=== PATIENT | male | born 1950 | race Caucasian/White ===

== ENCOUNTER 2016-08-02 13:46 | Inpatient (IN) | payer OTHER, MEDICAID ==
--- NOTE | 2016-08-02 14:05 | EDPHY ---
[id number] Current Tetanus/Diphtheria Vaccine: Yes Current Tetanus Diphtheria and Acellular Pertussis (TDAP): Unsure Tetanus Vaccine Date: 10/2010 - Medical/Surgical History Hx Asthma: Yes Hx Chronic Respiratory Disease: Yes Hx Diabetes: No Hx Cardiac Disease: Yes Hx Renal Disease: No Hx Cirrhosis: No Hx Alcoholism: No Hx HIV/AIDS: No Hx Splenectomy or Spleen Trauma: No Other PMH: Severe anxiety, chronic pain, CAD, Asthma, left foot deformity/fx from 10 yrs ago, [place] w/stents, kidney problems - Social History Smoking Status: Never smoked Time Seen by Provider: 08/02/16 13:55 HPI/ROS: CHIEF COMPLAINT: intentional overdose HISTORY OF PRESENT ILLNESS: 66-year-old male history of depression, anxiety disorder, arrives on an M1 hold after he intentionally consumed 23 Klonopin tablets throughout the day yesterday and into the evening the evening at 6:00 p.m. which he initially stated to law enforcement was as a suicide attempt and informed the nurse in emergency department this was an attempt to get some sleep. He called 911 this morning stating that he was experiencing acute benzodiazepine withdrawal. He is complaining of acute anxiety. He denies self- injury. Denies suicidal or homicidal ideation when I interview him. Denies hallucination. Denies: Ingestion. Denies chest pain, dyspnea, back pain, abdominal pain, headache. REVIEW OF SYSTEMS: A ten point review of systems was performed and is negative with the exception of the items mentioned in the HPI PAST MEDICAL & SURGICAL HISTORY: Depression. Generalized anxiety disorder.Insomnia SOCIAL HISTORY:denies alcohol use. PHYSICAL EXAM (Prior to examination, patient consented to physical exam, hands were washed and my usual and customary physical exam procedures followed) 1) GENERAL: Poorly kept,, well-nourished, alert and oriented. Appears to be in no acute distress. 2) HEAD: Normocephalic, atraumatic 3) HEENT: Pupils equal, round, reactive to light bilaterally. Sclera anicteric. Nasopharynx, oropharynx, clear, no lesions. Ears bilaterally with normal tympanic membranes. 4) NECK: Full range of motion, no meningeal signs. 5) LUNGS: Clear auscultation bilaterally, no wheezes, no rhonchi, no retractions. 6) HEART: Regular rate and rhythm, no murmur, no heave, no gallop. 7) ABDOMEN: No guarding, no rebound, no focal tenderness, negative McBurney's, negative Eaton's, negative Rovsing's, negative peritoneal sign, 8) MUSCULOSKELETAL: Moving all extremities, no focal areas of tenderness, no obvious trauma. No peripheral edema or discoloration. 9) BACK: No CVA tenderness, no midline vertebral tenderness, no fluctuance, no step-off, no obvious trauma, no visual or palpable abnormality. 10) SKIN: No rash, no petechiae. 11) Psychiatric: Patient is oriented X 3, there is no agitation. DIFFERENTIAL DIAGNOSIS: in no particular including but not limited to intentional overdose, suicide attempt, homicidal ideation, suicidal ideation, depression, acute anxiety (Carroll,Coco Niki) Constitutional: Initial Vital Signs Temperature (C) 37.0 C 08/02/16 13:50 Heart Rate 99 08/02/16 13:50 Respiratory Rate 18 08/02/16 13:50 Blood Pressure 116/95 H 08/02/16 13:50 O2 Sat (%) 92 08/02/16 13:50 O2 Delivery Mode Room Air Allergies/Adverse Reactions: Sulfa (Sulfonamide Antibiotics) Allergy (Intermediate, Verified 02/18/16 03:13) Vomiting Home Medications: Medication Instructions Recorded Aspirin EC [Aspirin EC 81 mg (*)] 81 mg PO DAILY #0 tab 02/05/16 QUEtiapine FUMARATE [Seroquel 100 250 mg PO HS #75 tab 02/05/16 mg (*)] QUEtiapine FUMARATE [Seroquel 25 25 mg PO BID@08,13 PRN #60 tab 02/05/16 mg (*)] clonazePAM [klonoPIN (*)] 1 mg PO BID #30 tab 02/05/16 traZODone [traZODONE 100MG (*)] 400 mg PO HS #60 tab 02/05/16 Ibuprofen [Motrin (*)] 600 mg PO Q6 PRN 08/03/16 oxyCODONE/APAP 5/325 [Percocet 2 tab PO BID 08/03/16 5/325 (*)] Medical Decision Making - Diagnostics EKG Interpretation: EKG: Complete interpretation has been separately recorded in the [facility] archive. Summary impression: Sinus rhythm (LeannMadhav J) ED Course/Re-evaluation: 5 pm: Re-evaluation with serial exams. He has received IV hydration, Ativan while in the ER. He remains calm and cooperative. Care turned over to Dr Hannah at 5:00 p.m.. Mental health evaluation pending. (Coco Hodges) I took over care of this patient at 5:00 p.m.. This patient is on an M1 hold for depression and suicidal ideation. He is to be evaluated shortly. 7:08 p.m., patient seen and evaluated by Behavioral Health, [facility], patient to be admitted. Likely this admission for admission is [address] 11:50 p.m., patient awaiting admission for mental health management. Care turned over to Dr. Kimo Celeste at this time. (Mj Hannah) - Data Points Laboratory Results: Laboratory Results 08/02/16 14:30 08/02/16 14:30 Medications Given: Discontinued Medications Clonazepam (Klonopin) 1 mg PO ONCE ONE Stop: 08/03/16 09:01 Last Admin: 08/03/16 09:06 Dose: 1 mg Sodium Chloride (Ns) 1,000 mls @ 0 mls/hr IV ONCE ONE PRN Reason: Wide Open Stop: 08/02/16 14:41 Last Admin: 08/02/16 14:42 Dose: 1,000 mls Lorazepam (Ativan Injection) 1 mg IVP EDNOW ONE Stop: 08/02/16 14:33 Last Admin: 08/02/16 14:47 Dose: 1 mg Lorazepam (Ativan) 1 mg PO EDNOW ONE Stop: 08/03/16 01:38 Last Admin: 08/03/16 02:18 Dose: 1 mg Oxycodone/Acetaminophen (Percocet 5/325) 1 tab PO EDNOW ONE Stop: 08/02/16 20:19 Last Admin: 08/02/16 20:30 Dose: 1 tab Quetiapine Fumarate (Seroquel) 200 mg PO EDNOW ONE Stop: 08/02/16 23:01 Last Admin: 08/03/16 02:18 Dose: 200 mg Quetiapine Fumarate (Seroquel) 25 mg PO ONCE ONE Stop: 08/03/16 09:31 Last Admin: 08/03/16 09:06 Dose: 25 mg Departure - Departure Disposition: [facility] IP Clinical Impression: Intentional overdose of drug in tablet form Depression Qualifiers: Depression Type: major depressive disorder Major depression recurrence: recurrent Active/Remission status: currently active Major depression episode severity: severe Psychotic features: without psychotic features Qualifier Code: (F33.2) Major depressive disorder, recurrent severe without psychotic features
--- NOTE | 2016-08-02 14:17 | CPEKG ---
Heart Rate: 93 RR Interval: 645 P-R Interval: 152 QRSD Interval: 80 QT Interval: 344 QTC Interval: 428 P Woodward: 77 QRS Woodward: -2 T Wave Woodward: 69 EKG Severity - NORMAL ECG - EKG Impression: SINUS RHYTHM Electronically Signed By: Madhav Noriega 02-Aug-2016 16:01:49
[2016-08-02] MEDS ORDERED: LORazepam 2 MG/ML INJ IVP ONE (14:32)
[2016-08-02] MEDS ORDERED: NS 1,000 ML IV ONE (14:40)
[2016-08-02 14:41] LABS: % IMMATURE GRANULYOCYTES 0.4 % (0.0-1.1); ABSOLUTE IMMATURE GRANULOCYTES 0.03 10^3/uL (0.00-0.10); ADD DIFF? NO; ADD MORPH? NO; ADD SCAN? NO; ATYPICAL LYMPHOCYTE FLAG 0 (0-99); FRAGMENT RBC FLAG 0 (0-99); HEMATOCRIT 46.8 % (40.0-51.0); HEMOGLOBIN 16.3 g/dL (13.7-17.5); LEFT SHIFT FLG 0 (0-99); LIPEMIA HEMOLYSIS FLAG 90 (0-99); MEAN CELL HEMOGLOBIN 31.4 pg (27.9-34.1); MEAN CELL HEMOGLOBIN CONCENTR. 34.8 g/dL (32.4-36.7); MEAN CELL VOLUME 90.2 fL (81.5-99.8); MEAN PLATELET VOLUME 8.9 fL (8.7-11.7); PLATELET CLUMPS FLAG 0 (0-99); PLATELET COUNT 172 10^3/uL (150-400); RED BLOOD CELL COUNT 5.19 10^6/uL (4.40-6.38); RED CELL DISTRIBUTION WIDTH 12.8 % (11.5-15.2)
[2016-08-02 14:54] LABS: ANION GAP 12 mEq/L (8-16); CALCIUM 9.2 mg/dL (8.5-10.4); CARBON DIOXIDE 22 mEq/l (22-31); CHLORIDE 107 mEq/L (97-110); CREATININE 1.7 mg/dL (0.7-1.3); ETHANOL SERUM < 10 mg/dL (0-10); GLOMERULAR FILTRATION RATE 40; GLUCOSE 102 mg/dL (70-100); POTASSIUM 4.5 mEq/L (3.5-5.2); SALICYLATE < 1.0 mg/dL (2.0-20.0); SODIUM 141 mEq/L (134-144); SPECIMEN HEMOLYSIS 112
[2016-08-02] MEDS ORDERED: OXYCODONE/APAP 5/325 TAB PO ONE (20:18)
[2016-08-02] MEDS ORDERED: QUEtiapine FUMARATE 200 MG TAB PO ONE (23:00)
[2016-08-03] MEDS ORDERED: LORazepam 1 MG TAB PO ONE (01:37)
[2016-08-03] MEDS ORDERED: QUEtiapine FUMARATE 200 MG TAB ONE (02:16)
[2016-08-03 02:36] LABS: ALANINE AMINOTRANSFERASE 15 IU/L (21-72); ALBUMIN 3.9 g/dL (3.5-5.0); ALKALINE PHOSPHATASE 115 IU/L (38-126); ASPARTATE AMINOTRANSFERASE 32 IU/L (17-59); BILIRUBIN,TOTAL 0.7 mg/dL (0.1-1.4); BILIRUBIN-CONJUGATED 0.5 mg/dL (0.0-0.5); BILIRUBIN-UNCONJUGATED 0.2 mg/dL (0.0-1.1); SALICYLATE < 1.0 mg/dL (2.0-20.0); TOTAL PROTEIN 6.9 g/dL (6.3-8.2)
[2016-08-03] MEDS ORDERED: traZODone 50 MG TAB PO PRN (03:11)
[2016-08-03] MEDS ORDERED: ACETAMINOPHEN 325 MG TAB PO PRN (03:11)
[2016-08-03] MEDS ORDERED: MAG HYDROX/AL HYDROX/SIMETH 30 ML UDCUP PO PRN (03:12)
[2016-08-03] MEDS ORDERED: MAGNESIUM HYDROXIDE 30 ML UDCUP PO PRN (03:12)
[2016-08-03] MEDS ORDERED: clonazePAM 1 MG TAB PO ONE (09:00)
[2016-08-03] MEDS ORDERED: SERTRALINE HCL 25 MG TAB PO ONE (09:00)
[2016-08-03] MEDS: ASPIRIN 81 MG CHEWABLE TAB PO SCH (09:06)
[2016-08-03] MEDS ORDERED: QUEtiapine FUMARATE 25 MG TAB PO ONE (09:30)
[2016-08-03] MEDS: OXYCODONE/APAP 5/325 TAB PO SCH ×2 (10:51→19:03)
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
--- NOTE | 2016-08-03 13:17 | BCON ---
[f rep st] BEHAVIORAL HEALTH CONSULTATION INTERNAL MEDICINE CONSULTATION. DATE OF CONSULTATION: 08/03/2016 REFERRING PHYSICIAN: Mally Kennedy MD REASON FOR REFERRAL: Medical clearance for inpatient behavioral health stay. HISTORY OF PRESENT ILLNESS: The patient was brought to the emergency room on an M1 hold. He reported intentionally consuming 23 Klonopin tablets through the day the day before yesterday. Initially, he reported to the police that it was a suicide attempt. Subsequently, he said he was simply trying to sleep. In the emergency department, he was also concerned about benzodiazepine withdrawal. He was evaluated by the mental health team and admitted for further psychiatric care. He currently is without any acute complaints. He says he feels fine. PAST MEDICAL HISTORY: 1. Coronary artery disease. 2. Hypertension. 3. Chronic kidney disease. 4. Valgus left ankle deformity status post injury 13 years ago. 5. Chronic mental health issues. PAST SURGICAL HISTORY: He has had a coronary stenting of 1 artery. MEDICATIONS PRIOR TO ADMISSION: 1. Oxycodone/acetaminophen 5/325 two tablets p.o. b.i.d. 2. Ibuprofen 600 mg p.o. q.6 hours p.r.n. 3. Aspirin 81 mg p.o. daily. 4. Trazodone 400 mg p.o. q.h.s. 5. Clonazepam 1 mg p.o. twice daily. 6. Quetiapine 25 mg twice daily at 0800 and 1300 p.r.n. and 250 mg q.h.s. He also reports that he was on a blood pressure medication. He thinks it started with a T but he does not remember the name of the medication. ALLERGIES: He has an allergy to sulfa antibiotics. SOCIAL HISTORY: He lives by himself. He gets disability income. He worked in the past as an lodging manager. He is a nonsmoker, and he denies alcohol use. FAMILY HISTORY: His son committed suicide. REVIEW OF SYSTEMS: He denies fever, chills, weight change, cough, dyspnea, chest pain, nausea, vomiting, constipation, diarrhea, dysuria, urinary frequency , sweats, tremors. Other than his left ankle, he denies joint pain or joint swelling. He has considerable pain from the ankle for which he uses oxycodone/ acetaminophen combination. Otherwise, a 10-point review of systems is negative. PHYSICAL EXAM: VITAL SIGNS: Blood pressure at 3 o'clock this morning was 171/ 80. His pulse was 76. Respiratory rate 16. Oxygen saturation 93% on room air. Temperature was 36.2 degrees centigrade. His weight is 83.9 kg for a body mass index of 28.1. GENERAL: This is an overweight man, somewhat unkempt. Appears his chronologic age. Cooperative and in no acute distress. HEENT: Extraocular movements are intact. Pupils are equal, round, and reactive to light and accommodation. Mucous membranes are moist. Dentition is in good condition. NECK: Supple. HEART: There is a regular rate and rhythm with no murmurs, rubs, or gallops. LUNGS: Clear to auscultation bilaterally. ABDOMEN: Soft, nontender, nondistended, with normoactive bowel sounds. EXTREMITIES: There is no cyanosis, clubbing, or edema. NEUROLOGIC: He is alert and oriented x3. He appears to have some short-term memory loss. Cranial nerves 2-12 are grossly intact. There is no focal weakness. Sensation is intact to light touch. Gait is antalgic with valgus left ankle deformity. LABORATORY STUDIES: Drawn in the emergency department: CBC was entirely within normal limits. Serum chemistry revealed an elevated creatinine of 1.7 with an estimated GFR of 40. His BUN was 24. His glucose was mildly elevated at 102, but this was likely not fasting. Otherwise, electrolytes were within normal limits. Liver function tests were overall within normal limits except for a low ALT of 15. Toxicology screen in the serum was negative for salicylates, acetaminophen, or ethyl alcohol, and in the urine, it was non- negative for opiates but otherwise negative for substances of abuse including negative for benzodiazepines. ASSESSMENT AND RECOMMENDATIONS: 1. Possible benzodiazepine overdose, curious that he has no benzodiazepines in the urine. One would expect that they would be present, especially as his overdose was on clonazepam, which is a long-acting medication. So it is possible that he did not actually take excessive clonazepam. 2. Chronic kidney disease with apparent worsening of his creatinine and GFR. Baseline creatinine was 1.3 and yesterday in the emergency department, it was 1.7. In the past when he has had dehydration, he has had much worse renal function with a creatinine as high as 8. However, his baseline creatinine is approximately 1.3. I will repeat a BMP in the morning. 3. Hypertension. Per previous records, he was taking lisinopril. Continue to monitor his blood pressure and if it is elevated, I will restart lisinopril with monitoring of his renal function. 4. Obesity. Consider avoiding medications which could worsen weight gain. 5. Coronary artery disease status post stenting. He is appropriately treated with aspirin. 6. Left ankle valgus deformity. He reports that he declined surgery per Dr. Moffett as he would have preferred to have stayed in the hospital for pain control after surgery and Dr. Moffett was not willing to arrange this for him. Advised continuing pain medication. I see no medical contraindications to the patient's continued stay in the inpatient behavioral health unit or to any psychiatric medications or procedures with a copy of impaired renal function to be taken into consideration with medication dosing. Thank you very much for including me in the care of this patient, and please do not hesitate to contact me or the hospitalist service should there be need for further medical evaluation. /[id number]/MODL MTDD
[2016-08-03] MEDS: IBUPROFEN 600 MG TAB PO PRN (17:03)
[2016-08-03] MEDS: QUEtiapine FUMARATE 25 MG TAB PO SCH (19:02)
[2016-08-03] MEDS: QUEtiapine FUMARATE 100 MG TAB PO SCH (19:02)
[2016-08-03] MEDS: clonazePAM 1 MG TAB PO SCH (19:03)
[2016-08-03] MEDS ORDERED: QUEtiapine FUMARATE 100 MG TAB PO SCH (21:00)
[2016-08-03] MEDS ORDERED: traZODone 100 MG TAB PO SCH (21:00)
[2016-08-04] MEDS: IBUPROFEN 600 MG TAB PO PRN (05:31)
[2016-08-04] MEDS: OXYCODONE/APAP 5/325 TAB PO SCH (08:02)
[2016-08-04] MEDS: clonazePAM 1 MG TAB PO SCH (08:05)
[2016-08-04] MEDS: QUEtiapine FUMARATE 25 MG TAB PO SCH ×2 (08:06→17:59)
[2016-08-04] MEDS: ASPIRIN 81 MG CHEWABLE TAB PO SCH (08:06)
[2016-08-04] MEDS ORDERED: clonazePAM 1 MG TAB PO ONE (11:08)
--- NOTE | 2016-08-04 11:15 | SOAPPROG ---
UZMAAP Progress Note Assessment/Plan: Assessment: Pt is a 66 y/O C male who was admitted to [facility] before after a med OD but on an M1 after he OD'd on Klonopin and Seroquel due to not being able to sleep. Plan:Pt reports having a panic attack or benzo withdrawal in the middle of the night-requests Klonopin be changed to prn requests pain meds be prn Trazedone was not D/C'd-will make it prn 08/04/16 11:11 Subjective: Pt lying in bed-states he does not feel well-dizzy and anxious Objective: Vital Signs Temp Pulse Resp BP Pulse Ox 36.7 C 102 H 12 134/82 H 93 08/04/16 08:50 08/04/16 10:52 08/04/16 10:52 08/04/16 10:52 08/04/16 10:52 Pt is A+O x4 mood-"not good" affect-appr denies S/H I no A/V H thoughts-logical speech-wnl ate breakfast poor sleep due to panic attack no sx psychosis/vignesh conc/memory-fair no TRA I/J-fair - Time Spent With Patient Time Spent With Patient: 25' - Pending Discharge Pending Discharge Within 24 Hours: No Pending Discharge Within 48 Hours: No ICD10 Worksheet Patient Problems: Problems Problem Status Diagnosed Depression Acute Intentional overdose of drug in tablet form Acute Anxiety Acute Atrial fibrillation Acute Benzodiazepine withdrawal Acute Pneumonia Acute Suicide attempt by drug ingestion Acute
[2016-08-04 12:07] LABS: ANION GAP 17 mEq/L (8-16); CALCIUM 9.4 mg/dL (8.5-10.4); CARBON DIOXIDE 21 mEq/l (22-31); CHLORIDE 104 mEq/L (97-110); CREATININE 1.5 mg/dL (0.7-1.3); GLOMERULAR FILTRATION RATE 47; GLUCOSE 84 mg/dL (70-100); POTASSIUM 4.3 mEq/L (3.5-5.2); SODIUM 142 mEq/L (134-144)
[2016-08-04] MEDS: OXYCODONE/APAP 5/325 TAB PO PRN ×2 (13:38→21:04)
[2016-08-04] MEDS: clonazePAM 1 MG TAB PO PRN (17:50)
[2016-08-04] MEDS: QUEtiapine FUMARATE 100 MG TAB PO SCH (18:00)
[2016-08-04] MEDS: traZODone 100 MG TAB PO PRN (18:00)
[2016-08-05] MEDS: clonazePAM 1 MG TAB PO PRN ×3 (04:03→18:00)
[2016-08-05] MEDS: OXYCODONE/APAP 5/325 TAB PO PRN ×4 (04:03→22:21)
[2016-08-05] MEDS: ASPIRIN 81 MG CHEWABLE TAB PO SCH (08:28)
[2016-08-05] MEDS: QUEtiapine FUMARATE 25 MG TAB PO SCH ×2 (08:28→18:02)
[2016-08-05] MEDS: LISINOPRIL 10 MG TAB PO SCH (08:29)
--- NOTE | 2016-08-05 11:49 | SOAPPROG ---
SOAP Progress Note Assessment/Plan: Assessment: Pt is a 66 y/O C male who was admitted to before after a med OD but on an M1 after he OD'd on Klonopin and Seroquel due to not being able to sleep. 08/05/16-[facility] is concerned about pt as he broke through his lock box and took an OD-he had a previous OD in January. They are asking we keep him through the weekend so they can find another lock box so he can be safe as he is very impulsive when he cannot sleep. Plan:Pt reports having a panic attack or benzo withdrawal in the middle of the night-requests Klonopin be changed to prn Pt agrees to sign in vol Trazedone is prn 08/05/16 11:45 Subjective: Pt states he is angry at [facility] but when met with MD mood was bright Objective: Vital Signs Temp Pulse Resp BP Pulse Ox 36.6 C 89 14 140/73 H 92 08/05/16 07:42 08/05/16 07:42 08/05/16 07:42 08/05/16 08:29 08/05/16 07:42 Laboratory Results 08/04/16 04:03 Pt is A+O x4 walks with walker-pt has a good sense of humor mood-bright affect-appr thoughts-logical, coherent no A/V H no S/H I speech-wnl sleep-fair good appetite and energy level denies feeling depressed no sx psychosis/vignesh memory-intact no TRA I/J-fair - Time Spent With Patient Time Spent With Patient: 25' - Pending Discharge Pending Discharge Within 24 Hours: No Pending Discharge Within 48 Hours: No ICD10 Worksheet Patient Problems: Problems Problem Status Diagnosed Depression Acute Intentional overdose of drug in tablet form Acute Anxiety Acute Atrial fibrillation Acute Benzodiazepine withdrawal Acute Pneumonia Acute Suicide attempt by drug ingestion Acute
--- NOTE | 2016-08-05 14:53 | SOAPPROG ---
SOAP Progress Note Assessment/Plan: Assessment: * Fissure in skin of heel. Nurse has applied silvasorb and adaptic, which should be helpful. Advise unweighting foot with most mobility by wheelchair to allow healing. * No S/Sx cellulitis so will not Rx antibiotics. * Dressing change QD or when soiled or saturated. Observe for healing vs S/Sx infection. 08/05/16 14:51 Subjective: ATSP re bleeding left heel. Patient reports when this happened before his PCP gave him antibiotics. He reports skin over L heel is cracked and painful. Objective: Vital Signs Temp Pulse Resp BP Pulse Ox 36.6 C 89 14 140/73 H 92 08/05/16 07:42 08/05/16 07:42 08/05/16 07:42 08/05/16 08:29 08/05/16 07:42 Laboratory Results 08/04/16 04:03 Physical Exam - Physical Exam General Appearance: WD/WN, alert, no apparent distress Respiratory: No respiratory distress, No accessory muscle use Skin: normal color, warm/dry, other (L plantar and posterior heel with approx 2.5 cm linear fissure with scant blood.) Extremities: other (Valgus deformity) ICD10 Worksheet Patient Problems: Problems Problem Status Diagnosed Depression Acute Intentional overdose of drug in tablet form Acute Anxiety Acute Atrial fibrillation Acute Benzodiazepine withdrawal Acute Pneumonia Acute Suicide attempt by drug ingestion Acute
[2016-08-05] MEDS: QUEtiapine FUMARATE 100 MG TAB PO SCH (18:02)
[2016-08-05] MEDS: traZODone 100 MG TAB PO PRN (18:03)
[2016-08-06] MEDS: OXYCODONE/APAP 5/325 TAB PO PRN ×3 (02:39→18:01)
[2016-08-06] MEDS: clonazePAM 1 MG TAB PO PRN ×3 (02:43→18:01)
[2016-08-06] MEDS: ASPIRIN 81 MG CHEWABLE TAB PO SCH ×2 (09:21→09:22)
[2016-08-06] MEDS: LISINOPRIL 10 MG TAB PO SCH (09:24)
[2016-08-06] MEDS: QUEtiapine FUMARATE 25 MG TAB PO SCH ×2 (09:24→18:01)
--- NOTE | 2016-08-06 13:21 | SOAPPROG ---
SOAP Progress Note Assessment/Plan: Assessment: 66yo (2011) CM admitted after OD on Klonopin/Seroquel after reportedly not being able to sleep. Does have hx of prior OD, most recently in January. M[facility] client. MHP locating another lock box due to his hx of impulsivity jody when unable to sleep. 08/06/16 13:21 reviewed recent notes, t/w staff and interviewed pt. briefly. per nsg staff, slept 8hr. up once. less isolative this am and attended groups. denied SI. Not compliant with recommendation to limit/avoid weight-bearing L foot and use wheelchair. mood "depressed being here...I miss my friends" at assisted living. Reiterates no SI this pm. Cooperative, good eye contact, affect nml range, denied ah/vh and no psychotic sxs noted. denied med s/e. hoping for d/c early in week. denied snoring or apnea that he is aware of affecting sleep. Plan: continue meds as ordered. denied med s/e. Objective: Vital Signs Temp Pulse Resp BP Pulse Ox 36.4 C 71 16 131/72 H 92 08/06/16 07:53 08/06/16 07:53 08/06/16 07:53 08/06/16 07:53 08/06/16 07:53 Laboratory Results 08/04/16 04:03 Medications Generic Name Dose Route Start Last Admin Trade Name Freq PRN Reason Stop Dose Admin Ibuprofen 600 mg 08/03/16 09:31 08/04/16 05:31 Motrin PO 01/30/17 09:30 600 mg Q6HRS PRN Pain, Inflammatory Clonazepam 1 mg 08/04/16 11:10 08/06/16 18:01 Klonopin PO 01/31/17 15:59 1 mg TID PRN Anxiety Aspirin 81 mg 08/03/16 09:00 08/06/16 09:22 Aspirin PO 01/30/17 08:59 81 mg DAILY BRADEN Lisinopril 10 mg 08/05/16 09:00 08/06/16 09:24 Zestril PO 02/01/17 08:59 10 mg DAILY BRADEN Magnesium Hydroxide 30 ml 08/03/16 03:12 Milk Of Magnesia PO 01/30/17 03:11 DAILY PRN Constipation Oxycodone/Acetaminophen 2 tab 08/05/16 11:00 08/06/16 18:01 Percocet 5/325 PO 08/14/16 11:10 2 tab TID PRN Pain, Moderate Quetiapine Fumarate 25 mg 08/03/16 21:00 08/06/16 18:01 Seroquel PO 01/30/17 20:59 25 mg BID BRADEN Quetiapine Fumarate 300 mg 08/03/16 21:00 08/06/16 18:01 Seroquel PO 01/30/17 20:59 300 mg HS BRADEN Trazodone HCl 400 mg 08/04/16 11:10 08/06/16 18:00 Trazodone PO 01/30/17 20:59 400 mg HS PRN Sleep/Insomnia - Time Spent With Patient Time Spent With Patient: 20 min - Pending Discharge Pending Discharge Within 24 Hours: No Pending Discharge Within 48 Hours: No ICD10 Worksheet Patient Problems: Problems Problem Status Diagnosed Depression Acute Intentional overdose of drug in tablet form Acute Anxiety Acute Atrial fibrillation Acute Benzodiazepine withdrawal Acute Pneumonia Acute Suicide attempt by drug ingestion Acute
[2016-08-06] MEDS: traZODone 100 MG TAB PO PRN (18:00)
[2016-08-06] MEDS: QUEtiapine FUMARATE 100 MG TAB PO SCH (18:01)
[2016-08-07] MEDS: OXYCODONE/APAP 5/325 TAB PO PRN ×4 (02:16→18:11)
[2016-08-07] MEDS: clonazePAM 1 MG TAB PO PRN ×2 (02:18→18:11)
--- NOTE | 2016-08-07 07:57 | SOAPPROG ---
SOAP Progress Note Assessment/Plan: Assessment: 66yo (2011) CM admitted after OD on Klonopin/Seroquel after reportedly not being able to sleep. Does have hx of prior OD, most recently in January. MHP client. MHP locating another lock box due to his hx of impulsivity jody when unable to sleep. 08/06/16 13:21 reviewed recent notes, t/w staff and interviewed pt. briefly. per nsg staff, slept 8hr. up once. less isolative this am and attended groups. denied SI. Not compliant with recommendation to limit/avoid weight-bearing L foot and use wheelchair. mood "depressed being here...I miss my friends" at assisted living. Reiterates no SI this pm. Cooperative, good eye contact, affect nml range, denied ah/vh and no psychotic sxs noted. denied med s/e. hoping for d/c early in week. denied snoring or apnea that he is aware of affecting sleep. Plan: continue meds as ordered. denied med s/e. 08/07/16 11:07 slept 10hrs. attending groups. reportedly "forgot" to not use w/c and not to take off his wound dressing. doing "fine", good eye contact, full range affect, mood "good, ready to go home ", thoughts linear/goal-directed, denied AH/VH or any SI. states meds are doing fine for him, sleeping well "because I'm getting 3mg klonopin" which is what he feels he needs. discussed briefly BZDs, sleep, tolerance etc denied physical c/o other than chronic foot pain, and denied med s/e. Plan: cont current meds anticipated d/c this week Objective: Vital Signs Temp Pulse Resp BP Pulse Ox 36.3 C 82 16 140/87 H 94 08/07/16 02:53 08/07/16 02:53 08/07/16 02:53 08/07/16 02:53 08/07/16 02:53 Laboratory Results 08/04/16 04:03 - Time Spent With Patient Time Spent With Patient: 20 min - Pending Discharge Pending Discharge Within 24 Hours: No Pending Discharge Within 48 Hours: Yes Pending Discharge Date: 08/09/16 Pending Discharge Time: 11:00 ICD10 Worksheet Patient Problems: Problems Problem Status Diagnosed Depression Acute Intentional overdose of drug in tablet form Acute Anxiety Acute Atrial fibrillation Acute Benzodiazepine withdrawal Acute Pneumonia Acute Suicide attempt by drug ingestion Acute
[2016-08-07] MEDS: LISINOPRIL 10 MG TAB PO SCH (08:07)
[2016-08-07] MEDS: QUEtiapine FUMARATE 25 MG TAB PO SCH ×2 (08:07→18:11)
[2016-08-07] MEDS: ASPIRIN 81 MG CHEWABLE TAB PO SCH (08:07)
--- NOTE | 2016-08-07 11:18 | SOAPPROG ---
SOAP Progress Note Assessment/Plan: Assessment: 66yo (2011) CM admitted after OD on Klonopin/Seroquel after reportedly not being able to sleep. Does have hx of prior OD, most recently in January. MHP client. MHP locating another lock box due to his hx of impulsivity jody when unable to sleep. several losses in last few yrs. 08/06/16 13:21 reviewed recent notes, t/w staff and interviewed pt. briefly. per nsg staff, slept 8hr. up once. less isolative this am and attended groups. denied SI. Not compliant with recommendation to limit/avoid weight-bearing L foot and use wheelchair. mood "depressed being here...I miss my friends" at assisted living. Reiterates no SI this pm. Cooperative, good eye contact, affect nml range, denied ah/vh and no psychotic sxs noted. denied med s/e. hoping for d/c early in week. denied snoring or apnea that he is aware of affecting sleep. Plan: continue meds as ordered. denied med s/e. 08/07/16 11:14 slept 10hr. "forgets" to keep wound dressing on, and to use wheelchair to avoid weight bearing on L foot Objective: Vital Signs Temp Pulse Resp BP Pulse Ox 36.6 C 77 14 135/66 H 93 08/07/16 08:10 08/07/16 08:10 08/07/16 08:10 08/07/16 08:10 08/07/16 08:10 Laboratory Results 08/04/16 04:03 - Pending Discharge Pending Discharge Within 24 Hours: No Pending Discharge Within 48 Hours: No ICD10 Worksheet Patient Problems: Problems Problem Status Diagnosed Depression Acute Intentional overdose of drug in tablet form Acute Anxiety Acute Atrial fibrillation Acute Benzodiazepine withdrawal Acute Pneumonia Acute Suicide attempt by drug ingestion Acute
[2016-08-07] MEDS: QUEtiapine FUMARATE 100 MG TAB PO SCH (18:11)
[2016-08-07] MEDS: traZODone 100 MG TAB PO PRN (18:11)
[2016-08-08] MEDS ORDERED: QUEtiapine FUMARATE 25 MG TAB PO SCH
[2016-08-08] MEDS ORDERED: LISINOPRIL 10 MG TAB PO SCH
[2016-08-08] MEDS ORDERED: OXYCODONE/APAP 5/325 TAB PO SCH
[2016-08-08] MEDS ORDERED: traZODone 100 MG TAB PO SCH
[2016-08-08] MEDS ORDERED: clonazePAM 1 MG TAB PO SCH
[2016-08-08] MEDS ORDERED: QUEtiapine FUMARATE 300 MG TAB PO SCH
[2016-08-08] MEDS: OXYCODONE/APAP 5/325 TAB PO PRN ×3 (00:23→13:55)
[2016-08-08] MEDS: clonazePAM 1 MG TAB PO PRN ×2 (00:24→04:09)
[2016-08-08 00:26] VITALS: RESP 16
[2016-08-08] MEDS: LISINOPRIL 10 MG TAB PO SCH (08:40)
[2016-08-08] MEDS: ASPIRIN 81 MG CHEWABLE TAB PO SCH (08:41)
[2016-08-08] MEDS: QUEtiapine FUMARATE 25 MG TAB PO SCH (08:42)
[2016-08-08 11:03] VITALS: BP 152/71; PULSE 88; TEMP 97.2; O2SAT 93
--- NOTE | 2016-08-08 22:12 | BDS ---
[ rep ] [facility] DISCHARGE SUMMARY CHIEF COMPLAINT: "I ate a lot of Klonopin. I was trying to sleep." HISTORY OF PRESENT ILLNESS: The patient is a 66-year-old, , male with a long history of psychiatric, illness including depression, anxiety, and chronic suicidality. The patient lives alone and also is in chronic pain due to a serious foot injury. The patient reports he took multiple Klonopin and Seroquel over a period time prior to admission in order to sleep. He denies this was a suicide attempt. Reports he has had insomnia since age 18. He states he is currently on trazodone which does not help with sleep. States the insomnia is the only thing that is stressing him out right now and denies wanting to . The patient does not seem depressed at this time. He arrived on an hold that read, "Complainant responded in reference to a male wanting to commit suicide. On arrival, the complainant contacted the respondent who admitted to consuming several prescription medications. The respondent stated he wanted to and ate approximately 24 Klonopin and 10 Seroquel pills. The respondent was transferred to [facility] and was put on an emergency mental illness hold. " The patient states he did not state to the police he wanted to . He states that sometimes he feels like life is not worth living due to chronic pain and insomnia and did state this to the police. ADMISSION DIAGNOSES: 1. Major depressive disorder, recurrent, without psychosis. 2. Generalized anxiety disorder with chronic insomnia. 3. Coronary artery disease. 4. History of myocardial infarction in 2008. 5. Hypertension. 6. Obesity. 7. Chronic pain due to foot injury. 8. Orthopedic issues with right knee and ankle. 9. Chronic renal disease. 10. [place] [facility] on admission was 20. HOSPITAL COURSE: The patient's trazodone was made p.r.n. and then Seroquel was increased to 300 mg to help with sleep and his daytime dose was continued at 25mg BID. The patient was also put on Percocet 10 mg b.i.d. for chronic pain which was increased to t.i.d. for pain. He denied being suicidal throughout his hospitalization. He was put back on his Xanax p.r.n. He reported that he had he has chronic middle insomnia. However, staff reported that he was sleeping well. He was eating well. The patient did not seem depressed. He was able to joke around and had a good sense of humor. [facility] wanted to keep him through the weekend to restore his lock box, which the patient had broken into. However, they did not do this. The patient signed in voluntarily and requested discharge the day of discharge. He needed a 4-day supply of his medications as his insurance would not pay for another 4 days. These were given to him by the pharmacist. He contract for safety and stated he would not take any medications in overdose, as he was not suicidal, and did not want to come back into the hospital. The patient signed in voluntarily when M1 . LABORATORIES: CBC was within normal limits. Chem panel was normal. Creatinine was 1.7 on 08/02/2016 and 1.5 on 08/04/2016. BUN was normal. GFR was normal. Glucose was normal at 87 on 08/04/2016. Urine tox was positive for opiates. DISCHARGE MENTAL STATUS: Patient is alert and oriented x4. Mood is euthymic. Affect is appropriate. Thoughts logical and coherent. The patient's appetite and energy level were within normal limits. Chronic insomnia, but is sleeping well with taking Klonopin in the middle of the night. No suicidal or homicidal ideation. No auditory or visual hallucinations. Speech: Normal rate and rhythm. Fund of knowledge, IQ, concentration, and memory are intact. No symptoms of psychosis or vignesh. Insight and judgment are fair. DISCHARGE DIAGNOSES: Same as above. Global Assessment of Functioning on admission is 60. DISCHARGE MEDICATIONS: Continue Motrin, continue aspirin, lisinopril 10 mg daily, Seroquel 25 mg b.i.d. and 300 mg at q.h.s., Klonopin 1 mg t.i.d. as needed, Percocet 2 tablets t.i.d. p.r.n., and trazodone 400 mg q.h.s. p.r.n. insomnia. DISCHARGE PLAN: 1. Patient will follow up with [facility]. 2. He has a home health aide who will visit him in the home in 2 days. 3. He has appointments set up. 4. [facility] was made aware of his discharge. 5. The pt did not want to go to [facility] and he returned home to his apartment 6. He was discharged voluntarily. DISPOSITION: The patient is medically and psychiatrically stable for discharge. /[id number]/MODL MTDD
== END 2016-08-08 14:30 | disposition home or self-care (01) | DRG 885 ==
LOC: EDUNIT# → BBEH 08-03 02:45
PROVIDERS: ADMIT Psychiatry & Neurology Behavioral Neurology & Neuropsychiatry; ATTEND Psychiatry & Neurology Behavioral Neurology & Neuropsychiatry
DX: F33.0 Major depressive disorder, recurrent, mild (principal); G47.00 Insomnia, unspecified; I25.10 Atherosclerotic heart disease of native coronary artery without angina pectoris; I12.9 Hypertensive chronic kidney disease with stage 1 through stage 4 chronic kidney disease, or unspecified chronic kidney disease; E66.9 Obesity, unspecified; G89.29 Other chronic pain; N18.9 Chronic kidney disease, unspecified; M21.962 Unspecified acquired deformity of left lower leg
CPT/HCPCS: 80305; 96374; G0480

== ENCOUNTER 2016-08-24 05:26 | Emergency (ER) | payer OTHER, MEDICAID ==
[2016-08-24] MEDS ORDERED: NS 1,000 ML IV ONE (05:35)
[2016-08-24] MEDS ORDERED: ONDANSETRON 4 MG/2 ML VIAL IVP ONE (05:35)
--- NOTE | 2016-08-24 05:40 | EDPHY ---
H & P Source: Patient, EMS - Personal History Tetanus Vaccine Date: 10/2010 - Medical/Surgical History Hx Asthma: Yes Hx Chronic Respiratory Disease: Yes Hx Diabetes: No Hx Cardiac Disease: Yes Hx Renal Disease: No Hx Cirrhosis: No Hx Alcoholism: No Hx HIV/AIDS: No Hx Splenectomy or Spleen Trauma: No Other PMH: Severe anxiety, chronic pain, CAD, Asthma, left foot deformity/fx from 10 yrs ago, ND w/stents, kidney problems - Social History Smoking Status: Never smoked HPI/ROS: HPI CHIEF COMPLAINT: Lightheadedness with nausea HISTORY OF PRESENT ILLNESS: This patient very pleasant 66-year-old male significant past medical history for AFib with RVR, coronary artery disease with stent, anxiety, depression, asthma, chronic pain, hypertension, hyperlipidemia, obesity, presents emergency room by EMS at 5:30 a.m. in the morning for sudden onset waves of nausea and lightheadedness. Patient tells me that was trying to go to sleep around 3:00 a.m. he developed sudden-onset diffuse nausea that acted like a wave throughout his abdomen and chest. Denies any chest pain or shortness of breath. Denies recent illness. He tells me had waves of nausea thought he was going to vomit but did not do so. He tells me he felt very lightheaded like he was going to pass out. He became concerned with the nausea and lightheadedness that he called 911. Upon arrival to the emergency room the patient is complaining of ongoing nausea and lightheadedness. He denies dizziness sensation denies room spinning, denies ringing in his ears, denies headache, chest pain or shortness of breath. Denies numbness or tingling or focal weakness. Denies recent illness. He tells me the last time he was in the hospital is for Klonopin overdose. Denies ingestion of any medications or draw any medications at this time. He tells me his medications are dispensed by [facility]. denies diarrhea, abdominal pain or chest pain. Past Medical History: AFib with RVR, coronary artery disease with stent, anxiety , depression, asthma, chronic pain, hypertension, hyperlipidemia, obesity Past Surgical History: coronary artery disease with stent Social History: lives independently in a apartment Family History: Noncontributory ROS REVIEW OF SYSTEMS: A comprehensive 10 point review of systems is otherwise negative aside from elements mentioned in the history of present illness. Exam Constitutional appears well nontoxic, triage nursing summary reviewed, vital signs reviewed, awake/alert. Eyes normal conjunctivae and sclera, EOMI, PERRLA. HENT normal inspection, atraumatic, moist mucus membranes, no epistaxis, neck supple/ no meningismus, no raccoon eyes. Respiratory clear to auscultation bilaterally, normal breath sounds, no respiratory distress, no wheezing. Cardiovascular rate normal, regular rhythm, no murmur, no edema, distal pulses normal. Gastrointestinal soft, non-tender, no rebound, no guarding, normal bowel sounds, no distension, no pulsatile mass. Genitourinary no CVA tenderness. Musculoskeletal no midline vertebral tenderness, full range of motion, no calf swelling, no tenderness of extremities, no meningismus, good pulses, neurovascularly intact. Skin pink, warm, & dry, no rash, skin atraumatic. Neurologic awake, alert and oriented x 3, AAOx3, moves all 4 extremities equally, motor intact, sensory intact, CN II-XII intact, normal cerebellar, normal vision, normal speech. Psychiatric normal mood/affect. Heme/Lymph/Immune no lymphadenopathy. Differential Diagnosis: includes but is not limited to in a particular order cardiac arrhythmia, acute coronary syndrome, dehydration, electrolyte abnormality, infection, gastritis, vertigo. Medical Decision Making: Patient had an IV established receive IV fluid bolus, IV Zofran for nausea, IV Ativan for anxiety. Obtain blood work, EKG, chest x- ray, CT scan of the head. His abdomen remained soft nontender, he is not having chest pain is not actively vomiting. Re-evaluation: EKG interpretation by me on record in [employer] system. Impression time of EKG is 5:36 a.m., this is sinus rhythm rate of 90. No acute ischemic changes visualized. Specifically no ST elevation, significant ST depression or significant T-wave abnormalities. 0657: re-examination at this time this patient is resting comfortably. He does complain of lightheadedness still. It has improved with IV fluids, IV Zofran and IV Ativan. Blood work is being pulled at this time. CT scan of the head without IV contrast The results of the study are negative for anything acute specifically no bleed or infarct. The study was read by Dr. Waller I viewed the images myself on the PACS system. ED x-ray chest one view: Cardiomegaly. Otherwise unremarkable. 0658: Patient signed over to Dr. Vieira at 7am Shift change for follow up labs , and Admit for ongoing nausea/dizziness. (Kimo Celeste) Constitutional: Initial Vital Signs Temperature (C) 36.7 C 08/24/16 05:26 Heart Rate 94 08/24/16 05:26 Respiratory Rate 14 08/24/16 05:26 Blood Pressure 178/92 H 08/24/16 05:26 O2 Sat (%) 92 08/24/16 05:26 O2 Delivery Mode Nasal Cannula O2 (L/minute) 2 Allergies/Adverse Reactions: Sulfa (Sulfonamide Antibiotics) Allergy (Intermediate, Verified 08/24/16 06:08) Vomiting Home Medications: Medication Instructions Recorded Aspirin EC [Aspirin EC 81 mg (*)] 81 mg PO DAILY #0 tab 02/05/16 Ibuprofen [Motrin (*)] 600 mg PO Q6 PRN 08/03/16 Aspirin [Aspirin 81mg (*)] 81 mg PO DAILY #0 tab.chew 08/08/16 Ibuprofen [Motrin (*)] 600 mg PO Q6HRS PRN #0 tab 08/08/16 Lisinopril [Zestril 10 mg (*)] 10 mg PO DAILY #15 tab 08/08/16 QUEtiapine FUMARATE [Seroquel 100 300 mg PO HS #15 tab 08/08/16 mg (*)] QUEtiapine FUMARATE [Seroquel 25 25 mg PO BID #15 tab 08/08/16 mg (*)] QUEtiapine FUMARATE [Seroquel 25 25 mg PO BID@, PRN #60 tab 08/08/16 mg (*)] clonazePAM [klonoPIN (*)] 1 mg PO TID PRN #20 tab 08/08/16 oxyCODONE/APAP 5/325 [Percocet 2 tab PO TID PRN #20 tab 08/08/16 5/325 (*)] Ondansetron Odt [Zofran Odt 4 mg 4 mg PO Q4 PRN #20 tab 08/24/16 (RX)] Medical Decision Making Other Provider: Patient's care is transferred to ct at 7:[address] Kimo Celeste with a plan to receive lab results and likely admit for undifferentiated lightheadedness. However at 7:45 a.m. the patient told the nurse that he wants to leave. I went and spoke with the patient. He states that he feels completely better. He is no longer lightheaded or nauseous. He states the Zofran worked well. his lab results are reassuring except a troponin still pending. His head CT and EKG are also reassuring. He states that he thinks he felt this way because he has an insomniac and has not been sleeping well. He declines further workup or testing at this time. He is eager to leave. I will prescribe him Zofran and await troponin results. (Eder Vieira) - Data Points Laboratory Results: Laboratory Results 08/24/16 06:50 08/24/16 06:55 08/24/16 08/24/16 06:55 06:50 WBC 5.46 10^3/uL (3.80-9.50) RBC 5.18 10^6/uL (4.40-6.38) Hgb 16.0 g/dL (13.7-17.5) Hct 47.4 % (40.0-51.0) MCV 91.5 fL (81.5-99.8) MCH 30.9 pg (27.9-34.1) MCHC 33.8 g/dL (32.4-36.7) RDW 12.8 % (11.5-15.2) Plt Count 181 10^3/uL (150-400) MPV 9.0 fL (8.7-11.7) Neut % (Auto) 77.6 H % (39.3-74.2) Lymph % (Auto) 13.2 L % (15.0-45.0) [place] % (Auto) 6.6 % (4.5-13.0) Eos % (Auto) 1.5 % (0.6-7.6) Baso % (Auto) 0.4 % (0.3-1.7) Nucleat RBC Rel Count 0.0 % (0.0-0.2) Absolute Neuts (auto) 4.24 10^3/uL (1.70-6.50) Absolute Lymphs (auto) 0.72 L 10^3/uL (1.00-3.00) Absolute Monos (auto) 0.36 10^3/uL (0.30-0.80) Absolute Eos (auto) 0.08 10^3/uL (0.03-0.40) Absolute Basos (auto) 0.02 10^3/uL (0.02-0.10) Absolute Nucleated RBC 0.00 10^3/uL (0-0.01) Immature Gran % 0.7 % (0.0-1.1) Immature Gran # 0.04 10^3/uL (0.00-0.10) PT 12.7 SEC (12.0-15.0) INR 0.96 (0.83-1.16) APTT 22.2 L SEC (23.0-38.0) Sodium 141 mEq/L (134-144) Potassium 4.3 mEq/L (3.5-5.2) Chloride 105 mEq/L (97-110) Carbon Dioxide 26 mEq/l (22-31) Anion Gap 10 mEq/L (8-16) BUN 26 H mg/dL (7-23) Creatinine 1.6 H mg/dL (0.7-1.3) Estimated GFR 43 Glucose 99 mg/dL (70-100) Calcium 9.0 mg/dL (8.5-10.4) Magnesium 1.8 mg/dL (1.6-2.3) Total Bilirubin 0.5 mg/dL (0.1-1.4) Conjugated Bilirubin 0.3 mg/dL (0.0-0.5) Unconjugated Bilirubin 0.2 mg/dL (0.0-1.1) AST 33 IU/L (17-59) ALT 32 IU/L (21-72) Alkaline Phosphatase 102 IU/L (38-126) Creatine Kinase 150 IU/L (0-224) CK-MB (CK-2) Fraction Pending Troponin I Pending NT-Pro-B Natriuret Pep Pending Total Protein 7.4 g/dL (6.3-8.2) Albumin 4.2 g/dL (3.5-5.0) Lipase 46.0 IU/L (23-300) Medications Given: Discontinued Medications Sodium Chloride (Ns) 1,000 mls @ 0 mls/hr IV ONCE ONE PRN Reason: As Directed Stop: 08/24/16 05:36 Last Admin: 08/24/16 06:02 Dose: 1,000 mls Lorazepam (Ativan Injection) 0.5 mg IVP EDNOW ONE Stop: 08/24/16 05:44 Last Admin: 08/24/16 06:02 Dose: 0.5 mg Lorazepam (Ativan Injection) 0.5 mg IVP EDNOW ONE Stop: 08/24/16 05:48 Last Admin: 08/24/16 06:06 Dose: Not Given Ondansetron HCl (Zofran) 4 mg IVP EDNOW ONE Stop: 08/24/16 05:36 Last Admin: 08/24/16 06:02 Dose: 4 mg Departure - Departure Disposition: Home, Routine, Self-Care Clinical Impression: Nausea, Pre-syncope Condition: Fair Instructions: Near Syncope (ED), Acute Nausea and Vomiting (ED) Referrals: Irma Quiros MD [Primary Care Provider] - As per Instructions Prescriptions: Ondansetron Odt [Zofran Odt 4 mg (RX)] 4 mg PO Q4 PRN #20 tab PRN Reason: Nausea & Vomiting
[2016-08-24] MEDS ORDERED: LORazepam 2 MG/ML INJ IVP ONE ×2 (05:43→05:47)
[2016-08-24 06:18] VITALS: TEMP 98.1
--- NOTE | 2016-08-24 07:02 | CT ---
CT Head (Without Contrast) 6:32 a.m. Indication: Lightheadedness. Comparison: Noncontrast head CT dated September 21, 2013 Technique: Standard noncontrast head CT protocol utilizing 5 mm thick collimated slices and field of view of 23 cm. Dose reduction techniques were utilized. Findings: Mild generalized supratentorial atrophy is unchanged since 2013. No intracranial hemorrhage , mass lesion, swelling, or extraaxial fluid collection. The ventricles are normal caliber and midlin e. The morelos and white matter has normal attenuation. No evidence of ischemia. The bones are unremarka ble. Mucosal thickening in the frontal and ethmoid air cells has not significantly changed. A benign exostosis in the left ethmoid air cells, measuring 0.4 cm in diameter, is unchanged in size. Impression: Negative. No acute intracranial process. Findings discussed with Emergency Department physician, Kimo Celeste MD at 6:55 a.m. hour, 017.
[2016-08-24 07:08] LABS: % IMMATURE GRANULYOCYTES 0.7 % (0.0-1.1); ABSOLUTE IMMATURE GRANULOCYTES 0.04 10^3/uL (0.00-0.10); ADD DIFF? NO; ADD MORPH? NO; ADD SCAN? NO; ATYPICAL LYMPHOCYTE FLAG 0 (0-99); FRAGMENT RBC FLAG 20 (0-99); HEMATOCRIT 47.4 % (40.0-51.0); LEFT SHIFT FLG 0 (0-99); LIPEMIA HEMOLYSIS FLAG 90 (0-99); MEAN CELL HEMOGLOBIN 30.9 pg (27.9-34.1); MEAN CELL HEMOGLOBIN CONCENTR. 33.8 g/dL (32.4-36.7); MEAN CELL VOLUME 91.5 fL (81.5-99.8); PLATELET CLUMPS FLAG 50 (0-99); PLATELET COUNT 181 10^3/uL (150-400); RED BLOOD CELL COUNT 5.18 10^6/uL (4.40-6.38); RED CELL DISTRIBUTION WIDTH 12.8 % (11.5-15.2)
[2016-08-24 07:20] LABS: INR 0.96 (0.83-1.16); PROTIME(PATIENT) 12.7 SEC (12.0-15.0)
[2016-08-24 07:21] LABS: APTT 22.2 SEC (23.0-38.0)
[2016-08-24 07:29] LABS: ALANINE AMINOTRANSFERASE 32 IU/L (21-72); ALBUMIN 4.2 g/dL (3.5-5.0); ALKALINE PHOSPHATASE 102 IU/L (38-126); ANION GAP 10 mEq/L (8-16); ASPARTATE AMINOTRANSFERASE 33 IU/L (17-59); BILIRUBIN,TOTAL 0.5 mg/dL (0.1-1.4); BILIRUBIN-CONJUGATED 0.3 mg/dL (0.0-0.5); BILIRUBIN-UNCONJUGATED 0.2 mg/dL (0.0-1.1); CARBON DIOXIDE 26 mEq/l (22-31); CHLORIDE 105 mEq/L (97-110); CREATININE 1.6 mg/dL (0.7-1.3); GLOMERULAR FILTRATION RATE 43; GLUCOSE 99 mg/dL (70-100); MAGNESIUM 1.8 mg/dL (1.6-2.3); POTASSIUM 4.3 mEq/L (3.5-5.2); SODIUM 141 mEq/L (134-144); TOTAL PROTEIN 7.4 g/dL (6.3-8.2)
[2016-08-24 07:41] LABS: TROPONIN I < 0.012 ng/mL (0-0.034)
[2016-08-24 08:06] VITALS: BP 153/71; PULSE 83; RESP 18; O2SAT 94
[2016-08-24 08:32] LABS: CK-MB INTERPRETATION NEGATIVE (NEGATIVE); CREATINE KINASE-MB FRACTION 5.05 ng/mL (0-3.19)
--- NOTE | 2016-08-24 10:25 | DX ---
Portable Chest, 557 a.m. History: Chest pain Comparison: November 12, 2015 Findings: Inspiratory phase is less than optimal. The patient is obese. There is some stable scarring or platter atelectasis above the left costophrenic angle. Heart size and pulmonary vascularity stabl e considering the degree of inspiration. It is difficult to exclude mild cardiomegaly and pulmonary v enous hypertension. No evidence for pneumonia or pneumothorax. EKG leads and oxygen tubing overlies t he chest. Impression: Suboptimal inspiration. Consider repeat PA and lateral chest in full inspiration to corinna r evaluate the cardiothoracic equilibrium.
== END 2016-08-24 08:05 | disposition home or self-care (01) ==
LOC: EDUNIT#
DX: R55 Syncope and collapse (principal); R11.0 Nausea; I25.10 Atherosclerotic heart disease of native coronary artery without angina pectoris; J45.909 Unspecified asthma, uncomplicated; I25.2 Old myocardial infarction; Z79.82 Long term (current) use of aspirin
CPT/HCPCS: 70450; 71010; 96361; 96374; 96375; 99285; J2405

== ENCOUNTER 2016-09-10 05:14 | Inpatient (IN) | payer OTHER, MEDICAID ==
[2016-09-10] MEDS ORDERED: NS 1,000 ML IV ONE ×2 (05:36→06:56)
[2016-09-10] MEDS ORDERED: ONDANSETRON 4 MG/2 ML VIAL IVP ONE ×2 (05:36→06:41)
[2016-09-10] MEDS ORDERED: FAMOTIDINE 20 MG/2 ML SDV IVP ONE (05:42)
[2016-09-10 05:45] LABS: % IMMATURE GRANULYOCYTES 0.4 % (0.0-1.1); ABSOLUTE IMMATURE GRANULOCYTES 0.02 10^3/uL (0.00-0.10); ADD DIFF? NO; ADD MORPH? NO; ADD SCAN? NO; ATYPICAL LYMPHOCYTE FLAG 0 (0-99); FRAGMENT RBC FLAG 0 (0-99); HEMATOCRIT 45.3 % (40.0-51.0); HEMOGLOBIN 15.4 g/dL (13.7-17.5); LEFT SHIFT FLG 0 (0-99); LIPEMIA HEMOLYSIS FLAG 90 (0-99); MEAN CELL HEMOGLOBIN 32.2 pg (27.9-34.1); MEAN CELL VOLUME 94.6 fL (81.5-99.8); MEAN PLATELET VOLUME 9.5 fL (8.7-11.7); PLATELET CLUMPS FLAG 10 (0-99); PLATELET COUNT 125 10^3/uL (150-400); RED BLOOD CELL COUNT 4.79 10^6/uL (4.40-6.38); RED CELL DISTRIBUTION WIDTH 12.9 % (11.5-15.2)
--- NOTE | 2016-09-10 05:54 | EDPHY ---
H & P Stated Complaint: nausea and SOB since 0 - Personal History Current Tetanus/Diphtheria Vaccine: Yes Current Tetanus Diphtheria and Acellular Pertussis (TDAP): Yes Tetanus Vaccine Date: 10/2010 - Medical/Surgical History Hx Asthma: Yes Hx Chronic Respiratory Disease: Yes Hx Diabetes: No Hx Cardiac Disease: Yes Hx Renal Disease: No Hx Cirrhosis: No Hx Alcoholism: No Hx HIV/AIDS: No Hx Splenectomy or Spleen Trauma: No Other PMH: Severe anxiety, chronic pain, CAD, Asthma, left foot deformity/fx from 10 yrs ago, DC w/stents 2011, kidney problems, appendectomy - Social History Smoking Status: Never smoked <Jaswinder Weir - Last Filed: 09/10/16 07:23> <Brianna Tyson - Last Filed: 09/10/16 14:40> Time Seen by Provider: 09/10/16 05:28 HPI/ROS: Chief complaint: Lightheaded and nausea HPI: 66-year-old male presenting complaining of lightheadedness and nausea this morning. Patient states that he has been getting this sensation almost every other day for the past several weeks. He has seen emergency department on the 8th of this month and had a very extensive workup including CT scan of his head, ECG, laboratory evaluations with no significant findings. Patient states that he did get significant relief Zofran and fluids at that time. He has since followed up his primary care physician who does not want to give him any more antiemetics. Patient describes as lightheadedness with nausea. He has not had any vomiting. He has not had any pain. No shortness of breath. It is not positional. It is not described as vertiginous or room spinning. It is not worse with standing or lying down. He has not noted any aggravating or alleviating factors. Has had a mild cough for the last 2 days which is minimally productive. No fevers or chills. No head injury. No vision changes or hearing changes. ROS: 10 point Review of Systems is negative except as noted in the HPI. Past medical history: Atrial fibrillation with RVR, coronary artery disease status post stent placement, anxiety, depression, asthma, chronic pain, hypertension, hyperlipidemia, obesity Allergies are to sulfa Physical exam: Gen: Awake, Alert, No Distress HEENT: Nose: no rhinorrhea Eyes: PERRLA, EOMI, no nystagmus Mouth: Moist mucosa Neck: Supple, no JVD Chest: nontender, mild diffuse expiratory wheeze Heart: S1, S2 normal, no murmur Abd: Soft, non-tender, no guarding Back: no CVA tenderness, no midline tenderness Ext: no edema, non-tender Skin: no rash Neuro: CN II-XII intact, Sensation grossly intact, Strength 5/5 in bilateral upper and lower extremities (Jaswinder Weir) Constitutional: Initial Vital Signs Temperature (C) 36.7 C 09/10/16 05:22 Heart Rate 105 H 09/10/16 05:22 Respiratory Rate 20 09/10/16 05:22 Blood Pressure 182/99 H 09/10/16 05:22 O2 Sat (%) 93 09/10/16 05:22 O2 Delivery Mode Room Air O2 (L/minute) 2 Allergies/Adverse Reactions: Sulfa (Sulfonamide Antibiotics) Allergy (Intermediate, Verified 09/10/16 05:25) Vomiting Home Medications: Medication Instructions Recorded Aspirin [Aspirin 81mg (*)] 81 mg PO DAILY #0 tab.chew 08/08/16 Lisinopril [Zestril 10 mg (*)] 10 mg PO DAILY #15 tab 08/08/16 Ondansetron Odt [Zofran Odt 4 mg 4 mg PO Q4 PRN #20 tab 08/24/16 (RX)] Albuterol [Ventolin Hfa Inhaler] 2 puffs IH Q4 PRN 09/10/16 QUEtiapine FUMARATE [Seroquel 100 200 mg PO HS 09/10/16 mg (*)] QUEtiapine FUMARATE [Seroquel 25 25 mg PO DAILY PRN 09/10/16 mg (*)] QUEtiapine FUMARATE [Seroquel 25 50 mg PO HS 09/10/16 mg (*)] clonazePAM [klonoPIN (*)] 1 mg PO BID 09/10/16 oxyCODONE/APAP 5/325 [Percocet 2 tab PO BID PRN 09/10/16 5/325 (*)] traZODone [traZODONE 100MG (*)] 400 mg PO HS 09/10/16 Medical Decision Making <Jaswinder Weir - Last Filed: 09/10/16 07:23> <Brianna Tyson - Last Filed: 09/10/16 14:40> - Diagnostics EKG Interpretation: EKG interpreted by me reveals normal sinus rhythm, rate 83, PAC, no ST or T segment changes. (Brianna Tyson) ED Course/Re-evaluation: Patient is feeling somewhat better. He is dropping his oxygen saturations when he gets up and moves around off oxygen. On reexamination he has more extensive wheezing with deep inspiration now. I have ordered a DuoNeb. Patient is signed out to Dr. Tyson pending re-evaluation. (Jaswinder Weir) Differential Diagnosis: Dizziness including but not limited to peripheral and central causes of vertigo , orthostatic causes including dehydration, and blood loss. Hypoxia including but limited to pneumonia, congestive heart failure, pulmonary embolism. (Brianna Tyson) Other Provider: 0700: Assumed care of this patient from Dr. Weir at shift change. This is a 66 y/o male, with a history of asthma, that presented with nausea and shortness of breath for the last few days. He reports he's had upper respiratory infection symptoms for the last 3 days without a fever. He generally develops asthma symptoms only when ill and does not have an inhaler currently. He is a nonsmoker. His chest x-ray shows bronchitis. As he was being prepared for discharge this morning, his SpO2 dropped to 79%. Dr. Weir administered a duo neb. He also has been experiencing intermittent nausea and dizziness for the last few weeks with no clear diagnosis. He had a large work up including head CT with Dr. Celeste a few weeks ago on 08/24/16 that was unremarkable. He describes his dizziness as feeling like "I'm spinning," which then leads to nausea and feeling near syncopal. His dizziness is possibly aggravated by head movement, but it also feels like "it comes on randomly." He denies hearing loss, ear ringing, headache, vision changes, weakness or paresthesias. He has never experienced these symptoms before. Usually when symptoms appear he lies down for 30 minutes and symptoms improve until he stands up again. He can't identify any obvious precipitating factors he noticed before initial onset of dizziness. On exam, he has diffuse expiratory wheezing and coughing, but is speaking in full sentences without difficulty and his room air SpO2 is 94%. He does not have nystagmus and his neuro exam is normal. Plan to continue duo neb for wheezing and administer 60mg PO prednisone, as this has helped him in the past for similar symptoms, and reassess. 0807: Reassessed patient. He continues to have diffuse expiratory wheezing. He is complaining of dizziness and extraocular movements exacerbate his dizziness, but he does not have nystagmus. His SpO2 drops into the 80% range on room air. Plan for EKG and brain MRI due to intermittent dizziness with a recent normal head CT. The 12 lead EKG was interpreted by myself and shows sinus rhythm rate 83 with PACs. See hard copy and/or "tracemaster" electronic copy for interpretation. 0840: Reassessed patient. His wheezing has not improved. He is 88% on room air. Plan for second duo neb and admission for hypoxemia in addition to bronchitis, bronchospasm, and vertigo. No evidence of pneumonia. 0847: Spoke with hospitalist service. Dr. Raman accepts admission. MRI is pending. (Brianna Tyson) - Data Points Laboratory Results: Laboratory Results 09/10/16 05:30 09/10/16 08:30 09/10/16 09/10/16 09/10/16 08:30 05:30 05:30 WBC 5.63 10^3/uL 10^3/uL (3.80-9.50) RBC 4.79 10^6/uL 10^6/uL (4.40-6.38) Hgb 15.4 g/dL g/dL (13.7-17.5) Hct 45.3 % % (40.0-51.0) MCV 94.6 fL fL (81.5-99.8) MCH 32.2 pg pg (27.9-34.1) MCHC 34.0 g/dL g/dL (32.4-36.7) RDW 12.9 % % (11.5-15.2) Plt Count 125 10^3/uL L 10^3/uL (150-400) MPV 9.5 fL fL (8.7-11.7) Neut % (Auto) 82.9 % H % (39.3-74.2) Lymph % (Auto) 6.0 % L % (15.0-45.0) [place] % (Auto) 9.1 % % (4.5-13.0) Eos % (Auto) 1.2 % % (0.6-7.6) Baso % (Auto) 0.4 % % (0.3-1.7) Nucleat RBC Rel Count 0.0 % % (0.0-0.2) Absolute Neuts (auto) 4.67 10^3/uL 10^3/uL (1.70-6.50) Absolute Lymphs (auto) 0.34 10^3/uL L 10^3/uL (1.00-3.00) Absolute Monos (auto) 0.51 10^3/uL 10^3/uL (0.30-0.80) Absolute Eos (auto) 0.07 10^3/uL 10^3/uL (0.03-0.40) Absolute Basos (auto) 0.02 10^3/uL 10^3/uL (0.02-0.10) Absolute Nucleated RBC 0.00 10^3/uL 10^3/uL (0-0.01) Immature Gran % 0.4 % % (0.0-1.1) Immature Gran # 0.02 10^3/uL 10^3/uL (0.00-0.10) Sodium 143 mEq/L mEq/L 138 mEq/L mEq/L (134-144) (134-144) Potassium 5.2 mEq/L mEq/L 4.8 mEq/L mEq/L (3.5-5.2) (3.5-5.2) Chloride 111 mEq/L H mEq/L 107 mEq/L mEq/L (97-110) (97-110) Carbon Dioxide 23 mEq/l mEq/l 23 mEq/l mEq/l (22-31) (22-31) Anion Gap 9 mEq/L mEq/L 8 mEq/L mEq/L (8-16) (8-16) BUN 26 mg/dL H mg/dL 30 mg/dL H mg/dL (7-23) (7-23) Creatinine 1.3 mg/dL mg/dL 1.4 mg/dL H mg/dL (0.7-1.3) (0.7-1.3) Estimated GFR 55 50 Glucose 101 mg/dL H mg/dL 105 mg/dL H mg/dL (70-100) (70-100) Calcium 8.9 mg/dL mg/dL 9.3 mg/dL mg/dL (8.5-10.4) (8.5-10.4) Medications Given: Discontinued Medications Albuterol (Proventil Neb) 3 ml IH EDNOW ONE Stop: 09/10/16 08:41 Last Admin: 09/10/16 08:46 Dose: 3 ml Albuterol/Ipratropium (Duoneb) 3 ml IH EDNOW ONE Stop: 09/10/16 07:17 Last Admin: 09/10/16 07:35 Dose: 3 ml Famotidine (Pepcid) 20 mg IVP EDNOW ONE Stop: 09/10/16 05:43 Last Admin: 09/10/16 05:56 Dose: 20 mg Sodium Chloride (Ns) 1,000 mls @ 0 mls/hr IV ONCE ONE PRN Reason: Wide Open Stop: 09/10/16 05:37 Last Admin: 09/10/16 05:44 Dose: 1,000 mls Sodium Chloride (Ns) 1,000 mls @ 0 mls/hr IV ONCE ONE PRN Reason: Wide Open Stop: 09/10/16 06:57 Last Admin: 09/10/16 06:57 Dose: 1,000 mls Ondansetron HCl (Zofran) 4 mg IVP EDNOW ONE Stop: 09/10/16 05:37 Last Admin: 09/10/16 05:44 Dose: 4 mg Ondansetron HCl (Zofran) 4 mg IVP EDNOW ONE Stop: 09/10/16 06:42 Last Admin: 09/10/16 06:41 Dose: 4 mg Prednisone (Prednisone) 60 mg PO EDNOW ONE Stop: 09/10/16 07:39 Last Admin: 09/10/16 07:55 Dose: 60 mg Departure <Jaswidner Weir - Last Filed: 09/10/16 07:23> <Brianna Tyson - Last Filed: 09/10/16 14:40> - Departure Disposition: [facility] Inpatient Acute Clinical Impression: Bronchitis, Bronchospasm, Vertigo, Hypoxemia Condition: Good <Jaswinder Weir - Last Filed: 09/10/16 07:23> Report Scribed for: Brianna Tyson Report Scribed by: Vilma Conner Date of Report: 09/10/16 Time of Report: 07:49 <Brianna Tyson - Last Filed: 09/10/16 14:40> Physician Review and Approval Statement: 09/10/16 07:59 Portions of this note were transcribed by a medical certification specialist. I personally performed a history, physical exam, medical decision making, and confirmed accuracy of information the transcribed note. (Brianna Tyson)
[2016-09-10 05:58] LABS: ANION GAP 8 mEq/L (8-16); CALCIUM 9.3 mg/dL (8.5-10.4); CARBON DIOXIDE 23 mEq/l (22-31); CHLORIDE 107 mEq/L (97-110); CREATININE 1.4 mg/dL (0.7-1.3); GLOMERULAR FILTRATION RATE 50; GLUCOSE 105 mg/dL (70-100); POTASSIUM 4.8 mEq/L (3.5-5.2); SODIUM 138 mEq/L (134-144)
[2016-09-10] MEDS ORDERED: ONDANSETRON 4 MG/2 ML VIAL ONE (06:39)
[2016-09-10] MEDS ORDERED: IPRATROPIUM/ALBUTEROL 3 ML DEYVIAL IH ONE (07:16)
[2016-09-10] MEDS ORDERED: predniSONE 20 MG TAB PO ONE (07:38)
--- NOTE | 2016-09-10 08:24 | CPEKG ---
Heart Rate: 83 RR Interval: 723 P-R Interval: 156 QRSD Interval: 80 QT Interval: 364 QTC Interval: 428 P Midland: 55 QRS Midland: 14 T Wave Midland: 39 EKG Severity - OTHERWISE NORMAL ECG - EKG Impression: SINUS RHYTHM EKG Impression: ATRIAL PREMATURE COMPLEX Electronically Signed By: Brianna Tyson 10-Sep-2016 15:18:47
[2016-09-10] MEDS ORDERED: ALBUTEROL 3 ML DEYVIAL IH ONE (08:40)
[2016-09-10 09:04] LABS: ANION GAP 9 mEq/L (8-16); CALCIUM 8.9 mg/dL (8.5-10.4); CARBON DIOXIDE 23 mEq/l (22-31); CHLORIDE 111 mEq/L (97-110); CREATININE 1.3 mg/dL (0.7-1.3); GLOMERULAR FILTRATION RATE 55; GLUCOSE 101 mg/dL (70-100); POTASSIUM 5.2 mEq/L (3.5-5.2); SODIUM 143 mEq/L (134-144)
[2016-09-10] MEDS ORDERED: ACETAMINOPHEN 325 MG TAB PO PRN (11:29)
[2016-09-10] MEDS ORDERED: ONDANSETRON 4 MG/2 ML VIAL IVP PRN (11:29)
[2016-09-10] MEDS ORDERED: PROMETHAZINE HCL 25 MG/ML INJ IVP PRN (11:29)
[2016-09-10] MEDS ORDERED: NS 1,000 ML IV SCH (11:30)
[2016-09-10] MEDS ORDERED: NON-FORMULARY NEW DRUG (Albuterol 2 PUFFS) IH PRN (11:56)
[2016-09-10] MEDS ORDERED: QUEtiapine FUMARATE 25 MG TAB PO PRN (11:56)
[2016-09-10] MEDS ORDERED: ONDANSETRON DISINTEGRATING 4 MG TAB PO PRN (11:56)
[2016-09-10] MEDS: IPRATROPIUM/ALBUTEROL 3 ML DEYVIAL IH SCH ×2 (12:02→22:26)
[2016-09-10] MEDS ORDERED: ALBUTEROL 60 PUFFS/8 GM MDI IH PRN (12:04)
[2016-09-10] MEDS: OXYCODONE/APAP 5/325 TAB PO PRN ×3 (12:11→23:54)
--- NOTE | 2016-09-10 14:08 | GHP ---
DATE OF ADMISSION: 09/10/2016 CHIEF COMPLAINT: Dizziness, abdominal pain. HISTORY: The patient is a 66-year-old male who woke up this morning and felt so terrible, he though t he was going to . He tried to get out of bed and immediately fell to the ground. He complaine d of abdominal pain which he had been suffering from all night and has been going on for about a wee k. He was having vertigo. He could not get out of bed because he was so weak and dizzy. He has be en having a cough for the last 3 days which is nonproductive. There has been no chest pain. There has been no fever. He has been wheezing. Abdominal pain diffuse for the last week which has caused poor p.o. intake. He has had nausea, but no vomiting. No diarrhea. PAST MEDICAL HISTORY: 1. 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 2. Coronary artery disease, status post stents. 3. Hypertension. 4. Chronic kidney disease. Baseline creatinine 1.2 to 1.7. 5. Obesity. 6. Major depressive disorder and anxiety, with recent inpatient psychiatric stay. 7. Atrial fibrillation. 8. Asthma. MEDICATIONS: Please see computer record for full detailed list. ALLERGIES: Sulfa. SOCIAL HISTORY: No smoking. No alcohol. He lives alone. He is disabled due to his left foot inju ry. Code status is DNR. REVIEW OF SYSTEMS: A complete review of systems was obtained. His review of systems is negative re garding constitutional, HEENT, GI, pulmonary, cardiovascular, , hematology, skin, musculoskeletal, endocrine, and psych except for positives as noted in the HPI. FAMILY HISTORY: Positive for coronary artery disease. PHYSICAL EXAMINATION: GENERAL: Well-developed, well-nourished male, in no acute distress. VITAL S IGNS: Temperature 37.0, pulse of 80, blood pressure 101/53, satting 92% on 3 L. EYE EXAMINATION: Normal conjunctivae. Pupils round and react to light. ENT: Normal ears and nose. Hearing intact. Normal lips and teeth. Oropharynx moist. NECK: Trachea midline. No thyromegaly. CHEST: Incre ased respiratory effort. LUNGS: Bilateral wheeze and rhonchi. CARDIOVASCULAR SYSTEM: Regular rhy thm. No murmur. No lower extremity edema. ABDOMEN: Soft, nontender. No hepatosplenomegaly. SKI N: Warm, dry, and intact. No rash. MUSCULOSKELETAL: No cyanosis or clubbing. Strength 5/5 in th e upper and lower extremities. NEURO: Cranial nerves intact. Normal sensation to light touch. PS YCH: Alert and oriented x3. Normal affect. Normal judgment and insight. Normal memory. LABORATORY DATA: White count 5.63, hematocrit 45.3, platelets 125. Sodium 138, potassium 4.8, chlo ride 107, bicarb 23, BUN 30, creatinine 1.4, glucose 105. EKG viewed by me. My personal interpreta tion is a normal sinus rhythm, with no ST-T wave changes. Chest x-ray is negative. [facility] acute. ASSESSMENT/PLAN: 1. Reactive airways disease exacerbation. I suspect he has a viral bronchitis. We will continue p rednisone and nebulizers. We will check influenza. 2. Acute respiratory failure. He is requiring oxygen. This will be weaned back to room air as abl e. 3. Vertigo. He may have an element of viral labyrinthitis. He may also be dehydrated due to his r ecent GI illness and inability to take p.o. His MRI brain is negative for stroke. 4. Abdominal pain. He is very tender per my examination. We will check LFTs and a lipase. We jose a l check a CT scan of the abdomen and pelvis. 5. Continuous narcotic dependency secondary to left ankle deformity from previous trauma. Continue his usual Percocet. 6. Major depressive disorder and anxiety. [facility]. We will continue Seroquel and Klonopin. 7. Obesity. BMI 30. 8. Coronary artery disease, status post previous stent. This is stable. 9. DVT prophylaxis. He is high risk. We will place him on subcu Lovenox. CODE STATUS: DNR. ADMISSION STATUS: We will admit to inpatient as he is medically complex, and I anticipate greater t godinez 2 midnights for stabilization. /[id number]/MODL
[2016-09-10 16:43] LABS: COLOR YELLOW; LEUKOCYTE ESTERASE,URINE NEGATIVE (NEGATIVE); NITRITE,URINE NEGATIVE (NEGATIVE)
[2016-09-10] MEDS: clonazePAM 1 MG TAB PO SCH (20:09)
[2016-09-10] MEDS: QUEtiapine FUMARATE 25 MG TAB PO SCH (20:09)
[2016-09-10] MEDS: traZODone 100 MG TAB PO SCH (20:09)
[2016-09-10] MEDS: QUEtiapine FUMARATE 100 MG TAB PO SCH (20:09)
[2016-09-11] MEDS: IPRATROPIUM/ALBUTEROL 3 ML DEYVIAL IH SCH ×5 (02:49→22:23)
[2016-09-11 06:03] LABS: % IMMATURE GRANULYOCYTES 0.3 % (0.0-1.1); ABSOLUTE IMMATURE GRANULOCYTES 0.02 10^3/uL (0.00-0.10); ADD DIFF? NO; ADD MORPH? NO; ADD SCAN? NO; ATYPICAL LYMPHOCYTE FLAG 0 (0-99); FRAGMENT RBC FLAG 0 (0-99); HEMATOCRIT 41.5 % (40.0-51.0); HEMOGLOBIN 13.5 g/dL (13.7-17.5); LEFT SHIFT FLG 0 (0-99); LIPEMIA HEMOLYSIS FLAG 80 (0-99); MEAN CELL HEMOGLOBIN 31.3 pg (27.9-34.1); MEAN CELL HEMOGLOBIN CONCENTR. 32.5 g/dL (32.4-36.7); MEAN CELL VOLUME 96.3 fL (81.5-99.8); MEAN PLATELET VOLUME 9.5 fL (8.7-11.7); PLATELET CLUMPS FLAG 0 (0-99); PLATELET COUNT 125 10^3/uL (150-400); RED BLOOD CELL COUNT 4.31 10^6/uL (4.40-6.38); RED CELL DISTRIBUTION WIDTH 13.2 % (11.5-15.2)
[2016-09-11 06:16] LABS: ALANINE AMINOTRANSFERASE 25 IU/L (21-72); ALBUMIN 3.2 g/dL (3.5-5.0); ALKALINE PHOSPHATASE 77 IU/L (38-126); ANION GAP 7 mEq/L (8-16); ASPARTATE AMINOTRANSFERASE 19 IU/L (17-59); BILIRUBIN,TOTAL 0.4 mg/dL (0.1-1.4); BILIRUBIN-CONJUGATED 0.4 mg/dL (0.0-0.5); CALCIUM 9.1 mg/dL (8.5-10.4); CARBON DIOXIDE 23 mEq/l (22-31); CHLORIDE 111 mEq/L (97-110); CREATININE 1.4 mg/dL (0.7-1.3); GLOMERULAR FILTRATION RATE 50; GLUCOSE 105 mg/dL (70-100); POTASSIUM 4.8 mEq/L (3.5-5.2); SODIUM 141 mEq/L (134-144); TOTAL PROTEIN 5.8 g/dL (6.3-8.2)
[2016-09-11] MEDS: LISINOPRIL 10 MG TAB PO SCH (08:03)
[2016-09-11] MEDS: clonazePAM 1 MG TAB PO SCH ×3 (08:05→20:09)
[2016-09-11] MEDS: predniSONE 20 MG TAB PO SCH (08:06)
[2016-09-11] MEDS: OXYCODONE/APAP 5/325 TAB PO PRN ×3 (08:08→17:37)
[2016-09-11] MEDS: ASPIRIN 81 MG CHEWABLE TAB PO SCH (08:10)
[2016-09-11] MEDS ORDERED: LACTULOSE 20 GM/30 ML UDCUP PO PRN (08:34)
[2016-09-11] MEDS ORDERED: MAGNESIUM HYDROXIDE 30 ML UDCUP PO PRN (08:34)
[2016-09-11] MEDS ORDERED: POLYETHYLENE GLYCOL 3350 17 GM PKT PO PRN (08:34)
[2016-09-11] MEDS ORDERED: BISACODYL 10 MG SUPP PR PRN (08:34)
[2016-09-11] MEDS ORDERED: MECLIZINE HCL 25 MG TAB PO PRN (11:12)
[2016-09-11] MEDS: ENOXAPARIN 40 MG/0.4 ML SYR SC SCH (13:08)
[2016-09-11] MEDS: SENNOSIDES/DOCUSATE SODIUM TAB PO SCH ×2 (13:09→20:09)
--- NOTE | 2016-09-11 14:01 | HOSPPROG ---
Hospitalist Progress Note Assessment/Plan: * RAD exacerbation due to viral bronchitis, influenza negative -steroids, nebs * Acute respiratory failure - O2 * Vertigo - MRI negative for CVA - suspect viral labyrinthitis -prn meclizine * Constipation - bowel protocol * Continuous narcotic dependency - chronic pain left foot due to traumatic deformity * CAD/stent * CKD - at baseline creatinine * Obesity BMI 30 * MDD - anxiety -multiple inpatient psych admits in past -son committed suicide 2009 -trazodone, Seroquel Subjective: Doesn't feel much better yet Objective: Vital Signs Temp Pulse Resp BP Pulse Ox 36.7 C 58 L 20 135/75 H 95 09/11/16 08:20 09/11/16 11:04 09/11/16 11:04 09/11/16 08:20 09/11/16 11:04 Laboratory Results 09/11/16 05:36 09/11/16 05:36 09/10/16 09/11/16 09/12/16 05:59 05:59 05:59 Intake Total 3350 Output Total [address] abd: constipation - Physical Exam Constitutional: no apparent distress, appears nourished, not in pain Cardiovascular: regular rate and rhythym, no murmur, rub, or gallop Respiratory: reduced air movement, expiratory wheeze, respiratory distress, No rhonchi Gastrointestinal: normoactive bowel sounds, soft, non-tender abdomen, no palpable masses Skin: no rashes or abrasions, no fluctuance, no induration Neurologic: AAOx3, sensation intact bilaterally Psychiatric: interacting appropriately, not anxious, not encephalopathic, thought process linear ICD10 Worksheet Patient Problems: Problems Problem Status Onset Bronchitis Acute Bronchospasm Acute Hypoxemia Acute Vertigo Acute Anxiety Acute Atrial fibrillation Acute Benzodiazepine withdrawal Acute Depression Acute Intentional overdose of drug in tablet form Acute Pneumonia Acute Suicide attempt by drug ingestion Acute
[2016-09-11] MEDS: QUEtiapine FUMARATE 25 MG TAB PO SCH (20:09)
[2016-09-11] MEDS: QUEtiapine FUMARATE 100 MG TAB PO SCH (20:09)
[2016-09-11] MEDS: traZODone 100 MG TAB PO SCH (20:10)
[2016-09-12] MEDS: OXYCODONE/APAP 5/325 TAB PO PRN ×2 (00:54→05:29)
[2016-09-12] MEDS: IPRATROPIUM/ALBUTEROL 3 ML DEYVIAL IH SCH ×2 (05:09→09:21)
[2016-09-12 06:20] LABS: ANION GAP 10 mEq/L (8-16); CALCIUM 9.2 mg/dL (8.5-10.4); CARBON DIOXIDE 22 mEq/l (22-31); CHLORIDE 109 mEq/L (97-110); CREATININE 1.4 mg/dL (0.7-1.3); GLOMERULAR FILTRATION RATE 50; GLUCOSE 80 mg/dL (70-100); POTASSIUM 4.7 mEq/L (3.5-5.2); SODIUM 141 mEq/L (134-144)
[2016-09-12 08:28] VITALS: BP 133/70; RESP 18; TEMP 98.6
[2016-09-12] MEDS: predniSONE 20 MG TAB PO SCH (08:58)
[2016-09-12] MEDS: SENNOSIDES/DOCUSATE SODIUM TAB PO SCH (08:58)
[2016-09-12] MEDS: clonazePAM 1 MG TAB PO SCH (08:58)
[2016-09-12] MEDS: ENOXAPARIN 40 MG/0.4 ML SYR SC SCH (08:58)
[2016-09-12] MEDS: LISINOPRIL 10 MG TAB PO SCH (08:58)
[2016-09-12] MEDS: ASPIRIN 81 MG CHEWABLE TAB PO SCH (08:58)
[2016-09-12 10:35] VITALS: O2SAT 85
[2016-09-12 10:49] VITALS: PULSE 68
--- NOTE | 2016-09-12 19:56 | GDS ---
DISCHARGE DIAGNOSES: Include: 1. Reactive airways exacerbation, secondary to presumed viral upper respiratory infection. 2. Acute hypoxic respiratory failure, secondary to reactive airways. HISTORY OF PRESENT ILLNESS: This is a 66-year-old male with several medical comorbidities, who pres ented with complaints of shortness of breath. For details of patient's initial presentation, please see the history and physical dated 09/11/2016. HOSPITAL COURSE BY ISSUE: Acute hypoxic respiratory failure, secondary to reactive airways: Kayla velasquez was treated with inhaled beta-agonists, steroid burst, and had improvement in his symptoms. Jason santos is insisting on leaving the hospital prior to our recommended disposition. Patient remains tight and hypoxic on examination. Against our recommended course of action, the patient is discharging h ome with supplemental oxygen, oral steroids, and inhaled albuterol. Patient has an already schedule d appointment with his primary care provider, Dr. Quiros, in 4 days' time. We have encouraged him to make that appointment so she can complete appropriate post disposition followup. MEDICATIONS AT THE TIME OF DISPOSITION: Please reference medication reconciliation printed on 07/12. Of note, patient is being provided with supplemental oxygen, a burst of p.o. prednisone whic h should complete prior to his outpatient appointment, as well as albuterol MDI. I spent greater than 30 minutes in the planning and coordination of this discharge. /[id number]/MODL
== END 2016-09-12 13:13 | disposition home or self-care (01) | DRG 202 ==
LOC: EDBD → EDUNIT# → F3E 09:41
PROVIDERS: ADMIT Internal Medicine; ATTEND Internal Medicine
DX: J45.901 Unspecified asthma with (acute) exacerbation (principal); J96.01 Acute respiratory failure with hypoxia; J20.8 Acute bronchitis due to other specified organisms; H83.09 Labyrinthitis, unspecified ear; K59.00 Constipation, unspecified; G89.21 Chronic pain due to trauma; F11.20 Opioid dependence, uncomplicated; I25.10 Atherosclerotic heart disease of native coronary artery without angina pectoris; I48.91 Unspecified atrial fibrillation; I12.9 Hypertensive chronic kidney disease with stage 1 through stage 4 chronic kidney disease, or unspecified chronic kidney disease; N18.9 Chronic kidney disease, unspecified; E66.9 Obesity, unspecified; Z68.30 Body mass index [BMI] 30.0-30.9, adult; F32.9 Major depressive disorder, single episode, unspecified; I25.2 Old myocardial infarction; Z95.5 Presence of coronary angioplasty implant and graft; Z66 Do not resuscitate
CPT/HCPCS: 96374; 97161-GP; G8978-GP-CI; G8979-GP-CI; G8980-GP-CI; J1650; J2405

== ENCOUNTER 2016-09-15 04:50 | Emergency (ER) | payer OTHER, MEDICAID ==
[2016-09-15] MEDS ORDERED: IPRATROPIUM/ALBUTEROL 3 ML DEYVIAL IH ONE (04:55)
[2016-09-15 05:05] LABS: % IMMATURE GRANULYOCYTES 0.7 % (0.0-1.1); ABSOLUTE IMMATURE GRANULOCYTES 0.05 10^3/uL (0.00-0.10); ADD DIFF? NO; ADD MORPH? NO; ADD SCAN? NO; ATYPICAL LYMPHOCYTE FLAG 0 (0-99); FRAGMENT RBC FLAG 0 (0-99); HEMATOCRIT 47.9 % (40.0-51.0); HEMOGLOBIN 15.7 g/dL (13.7-17.5); LEFT SHIFT FLG 0 (0-99); LIPEMIA HEMOLYSIS FLAG 80 (0-99); MEAN CELL HEMOGLOBIN 31.7 pg (27.9-34.1); MEAN CELL HEMOGLOBIN CONCENTR. 32.8 g/dL (32.4-36.7); MEAN CELL VOLUME 96.6 fL (81.5-99.8); MEAN PLATELET VOLUME 9.4 fL (8.7-11.7); PLATELET CLUMPS FLAG 10 (0-99); PLATELET COUNT 152 10^3/uL (150-400); RED BLOOD CELL COUNT 4.96 10^6/uL (4.40-6.38); RED CELL DISTRIBUTION WIDTH 13.5 % (11.5-15.2)
[2016-09-15 05:18] LABS: ANION GAP 9 mEq/L (8-16); CALCIUM 9.1 mg/dL (8.5-10.4); CARBON DIOXIDE 27 mEq/l (22-31); CHLORIDE 105 mEq/L (97-110); CREATININE 1.3 mg/dL (0.7-1.3); GLOMERULAR FILTRATION RATE 55; GLUCOSE 93 mg/dL (70-100); POTASSIUM 4.3 mEq/L (3.5-5.2); SODIUM 141 mEq/L (134-144)
[2016-09-15 05:22] VITALS: PULSE 84; RESP 20; TEMP 98.1; O2SAT 90
--- NOTE | 2016-09-15 05:24 | EDPHY ---
H & P Time Seen by Provider: 09/15/16 04:54 HPI/ROS: HPI The patient presents with shortness of breath which has been present for several hours tonight and is associated with cough. He is brought in by ambulance, and received a DuoNeb and Solu-Medrol 125 mg EN route. He was admitted to the hospital from September 05 to for presumed viral bronchitis with reactive airways disease. He left against medical advice and was discharged with prednisone, albuterol, home oxygen. He was unable to obtain the home oxygen because of the way the prescription was written he tells me. He was feeling okay at home until tonight when his breathing became worse and he had difficulty sleeping. He has had a nonproductive cough, no chest pain , no fever. He has been using the albuterol every 4 hours REVIEW OF SYSTEMS Constitutional: No fever, no chills. Eyes: No discharge. ENT: No sore throat. Cardiovascular: No chest pain, no palpitations. Respiratory: See HPI Gastrointestinal: No abdominal pain, no vomiting. Genitourinary: No hematuria. Musculoskeletal: No back pain. Skin: No rashes. Neurological: No headache. 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 Soc Hx: Lives alone PHYSICAL General Appearance: Alert, no distress Eyes: Pupils equal and round no pallor or injection ENT, Mouth: Mucous membranes moist Respiratory: He is speaking full sentences, there are no retractions, he has inspiratory and expiratory wheezes throughout all lung reynoso Cardiovascular: Regular rate and rhythm Gastrointestinal: Abdomen is soft and non-tender, no masses, bowel sounds normal Neurological: A&O, moves all extremities Skin: Warm and dry, no rashes Musculoskeletal: Neck is supple non tender Extremities: symmetrical, full range of motion Psychiatric: Patient is oriented X 3, there is no agitation Source: Patient, EMS Exam Limitations: No limitations - Personal History Tetanus Vaccine Date: 10/2010 - Medical/Surgical History Hx Asthma: Yes Hx Chronic Respiratory Disease: Yes Hx Diabetes: No Hx Cardiac Disease: Yes Hx Renal Disease: No Hx Cirrhosis: No Hx Alcoholism: No Hx HIV/AIDS: No Hx Splenectomy or Spleen Trauma: No Other PMH: Severe anxiety, chronic pain, CAD, Asthma, left foot deformity/fx from 10 yrs ago, [place] w/stents 2011, kidney problems, appendectomy - Social History Smoking Status: Never smoked Constitutional: Initial Vital Signs Temperature (C) 36.7 C 09/15/16 05:00 Heart Rate 84 09/15/16 05:00 Respiratory Rate 20 09/15/16 05:00 Blood Pressure 187/74 H 09/15/16 05:00 O2 Sat (%) 90 L 09/15/16 05:00 O2 Delivery Mode Room Air Allergies/Adverse Reactions: Sulfa (Sulfonamide Antibiotics) Allergy (Intermediate, Verified 09/10/16 05:25) Vomiting Home Medications: Medication Instructions Recorded Aspirin [Aspirin 81mg (*)] 81 mg PO DAILY #0 tab.chew 08/08/16 Lisinopril [Zestril 10 mg (*)] 10 mg PO DAILY #15 tab 08/08/16 Ondansetron Odt [Zofran Odt 4 mg 4 mg PO Q4 PRN #20 tab 08/24/16 (*)] Albuterol [Ventolin Hfa Inhaler] 2 puffs IH Q4 PRN 09/10/16 QUEtiapine FUMARATE [Seroquel 100 200 mg PO HS 09/10/16 mg (*)] QUEtiapine FUMARATE [Seroquel 25 25 mg PO DAILY PRN 09/10/16 mg (*)] QUEtiapine FUMARATE [Seroquel 25 50 mg PO HS 09/10/16 mg (*)] clonazePAM [klonoPIN (*)] 1 mg PO BID 09/10/16 oxyCODONE/APAP 5/325 [Percocet 2 tab PO BID PRN 09/10/16 5/325 (*)] traZODone [traZODONE 100MG (*)] 400 mg PO HS 09/10/16 Albuterol [Proventil Inhaler HFA 2 puffs IH Q4 PRN #1 mdi 09/12/16 (*)] Meclizine HCl [Meclizine HCl 25 mg 25 mg PO Q6 PRN #30 tab 09/12/16 (RX,OTC)] predniSONE 40 mg PO DAILY #10 tablet 09/12/16 AZITHROMYCIN [Z-PACK] 250 mg PO DAILY #6 tab 09/15/16 Albuterol Sulfate [ALBUTEROL 0.63 mg IH Q6 PRN #30 vial.neb 09/15/16 SULFATE] Nebulizer/Compressor [Portable 1 each MC Q6H PRN #1 each 09/15/16 Nebulizer System] Medical Decision Making - Diagnostics Imaging: Chest x-ray shows peribronchial thickening, no infiltrate noted, interpreted by me, radiology interpretation is pending. ED Course/Re-evaluation: 6:30 a.m.- The patient is feeling better after receiving continuous albuterol. Room air sat is 91-93%. He is requesting to go home. I have offered him admission to the hospital, however he declines. I will leave a note for the family independence case manager to see if she can assist him in getting his supplemental home oxygen. I will write him for nebulizer and albuterol to go with this as he feels this is helping him more than his inhaler at home. I will also give him azithromycin. Differential Diagnosis: This is a 66-year-old man with past medical history of asthma with recent exacerbation requiring admission, anxiety and depression, chronic opiate use, CAD, hypertension who presents brought in by ambulance for shortness of breath and cough. He discharged from the hospital 2 days ago earlier than planned because he no longer wanted to be in the hospital, he went home and is taking albuterol and prednisone. He is supposed to be on home oxygen, however he is having difficulty obtaining it because of the way the prescription is written. On exam, his room air saturation is about 90%, he is slightly tachycardic after receiving a DuoNeb. Differential diagnosis includes asthma exacerbation, pneumonia, bronchitis. - Data Points Laboratory Results: Laboratory Results 09/15/16 04:50 09/15/16 04:50 09/15/16 09/15/16 04:50 04:50 WBC 7.34 10^3/uL 10^3/uL (3.80-9.50) RBC 4.96 10^6/uL 10^6/uL (4.40-6.38) Hgb 15.7 g/dL g/dL (13.7-17.5) Hct 47.9 % % (40.0-51.0) MCV 96.6 fL fL (81.5-99.8) MCH 31.7 pg pg (27.9-34.1) MCHC 32.8 g/dL g/dL (32.4-36.7) RDW 13.5 % % (11.5-15.2) Plt Count 152 10^3/uL 10^3/uL (150-400) MPV 9.4 fL fL (8.7-11.7) Neut % (Auto) 75.6 % H % (39.3-74.2) Lymph % (Auto) 16.1 % % (15.0-45.0) [place] % (Auto) 6.7 % % (4.5-13.0) Eos % (Auto) 0.8 % % (0.6-7.6) Baso % (Auto) 0.1 % L % (0.3-1.7) Nucleat RBC Rel Count 0.0 % % (0.0-0.2) Absolute Neuts (auto) 5.55 10^3/uL 10^3/uL (1.70-6.50) Absolute Lymphs (auto) 1.18 10^3/uL 10^3/uL (1.00-3.00) Absolute Monos (auto) 0.49 10^3/uL 10^3/uL (0.30-0.80) Absolute Eos (auto) 0.06 10^3/uL 10^3/uL (0.03-0.40) Absolute Basos (auto) 0.01 10^3/uL L 10^3/uL (0.02-0.10) Absolute Nucleated RBC 0.00 10^3/uL 10^3/uL (0-0.01) Immature Gran % 0.7 % % (0.0-1.1) Immature Gran # 0.05 10^3/uL 10^3/uL (0.00-0.10) Sodium 141 mEq/L mEq/L (134-144) Potassium 4.3 mEq/L mEq/L (3.5-5.2) Chloride 105 mEq/L mEq/L (97-110) Carbon Dioxide 27 mEq/l mEq/l (22-31) Anion Gap 9 mEq/L mEq/L (8-16) BUN 28 mg/dL H mg/dL (7-23) Creatinine 1.3 mg/dL mg/dL (0.7-1.3) Estimated GFR 55 Glucose 93 mg/dL mg/dL (70-100) Calcium 9.1 mg/dL mg/dL (8.5-10.4) Medications Given: Discontinued Medications Albuterol (Proventil Neb) 3 ml IH EDNOW ONE Stop: 09/15/16 05:55 Last Admin: 09/15/16 06:04 Dose: 3 ml Albuterol/Ipratropium (Duoneb) 3 ml IH EDNOW ONE Stop: 09/15/16 04:56 Last Admin: 09/15/16 05:25 Dose: 3 ml Ondansetron HCl (Zofran) 4 mg IVP EDNOW ONE Stop: 09/15/16 05:56 Last Admin: 09/15/16 06:02 Dose: 4 mg Departure - Departure Disposition: Home, Routine, Self-Care Clinical Impression: Exacerbation of asthma Condition: Fair Instructions: How to Use a Nebulizer (ED), Bronchospasm (ED) Additional Instructions: Please follow-up with your doctor today or tomorrow. Please return to the emergency room if your worse in any way. Referrals: Irma Quiros MD [Primary Care Provider] - As per Instructions Prescriptions: Albuterol Sulfate [ALBUTEROL SULFATE] 0.63 mg IH Q6 PRN #30 vial.neb PRN Reason: Short Of Breath/Dyspnea AZITHROMYCIN [Z-PACK] 250 mg PO DAILY #6 tab Nebulizer/Compressor [Portable Nebulizer System] 1 each MC Q6H PRN #1 each PRN Reason: Short Of Breath/Dyspnea
[2016-09-15] MEDS ORDERED: ALBUTEROL 3 ML DEYVIAL IH ONE (05:54)
[2016-09-15] MEDS ORDERED: ONDANSETRON 4 MG/2 ML VIAL IVP ONE (05:55)
[2016-09-15 06:39] VITALS: BP 172/75
== END 2016-09-15 06:57 | disposition home or self-care (01) ==
LOC: EDUNIT#
DX: J45.901 Unspecified asthma with (acute) exacerbation (principal); I25.10 Atherosclerotic heart disease of native coronary artery without angina pectoris; I25.2 Old myocardial infarction; Z95.5 Presence of coronary angioplasty implant and graft; Z79.82 Long term (current) use of aspirin
CPT/HCPCS: 71020; 96374; 99284; J2405

== ENCOUNTER 2016-09-19 04:18 | Emergency (ER) | payer OTHER, MEDICAID ==
[2016-09-19] MEDS ORDERED: IPRATROPIUM/ALBUTEROL 3 ML DEYVIAL ONE (04:24)
[2016-09-19] MEDS ORDERED: predniSONE 20 MG TAB ONE (04:25)
[2016-09-19 04:29] VITALS: TEMP 98.2
[2016-09-19] MEDS ORDERED: IPRATROPIUM/ALBUTEROL 3 ML DEYVIAL IH ONE (04:30)
[2016-09-19] MEDS ORDERED: predniSONE 20 MG TAB PO ONE (04:30)
--- NOTE | 2016-09-19 04:33 | EDPHY ---
H & P Time Seen by Provider: 09/19/16 04:25 HPI/ROS: HPI Asthma, foot pain, mouth pain. 66-year-old male by ambulance from home. He is very familiar to our emergency department. He has a history of asthma. He reports that he had a loose left lower molar that he pulled. He reports that he had some mouth pain after doing this. He reports also that he has chronic left foot pain. He reports he has taken 6 Percocet over the last several hours for this pain. He reports he has also been getting more shortness of breath and wheezy tonight because of his asthma and uses albuterol inhaler several times. ROS: Constitutional: No fever, no chills. No weakness. Eyes: No discharge. No changes in vision. ENT: No sore throat. No nasal congestion or rhinorrhea. As above. Respiratory: No cough. As above. Cardiac: No chest pain, no palpitations. Gastrointestinal: No abdominal pain, no vomiting, no diarrhea. Genitourinary: No hematuria. No dysuria or increased frequency with urination. Musculoskeletal: No back pain. No neck pain. As above. Skin: No rashes. Neurological: No headache. No focal weakness or altered sensation. Past medical history: Reactive airway disease, COPD, anxiety, chronic opioid dependence secondary to traumatic injuries. He is on oxygen 2-3 L by nasal cannula 06/02 at home. Social history: Lives alone. Nonsmoker. Physical Exam: General Appearance: Alert, no distress. Disheveled. This patient is responding to questions appropriately and in full sentences. This patient appears well-hydrated and well-nourished. Eyes: Pupils equal and round no pallor or injection. No lid edema, erythema or injection. ENT, Mouth: Mucous membranes are moist. The pharyngeal tissues are unremarkable. No edema or swelling. No asymmetry suggestive of abscess. No erythema or exudates. Poor dentition. No dry socket but it looks like he pulled half of a decaying left lower molar off at the base. There is no gingival swelling or bleeding. This could be chronic. Respiratory: There are no retractions, diffuse wheezing in the mid and upper lung reynoso. Decent air movement. No tachypnea. Cardiovascular: Regular rate and rhythm. No murmur. Gastrointestinal: Abdomen is soft and nontender, no masses, bowel sounds normal. No focal tenderness at McBurney's point. No Eaton sign. Neurological: Motor sensory function is grossly intact. Cranial nerves are normal. Gait is normal. Skin: Warm and dry, no rashes. Musculoskeletal: Neck is supple and nontender. Extremities are symmetrical except for a chronic deformity to the left foot. No evidence of acute extremity trauma. Psychiatric: No agitation. No depression. Database: EKG: Imaging: Procedures: Emergency department course: Albuterol/Atrovent nebulizer started. Patient given 80 mg of oral prednisone. He was given 500 mg of penicillin orally. Vital signs were reviewed. Afebrile , moderately hypertensive. No tachycardia. His chest x-ray from September 15 was reviewed. 5:00 a.m., patient re-evaluated. He is feeling better at this time. Repeat lung exam is good air movement bilaterally, scant wheezing on exhalation in the upper reynoso only. No tachypnea. Pulse oximetry on 2 L by nasal cannula 93%. He feels comfortable going home at this time. He has oxygen at home as well as albuterol. I discussed follow-up through dental aide for further management of his dental problems. He will be prescribed penicillin as well as a short course of prednisone. Follow up with his primary care physician was reviewed. Return to emergency department precautions discussed. All of his questions were answered. He was discharged in good condition. Differential Diagnosis: The differential diagnosis on this patient includes but is not limited to asthma exacerbation, chronic pain, dental caries. This represents a partial list of diagnoses considered. These considerations are based on history, physical exam, past history, reassessment and diagnostic testing. Smoking Status: Never smoked Constitutional: Initial Vital Signs Temperature (C) 36.8 C 09/19/16 04:28 Heart Rate 76 09/19/16 04:28 Respiratory Rate 20 09/19/16 04:28 Blood Pressure 173/112 H 09/19/16 04:28 O2 Sat (%) 90 L 09/19/16 04:28 O2 Delivery Mode Nasal Cannula O2 (L/minute) 2 Allergies/Adverse Reactions: Sulfa (Sulfonamide Antibiotics) Allergy (Intermediate, Verified 09/19/16 04:26) Vomiting Home Medications: Medication Instructions Recorded Aspirin [Aspirin 81mg (*)] 81 mg PO DAILY #0 tab.chew 08/08/16 Lisinopril [Zestril 10 mg (*)] 10 mg PO DAILY #15 tab 08/08/16 Ondansetron Odt [Zofran Odt 4 mg 4 mg PO Q4 PRN #20 tab 08/24/16 (*)] Albuterol [Ventolin Hfa Inhaler] 2 puffs IH Q4 PRN 09/10/16 QUEtiapine FUMARATE [Seroquel 100 200 mg PO HS 09/10/16 mg (*)] QUEtiapine FUMARATE [Seroquel 25 25 mg PO DAILY PRN 09/10/16 mg (*)] QUEtiapine FUMARATE [Seroquel 25 50 mg PO HS 09/10/16 mg (*)] clonazePAM [klonoPIN (*)] 1 mg PO BID 09/10/16 oxyCODONE/APAP 5/325 [Percocet 2 tab PO BID PRN 09/10/16 5/325 (*)] traZODone [traZODONE 100MG (*)] 400 mg PO HS 09/10/16 Albuterol [Proventil Inhaler HFA 2 puffs IH Q4 PRN #1 mdi 09/12/16 (*)] Meclizine HCl [Meclizine HCl 25 mg 25 mg PO Q6 PRN #30 tab 09/12/16 (RX,OTC)] predniSONE 40 mg PO DAILY #10 tablet 09/12/16 AZITHROMYCIN [Z-PACK] 250 mg PO DAILY #6 tab 09/15/16 Albuterol Sulfate [ALBUTEROL 0.63 mg IH Q6 PRN #30 vial.neb 09/15/16 SULFATE] Nebulizer/Compressor [Portable 1 each MC Q6H PRN #1 each 09/15/16 Nebulizer System] Penicillin V Potassium [Penicillin 500 mg PO QID #28 tablet 09/19/16 VK] predniSONE [prednisone 20mg (RX)] 60 mg PO DAILY #9 tab 09/19/16 Medical Decision Making - Data Points Medications Given: Discontinued Medications Albuterol/Ipratropium (Duoneb) 3 ml IH EDNOW ONE Stop: 09/19/16 04:31 Last Admin: 09/19/16 04:37 Dose: 3 ml Penicillin V Potassium (Pen Vk) 500 mg PO EDNOW ONE PRN Reason: Protocol Stop: 09/19/16 04:54 Last Admin: 09/19/16 05:20 Dose: 500 mg Prednisone (Prednisone) 80 mg PO EDNOW ONE Stop: 09/19/16 04:31 Last Admin: 09/19/16 04:36 Dose: 80 mg Departure - Departure Disposition: Home, Routine, Self-Care Clinical Impression: Chronic pain, Dental alveolar anomaly, Asthma exacerbation Condition: Good Instructions: Asthma (ED), Dental Caries (ED) Additional Instructions: Read and follow provided instructions. Follow-up with your primary care physician, Dr. Irma Quiros, tomorrow for re- evaluation. Follow up with Dental Aid as discussed for management of your dental problem. Make sure you have your oxygen on at home. Take your medications as prescribed only. I will prescribe penicillin to prevent dental infection as well as a short course of prednisone for your asthma. Return to the emergency department for worsening shortness of breath, cough, fever or other serious concerns. Referrals: Patient,NotPresent [Unknown] - As per Instructions [facility] [Outside] - As per Instructions Prescriptions: Penicillin V Potassium [Penicillin VK] 500 mg PO QID #28 tablet predniSONE [prednisone 20mg (RX)] 60 mg PO DAILY #9 tab
[2016-09-19] MEDS ORDERED: PENICILLIN VK 500 MG TAB PO ONE (04:53)
[2016-09-19 05:21] VITALS: BP 162/85; PULSE 82; RESP 18; O2SAT 93
== END 2016-09-19 05:21 | disposition home or self-care (01) ==
LOC: EDUNIT#
DX: M26.70 Unspecified alveolar anomaly (principal); G89.29 Other chronic pain; J45.901 Unspecified asthma with (acute) exacerbation; J44.9 Chronic obstructive pulmonary disease, unspecified; Z79.82 Long term (current) use of aspirin

== ENCOUNTER 2016-10-21 04:11 | Emergency (ER) | payer OTHER, MEDICAID ==
[2016-10-21] MEDS ORDERED: LORazepam 1 MG TAB ONE (04:15)
[2016-10-21] MEDS ORDERED: LORazepam 1 MG TAB PO ONE (04:16)
--- NOTE | 2016-10-21 04:21 | EDPHY ---
H & P HPI/ROS: HPI CHIEF COMPLAINT: Anxiety, shortness of breath HISTORY OF PRESENT ILLNESS: This patient very pleasant 58-year-old male I am very familiar with him, he has significant past medical history for coronary artery disease with a stent, hypertension, asthma, COPD on intermittent oxygen 3 L, AFib hypertension hyperlipidemia obstructive sleep apnea hypoxic respiratory failure, presents emergency room by EMS for anxiety. Patient called 911 this evening as he tells me felt very anxious he then started feeling that he was getting short of breath this then made his anxiety even worse decided to call 911. EMS evaluated him he had a normal room air saturation of 96% he was not tachypneic he was anxious, he has no chest pain they brought him here to the emergency room for evaluation. Upon arrival to the emergency room the patient does admit to being anxious he denies chest pain or significant shortness of breath. He has clear lung reynoso on exam no wheezing no tachypnea no rhonchi and no crackles. He is moving good air his room air saturation is 97%. Does tell me he feels anxious and would like anxiety medication. Past Medical History: COPD intermittent 3 L of oxygen, asthma, hypoxic respiratory failure Mariusz disease with 1 stent, AFib, hypertension, hyperlipidemia, illicit, chronic pain to the ankle joint, depression Past Surgical History: No recent surgical history Social History: Denies daily use of drugs alcohol tobacco, lives independently , alone, Family History: Noncontributory ROS REVIEW OF SYSTEMS: A comprehensive 10 point review of systems is otherwise negative aside from elements mentioned in the history of present illness. Exam Constitutional , anxious appears well nontoxic triage nursing summary reviewed , vital signs reviewed, awake/alert. Eyes normal conjunctivae and sclera, EOMI, PERRLA. HENT normal inspection, atraumatic, moist mucus membranes, no epistaxis, neck supple/ no meningismus, no raccoon eyes. Respiratory lungs are clear. clear to auscultation bilaterally, normal breath sounds, no respiratory distress, no wheezing. Cardiovascular rate normal, regular rhythm, no murmur, no edema, distal pulses normal. Gastrointestinal soft, non-tender, no rebound, no guarding, normal bowel sounds, no distension, no pulsatile mass. Genitourinary no CVA tenderness. Musculoskeletal no midline vertebral tenderness, full range of motion, no calf swelling, no tenderness of extremities, no meningismus, good pulses, neurovascularly intact. Skin pink, warm, & dry, no rash, skin atraumatic. Neurologic awake, alert and oriented x 3, AAOx3, moves all 4 extremities equally, motor intact, sensory intact, CN II-XII intact, normal cerebellar, normal vision, normal speech. Psychiatric anxious Heme/Lymph/Immune no lymphadenopathy. Differential Diagnosis: includes but is not limited to in a particular order acute anxiety, panic attack, COPD, pneumonia, pneumothorax, CHF, ACS Medical Decision Making: Plan for this patient he does not want an IV established she does not want blood draw he is requesting something for anxiety. On evaluation him has no pulmonary symptoms he is not coughing has no respiratory distress he has not hypoxic his room air saturation looks good. Currently is on 3 L resting comfortably. Lungs are clear on auscultation. Plan for this patient be 1 mg p. o. Ativan helped his anxiety and a EKG. Re-evaluation: 0600: Re-evaluation patient resting comfortably come. Much better after Ativan requesting discharge. Denies chest pain or shortness of breath. Feels better after 1 mg p. o. Ativan would like to be discharged. EKG interpretation by me on record in [facility] system. Impression time of EKG 4:26 a.m., this is sinus rhythm rate of 79 no acute ischemic changes. No signs of arrhythmia. Unremarkable EKG. Source: Patient - Personal History Tetanus Vaccine Date: 10/2010 - Medical/Surgical History Hx Asthma: Yes Hx Chronic Respiratory Disease: Yes Hx Diabetes: No Hx Cardiac Disease: Yes Hx Renal Disease: No Hx Cirrhosis: No Hx Alcoholism: No Hx HIV/AIDS: No Hx Splenectomy or Spleen Trauma: No Other PMH: Severe anxiety, chronic pain, CAD, Asthma, left foot deformity/fx from 10 yrs ago, [place] w/stents 2011, kidney problems, appendectomy - Social History Smoking Status: Never smoked Constitutional: Initial Vital Signs Temperature (C) 36.4 C 10/21/16 04:23 Heart Rate 88 10/21/16 04:23 Respiratory Rate 18 10/21/16 04:23 Blood Pressure 174/85 H 10/21/16 04:23 O2 Sat (%) 93 10/21/16 04:23 O2 Delivery Mode Room Air O2 (L/minute) 2 Allergies/Adverse Reactions: Sulfa (Sulfonamide Antibiotics) Allergy (Intermediate, Verified 10/21/16 04:19) Vomiting Home Medications: Medication Instructions Recorded Aspirin [Aspirin 81mg (*)] 81 mg PO DAILY #0 tab.chew 08/08/16 Lisinopril [Zestril 10 mg (*)] 10 mg PO DAILY #15 tab 08/08/16 Albuterol [Ventolin Hfa Inhaler] 2 puffs IH Q4 PRN 09/10/16 QUEtiapine FUMARATE [Seroquel 100 200 mg PO HS 09/10/16 mg (*)] QUEtiapine FUMARATE [Seroquel 25 25 mg PO DAILY PRN 09/10/16 mg (*)] QUEtiapine FUMARATE [Seroquel 25 50 mg PO HS 09/10/16 mg (*)] clonazePAM [klonoPIN (*)] 1 mg PO BID 09/10/16 oxyCODONE/APAP 5/325 [Percocet 2 tab PO BID PRN 09/10/16 5/325 (*)] traZODone [traZODONE 100MG (*)] 400 mg PO HS 09/10/16 Meclizine HCl [Meclizine HCl 25 mg 25 mg PO Q6 PRN #30 tab 09/12/16 (RX,OTC)] Nebulizer and Compressor [Portable 1 each MC Q6H PRN #1 each 09/15/16 Nebulizer System] Montelukast Sodium 10/21/16 Medical Decision Making - Data Points Medications Given: Discontinued Medications Lorazepam (Ativan) 1 mg PO ONCE ONE Stop: 10/21/16 04:17 Last Admin: 10/21/16 04:18 Dose: 1 mg Departure - Departure Disposition: Home, Routine, Self-Care Clinical Impression: Anxiety Condition: Good Instructions: Anxiety (ED) Referrals: Patient,NotPresent [Unknown] - As per Instructions
[2016-10-21 04:26] VITALS: TEMP 97.5
[2016-10-21 05:11] VITALS: BP 147/68; PULSE 77; RESP 19; O2SAT 94
--- NOTE | 2016-10-21 06:07 | CPEKG ---
Heart Rate: 79 RR Interval: 759 P-R Interval: 148 QRSD Interval: 88 QT Interval: 376 QTC Interval: 432 P Export: 72 QRS Export: 27 T Wave Export: 45 EKG Severity - NORMAL ECG - EKG Impression: SINUS RHYTHM Electronically Signed By: Kimo Celeste 21-Oct-2016 08:10:14
== END 2016-10-21 05:16 | disposition home or self-care (01) ==
LOC: EDUNIT# → EDBD
DX: F41.9 Anxiety disorder, unspecified (principal); J45.909 Unspecified asthma, uncomplicated; I25.10 Atherosclerotic heart disease of native coronary artery without angina pectoris; I25.2 Old myocardial infarction; I10 Essential (primary) hypertension; Z79.82 Long term (current) use of aspirin

== ENCOUNTER 2016-12-09 09:29 | Inpatient (IN) | payer OTHER, MEDICAID ==
[2016-12-09] MEDS ORDERED: NS 500 ML IV ONE (09:35)
--- NOTE | 2016-12-09 09:56 | EDPHY ---
H & P Time Seen by Provider: 12/09/16 09:35 HPI/ROS: HPI Fall last night, right-sided pain. 66-year-old male by ambulance from his private residence where he lives alone. He reports that he slipped on a wet floor in the bathroom. He fell to the ground onto his right side. He was unable to get up off the floor. He complains of right-sided pain involving his right proximal femur area, his right abdomen and his right chest. He was lying in that position on his right side through the night. He does not remember what time he fell. No associated chest pain, shortness of breath, headache, palpitations with regards to his fall. ROS: Constitutional: No fever, no chills. No weakness. Eyes: No discharge. No changes in vision. ENT: No sore throat. No nasal congestion or rhinorrhea. Respiratory: No cough. No shortness of breath. Cardiac: No chest pain, no palpitations. Gastrointestinal: No abdominal pain, no vomiting, no diarrhea. Genitourinary: No hematuria. No dysuria or increased frequency with urination. Musculoskeletal: No back pain. No neck pain. No myalgias or arthralgias. Skin: No rashes. Neurological: No headache. No focal weakness or altered sensation. 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 Social history: No smoking, no alcohol, benzodiazepine dependence, lives alone , on disability secondary to left foot condition. Code status is DNR. Physical Exam: General Appearance: Alert, no distress. This patient is responding to questions appropriately and in full sentences. This patient appears well- hydrated and well-nourished. Head: Normocephalic atraumatic. Face: Facial bones are stable on palpation. Eyes: Pupils equal and round and reactive to light, no pallor or injection. No lid erythema or edema. ENT, Mouth: Mucous membranes moist. Dentition is intact. No malocclusion of the jaw. No tongue lacerations or abrasions. Pharynx is clear. The bilateral nasal canals are clear. No septal hematoma. Respiratory: There are no retractions, lungs are clear to auscultation with good air movement bilaterally. Chest wall is stable to AP and lateral palpation. Cardiovascular: Regular rate and rhythm. No murmur. Ecchymosis noted to right mid lateral chest wall with tenderness on palpation over this area, ecchymosis over the right anterior chest. Gastrointestinal: Abdomen is soft, distended, second-degree, skin blister right lateral abdomen, diffuse tenderness throughout abdomen, no guarding, no masses, bowel sounds normal. Neurological: Motor sensory function is intact. Cranial nerves are normal. Cerebellar function intact. Skin: Warm and dry, no rashes. No lacerations, abrasions or contusions. Musculoskeletal: Neck is supple with lower paraspinal posterior neck tenderness on palpation bilaterally. The trachea is midline. No midline cervical, thoracic, lumbar or sacral tenderness on palpation. No flank tenderness on palpation. Bruise to right elbow with tenderness on palpation of this area. Tenderness on palpation of the proximal femur without deformity, ecchymosis or swelling noted. Otherwise, extremities are symmetrical, full range of motion. All joints in the bilateral upper and bilateral lower extremities range without pain or impingement except noted. No tenderness on palpation of the long bones in the bilateral upper and bilateral lower extremities except noted. Psychiatric: No agitation. No depression. Database: EKG: EKG time is 2:10 p.m.; EKG shows a narrow complex normal sinus rhythm with a ventricular rate of 95. The NE, QRS, QT intervals are within normal limits. There are no ST-T wave changes indicative of ischemic or injury pattern. No evidence of right heart strain. Interpreted by me. Imaging: Right elbow x-ray series: Negative. Interpreted by me. Right femur x-ray series: Negative. Interpreted by me. CT head and cervical spine without contrast: Negative. Results were discussed with staff radiologist Dr. Jaswinder Trotter. CT chest abdomen and pelvis with contrast: Negative except for a nondisplaced rib fracture right-sided 11. Results were discussed with staff radiologist Dr. Jaswinder Trotter. Procedures: Emergency department course: He is in a cervical collar. Patient will be given IV fentanyl 50 mcg as needed for pain control. Patient will be sent for appropriate imaging. Peripheral IV was very difficult on this patient, temporary internal jugular 18 gauge catheter placed by myself under sterile conditions and ultrasound-guided right side. Patient given IV hydromorphone for pain control. Patient treated aggressively with IV fluids for rhabdomyolysis. Secondary to bicarbonate shortage we could not alkalinize this fluid in the emergency department at this time. This was discussed with the hospitalist. 2:20 p.m., discussed case with trauma surgeon on-call, Dr. Tani Millan. Case discussed in detail with him. He will consult on the patient for any further trauma management. 2:25 p.m., discussed case with hospitalist, patient accepted for admission under the care of Dr. Leobardo Robertson. Patient's remaining emergency department course under my care uneventful. He was admitted in stable and improved condition. Differential Diagnosis: The differential diagnosis on this patient includes but is not limited to rib fracture, femur fracture, pneumothorax, rhabdomyolysis. This represents a partial list of diagnoses considered. These considerations are based on history , physical exam, past history, reassessment and diagnostic testing. Smoking Status: Never smoked Constitutional: Initial Vital Signs Temperature (C) 36.7 C 12/09/16 09:40 Heart Rate 92 12/09/16 09:40 Respiratory Rate 18 12/09/16 09:40 Blood Pressure 154/140 H 12/09/16 09:40 O2 Sat (%) 93 12/09/16 09:40 O2 Delivery Mode Nasal Cannula O2 (L/minute) 2 Allergies/Adverse Reactions: Sulfa (Sulfonamide Antibiotics) Allergy (Intermediate, Verified 10/21/16 04:19) Vomiting Home Medications: Medication Instructions Recorded Lisinopril [Zestril 10 mg (*)] 10 mg PO DAILY #15 tab 08/08/16 Albuterol [Ventolin Hfa Inhaler] 2 puffs IH Q4 PRN 09/10/16 QUEtiapine FUMARATE [Seroquel 100 200 mg PO HS 09/10/16 mg (*)] QUEtiapine FUMARATE [Seroquel 25 25 mg PO DAILY PRN 09/10/16 mg (*)] QUEtiapine FUMARATE [Seroquel 25 50 mg PO HS 09/10/16 mg (*)] clonazePAM [klonoPIN (*)] 1 mg PO BID 09/10/16 oxyCODONE/APAP 5/325 [Percocet 2 tab PO BID PRN 09/10/16 5/325 (*)] traZODone [traZODONE 100MG (*)] 400 mg PO HS 09/10/16 Meclizine HCl [Meclizine HCl 25 mg 25 mg PO Q6 PRN #30 tab 09/12/16 (RX,OTC)] Montelukast Sodium 10/21/16 Aspirin [Aspirin 81mg (*)] 81 mg PO HS 12/09/16 Gabapentin [Neurontin 300 MG (*)] 300 mg PO TID 12/09/16 Medical Decision Making - Diagnostics Imaging Results: Imaging Impressions Cervical Spine CT 12/09/16 09:36 Impression: 1. No acute fracture or soft tissue swelling. 2. If the patient has persistent pain or neurologic deficits, consider cervical spine MRI. Findings discussed with Emergency Department physician, Mj Hannah M.D. on December 09, 2016 at 10:[address] 12/09/16 09:36 Impression: No acute fracture or evidence of acute intracranial injury. Findings discussed with Emergency Department physician, Mj Hannah M.D. on December 09, 2016 at 10:34 a.m. Femur X-Ray 12/09/16 09:47 Impression: 1. No acute fracture right femur. Mild degenerative changes about the right hip. Elbow X-Ray 12/09/16 09:56 Impression: Normal right elbow series. Abdomen/Pelvis CT 12/09/16 11:26 Impression: 1. Moderate constipation. 2. No CT evidence of hematoma, abscess or bowel obstruction. 3. Mild soft tissue contusion right flank in the subcutaneous fat. 4. Fracture of the posterior lateral right 11th rib. Findings discussed with Mj Hannah MD at 13:26 hour, 12/09/2016. Chest CT 12/09/16 11:26 Impression: 1. Mild dependent atelectasis posteriorly. 2. Moderate atherosclerotic calcifications associated with the coronary arteries. 3. No acute abnormality seen within the chest. Findings discussed with Mj Hannah MD at 13:20 hour, 12/09/2016. - Data Points Laboratory Results: Laboratory Results 12/09/16 11:52 12/09/16 11:52 12/09/16 12/09/16 12/09/16 11:52 11:52 11:52 WBC 18.90 10^3/uL H 10^3/uL (3.80-9.50) RBC 5.63 10^6/uL 10^6/uL (4.40-6.38) Hgb 17.7 g/dL H g/dL (13.7-17.5) Hct 52.4 % H % (40.0-51.0) MCV 93.1 fL fL (81.5-99.8) MCH 31.4 pg pg (27.9-34.1) MCHC 33.8 g/dL g/dL (32.4-36.7) RDW 13.9 % % (11.5-15.2) Plt Count 209 10^3/uL 10^3/uL (150-400) MPV 10.0 fL fL (8.7-11.7) Neut % (Auto) 90.1 % H % (39.3-74.2) Lymph % (Auto) 3.0 % L % (15.0-45.0) [place] % (Auto) 6.1 % % (4.5-13.0) Eos % (Auto) 0.0 % L % (0.6-7.6) Baso % (Auto) 0.2 % L % (0.3-1.7) Nucleat RBC Rel Count 0.0 % % (0.0-0.2) Absolute Neuts (auto) 17.03 10^3/uL H 10^3/uL (1.70-6.50) Absolute Lymphs (auto) 0.56 10^3/uL L 10^3/uL (1.00-3.00) Absolute Monos (auto) 1.16 10^3/uL H 10^3/uL (0.30-0.80) Absolute Eos (auto) 0.00 10^3/uL L 10^3/uL (0.03-0.40) Absolute Basos (auto) 0.03 10^3/uL 10^3/uL (0.02-0.10) Absolute Nucleated RBC 0.00 10^3/uL 10^3/uL (0-0.01) Immature Gran % 0.6 % % (0.0-1.1) Immature Gran # 0.12 10^3/uL H 10^3/uL (0.00-0.10) PT 17.4 SEC H SEC (12.0-15.0) INR 1.43 H (0.83-1.16) APTT 38.8 SEC H SEC (23.0-38.0) Sodium 141 mEq/L mEq/L (134-144) Potassium 5.3 mEq/L H mEq/L (3.5-5.2) Chloride 108 mEq/L mEq/L (97-110) Carbon Dioxide 20 mEq/l L mEq/l (22-31) Anion Gap 13 mEq/L mEq/L (8-16) BUN 53 mg/dL H mg/dL (7-23) Creatinine 2.2 mg/dL H mg/dL (0.7-1.3) Estimated GFR 30 Glucose 115 mg/dL H mg/dL (70-100) Calcium 9.7 mg/dL mg/dL (8.5-10.4) Creatine Kinase > 68657 IU/L H IU/L (0-224) CK-MB (CK-2) Fraction 221.00 ng/mL H ng/mL (0-3.19) CK-MB (CK-2) % 0.0 % % (0.0-4.0) Creatine Kinase Interp NEGATIVE (NEGATIVE) Ethyl Alcohol < 10 mg/dL mg/dL (0-10) Medications Given: Discontinued Medications Hydromorphone HCl (Dilaudid) 0.5 mg IVP EDNOW ONE Stop: 12/09/16 13:47 Last Admin: 12/09/16 13:54 Dose: 0.5 mg Sodium Chloride (Ns) 500 mls @ 0 mls/hr IV ONCE ONE PRN Reason: Wide Open Stop: 12/09/16 09:36 Last Admin: 12/09/16 12:00 Dose: 500 mls Departure - Departure Disposition: [facility] Inpatient Acute Clinical Impression: Mechanical fall, Chest wall contusion, Right rib fracture, Rhabdomyolysis, Renal failure, Dehydration, Hyperkalemia Referrals: Irma Quiros MD [Primary Care Provider] - As per Instructions
[2016-12-09 12:04] LABS: % IMMATURE GRANULYOCYTES 0.6 % (0.0-1.1); ABSOLUTE IMMATURE GRANULOCYTES 0.12 10^3/uL (0.00-0.10); ADD DIFF? NO; ADD MORPH? NO; ADD SCAN? NO; ATYPICAL LYMPHOCYTE FLAG 0 (0-99); FRAGMENT RBC FLAG 0 (0-99); HEMATOCRIT 52.4 % (40.0-51.0); HEMOGLOBIN 17.7 g/dL (13.7-17.5); LEFT SHIFT FLG 0 (0-99); LIPEMIA HEMOLYSIS FLAG 90 (0-99); MEAN CELL HEMOGLOBIN 31.4 pg (27.9-34.1); MEAN CELL HEMOGLOBIN CONCENTR. 33.8 g/dL (32.4-36.7); MEAN CELL VOLUME 93.1 fL (81.5-99.8); PLATELET CLUMPS FLAG 0 (0-99); PLATELET COUNT 209 10^3/uL (150-400); RED BLOOD CELL COUNT 5.63 10^6/uL (4.40-6.38); RED CELL DISTRIBUTION WIDTH 13.9 % (11.5-15.2)
[2016-12-09 12:29] LABS: ANION GAP 13 mEq/L (8-16); CALCIUM 9.7 mg/dL (8.5-10.4); CARBON DIOXIDE 20 mEq/l (22-31); CHLORIDE 108 mEq/L (97-110); CREATININE 2.2 mg/dL (0.7-1.3); ETHANOL SERUM < 10 mg/dL (0-10); GLOMERULAR FILTRATION RATE 30; GLUCOSE 115 mg/dL (70-100); POTASSIUM 5.3 mEq/L (3.5-5.2); SODIUM 141 mEq/L (134-144)
[2016-12-09 12:39] LABS: INR 1.43 (0.83-1.16); PROTIME(PATIENT) 17.4 SEC (12.0-15.0)
[2016-12-09 12:41] LABS: APTT 38.8 SEC (23.0-38.0)
[2016-12-09 13:21] LABS: CK-MB INTERPRETATION NEGATIVE (NEGATIVE)
[2016-12-09] MEDS ORDERED: HYDROmorphONE/DILAUDID 1 MG/ML SYR ONE (13:45)
[2016-12-09] MEDS ORDERED: HYDROmorphONE/DILAUDID 1 MG/ML SYR IVP ONE (13:46)
--- NOTE | 2016-12-09 14:12 | CPEKG ---
Heart Rate: 95 RR Interval: 632 P-R Interval: 136 QRSD Interval: 82 QT Interval: 364 QTC Interval: 458 P [place]: 69 QRS [place]: -1 T Wave [place]: 81 EKG Severity - BORDERLINE ECG - EKG Impression: SINUS RHYTHM EKG Impression: PROBABLE LEFT ATRIAL ABNORMALITY Electronically Signed By: Mj Hannah 09-Dec-2016 15:14:51
[2016-12-09] MEDS ORDERED: MECLIZINE HCL 25 MG TAB PO PRN (16:21)
[2016-12-09] MEDS ORDERED: NON-FORMULARY NEW DRUG (Albuterol 2 PUFFS) IH PRN (16:21)
[2016-12-09] MEDS ORDERED: oxyCODONE IR 5 MG TAB ONE (16:33)
--- NOTE | 2016-12-09 16:34 | PDGENHP ---
History and Physical History and Physical: HISTORY AND PHYSICAL CC:Pain in multiple areas right side of the body after spending the night on floor from a fall HISTORY: The patient states he slipped on slippery wet floor at home last evening and at spending approximately 12 hours on the floor lying on his right side in too much pain to be able to move from that side. ROS: A comprehensive 10 system review revealed no other significant findings PAST MEDICAL HISTORY: depression and anxiety Asthma Coronary artery disease with stent Hypertension Chronic kidney disease baseline creatinine 1.2 Obesity Atrial fibrillation Chronic pain syndrome from old foot and ankle injuries with chronic prescribed narcotic it daily use FAMILY MEDICAL HISTORY: coronary artery disease SOCIAL HISTORY: no tobacco alcohol or street drugs Lives alone Chronic disability due to a left foot injury Prefers do not resuscitate order MEDICATIONS: The patients list has been reconciled by our clinical pharmacist in the EMR. I have reviewed the list and ordered appropriate medicines. He was eventually brought here by ambulance. He has been assessed with multiple imaging studies and has some rib fracture but no other fractures. However his identified as having severe rhabdomyolysis with acute renal insufficiency. He says that he was not sick or ill before his fall and he did not have any fainting type spells , cardiac or neurologic symptoms, fevers or any other issues at the time of his fall. PHYSICAL EXAMINATION: Vital Signs: [id number] hypertension otherwise normal Drilling Field Operator: sinus rhythm in the ER Examination: General: alert, oriented, good mentation, fairly anxious and looks uncomfortable Skin: warm, dry, good color; there are numerous erythematous pressure sores on his right arm the right side of his trunk and the lateral aspect of his right leg. There is some blistering along the perimeter of 1 of the sores at his right flank and right lower rib area. There is nothing necrotic and nothing open at this time. there also some mild ecchymoses on his right side. HEENT: normal Neck: no mass or jvd Resps: relaxed Lungs: clear breath sounds Heart: regular, no murmur Abdomen: soft, nondistended, nontender, +BS, no mass Upper Extremities: normal Lower Extremities: no edema, warm; he has old deformities of both feet and 1 of these deformities on each foot has a small area of erythema from pressure but no necrosis or open skin at this time No Bleeding or bruising Neurologic: normal speech/language, normal cattle care worker, no focal weakness IV site: looks normal LABORATORY DATA: CPK higher than the upper limits of detection at our lab, with negative and B Creatinine 2.2 within normal recently of 1 Potassium 5.3 Fairly elevated white blood cell count RADIOLOGY STUDIES: he has had CT scans of chest abdomen head neck and x-rays of the right hip and right elbow. I have reviewed all the radiologist reports from these and I have reviewed the images from the CT scan of the chest and abdomen. There is a 11th rib fracture on the right but there are no other significant signs of injury on all of the studies. 12 LEAD EKG: my personal interpretation of the 12 lead EKG tracing: Normal EKG ASSESSMENT: #ACUTE RHABDOMYOLYSIS, SEVERE WITH MULTIPLE MUSCLE GROUPS INVOLVE #ACUTE RENAL FAILURE DUE TO COMBINATION OF RHABDOMYOLYSIS AND DEHYDRATION ON CHRONIC RENAL FAILURE #MECHANICAL FALL DUE TO SLIPPING ON WET FLOOR, WITH INJURY INCLUDING FRACTURE AND THE ABOVE #ACUTE PAIN OF MULTIPLE INJURIES ON CHRONIC PAIN WITH CHRONIC DAILY NARCOTIC USE , PRESCRIBED #CHRONIC HYPERTENSION ON MEDICATIONS ; CURRENT ELEVATION OF BLOOD PRESSURE IS MOST LIKELY DUE TO UNCONTROLLED PAIN #MULTIPLE PRESSURE SORES OF THE SKIN, CURRENTLY WITH NO NECROSIS OR OPEN AREAS WITH SOME BLISTERING #MULTIPLE STABLE CHRONIC MEDICAL PROBLEMS INCLUDE CORONARY DISEASE, ASTHMA, DEPRESSION, ATRIAL FIBRILLATION I have reviewed all the above with the patient in significant detail. Have reviewed the potential complications in the treatment plan and monitoring plans with him. PLANS: -Admission to hospital inpatient status -Aggressive IV hydration currently will be using some bicarbonate in his IV fluid to alkalinize for his rhabdomyolysis -Avoid any nephrotoxins or other measures potentially harmful kidneys -Follow renal function and electrolytes very closely -If we do not have good control or rapid resolution of renal issues will involve nephrology -Pain management -DVT prophylaxis measures -Wound care nurse consultation I have reviewed the patient's case in detail with Dr.Laughlin Hannah I have reviewed the patient's past medical records as part of this assessment, including previous hospital admission records
[2016-12-09] MEDS ORDERED: ALBUTEROL 200 PUFFS/18 GM MDI IH PRN (16:36)
[2016-12-09] MEDS: oxyCODONE IR 5 MG TAB PO PRN ×2 (16:40→21:10)
[2016-12-09] MEDS ORDERED: ALBUTEROL 60 PUFFS/8 GM MDI IH PRN (16:41)
[2016-12-09] MEDS ORDERED: ZOLPIDEM TARTRATE 5 MG TAB PO PRN (17:12)
[2016-12-09] MEDS ORDERED: ONDANSETRON 4 MG/2 ML VIAL IVP PRN (17:12)
--- NOTE | 2016-12-09 17:55 | WOCRNPDOC ---
KATHRINE Advanced Assessment Note - Skin Integrity Problem, Advanced Assess Left Medial Ankle Pressure Injury Dressing Type: Open to Air Exudate Amount: None Exudate Characteristic(s): None Abby Wound Tissue: Blanching, Intact Abby Wound Swelling: Mild Wound Bed Color: Red Site Measurement - Head-to-Toe Length X Width X Depth (cm): [id number] Pressure Injury Stage: Stage 1 Pressure Injury Present on Admit: Yes (Documented in H&P) Skin Integrity Problem Comment: Area of non-blanching erythema noted on L medial malleolus, consistent in appearance with stage 1 pressure injury. Skin is presently intact. Patient does c/o mild discomfort to site with palpation. Site left WEB UI DEVELOPER, because pressure to area has been relieved now that patient is positioned on his back. armature and rotor winder Maile present during assessment to visualize all wounds. Wound care will continue to follow; next assessment on Monday. Left Medial Foot Pressure Injury Dressing Type: Open to Air Exudate Amount: None Exudate Characteristic(s): None Abby Wound Tissue: Swollen, Calloused Abby Wound Swelling: Mild Wound Bed Color: Brown Wound Bed Constitution: Scab Site Measurement - Head-to-Toe Length X Width X Depth (cm): 0.2cmx0.3cmx0.1cm ( surrounded by raised, calloused tissue, 1.8cmx1.7cmx0.8cm) Pressure Injury Stage: Unstageable Pressure Injury Present on Admit: Yes Skin Integrity Problem Comment: Pinpoint, scabbed wound located over a raised, calloused bony deformity on the L medial foot. No fluctuance palpated, but there is some discrete erythema to the raised area. Patient reports having this wound for some time, and appearance is consistent w/ long-term pressure and friction. Not an acute injury, but should be addressed ongoing when patient's immediate health issues are well-controlled. Left Medial Knee Pressure Injury Dressing Type: Open to Air Exudate Amount: None Exudate Characteristic(s): None Abby Wound Tissue: Blanching, Erythema, Intact Abby Wound Swelling: Mild Wound Bed Color: Red Site Measurement - Head-to-Toe Length X Width X Depth (cm): [id number] Pressure Injury Stage: Stage 1 Pressure Injury Present on Admit: Yes (Documented in H&P) Skin Integrity Problem Comment: Area of non-blanching erythema noted on L medial knee, consistent in appearance w/ stage 1 pressure injury. Abby-wound tissue is intact, blanching erythema w/ mild swelling. Pressure to site alleviated now that patient is positioned on his back. Wound care will continue to monitor. Right Heel Pressure Injury Dressing Type: Open to Air Exudate Amount: None Exudate Characteristic(s): None Abby Wound Tissue: Scaly, Dry, Calloused Abby Wound Swelling: None Wound Bed Color: Red Site Measurement - Head-to-Toe Length X Width X Depth (cm): [id number] Pressure Injury Stage: Stage 1 Pressure Injury Present on Admit: Yes (Documented in H&P) Skin Integrity Problem Comment: Area of non-blanching erythema noted on R heel, consistent in appearance w/ stage 1 pressure injury. Skin is presently intact over pressure injury, though there is a dry, fissured area in the callous adjacent to the PI. Abby-wound tissue is calloused and scaly, w/ blanching erythema w/ mild swelling. Order for protective foam dressing to be placed by nursing. Wound care will continue to monitor. Right Lower Lateral Arm Pressure Injury Dressing Type: Open to Air Exudate Amount: None Exudate Characteristic(s): None Abby Wound Tissue: Blanching, Intact Abby Wound Swelling: Mild Wound Bed Color: Red Site Measurement - Head-to-Toe Length X Width X Depth (cm): [id number] Pressure Injury Stage: Stage 1 Pressure Injury Present on Admit: Yes (Documented in H&P) Skin Integrity Problem Comment: Area of non-blanching erythema noted on RFA, just distal to the elbow along lateral aspect, consistent in appearance w/ stage 1 pressure injury. Abby-wound tissue is intact, blanching erythema w/ mild swelling. Pressure to site alleviated now that patient is positioned on his back. Wound care will continue to monitor. Right Lateral Elbow Pressure Injury Dressing Type: Open to Air Exudate Amount: None Exudate Characteristic(s): None Abby Wound Tissue: Blanching, Intact Abby Wound Swelling: Mild Wound Bed Color: Red Site Measurement - Head-to-Toe Length X Width X Depth (cm): [id number] Pressure Injury Stage: Stage 1 Pressure Injury Present on Admit: Yes (Documented in H&P) Skin Integrity Problem Comment: Area of non-blanching erythema noted on R lateral elbow, consistent in appearance w/ stage 1 pressure injury. Abby-wound tissue is intact, blanching erythema w/ mild swelling. Patient c/o tenderness when site palpated. Because this injury comes into contact w/ mattress, order placed for protective foam dressing to be applied. Wound care will continue to monitor. Right Upper Arm Pressure Injury Dressing Type: Open to Air Exudate Amount: None Exudate Characteristic(s): None Abby Wound Tissue: Blanching, Intact Abby Wound Swelling: Mild Wound Bed Color: Red Site Measurement - Head-to-Toe Length X Width X Depth (cm): [id number] Pressure Injury Stage: Stage 1 Pressure Injury Present on Admit: Yes (Documented in H&P) Skin Integrity Problem Comment: Area of non-blanching erythema noted on R upper arm, consistent in appearance w/ stage 1 pressure injury. Abby-wound tissue is intact, blanching erythema w/ mild swelling. Pressure to site alleviated now that patient is positioned on his back. Wound care will continue to monitor. Right Lateral Flank Pressure Injury Dressing Type: Open to Air Exudate Amount: None Exudate Characteristic(s): None Abby Wound Tissue: Blanching, Ecchymotic, Erythema Abby Wound Swelling: Mild Wound Bed Color: Red Wound Bed Constitution: Intact Serous Filled Blister Site Measurement - Head-to-Toe Length X Width X Depth (cm): 0.8cti7yxz3.2cm ( raised above skin level) Pressure Injury Stage: Stage 2 Pressure Injury Present on Admit: Yes (Documented in H&P) Skin Integrity Problem Comment: Linear wound w/ small, intact serous-filled blisters noted, consistent in appearance w/ stage 2 pressure injury. There is significant blanching erythema adjacent to this injury, which patient reports is very tender. In addition, there is an area of ecchymosis proximal to this injury. Wound care will continue to monitor site ongoing; next assessment Monday, 12/14.
[2016-12-09] MEDS ORDERED: ALTEPLASE 2 MG VIAL IVP PRN (18:06)
[2016-12-09] MEDS: SODIUM BICARBONATE 50 MEQ in 1/2 NS 1,000 ML IV SCH (20:22)
[2016-12-09] MEDS ORDERED: clonazePAM 1 MG TAB PO SCH (21:00)
[2016-12-09] MEDS: GABAPENTIN 300 MG CAP PO SCH (21:08)
[2016-12-09] MEDS: ASPIRIN 81 MG CHEWABLE TAB PO SCH (21:08)
[2016-12-09] MEDS: QUEtiapine FUMARATE 25 MG TAB PO SCH (21:09)
[2016-12-09] MEDS: QUEtiapine FUMARATE 100 MG TAB PO SCH (21:09)
[2016-12-09] MEDS: clonazePAM 0.5 MG TAB PO SCH (21:09)
[2016-12-09] MEDS: HEPARIN 5,000 UNIT/0.5 ML SYR SC SCH (21:10)
[2016-12-09] MEDS: traZODone 100 MG TAB PO SCH (21:10)
--- NOTE | 2016-12-09 21:37 | GCON ---
[f rep st] CONSULTATION DATE OF CONSULTATION: 12/09/2016 CHIEF COMPLAINT: Trauma, found down. HISTORY OF PRESENT ILLNESS: This is a 66-year-old male with a fairly complex medical history who pr esented to the emergency department today via ambulance. Briefly, the patient lives alone, has a carter r amount of medical comorbidities and apparently slipped last night on the floor while going to the bathroom. He fell onto the ground on his right side, denying hitting his head or having any loss of consciousness, but had such significant pain that he was unable to move for about 12 hours. When he was finally able to gain the where with all to move, he was able to call EMS services. Upon arrival in the trauma bay, he was hemodynamically stable, complaining of fairly diffuse right-sided pain. O n my evaluation, the patient continues to complain of right-sided pain. He also has a fair amount of diffuse abdominal pain as well. He states that his pain is mostly right chest and hip. He does de la o ve some ecchymoses on his right side and an abrasion on his right hip. He complains of right-sided chest pain without radiation, describes it as sharp 8/10 in intensity, improved with oral narcotics. Other than the pain, he has no complaints. PAST MEDICAL HISTORY: Depression, anxiety, asthma, coronary artery disease, status post stent, hype rtension, CKD with a baseline creatinine of 1.2, obesity, atrial fibrillation, and chronic pain synd piedad secondary to old foot and ankle injuries. PAST SURGICAL HISTORY: Multiple orthopedic histories on his ankle. No abdominal surgeries. Coronar y stent in place. FAMILY MEDICAL HISTORY: Noncontributory. SOCIAL HISTORY: Lives alone. Denies illicit drug use. Chronically disabled. CURRENT MEDICATIONS: Reviewed in [employer]. REVIEW OF SYSTEMS: A full 10-point review was performed and, unless explicitly stated above, is oth erwise negative. PHYSICAL EXAMINATION: VITAL SIGNS: Temperature 36.6, blood pressure 174/114, heart rate 95, and he is 92% on room air. GENERAL: He appears chronically disabled and in a mild amount of distress. S KIN: Warm, dry. He does have an abrasion on his right hip. He also has some bruising on his right chest consistent with his injury mechanism. HEENT: His pupils are equal, round, and reactive to ligh t and accommodation. His extraocular movements are intact. He has no scleral icterus. Mouth, nose: Moist mucous membranes. Dentition is poor. NECK: Soft. His midline C-spine has no tenderness, and there is no crepitus. CHEST: No crepitus. Painful to palpation on the right side with no obvious step-off. LUNGS: Clear, although diminished at the bases, especially on the right. ABDOMEN: Obese. Soft. Minimally tender to palpation especially on the right side. No previous surgical scars. No rebound tenderness or guarding. NEUROLOGIC: Grossly nonfocal. Cranial nerves appear intact. PSYCH: Oriented to person, place, and time. MUSCULOSKELET AL: Deformed left ankle. Upper extremities appear normal. Right foot also has some abrasions on it which have been appropriately dressed. LABORATORY DATA: White blood cell count elevated to 19,000, H and H of 17 and 52, platelets 209. C oags show an elevated INR 1.4. Chemistry shows an elevated potassium of 5.3, creatinine of 2.2, gluc ose of 115, a CK greater than 30,000, and a negative tox screen. Imaging was performed in the emerg ency department; the images were personally reviewed by me. This includes a CT head, CT C-spine, CT chest, abdomen and pelvis, and plain films of both the right-sided elbow and femur. All of these sh ow no acute trauma with the exception of a nondisplaced right-sided rib fracture. ASSESSMENT/PLAN: A 66-year-old male with multiple medical comorbidities, status post fall, found do wn. At this point in time, the only trauma that the patient currently has is a fracture to his right 11th rib. From a metabolic standpoint, his CK is greater than the higher limits of normal and he de la o s underlying kidney failure in addition to his rhabdomyolysis. I agree with Dr. Robertson's plan of agg ressive hydration in an effort to perfuse and protect his kidneys. From a trauma standpoint, I discu ssed with the patient multiple times deep breathing and incentive spirometry given his rib fractures and underlying poorly sounding lung on that side. We will continue to follow and address the patie nt's needs. Should he need a temporary dialysis catheter, we would be able to provide that at the [facility] as needed. /[id number]/MODL
[2016-12-09] MEDS: HYDROmorphONE/DILAUDID 1 MG/ML SYR IVP PRN (21:58)
[2016-12-09] MEDS: PROMETHAZINE HCL 25 MG/ML INJ IVP PRN ×2 (22:00→23:53)
[2016-12-10] MEDS: oxyCODONE IR 5 MG TAB PO PRN ×4 (01:17→17:52)
[2016-12-10 01:32] LABS: COLOR YELLOW; LEUKOCYTE ESTERASE,URINE NEGATIVE (NEGATIVE); NITRITE,URINE NEGATIVE (NEGATIVE)
[2016-12-10 01:45] LABS: AMORPHOUS PRESENT /hpf (NONE-1+); BACTERIA TRACE /hpf (NONE SEEN); MUCUS TRACE /lpf (NONE-1+)
[2016-12-10] MEDS: SODIUM BICARBONATE 50 MEQ in 1/2 NS 1,000 ML IV SCH ×3 (03:19→17:49)
[2016-12-10] MEDS: PROMETHAZINE HCL 25 MG/ML INJ IVP PRN (04:20)
[2016-12-10] MEDS: HYDROmorphONE/DILAUDID 1 MG/ML SYR IVP PRN ×3 (04:20→14:28)
[2016-12-10 04:43] LABS: ANION GAP 10 mEq/L (8-16); CALCIUM 8.8 mg/dL (8.5-10.4); CARBON DIOXIDE 25 mEq/l (22-31); CHLORIDE 107 mEq/L (97-110); CREATININE 1.9 mg/dL (0.7-1.3); GLOMERULAR FILTRATION RATE 35; GLUCOSE 143 mg/dL (70-100); MAGNESIUM 2.5 mg/dL (1.6-2.3); POTASSIUM 4.7 mEq/L (3.5-5.2); SODIUM 142 mEq/L (134-144)
[2016-12-10] MEDS: HEPARIN 5,000 UNIT/0.5 ML SYR SC SCH ×3 (05:41→21:29)
--- NOTE | 2016-12-10 07:56 | TRAUMAPN ---
Assessment/Plan: 66 year old with multiple co-morbidities found down with isolated 11th rib fracture Rhabdo Acute kidney injury On tertiary survey, no additional injuries are found trauma will sign off, please contact if needed S: Hurst all over Objective: Vital Signs Temp Pulse Resp BP Pulse Ox 36.6 C 104 H 16 142/80 H 91 L 12/10/16 07:40 12/10/16 07:40 12/10/16 07:40 12/10/16 07:40 12/10/16 07:40 Laboratory Results 12/10/16 04:10 12/09/16 12/10/16 12/11/16 05:59 05:59 05:59 Intake Total 3838 Output Total 1100 Balance 2738 PT 17.4 SEC (12.0-15.0) H 12/09/16 11:52 INR 1.43 (0.83-1.16) H 12/09/16 11:52 Physical Exam - Physical Exam General Appearance: WD/WN, alert, mild distress, other (lying in bed) EENT: PERRL/EOMI, normal ENT inspection, No scleral icterus (R), No scleral icterus (L) Neck: non-tender, full range of motion Respiratory: lungs clear, normal breath sounds, No chest non-tender (chest tender Rlower) Cardiac/Chest: regular rate, rhythm Abdomen: normal bowel sounds, non-tender, soft, No organomegaly Back: Normal inspection Skin: normal color, warm/dry Extremities: normal range of motion Neuro/Psych: no motor/sensory deficits
[2016-12-10] MEDS: clonazePAM 0.5 MG TAB PO SCH ×2 (08:27→21:28)
[2016-12-10] MEDS: GABAPENTIN 300 MG CAP PO SCH ×3 (08:27→21:28)
[2016-12-10] MEDS: MONTELUKAST SODIUM 10 MG TAB PO SCH (08:27)
--- NOTE | 2016-12-10 14:12 | HOSPPROG ---
Hospitalist Progress Note Assessment/Plan: DIAGNOSES: #ACUTE RHABDOMYOLYSIS, SEVERE WITH MULTIPLE MUSCLE GROUPS INVOLVE #ACUTE RENAL FAILURE DUE TO COMBINATION OF RHABDOMYOLYSIS AND DEHYDRATION ON CHRONIC RENAL FAILURE #MECHANICAL FALL DUE TO SLIPPING ON WET FLOOR, WITH INJURY INCLUDING FRACTURE AND THE ABOVE #ACUTE PAIN OF MULTIPLE INJURIES ON CHRONIC PAIN WITH CHRONIC DAILY NARCOTIC USE , PRESCRIBED #CHRONIC HYPERTENSION ON MEDICATIONS #MULTIPLE PRESSURE SORES OF THE SKIN, CURRENTLY WITH NO NECROSIS OR OPEN AREAS WITH SOME BLISTERING #MULTIPLE STABLE CHRONIC MEDICAL PROBLEMS INCLUDE CORONARY DISEASE, ASTHMA, DEPRESSION, ATRIAL FIBRILLATION PLANS: -Continue IV hydration with bicarbonate therapy -Continue very close monitoring of renal function, electrolytes, acid-base -Continue skin pressure sore prevention measures as well as my close monitoring of his current skin sores -DVT prophylaxis -Appreciate surgical evaluation SUBJECTIVE: he is still very sore on the right side of the by from the shoulder down to the ankle but no new symptoms. He did get up with physical therapy to chair today Appetite slightly decreased but is eating No nausea, shortness of breath, angina, headache, neurologic symptoms OBJECTIVE: Vitals reviewed: Overall stable without fever with some mild systolic hypertension persisting Exam: alert oriented mildly anxious No tremor or other signs of withdrawal skin warm dry color ok; his areas of pressure injury on the right side are better today with less erythema. There are no necrotic or open areas. There are still some very small areas of blistering around 1 erythema this spot at his low left thorax, all of these blisters are intact with no signs of infection resps not labored lungs clear BSs heart regular abd soft nondistended nontender, bowel sounds present limbs warm, no edema iv site ok laboratory data: Creatinine down to 1.9 with his baseline around 1.2 Electrolytes overall good, magnesium slightly high 2.5 Objective: Vital Signs Temp Pulse Resp BP Pulse Ox 36.8 C 84 14 147/87 H 97 12/10/16 12:00 12/10/16 12:00 12/10/16 12:00 12/10/16 12:00 12/10/16 12:00 Laboratory Results 12/10/16 04:10 12/09/16 12/10/16 12/11/16 06:59 06:59 06:59 Intake Total 3838 Output Total 1100 800 Balance 2738 -800 PT 17.4 SEC (12.0-15.0) H 12/09/16 11:52 INR 1.43 (0.83-1.16) H 12/09/16 11:52 ICD10 Worksheet Patient Problems: Problems Problem Status Onset Chest wall contusion Acute Dehydration Acute Hyperkalemia Acute Renal failure Acute Rhabdomyolysis Acute Right rib fracture Acute Anxiety Acute Atrial fibrillation Acute Benzodiazepine withdrawal Acute Bronchitis Acute Bronchospasm Acute Depression Acute Hypoxemia Acute Intentional overdose of drug in tablet form Acute Pneumonia Acute Suicide attempt by drug ingestion Acute Vertigo Acute
[2016-12-10] MEDS ORDERED: BISACODYL 10 MG SUPP PR PRN (14:15)
[2016-12-10] MEDS: traZODone 100 MG TAB PO SCH (21:28)
[2016-12-10] MEDS: ASPIRIN 81 MG CHEWABLE TAB PO SCH (21:28)
[2016-12-10] MEDS: QUEtiapine FUMARATE 25 MG TAB PO SCH (21:28)
[2016-12-10] MEDS: QUEtiapine FUMARATE 100 MG TAB PO SCH (21:28)
[2016-12-10] MEDS: SENNOSIDES/DOCUSATE SODIUM TAB PO SCH (21:28)
[2016-12-11] MEDS: oxyCODONE IR 5 MG TAB PO PRN ×3 (02:12→13:09)
[2016-12-11] MEDS: HEPARIN 5,000 UNIT/0.5 ML SYR SC SCH ×2 (04:34→14:24)
[2016-12-11] MEDS: HYDROmorphONE/DILAUDID 1 MG/ML SYR IVP PRN ×3 (04:34→21:32)
[2016-12-11 05:00] LABS: % IMMATURE GRANULYOCYTES 0.3 % (0.0-1.1); ABSOLUTE IMMATURE GRANULOCYTES 0.02 10^3/uL (0.00-0.10); ADD DIFF? NO; ADD MORPH? NO; ADD SCAN? NO; ATYPICAL LYMPHOCYTE FLAG 0 (0-99); FRAGMENT RBC FLAG 0 (0-99); HEMATOCRIT 40.3 % (40.0-51.0); HEMOGLOBIN 13.4 g/dL (13.7-17.5); LEFT SHIFT FLG 10 (0-99); LIPEMIA HEMOLYSIS FLAG 80 (0-99); MEAN CELL HEMOGLOBIN 31.9 pg (27.9-34.1); MEAN CELL HEMOGLOBIN CONCENTR. 33.3 g/dL (32.4-36.7); MEAN PLATELET VOLUME 9.5 fL (8.7-11.7); PLATELET CLUMPS FLAG 0 (0-99); PLATELET COUNT 126 10^3/uL (150-400); RED CELL DISTRIBUTION WIDTH 13.9 % (11.5-15.2)
[2016-12-11 05:17] LABS: ANION GAP 4 mEq/L (8-16); CALCIUM 8.3 mg/dL (8.5-10.4); CARBON DIOXIDE 30 mEq/l (22-31); CHLORIDE 103 mEq/L (97-110); CREATININE 1.8 mg/dL (0.7-1.3); GLOMERULAR FILTRATION RATE 38; GLUCOSE 93 mg/dL (70-100); MAGNESIUM 2.3 mg/dL (1.6-2.3); POTASSIUM 4.2 mEq/L (3.5-5.2); SODIUM 137 mEq/L (134-144)
[2016-12-11 06:52] LABS: CK-MB INTERPRETATION NEGATIVE (NEGATIVE); CREATINE KINASE-MB FRACTION 9.86 ng/mL (0-3.19)
[2016-12-11] MEDS: clonazePAM 0.5 MG TAB PO SCH ×2 (09:00→21:28)
[2016-12-11] MEDS: LACTULOSE 20 GM/30 ML UDCUP PO PRN (09:01)
[2016-12-11] MEDS: MONTELUKAST SODIUM 10 MG TAB PO SCH (09:01)
[2016-12-11] MEDS: GABAPENTIN 300 MG CAP PO SCH ×3 (09:01→21:30)
[2016-12-11] MEDS: SENNOSIDES/DOCUSATE SODIUM TAB PO SCH ×2 (09:01→21:25)
--- NOTE | 2016-12-11 14:14 | CPEKG ---
Heart Rate: 136 RR Interval: 441 QRSD Interval: 80 QT Interval: 296 QTC Interval: 446 QRS Moffat: 13 T Wave Moffat: 56 EKG Severity - ABNORMAL ECG - EKG Impression: ATRIAL FIBRILLATION, V-RATE 87-172 EKG Impression: BORDERLINE ST DEPRESSION, DIFFUSE LEADS EKG Impression: COMPARED WITH 09 DEC 2016, AF AND ST DEPRESSION NOW PRESENT Electronically Signed By: Lisandra Porras 11-Dec-2016 15:48:00
[2016-12-11] MEDS ORDERED: DILTIAZEM 25 MG/5 ML VIAL IVP SCH (14:15)
[2016-12-11] MEDS: LIDOCAINE 5% 1 EA PATCH TD SCH (14:28)
[2016-12-11 15:00] LABS: % IMMATURE GRANULYOCYTES 0.4 % (0.0-1.1); ABSOLUTE IMMATURE GRANULOCYTES 0.03 10^3/uL (0.00-0.10); ADD DIFF? NO; ADD MORPH? NO; ADD SCAN? NO; ATYPICAL LYMPHOCYTE FLAG 0 (0-99); FRAGMENT RBC FLAG 0 (0-99); HEMATOCRIT 39.7 % (40.0-51.0); HEMOGLOBIN 12.9 g/dL (13.7-17.5); LEFT SHIFT FLG 0 (0-99); LIPEMIA HEMOLYSIS FLAG 80 (0-99); MEAN CELL HEMOGLOBIN 31.2 pg (27.9-34.1); MEAN CELL HEMOGLOBIN CONCENTR. 32.5 g/dL (32.4-36.7); MEAN CELL VOLUME 95.9 fL (81.5-99.8); MEAN PLATELET VOLUME 9.5 fL (8.7-11.7); PLATELET CLUMPS FLAG 0 (0-99); PLATELET COUNT 128 10^3/uL (150-400); RED BLOOD CELL COUNT 4.14 10^6/uL (4.40-6.38); RED CELL DISTRIBUTION WIDTH 13.4 % (11.5-15.2)
[2016-12-11] MEDS: HEPARIN/DEXTROSE 500 ML IV SCH (15:01)
[2016-12-11 15:29] LABS: APTT 25.2 SEC (23.0-38.0); INR 1.02 (0.83-1.16); PROTIME(PATIENT) 13.3 SEC (12.0-15.0)
[2016-12-11] MEDS: SODIUM BICARBONATE 650 MG TAB PO SCH ×2 (16:44→21:30)
--- NOTE | 2016-12-11 17:28 | HOSPPROG ---
Hospitalist Progress Note Assessment/Plan: DIAGNOSES: #ACUTE RHABDOMYOLYSIS, SEVERE WITH MULTIPLE MUSCLE GROUPS INVOLVE #ACUTE RENAL FAILURE DUE TO COMBINATION OF RHABDOMYOLYSIS AND DEHYDRATION ON CHRONIC RENAL FAILURE #MECHANICAL FALL DUE TO SLIPPING ON WET FLOOR, WITH INJURY INCLUDING FRACTURE AND THE ABOVE #ACUTE PAIN OF MULTIPLE INJURIES ON CHRONIC PAIN WITH CHRONIC DAILY NARCOTIC USE , PRESCRIBED #CHRONIC HYPERTENSION ON MEDICATIONS #MULTIPLE PRESSURE SORES OF THE SKIN, CURRENTLY WITH NO NECROSIS OR OPEN AREAS WITH SOME BLISTERING #RIGHT SHOULDER PAIN COULD BE MUSCULAR FROM LYING ON THE SHOULDER OR POTENTIALLY ROTATOR CUFF RELATED #MULTIPLE STABLE CHRONIC MEDICAL PROBLEMS INCLUDE CORONARY DISEASE, ASTHMA, DEPRESSION, ATRIAL FIBRILLATION rhabdomyolysis and renal failure continues to improve His skin lesions are healing very nicely with no sign of complication or infection so far PLANS: -Continue IV hydration but will switch to oral bicarbonate therapy due to the shortage of bicarbonate for IV -Continue very close monitoring of renal function, electrolytes, acid-base -Continue skin pressure sore prevention measures as well as my close monitoring of his current skin sores -DVT prophylaxis -Will try Lidoderm patch on her shoulder SUBJECTIVE: Still with diffuse right-sided aches and pains, no numbness or tingling or weakness per Se Some more focal pain in his right shoulder increased with abduction Otherwise weak and tired but no new complaints OBJECTIVE: Vitals reviewed: Overall stable without fever Exam: alert oriented mildly anxious No tremor or other signs of withdrawal skin warm dry color ok; his areas of pressure injury on the right side are better today with less erythema. There are no necrotic or open areas and no signs of infection resps not labored lungs clear BSs heart regular abd soft nondistended nontender, bowel sounds present limbs warm, no edema iv site ok Objective: Vital Signs Temp Pulse Resp BP Pulse Ox 37.1 C 92 20 133/73 H 92 12/11/16 16:00 12/11/16 16:00 12/11/16 16:00 12/11/16 16:00 12/11/16 16:00 Laboratory Results 12/11/16 14:45 12/11/16 04:45 12/10/16 12/11/16 12/12/16 06:59 06:59 06:59 Intake Total 3838 4600 Output Total 1100 1450 1750 Balance 2738 3150 -1750 PT 13.3 SEC (12.0-15.0) 12/11/16 14:15 INR 1.02 (0.83-1.16) 12/11/16 14:15 ICD10 Worksheet Patient Problems: Problems Problem Status Onset Chest wall contusion Acute Dehydration Acute Hyperkalemia Acute Renal failure Acute Rhabdomyolysis Acute Right rib fracture Acute Anxiety Acute Atrial fibrillation Acute Benzodiazepine withdrawal Acute Bronchitis Acute Bronchospasm Acute Depression Acute Hypoxemia Acute Intentional overdose of drug in tablet form Acute Pneumonia Acute Suicide attempt by drug ingestion Acute Vertigo Acute
--- NOTE | 2016-12-11 17:35 | HOSPPROG ---
Hospitalist Progress Note Assessment/Plan: CRITICAL CARE ASSESSMENT: CRITICAL CARE TIME AT BEDSIDE GREATER THAN 45 MINUTES DURING 3 VISITS called to see the patient at bedside for stat team assessment for tachycardia. The patient was noted by the nurse to have heart rate of 170s lying in bed. He did not have chest pain shortness of breath or nausea. He does not have pleuritic discomfort. He does not have new leg pain or swelling. He does have his ongoing right-sided leg pain from lying in bed. He does not have any fever symptoms or lightheadedness or headache. On evaluation at this time he looks reasonably comfortable skin warm and dry with color OK. Respirations not labored and respiratory rate not increased. He is afebrile blood pressures are slightly high but he is quite tachycardic and has an irregular heart rhythm. We have obtained EKG and he has atrial fibrillation at this time. His lungs are clear without rales or wheeze, he does not have jugular venous distension, his legs are no more swollen and there are no more tender than previous. The EKG does not show any signs of ischemia. He was given a bolus dose of diltiazem which brings his heart rate down to the 150s. D-dimer and troponin have been ordered. On further assessment the D- dimer and troponin are now back with abnormally high true D-dimer greater than 2 and within normal troponin. The patient has acute renal insufficiency and is acutely ill on chronic renal insufficiency and I would not find it potentially comfortable to do a IV contrasted CT scan at this time. Furthermore at this point he does have the reasonable indication for anticoagulation for his AFib given his prior history of heart disease, his hypertension here, and his age. I have elected to begin full anticoagulation. He has been receiving three times daily doses of low- dose heparin for DVT prophylaxis. Will stop that and start heparin drip without bolus at this time. He has now been transferred to the PCU for ongoing monitor of his AFib and we are starting diltiazem drip. NEW DIAGNOSES: # Rapid atrial fibrillation, with prior history of atrial fibrillation in the setting of an acute illness # Elevated D-dimer in the setting of acute illness and new rapid atrial fibrillation with significant suspicion for PE ; CT not done due to acute renal failure and other reasons for anticoagulation being present Objective: Vital Signs Temp Pulse Resp BP Pulse Ox 37.1 C 92 20 133/73 H 92 12/11/16 16:00 12/11/16 16:00 12/11/16 16:00 12/11/16 16:00 12/11/16 16:00 Laboratory Results 12/11/16 14:45 12/11/16 04:45 12/10/16 12/11/16 12/12/16 06:59 06:59 06:59 Intake Total 3838 4600 Output Total 1100 1450 1750 Balance 2738 3150 -1750 PT 13.3 SEC (12.0-15.0) 12/11/16 14:15 INR 1.02 (0.83-1.16) 12/11/16 14:15 ICD10 Worksheet Patient Problems: Problems Problem Status Onset Chest wall contusion Acute Dehydration Acute Hyperkalemia Acute Renal failure Acute Rhabdomyolysis Acute Right rib fracture Acute Anxiety Acute Atrial fibrillation Acute Benzodiazepine withdrawal Acute Bronchitis Acute Bronchospasm Acute Depression Acute Hypoxemia Acute Intentional overdose of drug in tablet form Acute Pneumonia Acute Suicide attempt by drug ingestion Acute Vertigo Acute
[2016-12-11] MEDS: NS 1,000 ML IV SCH (21:23)
[2016-12-11] MEDS: QUEtiapine FUMARATE 25 MG TAB PO SCH (21:26)
[2016-12-11] MEDS: QUEtiapine FUMARATE 100 MG TAB PO SCH (21:28)
[2016-12-11] MEDS: traZODone 100 MG TAB PO SCH (21:29)
[2016-12-11] MEDS: ASPIRIN 81 MG CHEWABLE TAB PO SCH (21:30)
[2016-12-11] MEDS: PATCH REMOVAL 1 EA PATCH TD SCH (21:41)
[2016-12-12] MEDS: HYDROmorphONE/DILAUDID 1 MG/ML SYR IVP PRN ×5 (03:29→20:41)
[2016-12-12 03:56] LABS: ABSOLUTE IMMATURE GRANULOCYTES 0.06 10^3/uL (0.00-0.10); ADD DIFF? NO; ADD MORPH? NO; ADD SCAN? NO; ATYPICAL LYMPHOCYTE FLAG 0 (0-99); FRAGMENT RBC FLAG 0 (0-99); HEMATOCRIT 36.6 % (40.0-51.0); LEFT SHIFT FLG 10 (0-99); LIPEMIA HEMOLYSIS FLAG 80 (0-99); MEAN CELL HEMOGLOBIN 31.5 pg (27.9-34.1); MEAN CELL HEMOGLOBIN CONCENTR. 32.8 g/dL (32.4-36.7); MEAN CELL VOLUME 96.1 fL (81.5-99.8); MEAN PLATELET VOLUME 9.8 fL (8.7-11.7); PLATELET CLUMPS FLAG 30 (0-99); PLATELET COUNT 116 10^3/uL (150-400); RED BLOOD CELL COUNT 3.81 10^6/uL (4.40-6.38); RED CELL DISTRIBUTION WIDTH 13.4 % (11.5-15.2)
[2016-12-12 04:04] LABS: ANION GAP 5 mEq/L (8-16); CALCIUM 8.3 mg/dL (8.5-10.4); CARBON DIOXIDE 29 mEq/l (22-31); CHLORIDE 104 mEq/L (97-110); CREATININE 1.7 mg/dL (0.7-1.3); GLOMERULAR FILTRATION RATE 40; GLUCOSE 93 mg/dL (70-100); MAGNESIUM 2.3 mg/dL (1.6-2.3); POTASSIUM 4.1 mEq/L (3.5-5.2); SODIUM 138 mEq/L (134-144)
[2016-12-12 04:40] LABS: CK-MB INTERPRETATION NEGATIVE (NEGATIVE); CREATINE KINASE-MB FRACTION 4.54 ng/mL (0-4.55)
[2016-12-12] MEDS: HEPARIN/DEXTROSE 500 ML IV SCH (05:54)
[2016-12-12] MEDS: SODIUM BICARBONATE 650 MG TAB PO SCH ×4 (05:54→20:38)
[2016-12-12] MEDS: SENNOSIDES/DOCUSATE SODIUM TAB PO SCH ×2 (07:40→20:38)
[2016-12-12] MEDS: LIDOCAINE 5% 1 EA PATCH TD SCH (07:41)
[2016-12-12] MEDS: clonazePAM 0.5 MG TAB PO SCH ×2 (07:41→20:40)
[2016-12-12] MEDS: GABAPENTIN 300 MG CAP PO SCH ×3 (07:41→22:11)
[2016-12-12] MEDS: MONTELUKAST SODIUM 10 MG TAB PO SCH (07:42)
--- NOTE | 2016-12-12 10:00 | HOSPPROG ---
Hospitalist Progress Note Assessment/Plan: DIAGNOSES: # ACUTE RHABDOMYOLYSIS, SEVERE WITH MULTIPLE MUSCLE GROUPS INVOLVE # ACUTE RENAL FAILURE DUE TO COMBINATION OF RHABDOMYOLYSIS AND DEHYDRATION ON CHRONIC RENAL FAILURE (creat 1.3 in 09/30) # ACUTE ATRIAL FIBRILLATION WITH RAPID VENTRICULAR RATE, PRIOR HISTORY OF ATRIAL FIBRILLATION, NOT CURRENTLY ON ANTICOAGULATION AT ADMISSION # SUSPECTED PULMONARY EMBOLISM ACUTELY, WITH ELEVATED D-DIMER, AFIB, AND HYPOXEMIA occurring simultaneously on December 11; CT scan not done due to acute renal failure and already starting anticoagulation for AFib # MECHANICAL FALL DUE TO SLIPPING ON WET FLOOR, WITH INJURY INCLUDING FRACTURE AND THE ABOVE # ACUTE PAIN OF MULTIPLE INJURIES ON CHRONIC PAIN WITH CHRONIC DAILY NARCOTIC USE, PRESCRIBED # CHRONIC HYPERTENSION ON MEDICATIONS # MULTIPLE PRESSURE SORES OF THE SKIN, CURRENTLY WITH NO NECROSIS OR OPEN AREAS WITH SOME BLISTERING # RIGHT SHOULDER PAIN COULD BE MUSCULAR FROM LYING ON THE SHOULDER OR POTENTIALLY ROTATOR CUFF RELATED # CHRONIC PAIN SYNDROME WITH CHRONIC DAILY PRESCRIBED NARCOTIC USE # MULTIPLE STABLE CHRONIC MEDICAL PROBLEMS INCLUDE CORONARY DISEASE, ASTHMA, DEPRESSION, ATRIAL FIBRILLATION He did convert to sinus rhythm overnight, and remains in sinus rhythm at this time No signs of heart failure or ischemia rhabdomyolysis and renal failure continue to improve but with still a fairly high CPK level will continue IV fluids at this time His skin lesions are healing very nicely with no sign of complication or infection so far Lidoderm patch did not help his shoulder pain. We had a long discussion about pain management. He is requesting uses some MS Contin which she had used previously in addition to his chronic short-acting oral narcotic. I discussed with him that it is primarily a medicine used only for chronic steady pain and not for acute pain. PLANS: -Continue IV hydration but will switch to oral bicarbonate therapy due to the shortage of bicarbonate for IV -Continue very close monitoring of renal function, electrolytes, acid-base -due to renal failure which is chronic he is being treated with IV heparin and will transition to oral Coumadin for anticoagulation -continue cardiac monitoring at this time -Continue skin pressure sore prevention measures as well as my close monitoring of his current skin sores -DVT prophylaxis: Is on full-dose anticoagulation SUBJECTIVE: His main complaint at this time remains his right shoulder pain and decreased mobility related to that. 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 There are no necrotic or open areas and no signs of infection resps not labored lungs clear BSs heart regular abd soft nondistended nontender, bowel sounds present limbs warm, no edema iv site ok Laboratory data: CPK down to 12,000 Creatinine further decreased to 1.7 with best baseline available 1.3 in September of this year Objective: Vital Signs Temp Pulse Resp BP Pulse Ox 37.3 C 63 18 116/55 L 94 12/12/16 04:00 12/12/16 04:00 12/12/16 04:00 12/12/16 04:00 12/12/16 04:00 Laboratory Results 12/12/16 03:40 12/12/16 03:40 12/11/16 12/12/16 12/13/16 06:59 06:59 06:59 Intake Total 4600 2575 Output Total 1450 3700 Balance 3150 -1125 PT 13.3 SEC (12.0-15.0) 12/11/16 14:15 INR 1.02 (0.83-1.16) 12/11/16 14:15 ICD10 Worksheet Patient Problems: Problems Problem Status Onset Chest wall contusion Acute Dehydration Acute Hyperkalemia Acute Renal failure Acute Rhabdomyolysis Acute Right rib fracture Acute Anxiety Acute Atrial fibrillation Acute Benzodiazepine withdrawal Acute Bronchitis Acute Bronchospasm Acute Depression Acute Hypoxemia Acute Intentional overdose of drug in tablet form Acute Pneumonia Acute Suicide attempt by drug ingestion Acute Vertigo Acute
[2016-12-12] MEDS: oxyCODONE IR 5 MG TAB PO PRN ×2 (10:43→19:47)
[2016-12-12] MEDS: NS 1,000 ML IV SCH (10:44)
[2016-12-12] MEDS: WARFARIN SODIUM 5 MG TAB PO SCH (16:16)
[2016-12-12] MEDS: traZODone 100 MG TAB PO SCH (20:37)
[2016-12-12] MEDS: ASPIRIN 81 MG CHEWABLE TAB PO SCH (20:39)
[2016-12-12] MEDS: QUEtiapine FUMARATE 25 MG TAB PO SCH (20:40)
[2016-12-12] MEDS: QUEtiapine FUMARATE 100 MG TAB PO SCH (20:40)
[2016-12-12] MEDS: PATCH REMOVAL 1 EA PATCH TD SCH (22:11)
[2016-12-13] MEDS: HYDROmorphONE/DILAUDID 1 MG/ML SYR IVP PRN ×4 (02:17→19:38)
[2016-12-13] MEDS: HEPARIN/DEXTROSE 500 ML IV SCH ×2 (03:33→15:45)
[2016-12-13] MEDS: NS 1,000 ML IV SCH ×2 (03:33→15:44)
[2016-12-13 04:06] LABS: INR 1.14 (0.83-1.16); PROTIME(PATIENT) 14.5 SEC (12.0-15.0)
[2016-12-13 04:09] LABS: ANION GAP 1 mEq/L (8-16); CALCIUM 8.3 mg/dL (8.5-10.4); CARBON DIOXIDE 28 mEq/l (22-31); CHLORIDE 106 mEq/L (97-110); CREATININE 1.6 mg/dL (0.7-1.3); GLOMERULAR FILTRATION RATE 43; GLUCOSE 96 mg/dL (70-100); POTASSIUM 4.3 mEq/L (3.5-5.2); SODIUM 135 mEq/L (134-144)
[2016-12-13] MEDS: SODIUM BICARBONATE 650 MG TAB PO SCH ×4 (06:11→22:14)
[2016-12-13] MEDS: SENNOSIDES/DOCUSATE SODIUM TAB PO SCH ×2 (07:41→22:15)
[2016-12-13] MEDS: oxyCODONE IR 5 MG TAB PO PRN ×4 (07:41→22:34)
[2016-12-13] MEDS: clonazePAM 0.5 MG TAB PO SCH ×2 (07:42→22:15)
[2016-12-13] MEDS: MONTELUKAST SODIUM 10 MG TAB PO SCH (07:43)
[2016-12-13] MEDS: LIDOCAINE 5% 1 EA PATCH TD SCH (07:43)
[2016-12-13] MEDS: GABAPENTIN 300 MG CAP PO SCH ×3 (07:43→22:13)
--- NOTE | 2016-12-13 13:55 | HOSPPROG ---
Hospitalist Progress Note Assessment/Plan: # mechanical fall # L foot pain - check XR # acute on chronic pain with continuous narcotic requirement - decrease dilaudid IV today, increase oxy PO slightly # 11th rib fx # acute on chronic renal failure - d/t rhabdo/pre-renal - improving # rhabdo - cont IVF, check CK tomorrow # a-fib - now NSR - currently ON AC # suspected PE - in setting of new a-fib, hypoxia - check echo, LE US for more information (no CTA d/t renal failure) # non-obstructive CAD # htn - hold lisino, consider norvasc Subjective: L foot pain Objective: Vital Signs Temp Pulse Resp BP Pulse Ox 37.0 C 67 16 141/73 H 97 12/13/16 11:08 12/13/16 11:08 12/13/16 11:08 12/13/16 11:08 12/13/16 11:08 Laboratory Results 12/13/16 03:40 12/13/16 03:40 12/12/16 12/13/16 12/14/16 05:59 05:59 05:59 Intake Total 2575 4474 Output Total 3700 3050 Balance -1125 1424 PT 14.5 SEC (12.0-15.0) 12/13/16 03:40 INR 1.14 (0.83-1.16) 12/13/16 03:40 high risk on iv narcotics - Physical Exam Constitutional: no apparent distress, appears nourished Cardiovascular: regular rate and rhythym, systolic murmur Respiratory: no respiratory distress, no rales or rhonchi, clear to auscultation Gastrointestinal: normoactive bowel sounds, soft, non-tender abdomen, no palpable masses Musculoskeletal: other (L foot externally rotated) ICD10 Worksheet Patient Problems: Problems Problem Status Onset Pneumonia Acute Atrial fibrillation Acute Benzodiazepine withdrawal Acute Depression Acute Anxiety Acute Suicide attempt by drug ingestion Acute Intentional overdose of drug in tablet form Acute Bronchitis Acute Bronchospasm Acute Vertigo Acute Hypoxemia Acute Chest wall contusion Acute Right rib fracture Acute Rhabdomyolysis Acute Renal failure Acute Dehydration Acute Hyperkalemia Acute
[2016-12-13] MEDS: WARFARIN SODIUM 5 MG TAB PO SCH (15:46)
--- NOTE | 2016-12-13 15:52 | ECHO ---
[id number] + + [address] : : [place] [address] : : [phone] + Adult Echocardiographic Report + ---------+ :Name: TERESE ESPINO Date: 12/13/2016 02:25 PM : : Hospital Admission Number: [id number] Araceli tianitha: [birth year]: :: 1950 Gender: Male Height: 68 i n : :Age: 66 yrs Race: WH Weight: 219 lb : :Reason For Study: Eval LV Fx : : BSA: 2.1 met ers2 : :History: New onset A-Fib : + ---------+ MMode/2D Measurements \T\ Calculations IVSd: 0.89 cm LVIDd: 4.1 cm FS: 40.1 % Ao root diam: 3.1 cm LVPWd: 1.1 cm LVIDs: 2.4 cm EDV(Teich): 72.2 ml ACS: 1.8 cm ESV(Teich): 20.8 ml EF(Teich): 71.2 % Normal Measurement Values: + + :LVIDd (3.5-5.7cm) IVSd (0.6-1.1cm) LVPWd (0.6-1.1cm) Aortic Root (2.0-3.7cm)Left Atrium (1.5-4.0cm): :LV Vol(d) (76-115ml) LV Vol(s) (29-48ml) Ejec Fraction (50-65%)PV Reese (0.6- 1.2m/s) TV Reese (0.4-1.0m/s) : :MV E Reese (0.8-1.0m/s)MV A Reese (0.3-1.0m/s)LVOT Reese (0.7-1.2m/s) Asc Ao Reese ( 0.9-1.8m/s) : + + Doppler Measurements \T\ Calculations MV E max reese: Ao V2 max: LV V1 max: PA V2 max: 91.3 cm/sec 181.9 cm/sec 131.1 cm/sec 97.7 cm/sec MV A max reese: Ao max PG: LV V1 max PG: PA max P.3 cm/sec 13.2 mmHg 6.9 mmHg 3.8 mmHg MV E/A: 0.98 Left Ventricle The left ventricle is normal in size. There is normal left ventricular wall thickness. The left ventricular ejection fraction is normal. There is Doppler evidence for diastolic dysfunction. Ejection Fraction = 70%. The left ventricular wall motion is normal. Right Ventricle The right ventricle is normal in size and function. Atria The left atrial size is normal. Right atrial size is normal. Mitral Valve The mitral valve is normal in structure and function. There is no mitral valve stenosis. There is no mitral regurgitation noted. Tricuspid Valve Normal tricuspid valve. No tricuspid regurgitation. Aortic Valve The aortic valve is normal in structure and function. There is no aortic insufficiency. Pulmonic Valve The pulmonic valve is normal in structure and function. There is no pulmonic valvular regurgitation. Great Vessels The aortic root is normal size. Pericardium/Pleural There is no pericardial effusion. Conclusion A complete two-dimensional transthoracic echocardiogram was performed (2D, M-mode, Doppler and color flow Doppler). The left ventricular ejection fraction is normal. There is Doppler evidence for diastolic dysfunction. Ejection Fraction = 70%. The left ventricular wall motion is normal. The right ventricle is normal in size and function. The left atrial size is normal. The mitral valve is normal in structure and function. Normal tricuspid valve The aortic valve is normal in structure and function. There is no pericardial effusion. Final Reading Physician: Alfredito Mera signed on 12/13/2016 03:51 PM Ordering Physician: Dagoberto Arreola Performed By: Adrián Schroeder, [id number]
[2016-12-13] MEDS ORDERED: diphenhydrAMINE 25 MG CAP PO ONE (16:54)
[2016-12-13] MEDS: QUEtiapine FUMARATE 25 MG TAB PO SCH (21:00)
[2016-12-13] MEDS: QUEtiapine FUMARATE 100 MG TAB PO SCH (21:00)
[2016-12-13] MEDS: traZODone 100 MG TAB PO SCH (22:13)
[2016-12-13] MEDS: ASPIRIN 81 MG CHEWABLE TAB PO SCH (22:14)
[2016-12-13] MEDS: PATCH REMOVAL 1 EA PATCH TD SCH (22:18)
[2016-12-14] MEDS: oxyCODONE IR 5 MG TAB PO PRN ×4 (03:06→17:58)
[2016-12-14] MEDS: SODIUM BICARBONATE 650 MG TAB PO SCH (04:48)
[2016-12-14] MEDS: POLYETHYLENE GLYCOL 3350 17 GM PKT PO PRN (04:53)
[2016-12-14 05:29] LABS: INR 1.89 (0.83-1.16); PROTIME(PATIENT) 21.8 SEC (12.0-15.0)
[2016-12-14 05:30] LABS: % IMMATURE GRANULYOCYTES 1.4 % (0.0-1.1); ABSOLUTE IMMATURE GRANULOCYTES 0.09 10^3/uL (0.00-0.10); ADD DIFF? NO; ADD MORPH? NO; ADD SCAN? NO; ATYPICAL LYMPHOCYTE FLAG 0 (0-99); FRAGMENT RBC FLAG 0 (0-99); HEMATOCRIT 34.3 % (40.0-51.0); HEMOGLOBIN 11.2 g/dL (13.7-17.5); LEFT SHIFT FLG 10 (0-99); LIPEMIA HEMOLYSIS FLAG 80 (0-99); MEAN CELL HEMOGLOBIN 31.5 pg (27.9-34.1); MEAN CELL HEMOGLOBIN CONCENTR. 32.7 g/dL (32.4-36.7); MEAN CELL VOLUME 96.3 fL (81.5-99.8); MEAN PLATELET VOLUME 9.7 fL (8.7-11.7); PLATELET CLUMPS FLAG 20 (0-99); PLATELET COUNT 120 10^3/uL (150-400); RED BLOOD CELL COUNT 3.56 10^6/uL (4.40-6.38); RED CELL DISTRIBUTION WIDTH 12.9 % (11.5-15.2)
[2016-12-14 06:06] LABS: ANION GAP 4 mEq/L (8-16); CALCIUM 8.3 mg/dL (8.5-10.4); CARBON DIOXIDE 28 mEq/l (22-31); CHLORIDE 105 mEq/L (97-110); CREATININE 1.5 mg/dL (0.7-1.3); GLOMERULAR FILTRATION RATE 47; GLUCOSE 86 mg/dL (70-100); MAGNESIUM 1.9 mg/dL (1.6-2.3); POTASSIUM 4.4 mEq/L (3.5-5.2); SODIUM 137 mEq/L (134-144)
[2016-12-14] MEDS: clonazePAM 0.5 MG TAB PO SCH ×2 (07:25→20:11)
[2016-12-14] MEDS: GABAPENTIN 300 MG CAP PO SCH ×3 (07:25→21:01)
[2016-12-14] MEDS: SENNOSIDES/DOCUSATE SODIUM TAB PO SCH ×2 (07:26→20:11)
[2016-12-14] MEDS: MONTELUKAST SODIUM 10 MG TAB PO SCH (07:27)
[2016-12-14] MEDS: LIDOCAINE 5% 1 EA PATCH TD SCH (09:20)
[2016-12-14] MEDS ORDERED: WARFARIN SODIUM 5 MG TAB PO SCH (09:44)
[2016-12-14 09:49] LABS: CK-MB INTERPRETATION NEGATIVE (NEGATIVE); CREATINE KINASE-MB FRACTION 1.78 ng/mL (0-3.19)
--- NOTE | 2016-12-14 10:06 | HOSPPROG ---
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 # non-obstructive CAD - asa # htn - started metop, hold lisino for now Subjective: ongoing foot pain; back still itchy; urinating ok without rodriges Objective: Vital Signs Temp Pulse Resp BP Pulse Ox 37.7 C 74 18 121/69 H 93 12/14/16 07:31 12/14/16 07:31 12/14/16 07:31 12/14/16 07:31 12/14/16 09:33 Laboratory Results 12/14/16 05:00 12/14/16 05:00 12/13/16 12/14/16 12/15/16 05:59 05:59 05:59 Intake Total 4474 5814.8 Output Total 3050 3300 Balance 1424 2514.8 PT 21.8 SEC (12.0-15.0) H 12/14/16 05:00 INR 1.89 (0.83-1.16) H 12/14/16 05:00 XR personally reviewed echo reviewed - Physical Exam Constitutional: no apparent distress, appears nourished Cardiovascular: regular rate and rhythym, no murmur, rub, or gallop Respiratory: no respiratory distress, no rales or rhonchi, clear to auscultation Gastrointestinal: normoactive bowel sounds, soft, non-tender abdomen, no palpable masses Skin: other (back with papular erythematous rash) Musculoskeletal: other (l foot externally rotated) ICD10 Worksheet Patient Problems: Problems Problem Status Onset Pneumonia Acute Atrial fibrillation Acute Benzodiazepine withdrawal Acute Depression Acute Anxiety Acute Suicide attempt by drug ingestion Acute Intentional overdose of drug in tablet form Acute Bronchitis Acute Bronchospasm Acute Vertigo Acute Hypoxemia Acute Chest wall contusion Acute Right rib fracture Acute Rhabdomyolysis Acute Renal failure Acute Dehydration Acute Hyperkalemia Acute
[2016-12-14] MEDS: HEPARIN/DEXTROSE 500 ML IV SCH (10:30)
--- NOTE | 2016-12-14 10:31 | WOCRNPDOC ---
KATHRINE Advanced Assessment Note - Skin Integrity Problem, Advanced Assess Left Medial Ankle Pressure Injury Dressing Type: Open to Air Exudate Amount: None Exudate Characteristic(s): None Pressure Injury Present on Admit: Yes (Documented) Skin Integrity Problem Comment: Stage 1 pressure injury noted in initial assessment is now resolved. No erythema noted, and skin over this site is intact. Wound care does not need to follow this site going forward. Left Medial Foot Dressing Type: Open to Air Exudate Amount: None Exudate Characteristic(s): None John Wound Tissue: Swollen, Calloused John Wound Swelling: Mild Wound Bed Color: Brown Wound Bed Constitution: Scab Pressure Injury Present on Admit: Yes (Documented) Skin Integrity Problem Comment: This is a long-standing pressure injury r/t an existing bony deformity on patient's L medial foot. Presently, this site appears as raised, calloused tissue, w/ a fissured, shallow depression medially that presently has an intact scab. Site is not fluctuant, and there is minimal erythema to the surrounding tissues. Advise podiatry onsult after dc to determine if patient needs a surgical intervention for this injury, or perhaps a referral to an railroad supervisor of engines. Wound care does not need to follow this injury going forward. Left Medial Knee Pressure Injury Dressing Type: Open to Air Exudate Amount: None Exudate Characteristic(s): None John Wound Tissue: Blanching, Intact John Wound Swelling: None Pressure Injury Stage: Stage 1 (resolved) Skin Integrity Problem Comment: Previously a stage 1 pressure injury, now completely resolved w/ intact, blanching skin noted. Wound care does not need to follow going forward. Right Heel Pressure Injury Dressing Type: Allevyn Life Dressing Description: Intact Exudate Amount: None Exudate Characteristic(s): None Integumentary Issue Intervention: Dressing Removed John Wound Tissue: Dry, Hyperkeratotic John Wound Swelling: None Pressure Injury Stage: Stage 1 (resolved) Skin Integrity Problem Comment: Pressure injury on R heel now resolved, w/ blanching erythema noted throughout. There remains a fissure on this heel, w/ dry, hyperkeratotic tissue surrounding. Order written for Attrac-tain lotion BID to be applied to both heels to moisturize and protect skin. No need for wound care to follow going forward. Right Lateral Elbow Pressure Injury Dressing Type: Open to Air Exudate Amount: None Exudate Characteristic(s): None John Wound Tissue: Blanching, Intact John Wound Swelling: None Pressure Injury Stage: Stage 1 (resolved) Skin Integrity Problem Comment: Pressure injury has resolved completely since initial assessment. Order for a protective dressing to this site has been dc'd, and wound care does not need to follow this site going forward. Right Lateral Flank Pressure Injury Dressing Type: Open to Air Exudate Amount: None Exudate Characteristic(s): None John Wound Tissue: Blanching, Erythema John Wound Swelling: Mild Wound Bed Color: Black, Red Wound Bed Constitution: Stable Eschar, Intact Serous Filled Blister, De-roofed Serous Blister Site Odor: None Pressure Injury Stage: Stage 2 Pressure Injury Present on Admit: Yes (documented) Skin Integrity Problem Comment: Linear serous-filled blisters, both intact and de-roofed, noted on patient's R flank. There is a blister medially that has opened up and is scabbed over w/ dry eschar. Remaining blisters are still intact , and john-wound erythema is blanching and receding. Order continues for a dressing to be applied to this site, and wound care will continue to follow.
[2016-12-14] MEDS: METOPROLOL TARTRATE 25 MG TAB PO SCH ×2 (11:47→20:12)
[2016-12-14] MEDS: HYDROmorphONE/DILAUDID 1 MG/ML SYR IVP PRN ×2 (12:52→20:53)
[2016-12-14] MEDS: WARFARIN SODIUM 1 MG TAB PO SCH (17:16)
[2016-12-14] MEDS: QUEtiapine FUMARATE 100 MG TAB PO SCH (20:11)
[2016-12-14] MEDS: ASPIRIN 81 MG CHEWABLE TAB PO SCH (20:12)
[2016-12-14] MEDS: QUEtiapine FUMARATE 25 MG TAB PO SCH (20:13)
[2016-12-14] MEDS: traZODone 100 MG TAB PO SCH (20:13)
[2016-12-14] MEDS: PATCH REMOVAL 1 EA PATCH TD SCH (20:15)
[2016-12-14] MEDS: HEPARIN 10,000 UNIT/10 ML MDV IVP PRN (22:52)
[2016-12-15] MEDS: oxyCODONE IR 5 MG TAB PO PRN ×5 (03:48→20:08)
[2016-12-15] MEDS: HEPARIN/DEXTROSE 500 ML IV SCH (03:52)
[2016-12-15] MEDS: HYDROmorphONE/DILAUDID 1 MG/ML SYR IVP PRN ×2 (05:38→20:14)
[2016-12-15 05:58] LABS: % IMMATURE GRANULYOCYTES 1.9 % (0.0-1.1); ABSOLUTE IMMATURE GRANULOCYTES 0.15 10^3/uL (0.00-0.10); ADD DIFF? NO; ADD MORPH? NO; ADD SCAN? NO; ATYPICAL LYMPHOCYTE FLAG 10 (0-99); FRAGMENT RBC FLAG 0 (0-99); HEMATOCRIT 33.1 % (40.0-51.0); HEMOGLOBIN 10.8 g/dL (13.7-17.5); LEFT SHIFT FLG 10 (0-99); LIPEMIA HEMOLYSIS FLAG 80 (0-99); MEAN CELL HEMOGLOBIN 31.4 pg (27.9-34.1); MEAN CELL HEMOGLOBIN CONCENTR. 32.6 g/dL (32.4-36.7); MEAN CELL VOLUME 96.2 fL (81.5-99.8); MEAN PLATELET VOLUME 9.6 fL (8.7-11.7); PLATELET CLUMPS FLAG 10 (0-99); PLATELET COUNT 133 10^3/uL (150-400); RED BLOOD CELL COUNT 3.44 10^6/uL (4.40-6.38); RED CELL DISTRIBUTION WIDTH 12.8 % (11.5-15.2)
[2016-12-15 06:04] LABS: INR 2.01 (0.83-1.16); PROTIME(PATIENT) 22.9 SEC (12.0-15.0)
[2016-12-15 06:28] LABS: ANION GAP 4 mEq/L (8-16); CALCIUM 8.9 mg/dL (8.5-10.4); CARBON DIOXIDE 28 mEq/l (22-31); CHLORIDE 103 mEq/L (97-110); CREATININE 1.6 mg/dL (0.7-1.3); GLOMERULAR FILTRATION RATE 43; GLUCOSE 102 mg/dL (70-100); MAGNESIUM 1.8 mg/dL (1.6-2.3); POTASSIUM 4.5 mEq/L (3.5-5.2); SODIUM 135 mEq/L (134-144)
--- NOTE | 2016-12-15 07:51 | SOAPPROG ---
SOAP Progress Note Assessment/Plan: Assessment: Pain due to severe hindfoot arthritis, left foot posterior tibial tendon tear with collapse, left Plan: Discussed surgical and conservative options with patient. Briefly discussed timeframe for healing. Advised follow up in outpatient clinic once out of hospital and rehab completed. Contact information for appointment: [facility], Ortho dept, . Advise that patient use a knee scooter for ambulation or possible AFO type brace during interim period until surgical intervention. Answered questions. Follow up possibly during time in rehab facility. 12/15/16 07:45 Subjective: 66 y/o male admitted for acute renal failure that has subsided since admission. Consult requested for chronically painful left hindfoot. Patient notes that 15 years ago he was stepped on and turned his foot, traumatically rupturing the medial tendons with resultant foot collapse. Patient was offered a triple arthrodesis some 13 years ago, but did not find the surgeon's demeanor an appropriate fit. He would like to return to pain-free walking. Currently, he takes narcotics to deal with pain. Objective: Vital Signs Temp Pulse Resp BP Pulse Ox 36.7 C 68 16 125/60 H 93 12/15/16 07:24 12/15/16 07:24 12/15/16 07:24 12/15/16 07:24 12/15/16 07:24 Laboratory Results 12/15/16 05:30 12/15/16 05:30 12/14/16 12/15/16 12/16/16 05:59 05:59 05:59 Intake Total 5814.8 2369 Output Total 3300 1250 Balance 2514.8 1119 PT 22.9 SEC (12.0-15.0) H 12/15/16 05:30 INR 2.01 (0.83-1.16) H 12/15/16 05:30 severe hindfoot valgus with complete medial subluxation of t/n joint, left; palpable DP/PT pulse, left; pain with attempted ROM of STJ or TN joint, left; intact sensation to touch xrays: severe hindfoot valgus deformity at TN joint, left; arthrosis of t/n, c/ c and subtalar joints; TMT joint appear intact; washed out bone appearance to talus and navicular - Time Spent With Patient Time Spent With Patient: 45 minutes ICD10 Worksheet Patient Problems: Problems Problem Status Onset Chest wall contusion Acute Dehydration Acute Hyperkalemia Acute Renal failure Acute Rhabdomyolysis Acute Right rib fracture Acute Anxiety Acute Atrial fibrillation Acute Benzodiazepine withdrawal Acute Bronchitis Acute Bronchospasm Acute Depression Acute Hypoxemia Acute Intentional overdose of drug in tablet form Acute Pneumonia Acute Suicide attempt by drug ingestion Acute Vertigo Acute
[2016-12-15] MEDS: GABAPENTIN 300 MG CAP PO SCH ×3 (07:57→20:08)
[2016-12-15] MEDS: clonazePAM 0.5 MG TAB PO SCH ×2 (07:57→20:07)
[2016-12-15] MEDS: SENNOSIDES/DOCUSATE SODIUM TAB PO SCH ×2 (07:57→20:06)
[2016-12-15] MEDS: MONTELUKAST SODIUM 10 MG TAB PO SCH (07:57)
[2016-12-15] MEDS: METOPROLOL TARTRATE 25 MG TAB PO SCH ×2 (07:58→20:08)
[2016-12-15] MEDS: LIDOCAINE 5% 1 EA PATCH TD SCH (08:00)
[2016-12-15] MEDS: WARFARIN SODIUM 1 MG TAB PO SCH (16:03)
[2016-12-15] MEDS: QUEtiapine FUMARATE 25 MG TAB PO PRN (17:46)
[2016-12-15] MEDS ORDERED: hydrOXYzine HCL 25 MG TAB PO PRN (17:52)
--- NOTE | 2016-12-15 17:58 | HOSPPROG ---
Hospitalist Progress Note Assessment/Plan: # mechanical fall # acute L foot pain with chronic externally rotated/pes planus - XR negative - appreciate podiatry eval - will use knee scooter or AFO brace per podiatry ; f/u as outpatient for possible surgery intervention # acute on chronic pain with continuous narcotic requirement - cont to wean dilaudid; cont oxy at increased dose # rash - on back, suspect d/t heat - hydroxyzine, hydrocortisone cream # weakness/debilitation - he really needs to mobilize but is having difficulty with this # 11th rib fx # acute on chronic renal failure - d/t rhabdo/pre-renal - resolved, close to baseline # rhabdo - resolved, stop IVF # a-fib, occurred here - now NSR - CHADSVasc=3; currently on AC - start metop 12.5 bid - should get event monitor as outpatient to decide on [facility] # suspected PE - in setting of new a-fib, hypoxia - echo ok, no LE DVT - AC for 3 months # non-obstructive CAD - asa # htn - started metop, hold lisino for now # dispo - difficult; will need SNF but needs a few more days as inpatient Subjective: feels very anxious Objective: Vital Signs Temp Pulse Resp BP Pulse Ox 37.3 C 72 17 143/63 H 92 12/15/16 15:00 12/15/16 15:00 12/15/16 15:00 12/15/16 15:00 12/15/16 15:00 Laboratory Results 12/15/16 05:30 12/15/16 05:30 12/14/16 12/15/16 12/16/16 05:59 05:59 05:59 Intake Total 5814.8 2369 360 Output Total 3300 1250 450 Balance 2514.8 1119 -90 PT 22.9 SEC (12.0-15.0) H 12/15/16 05:30 INR 2.01 (0.83-1.16) H 12/15/16 05:30 - Physical Exam Constitutional: no apparent distress, appears nourished Cardiovascular: regular rate and rhythym, no murmur, rub, or gallop Respiratory: no respiratory distress, no rales or rhonchi, clear to auscultation Gastrointestinal: normoactive bowel sounds, soft, non-tender abdomen, no palpable masses ICD10 Worksheet Patient Problems: Problems Problem Status Onset Pneumonia Acute Atrial fibrillation Acute Benzodiazepine withdrawal Acute Depression Acute Anxiety Acute Suicide attempt by drug ingestion Acute Intentional overdose of drug in tablet form Acute Bronchitis Acute Bronchospasm Acute Vertigo Acute Hypoxemia Acute Chest wall contusion Acute Right rib fracture Acute Rhabdomyolysis Acute Renal failure Acute Dehydration Acute Hyperkalemia Acute
[2016-12-15] MEDS: QUEtiapine FUMARATE 25 MG TAB PO SCH (20:07)
[2016-12-15] MEDS: traZODone 100 MG TAB PO SCH (20:07)
[2016-12-15] MEDS: QUEtiapine FUMARATE 100 MG TAB PO SCH (20:07)
[2016-12-15] MEDS: HYDROCORTISONE 1% CREAM TP SCH (20:09)
[2016-12-15] MEDS: ASPIRIN 81 MG CHEWABLE TAB PO SCH (20:09)
[2016-12-15] MEDS: PATCH REMOVAL 1 EA PATCH TD SCH (20:17)
[2016-12-16] MEDS: oxyCODONE IR 5 MG TAB PO PRN ×5 (03:38→21:11)
[2016-12-16 04:20] LABS: % IMMATURE GRANULYOCYTES 1.2 % (0.0-1.1); ABSOLUTE IMMATURE GRANULOCYTES 0.09 10^3/uL (0.00-0.10); ADD DIFF? NO; ADD MORPH? NO; ADD SCAN? NO; ATYPICAL LYMPHOCYTE FLAG 0 (0-99); FRAGMENT RBC FLAG 0 (0-99); HEMATOCRIT 32.1 % (40.0-51.0); HEMOGLOBIN 10.5 g/dL (13.7-17.5); LEFT SHIFT FLG 10 (0-99); LIPEMIA HEMOLYSIS FLAG 80 (0-99); MEAN CELL HEMOGLOBIN 31.6 pg (27.9-34.1); MEAN CELL HEMOGLOBIN CONCENTR. 32.7 g/dL (32.4-36.7); MEAN CELL VOLUME 96.7 fL (81.5-99.8); MEAN PLATELET VOLUME 10.1 fL (8.7-11.7); PLATELET CLUMPS FLAG 10 (0-99); PLATELET COUNT 155 10^3/uL (150-400); RED BLOOD CELL COUNT 3.32 10^6/uL (4.40-6.38)
[2016-12-16 04:32] LABS: INR 1.83 (0.83-1.16); PROTIME(PATIENT) 21.2 SEC (12.0-15.0)
[2016-12-16 04:35] LABS: ANION GAP 3 mEq/L (8-16); CALCIUM 8.6 mg/dL (8.5-10.4); CARBON DIOXIDE 26 mEq/l (22-31); CHLORIDE 105 mEq/L (97-110); CREATININE 1.7 mg/dL (0.7-1.3); GLOMERULAR FILTRATION RATE 40; GLUCOSE 101 mg/dL (70-100); MAGNESIUM 1.8 mg/dL (1.6-2.3); POTASSIUM 4.8 mEq/L (3.5-5.2); SODIUM 134 mEq/L (134-144)
[2016-12-16] MEDS: HYDROmorphONE/DILAUDID 1 MG/ML SYR IVP PRN ×5 (06:08→23:22)
[2016-12-16] MEDS: HEPARIN 10,000 UNIT/10 ML MDV IVP PRN (07:22)
[2016-12-16] MEDS: clonazePAM 0.5 MG TAB PO SCH ×2 (07:54→21:10)
[2016-12-16] MEDS: SENNOSIDES/DOCUSATE SODIUM TAB PO SCH ×2 (07:54→21:12)
[2016-12-16] MEDS: GABAPENTIN 300 MG CAP PO SCH ×3 (07:54→21:09)
[2016-12-16] MEDS: MONTELUKAST SODIUM 10 MG TAB PO SCH (07:55)
[2016-12-16] MEDS: METOPROLOL TARTRATE 25 MG TAB PO SCH ×2 (07:55→21:10)
[2016-12-16] MEDS: POLYETHYLENE GLYCOL 3350 17 GM PKT PO PRN (07:56)
[2016-12-16] MEDS: LIDOCAINE 5% 1 EA PATCH TD SCH (07:56)
[2016-12-16] MEDS ORDERED: IBUPROFEN 600 MG TAB PO ONE (10:35)
[2016-12-16] MEDS: HYDROCORTISONE 1% CREAM TP SCH ×2 (12:53→21:12)
[2016-12-16] MEDS: HEPARIN/DEXTROSE 500 ML IV SCH (14:08)
[2016-12-16] MEDS: WARFARIN SODIUM 1 MG TAB PO SCH (15:22)
--- NOTE | 2016-12-16 16:11 | HOSPPROG ---
Hospitalist Progress Note Assessment/Plan: # acute L foot pain with chronic externally rotated/pes planus - xray ( personally reviewed and interpreted) no fracture - appreciate podiatry eval - will use knee scooter or AFO brace per podiatry ; f/u as outpatient for possible surgery intervention # acute on chronic pain with continuous narcotic requirement - cont to wean dilaudid; cont oxy at increased dose # rash - on back, suspect d/t heat - hydroxyzine, hydrocortisone cream # weakness/debilitation - he really needs to mobilize but is having difficulty with this # acute on chronic renal failure - d/t rhabdo/pre-renal- creatinine 1.7 - resolved, close to baseline # rhabdo - resolved, stop IVF # a-fib, occurred here - now NSR - CHADSVasc=3; currently on AC - start metop 12.5 bid - should get event monitor as outpatient to decide on care home AC # suspected PE - in setting of new a-fib, hypoxia-oxygen saturations 93% on 1 L - echo ok, no LE DVT - AC for 3 months # non-obstructive CAD - asa # htn - started metop, hold lisino for now # dispo - difficult; will need SNF but needs a few more days as inpatient I have discussed the case with PT and nursing- continue to work on mobilization will weaning Dilaudid Subjective: terrible right sided CP Objective: Vital Signs Temp Pulse Resp BP Pulse Ox 36.8 C 67 19 146/75 H 85 L 12/16/16 11:19 12/16/16 11:19 12/16/16 11:19 12/16/16 11:19 12/16/16 11:19 Laboratory Results 12/16/16 04:00 12/16/16 04:00 12/15/16 12/16/16 12/17/16 05:59 05:59 05:59 Intake Total 2369 1401.8 410 Output Total 1250 1375 1800 Balance 1119 26.8 -1390 PT 21.2 SEC (12.0-15.0) H 12/16/16 04:00 INR 1.83 (0.83-1.16) H 12/16/16 04:00 - Physical Exam Constitutional: obese Eyes: anicteric sclera Ears, Nose, Mouth, Throat: moist mucous membranes Cardiovascular: regular rate and rhythym, no murmur, rub, or gallop Respiratory: no respiratory distress, no rales or rhonchi Gastrointestinal: normoactive bowel sounds Genitourinary: no bladder fullness Skin: warm, normal color Musculoskeletal: No asymmetric calves Neurologic: AAOx3 Psychiatric: interacting appropriately Lymph, Heme, Immunologic: no cervical LAD ICD10 Worksheet Patient Problems: Problems Problem Status Onset Chest wall contusion Acute Dehydration Acute Hyperkalemia Acute Renal failure Acute Rhabdomyolysis Acute Right rib fracture Acute Anxiety Acute Atrial fibrillation Acute Benzodiazepine withdrawal Acute Bronchitis Acute Bronchospasm Acute Depression Acute Hypoxemia Acute Intentional overdose of drug in tablet form Acute Pneumonia Acute Suicide attempt by drug ingestion Acute Vertigo Acute
[2016-12-16] MEDS ORDERED: WARFARIN SODIUM 5 MG TAB PO SCH (16:15)
[2016-12-16] MEDS ORDERED: WARFARIN SODIUM 4 MG TAB PO ONE (17:15)
[2016-12-16] MEDS: traZODone 100 MG TAB PO SCH (21:11)
[2016-12-16] MEDS: QUEtiapine FUMARATE 100 MG TAB PO SCH (21:11)
[2016-12-16] MEDS: ASPIRIN 81 MG CHEWABLE TAB PO SCH (21:12)
[2016-12-16] MEDS: PATCH REMOVAL 1 EA PATCH TD SCH (21:12)
[2016-12-16] MEDS: QUEtiapine FUMARATE 25 MG TAB PO SCH (21:27)
[2016-12-16] MEDS ORDERED: HYDROmorphONE/DILAUDID 1 MG/ML SYR IVP ONE (23:08)
[2016-12-16] MEDS ORDERED: NALOXONE HCL 0.4 MG/ML INJ ONE (23:44)
[2016-12-17 00:36] LABS: ADD DIFF? YES; ADD MORPH? NO; ADD SCAN? NO; ATYPICAL LYMPHOCYTE FLAG 0 (0-99); FRAGMENT RBC FLAG 0 (0-99); HEMATOCRIT 23.3 % (40.0-51.0); HEMOGLOBIN 7.6 g/dL (13.7-17.5); LEFT SHIFT FLG 80 (0-99); LIPEMIA HEMOLYSIS FLAG 80 (0-99); MEAN CELL HEMOGLOBIN 31.7 pg (27.9-34.1); MEAN CELL HEMOGLOBIN CONCENTR. 32.6 g/dL (32.4-36.7); MEAN CELL VOLUME 97.1 fL (81.5-99.8); MEAN PLATELET VOLUME 10.2 fL (8.7-11.7); PLATELET CLUMPS FLAG 10 (0-99); PLATELET COUNT 199 10^3/uL (150-400); RED CELL DISTRIBUTION WIDTH 12.8 % (11.5-15.2)
[2016-12-17] MEDS ORDERED: NALOXONE HCL 0.4 MG/ML INJ IVP ONE (00:45)
[2016-12-17 00:49] LABS: ALANINE AMINOTRANSFERASE 51 IU/L (21-72); ALBUMIN 2.4 g/dL (3.5-5.0); ALKALINE PHOSPHATASE 48 IU/L (38-126); ANION GAP 7 mEq/L (8-16); ASPARTATE AMINOTRANSFERASE 76 IU/L (17-59); BILIRUBIN,TOTAL 0.6 mg/dL (0.1-1.4); CALCIUM 8.1 mg/dL (8.5-10.4); CARBON DIOXIDE 25 mEq/l (22-31); CHLORIDE 98 mEq/L (97-110); GLOMERULAR FILTRATION RATE 33; GLUCOSE 285 mg/dL (70-100); POTASSIUM 4.5 mEq/L (3.5-5.2); SODIUM 130 mEq/L (134-144); TOTAL PROTEIN 4.9 g/dL (6.3-8.2)
[2016-12-17 00:54] LABS: PROTIME(PATIENT) 25.5 SEC (12.0-15.0)
[2016-12-17] MEDS ORDERED: NS 1,000 ML IV ONE (01:12)
[2016-12-17] MEDS ORDERED: PHYTONADIONE 10 MG in NS 50 ML IV ONE (01:15)
--- NOTE | 2016-12-17 01:22 | HOSPPROG ---
Hospitalist Progress Note Assessment/Plan: CROSS COVERAGE EVENT NOTE I was paged by RN for patient complaining of acute and worsening pain, not relieved by already ordered and administered IV/PO pain meds. He was given an additional dose of Dilaudid 0.2 mg IVP and shortly after this developed acute hypotension. At this time, I went to evaluate the patient, he was mentating well and complaining of pain. He states his pain is located on his R chest wall , it began to intensify earlier in the day of 12/16, but now was acutely worse. He was initiated on IVF bolus for BP resuscitation and given 0.2 mg IV narcan for possible opioid induced hypotension. BP initially improved with NS 500 cc bolus, however only temporarily. Patient also began complaining of feeling cold , appeared mak and clammy. VS: BP 92/58 HR 68 RR15 Ow at 96% Gen: ashen, clammy, uncomfortable HEENT: mmm, no obvious trauma chest wall: large firm apparent hematoma on R chest wall, located at level of pec, extending toward R shoulder superiorly and nipple inferiorly; very tender to palpitation; scattered ecchymosis also present CV: RRR, no murmur Resp: CTA b/l Abd: soft, nontender, nondistended Ext: no edema; DP pulses 2+ Neuro: AO x3, answers questions/following commands appropriately; strength equal in all extremities Labs: CBC: 12.4 > 7.6 (prev 10.5) / 23.3 (prev 32.1) < 199 PT/INR: 25/2.3 BMP: 130 / 4.5 / 98 / 25 / 36 / [address] chest wo contrast: 12x6 cm R anterior subpectoral hematoma; definite source of bleed not identified ; No pneumo or displaced rib fx; R atelectasis and small effusion Impr/Plan: Patient is a 66 year old male with CAD, Afib, diastolic HF, asthma who was admitted on 12/09 after being found down on the ground after a mechanical fall. Admission diagnoses include acute rhabdomyolysis, resulting in acute renal failure, acute 11th rib fracture, as well as suspected acute pulmonary embolism (could not be verified with CT Angio given renal failure, but hypoxic and tachycardic). He was initated on IVF hydration with significant improvement of the rhabdo and renal failure, as well as a heparin drip/bridging to coumadin for management of his presumed PE and for afib anticoagulation. Over the course the day today, patient has been complaining of increasing R sided pain. This evening, pain has become associated with hypotension/ hemodynamic instability. CT chest has revealed a large R chest wall subpectoral hematoma. Stat labs obtained and revealed an acute drop in hemoglobin. Heparin and coumadin discontinued. Transfusing FFP and PRBC x1 unit each. General surgery has been consulted, recs pending. Will place pressure dressing, follow H /H q4h, coag studies and f/u surgery recs. Minoo Conn, Objective: Vital Signs Temp Pulse Resp BP Pulse Ox 36.4 C 65 17 83/48 L 97 12/17/16 01:00 12/17/16 01:00 12/17/16 01:00 12/17/16 01:00 12/17/16 01:00 Laboratory Results 12/16/16 23:50 12/16/16 23:50 12/15/16 12/16/16 12/17/16 05:59 05:59 05:59 Intake Total 2369 1401.8 2212 Output Total 1250 1375 1800 Balance 1119 26.8 412 PT 25.5 SEC (12.0-15.0) H 12/16/16 23:50 INR 2.30 (0.83-1.16) H 12/16/16 23:50 ICD10 Worksheet Patient Problems: Problems Problem Status Onset Chest wall contusion Acute Dehydration Acute Hyperkalemia Acute Renal failure Acute Rhabdomyolysis Acute Right rib fracture Acute Anxiety Acute Atrial fibrillation Acute Benzodiazepine withdrawal Acute Bronchitis Acute Bronchospasm Acute Depression Acute Hypoxemia Acute Intentional overdose of drug in tablet form Acute Pneumonia Acute Suicide attempt by drug ingestion Acute Vertigo Acute
[2016-12-17] MEDS ORDERED: NS BOLUS 500 ML (Wide open) IV ONE (01:30)
[2016-12-17 01:52] LABS: PLATELET ESTIMATE ADEQUATE (ADEQ)
[2016-12-17] MEDS: HYDROmorphONE/DILAUDID 1 MG/ML SYR IVP PRN (03:18)
[2016-12-17] MEDS ORDERED: BUPIVACAINE/EPI 0.5% 30 ML SDV ONE (04:40)
--- NOTE | 2016-12-17 04:58 | SOAPPROG ---
SOAP Progress Note Assessment/Plan: Assessment:requested to re-eval patient for new right chest wall hematoma. recent blunt right side trauma s/p mechanical fall. admitting chest CT imaging normal soft tissue windows, ARF, elevated INR, rhabdo, afib. Patient started on anticoag for presumed PE. he developed worsening right chest pain earlier yesterday afternoon. repeat CT with large subpectoral hematoma. FFP, Vit K, dc of heparin given earlier. patient with 3g Hb drop and hypotension in addition to worsening pain. surgery requested for reassessment. On exam, uncomfortable, pale. Tense, diffuse right chest wall hematoma present with exquisite tenderness. Stable remaining right abdominal wall ecchymosis. CT images directly reviewed on PACS confirming above findings (at least 12cm hematoma). Needs OR evacuation. Anticoag reversal agents previously given. OR notified. Risks and benefits reviewed with patient. Plan: 12/17/16 04:52 Objective: Vital Signs Temp Pulse Resp BP Pulse Ox 37.2 C 66 14 99/47 L 96 12/17/16 04:00 12/17/16 04:00 12/17/16 04:00 12/17/16 04:00 12/17/16 04:00 Laboratory Results 12/16/16 23:50 12/16/16 23:50 12/15/16 12/16/16 12/17/16 05:59 05:59 05:59 Intake Total 2369 1401.8 2562 Output Total 1250 1375 2500 Balance 1119 26.8 62 PT 25.5 SEC (12.0-15.0) H 12/16/16 23:50 INR 2.30 (0.83-1.16) H 12/16/16 23:50 ICD10 Worksheet Patient Problems: Problems Problem Status Onset Chest wall contusion Acute Dehydration Acute Hyperkalemia Acute Renal failure Acute Rhabdomyolysis Acute Right rib fracture Acute Anxiety Acute Atrial fibrillation Acute Benzodiazepine withdrawal Acute Bronchitis Acute Bronchospasm Acute Depression Acute Hypoxemia Acute Intentional overdose of drug in tablet form Acute Pneumonia Acute Suicide attempt by drug ingestion Acute Vertigo Acute
[2016-12-17] MEDS ORDERED: PROPOFOL/EMULSION 500 MG/50 ML BOTTLE IV ONE (05:27)
[2016-12-17] MEDS ORDERED: KETAMINE 100 MG/10 ML SYR ONE (05:27)
[2016-12-17] MEDS ORDERED: LIDOCAINE 1% 300 MG/30 ML SDV ONE (05:44)
[2016-12-17] MEDS ORDERED: epHEDrine SULFATE 10 MG/ML SYR ONE (05:56)
[2016-12-17] MEDS ORDERED: PHENYLEPHRINE HCL 100 MCG/ML SYR ONE (05:56)
[2016-12-17] MEDS ORDERED: VASOPRESSIN 20 UNIT/ML VIAL ONE (06:05)
--- NOTE | 2016-12-17 06:28 | POSTOPPROG ---
Post Op Note Date of Operation: 12/17/16 Surgeon: Kwasi Pinedo Anesthesiologist: Robina Anesthesia: IV Sedation Pre-op Diagnosis: right chest wall hematoma Post-op Diagnosis: same Procedure: drainage right subpectoral hematoma Findings: 600cc fluid Inf/Abcess present in the surg proc area at time of surgery?: No Complications: no immediate Specimen(s): none
--- NOTE | 2016-12-17 06:29 | POSTANESTH ---
Post Anesthetic Evaluation Cardiovascular Status: Normal, Stable, Similar to Pre-Op Cond Respiratory Status: Normal, Stable, Similar to Pre-op Cond. Level of Consciousness/Mental Status: Can Participate in Eval, Alert and Oriented Pain Control: Adequate, Prn Tx Ordered Nausea/Vomiting Control: Adequate, Prn Tx Ordered Complications Possibly Related to Anesthesia: None Noted
--- NOTE | 2016-12-17 06:44 | GOP ---
[f rep st] OPERATIVE REPORT DATE OF OPERATION: 12/17/2016 SURGEON: Kwasi Pinedo MD ANESTHESIA: MAC. Dr. Quarles. PREOPERATIVE DIAGNOSIS: Right chest wall hematoma. POSTOPERATIVE DIAGNOSIS: Right chest wall hematoma. PROCEDURE PERFORMED: Evacuation of right subpectoral chest wall hematoma. FINDINGS: Tense fresh hematoma. INDICATIONS: 66-year-old male with a large painful right chest wall hematoma, resultant from anticoagulation therapy and recent blunt chest trauma. He is undergoing surgical evacuation at this time. DESCRIPTION OF PROCEDURE: After monitored anesthesia was started, the right chest was infiltrated with 1% lidocaine and 0.5% Marcaine. A transverse incision was created over the upper half of the breast. Subcutaneous tissues were divided down to the pectoralis major muscle. This was along its oblique orientation. The pec minor fascia was opened. A large tense hematoma of 600 cc of minimally coagulated blood was present. This was all completely drained from the chest cavity. No areas of active bleeding were identified. After satisfactory hemostasis was assured the wound was closed in layers with absorbable suture and Dermabond. The patient was taken back to the intensive care unit in satisfactory condition. /[id number]/MODL MTDD
[2016-12-17 06:52] LABS: ADD DIFF? YES; ADD MORPH? NO; ADD SCAN? NO; ATYPICAL LYMPHOCYTE FLAG 10 (0-99); FRAGMENT RBC FLAG 0 (0-99); HEMATOCRIT 22.1 % (40.0-51.0); HEMOGLOBIN 7.5 g/dL (13.7-17.5); LEFT SHIFT FLG 30 (0-99); LIPEMIA HEMOLYSIS FLAG 90 (0-99); MEAN CELL HEMOGLOBIN 31.4 pg (27.9-34.1); MEAN CELL HEMOGLOBIN CONCENTR. 33.9 g/dL (32.4-36.7); MEAN CELL VOLUME 92.5 fL (81.5-99.8); MEAN PLATELET VOLUME 10.1 fL (8.7-11.7); PLATELET CLUMPS FLAG 0 (0-99); PLATELET COUNT 161 10^3/uL (150-400); RED BLOOD CELL COUNT 2.39 10^6/uL (4.40-6.38); RED CELL DISTRIBUTION WIDTH 14.6 % (11.5-15.2)
[2016-12-17 07:02] LABS: ANION GAP 5 mEq/L (8-16); CALCIUM 7.9 mg/dL (8.5-10.4); CARBON DIOXIDE 25 mEq/l (22-31); CHLORIDE 104 mEq/L (97-110); CREATININE 1.5 mg/dL (0.7-1.3); GLOMERULAR FILTRATION RATE 47; GLUCOSE 135 mg/dL (70-100); POTASSIUM 4.8 mEq/L (3.5-5.2); SODIUM 134 mEq/L (134-144)
[2016-12-17 07:06] LABS: INR 1.41 (0.83-1.16); PROTIME(PATIENT) 17.2 SEC (12.0-15.0)
[2016-12-17 07:07] LABS: APTT 27.6 SEC (23.0-38.0)
[2016-12-17 07:48] LABS: PLATELET ESTIMATE ADEQUATE (ADEQ)
[2016-12-17] MEDS: clonazePAM 0.5 MG TAB PO SCH ×3 (09:31→20:30)
[2016-12-17] MEDS: SENNOSIDES/DOCUSATE SODIUM TAB PO SCH ×2 (09:48→20:29)
[2016-12-17] MEDS: GABAPENTIN 300 MG CAP PO SCH ×3 (09:48→21:06)
[2016-12-17] MEDS: MONTELUKAST SODIUM 10 MG TAB PO SCH (09:48)
[2016-12-17] MEDS: LIDOCAINE 5% 1 EA PATCH TD SCH ×2 (09:49→09:52)
[2016-12-17] MEDS: HYDROCORTISONE 1% CREAM TP SCH ×2 (09:50→20:50)
[2016-12-17] MEDS ORDERED: LIDOCAINE 1% 300 MG/30 ML SDV MISC ONE (10:29)
[2016-12-17] MEDS ORDERED: LIDOCAINE 2% JELLY 5 ML TUBE TP ONE (10:29)
--- NOTE | 2016-12-17 12:12 | HOSPPROG ---
Hospitalist Progress Note Assessment/Plan: # acute right subpectoral hematoma - preceding trauma unclear - pt reports pain after minimal effort with PT CT chest (personally reviewed and interpreted) large right chest hematoma - subpectoral - pt taken emergently to OR by Dr. Pinedo overnight - hold warfarin - will need thoughtful discussion about ongoing anticoagulation - cont prn pain meds # anemia 2/2 acute blood loss - in chest hematoma - hgb 10.5 -> 7.5 this am - monitor closely # acute L foot pain with chronic externally rotated/pes planus - xray -no fracture - appreciate podiatry eval - will use knee scooter or AFO brace per podiatry ; f/u as outpatient for possible surgery intervention # acute on chronic pain with continuous narcotic requirement - cont to wean dilaudid; cont oxy at increased dose # rash - on back, suspect d/t heat - hydroxyzine, hydrocortisone cream # weakness/debilitation - he really needs to mobilize but is having difficulty with this - cont PT/OT # acute on chronic renal failure - 2/2 hypovolemia at presentation- creatinine 2.2 -> 1.5 - cont to monitor # rhabdo - resolved, stop IVF # a-fib, occurred here only once may be paroxysmal or lone AFIB- now NSR- - CHADSVasc=3; currently holding AC - cont metop 12.5 bid # suspected PE - in setting of new a-fib, hypoxia-oxygen saturations 93% on 1 L - echo ok, no LE DVT - AC on hold # non-obstructive CAD - asa # htn - started metop - cont to hold lisinopril # dispo - difficult; will need SNF but needs a few more days as inpatient I have discussed the case with Dr. Rush - pt transferrred to ICU after emergent surgical evacuation of clot - has been hemodynamically stable this am Subjective: pain markedly improved Objective: Vital Signs Temp Pulse Resp BP Pulse Ox 37.2 C 85 18 125/46 H 100 12/17/16 11:37 12/17/16 11:37 12/17/16 11:37 12/17/16 11:37 12/17/16 11:37 Laboratory Results 12/17/16 06:35 12/17/16 06:35 06/02/17 06/03/17 06/04/17 05:59 05:59 05:59 Intake Total 1401.8 2562 Output Total 1375 2500 Balance 26.8 62 PT 17.2 SEC (12.0-15.0) H D 12/17/16 06:35 INR 1.41 (0.83-1.16) H 12/17/16 06:35 - Physical Exam Constitutional: obese Eyes: anicteric sclera Ears, Nose, Mouth, Throat: dry mucous membranes Cardiovascular: regular rate and rhythym Respiratory: no respiratory distress, no rales or rhonchi Gastrointestinal: normoactive bowel sounds, soft, non-tender abdomen Genitourinary: no bladder fullness Skin: warm, normal color Musculoskeletal: No asymmetric calves Neurologic: AAOx3 Psychiatric: interacting appropriately Lymph, Heme, Immunologic: no cervical LAD ICD10 Worksheet Patient Problems: Problems Problem Status Onset Chest wall contusion Acute Dehydration Acute Hyperkalemia Acute Renal failure Acute Rhabdomyolysis Acute Right rib fracture Acute Anxiety Acute Atrial fibrillation Acute Benzodiazepine withdrawal Acute Bronchitis Acute Bronchospasm Acute Depression Acute Hypoxemia Acute Intentional overdose of drug in tablet form Acute Pneumonia Acute Suicide attempt by drug ingestion Acute Vertigo Acute
[2016-12-17] MEDS ORDERED: WARFARIN SODIUM 5 MG TAB PO SCH (16:00)
[2016-12-17] MEDS: oxyCODONE IR 5 MG TAB PO PRN ×2 (16:47→21:06)
[2016-12-17] MEDS: QUEtiapine FUMARATE 100 MG TAB PO SCH (20:29)
[2016-12-17] MEDS: ASPIRIN 81 MG CHEWABLE TAB PO SCH (20:30)
[2016-12-17] MEDS: traZODone 100 MG TAB PO SCH (20:30)
[2016-12-17] MEDS: QUEtiapine FUMARATE 25 MG TAB PO SCH (20:30)
[2016-12-17] MEDS: PATCH REMOVAL 1 EA PATCH TD SCH (20:52)
[2016-12-18] MEDS: oxyCODONE IR 5 MG TAB PO PRN ×4 (06:03→22:10)
[2016-12-18 06:53] LABS: ANION GAP 3 mEq/L (8-16); CALCIUM 7.5 mg/dL (8.5-10.4); CARBON DIOXIDE 23 mEq/l (22-31); CHLORIDE 107 mEq/L (97-110); CREATININE 1.5 mg/dL (0.7-1.3); GLOMERULAR FILTRATION RATE 47; GLUCOSE 86 mg/dL (70-100); POTASSIUM 4.2 mEq/L (3.5-5.2); SODIUM 133 mEq/L (134-144)
[2016-12-18 07:19] LABS: INR 1.26 (0.83-1.16); PROTIME(PATIENT) 15.8 SEC (12.0-15.0)
[2016-12-18] MEDS: GABAPENTIN 300 MG CAP PO SCH ×3 (08:22→22:05)
[2016-12-18] MEDS: clonazePAM 0.5 MG TAB PO SCH ×2 (08:23→22:05)
[2016-12-18] MEDS: MONTELUKAST SODIUM 10 MG TAB PO SCH (08:23)
[2016-12-18] MEDS: SENNOSIDES/DOCUSATE SODIUM TAB PO SCH ×2 (08:23→22:04)
[2016-12-18 09:47] LABS: % IMMATURE GRANULYOCYTES 2.5 % (0.0-1.1); ABSOLUTE IMMATURE GRANULOCYTES 0.25 10^3/uL (0.00-0.10); ADD DIFF? NO; ADD MORPH? YES; ADD SCAN? NO; ATYPICAL LYMPHOCYTE FLAG 0 (0-99); FRAGMENT RBC FLAG 0 (0-99); HEMATOCRIT 19.8 % (40.0-51.0); LEFT SHIFT FLG 30 (0-99); LIPEMIA HEMOLYSIS FLAG 90 (0-99); MEAN CELL HEMOGLOBIN 31.5 pg (27.9-34.1); MEAN CELL HEMOGLOBIN CONCENTR. 33.8 g/dL (32.4-36.7); PLATELET CLUMPS FLAG 0 (0-99); PLATELET COUNT 169 10^3/uL (150-400); RED BLOOD CELL COUNT 2.13 10^6/uL (4.40-6.38); RED CELL DISTRIBUTION WIDTH 14.7 % (11.5-15.2)
[2016-12-18 09:48] LABS: HEMOGLOBIN 6.7 g/dL (13.7-17.5)
[2016-12-18] MEDS: ACETAMINOPHEN 325 MG TAB PO PRN ×2 (10:02→14:54)
[2016-12-18] MEDS: POLYETHYLENE GLYCOL 3350 17 GM PKT PO PRN (10:37)
[2016-12-18] MEDS: LIDOCAINE 5% 1 EA PATCH TD SCH (10:45)
[2016-12-18 10:47] LABS: PLATELET ESTIMATE ADEQUATE (ADEQ); POLYCHROMASIA 1+
[2016-12-18] MEDS ORDERED: IBUPROFEN 600 MG TAB PO ONE (12:51)
--- NOTE | 2016-12-18 13:04 | HOSPPROG ---
Hospitalist Progress Note Assessment/Plan: # acute right subpectoral hematoma - preceding trauma unclear - pt reports pain after minimal effort with PT CT chest -large right chest hematoma - subpectoral - pt taken emergently to OR by Dr. Pinedo overnight - hold warfarin - will need thoughtful discussion about ongoing anticoagulation - cont prn pain meds # anemia 2/2 acute blood loss - in chest hematoma - hgb 10.5 -> 7.5-> 6 this am - transfuse 2 units PRBC today # acute L foot pain with chronic externally rotated/pes planus - xray -no fracture - appreciate podiatry eval - will use knee scooter or AFO brace per podiatry ; f/u as outpatient for possible surgery intervention # acute on chronic pain with continuous narcotic requirement - cont to wean dilaudid; - cont oxycodone - add ultram today # rash - on back, suspect d/t heat - hydroxyzine, hydrocortisone cream # weakness/debilitation - he really needs to mobilize but is having difficulty with this - cont PT/OT # acute on chronic renal failure - 2/2 hypovolemia at presentation- creatinine 2.2 -> remains 1.5 today - cont to monitor # rhabdo - resolved, stop IVF # a-fib, occurred here only once may be paroxysmal or lone AFIB- TELE ( persoanlly reviewed and interpreted) remains sinus - CHADSVasc=3; currently holding AC - cont metop 12.5 bid # suspected PE - in setting of new a-fib, hypoxia-oxygen saturations 93% on 2 L - echo ok, no LE DVT - AC on hold # non-obstructive CAD - asa # htn - started metop - cont to hold lisinopril 2/2 PINA # dispo - difficult; will need SNF but needs a few more days as inpatient I have discussed the case with RN - we will transfuse today and work with Ultram /oxycodone for pain control Subjective: still with pain Objective: Vital Signs Temp Pulse Resp BP Pulse Ox 36.8 C 83 18 122/53 H 93 12/18/16 11:41 12/18/16 11:41 12/18/16 11:41 12/18/16 11:41 12/18/16 11:41 Laboratory Results 12/18/16 08:35 12/18/16 06:10 12/17/16 12/18/16 12/19/16 05:59 05:59 05:59 Intake Total 2562 600 Output Total 2500 1900 Balance 62 -1300 PT 15.8 SEC (12.0-15.0) H 12/18/16 06:10 INR 1.26 (0.83-1.16) H 12/18/16 06:10 - Physical Exam Constitutional: appears nourished, chronically ill appearing Eyes: anicteric sclera Ears, Nose, Mouth, Throat: moist mucous membranes Cardiovascular: regular rate and rhythym Respiratory: no respiratory distress, no rales or rhonchi Gastrointestinal: normoactive bowel sounds, soft, non-tender abdomen Genitourinary: no bladder fullness Skin: warm, other (bruising fro hematoma on right chest) Musculoskeletal: other (right hand/arm swelling - stable x 48 hours), No asymmetric calves Neurologic: AAOx3 Psychiatric: interacting appropriately, not anxious Lymph, Heme, Immunologic: no cervical LAD ICD10 Worksheet Patient Problems: Problems Problem Status Onset Chest wall contusion Acute Dehydration Acute Hyperkalemia Acute Renal failure Acute Rhabdomyolysis Acute Right rib fracture Acute Anxiety Acute Atrial fibrillation Acute Benzodiazepine withdrawal Acute Bronchitis Acute Bronchospasm Acute Depression Acute Hypoxemia Acute Intentional overdose of drug in tablet form Acute Pneumonia Acute Suicide attempt by drug ingestion Acute Vertigo Acute
[2016-12-18] MEDS: HYDROCORTISONE 1% CREAM TP SCH ×2 (14:56→22:07)
--- NOTE | 2016-12-18 16:18 | SOAPPROG ---
SOAP Progress Note Assessment/Plan: Assessment:no complaints. no further chest pain. receiving 1u PRBC. patient denies any other new concerns. historically no prior cscope. no abdominal complaints. chronic constipation - no history of black or tarry stools. no hx UGI bleed. avss. comfortable. chest wall soft. incision clean. no further chest wall bleeding. some concern regarding degree of blood loss on this admission - not explainable from his chest hematoma. discussed with hospitalist service. they will monitor and workup further if felt warranted. will sign off for now. please call for further questions or concerns. Plan: 12/17/16 04:52 12/18/16 16:13 Objective: Vital Signs Temp Pulse Resp BP Pulse Ox 36.9 C 87 17 125/65 H 97 12/18/16 15:16 12/18/16 15:16 12/18/16 15:16 12/18/16 15:16 12/18/16 15:16 Laboratory Results 12/18/16 08:35 12/18/16 06:10 12/17/16 12/18/16 12/19/16 05:59 05:59 05:59 Intake Total 2562 600 Output Total 2500 1900 Balance 62 -1300 PT 15.8 SEC (12.0-15.0) H 12/18/16 06:10 INR 1.26 (0.83-1.16) H 12/18/16 06:10 ICD10 Worksheet Patient Problems: Problems Problem Status Onset Chest wall contusion Acute Dehydration Acute Hyperkalemia Acute Renal failure Acute Rhabdomyolysis Acute Right rib fracture Acute Anxiety Acute Atrial fibrillation Acute Benzodiazepine withdrawal Acute Bronchitis Acute Bronchospasm Acute Depression Acute Hypoxemia Acute Intentional overdose of drug in tablet form Acute Pneumonia Acute Suicide attempt by drug ingestion Acute Vertigo Acute
[2016-12-18] MEDS: QUEtiapine FUMARATE 25 MG TAB PO PRN (17:25)
[2016-12-18] MEDS: QUEtiapine FUMARATE 25 MG TAB PO SCH (22:03)
[2016-12-18] MEDS: traZODone 100 MG TAB PO SCH (22:04)
[2016-12-18] MEDS: QUEtiapine FUMARATE 100 MG TAB PO SCH (22:04)
[2016-12-18] MEDS: ASPIRIN 81 MG CHEWABLE TAB PO SCH (22:05)
[2016-12-18] MEDS: PATCH REMOVAL 1 EA PATCH TD SCH (22:08)
[2016-12-19] MEDS: oxyCODONE IR 5 MG TAB PO PRN ×4 (04:29→19:56)
[2016-12-19] MEDS: clonazePAM 0.5 MG TAB PO SCH ×2 (11:17→19:50)
[2016-12-19] MEDS: GABAPENTIN 300 MG CAP PO SCH ×3 (11:19→22:47)
[2016-12-19] MEDS: LIDOCAINE 5% 1 EA PATCH TD SCH (11:19)
[2016-12-19] MEDS: HYDROCORTISONE 1% CREAM TP SCH ×2 (11:19→19:54)
[2016-12-19] MEDS: LACTULOSE 20 GM/30 ML UDCUP PO PRN (11:20)
[2016-12-19] MEDS: MONTELUKAST SODIUM 10 MG TAB PO SCH (11:21)
[2016-12-19] MEDS: METOPROLOL TARTRATE 25 MG TAB PO SCH ×2 (11:21→19:49)
[2016-12-19] MEDS: SENNOSIDES/DOCUSATE SODIUM TAB PO SCH ×2 (11:22→19:51)
--- NOTE | 2016-12-19 11:57 | HOSPPROG ---
Hospitalist Progress Note Assessment/Plan: # acute right subpectoral hematoma - preceding trauma unclear - - pt taken emergently to OR by Dr. Pinedo for evacuation- sx markedly improved CT chest -large right chest hematoma - subpectoral - dc warfarin - at this point would not re-initiate as the PE suspected and pt has been in Sinus consistently - cont prn pain meds # anemia 2/2 acute blood loss - in chest hematoma - hgb 10.5 -> 6 - transfused 2UPRBC yesterday-> 7.1 this am - will recheck H&H later today # acute on chronic pain with continuous narcotic requirement - cont to wean IV pain meds - cont oxycodone - add ultram today # rash - on back, suspect d/t heat - hydroxyzine, hydrocortisone cream # weakness/debilitation - he really needs to mobilize but is having difficulty with this - cont PT/OT # acute on chronic renal failure - 2/2 hypovolemia at presentation- creatinine 2.2 -> remains 1.5 today - cont to monitor # rhabdo - resolved, stop IVF # a-fib, occurred here only once may be paroxysmal or lone AFIB- TELE ( persoanlly reviewed and interpreted) remains sinus - CHADSVasc=3; currently holding AC - cont metop 12.5 bid # suspected PE - in setting of new a-fib, hypoxia-oxygen saturations 93% on 2 L - echo ok, no LE DVT - AC on hold # non-obstructive CAD - asa # htn - started metop - cont to hold lisinopril 2/2 PINA # acute L foot pain with chronic externally rotated/pes planus - xray -no fracture - appreciate podiatry eval - will use knee scooter or AFO brace per podiatry ; f/u as outpatient for possible surgery intervention # dispo - difficult; will need SNF but needs a few more days as inpatient I have discussed the case with RN - we will transfuse today and work with Ultram /oxycodone for pain control Subjective: feeling better - chest wall pain improved Objective: Vital Signs Temp Pulse Resp BP Pulse Ox 36.6 C 73 16 122/61 H 99 12/19/16 11:23 12/19/16 11:23 12/19/16 11:23 12/19/16 11:23 12/19/16 11:23 12/18/16 12/19/16 12/20/16 05:59 05:59 05:59 Intake Total 600 350 Output Total 1900 625 Balance -1300 -275 PT 15.8 SEC (12.0-15.0) H 12/18/16 06:10 INR 1.26 (0.83-1.16) H 12/18/16 06:10 - Physical Exam Constitutional: appears nourished Eyes: anicteric sclera Ears, Nose, Mouth, Throat: moist mucous membranes Cardiovascular: regular rate and rhythym Respiratory: no respiratory distress, no rales or rhonchi Gastrointestinal: normoactive bowel sounds, soft, non-tender abdomen Genitourinary: no bladder fullness Skin: warm, other (bruising on right chest wall various stages of healing) Musculoskeletal: No asymmetric calves Neurologic: AAOx3 Psychiatric: interacting appropriately Lymph, Heme, Immunologic: no cervical LAD ICD10 Worksheet Patient Problems: Problems Problem Status Onset Chest wall contusion Acute Dehydration Acute Hyperkalemia Acute Renal failure Acute Rhabdomyolysis Acute Right rib fracture Acute Anxiety Acute Atrial fibrillation Acute Benzodiazepine withdrawal Acute Bronchitis Acute Bronchospasm Acute Depression Acute Hypoxemia Acute Intentional overdose of drug in tablet form Acute Pneumonia Acute Suicide attempt by drug ingestion Acute Vertigo Acute
[2016-12-19 13:15] LABS: HEMOGLOBIN 7.1 g/dL (13.7-17.5); MEAN CELL HEMOGLOBIN 31.6 pg (27.9-34.1); MEAN CELL HEMOGLOBIN CONCENTR. 33.8 g/dL (32.4-36.7); MEAN CELL VOLUME 93.3 fL (81.5-99.8); RED BLOOD CELL COUNT 2.25 10^6/uL (4.40-6.38); RED CELL DISTRIBUTION WIDTH 14.6 % (11.5-15.2)
[2016-12-19 14:54] LABS: ANION GAP 6 mEq/L (8-16); CARBON DIOXIDE 25 mEq/l (22-31); CHLORIDE 104 mEq/L (97-110); CREATININE 1.6 mg/dL (0.7-1.3); GLOMERULAR FILTRATION RATE 43; GLUCOSE 93 mg/dL (70-100); POTASSIUM 4.4 mEq/L (3.5-5.2); SODIUM 135 mEq/L (134-144)
[2016-12-19 14:55] LABS: CALCIUM 8.2 mg/dL (8.5-10.4)
[2016-12-19 17:57] LABS: HEMATOCRIT 21.3 % (40.0-51.0); HEMOGLOBIN 7.1 g/dL (13.7-17.5)
[2016-12-19] MEDS: ASPIRIN 81 MG CHEWABLE TAB PO SCH (19:49)
[2016-12-19] MEDS: QUEtiapine FUMARATE 25 MG TAB PO SCH (19:50)
[2016-12-19] MEDS: traZODone 100 MG TAB PO SCH (19:50)
[2016-12-19] MEDS: QUEtiapine FUMARATE 100 MG TAB PO SCH (19:50)
[2016-12-19] MEDS: PATCH REMOVAL 1 EA PATCH TD SCH (19:57)
[2016-12-20] MEDS: oxyCODONE IR 5 MG TAB PO PRN ×3 (04:14→22:44)
[2016-12-20 04:17] LABS: HEMATOCRIT 20.8 % (40.0-51.0); MEAN CELL HEMOGLOBIN 31.8 pg (27.9-34.1); MEAN CELL HEMOGLOBIN CONCENTR. 33.2 g/dL (32.4-36.7); MEAN CELL VOLUME 95.9 fL (81.5-99.8); RED BLOOD CELL COUNT 2.17 10^6/uL (4.40-6.38); RED CELL DISTRIBUTION WIDTH 14.4 % (11.5-15.2)
[2016-12-20 04:19] LABS: HEMOGLOBIN 6.9 g/dL (13.7-17.5)
[2016-12-20] MEDS ORDERED: MAGNESIUM CITRATE 300 ML BOTTLE PO ONE (07:00)
[2016-12-20] MEDS: GABAPENTIN 300 MG CAP PO SCH ×3 (08:13→20:12)
[2016-12-20] MEDS: METOPROLOL TARTRATE 25 MG TAB PO SCH ×2 (08:13→20:14)
[2016-12-20] MEDS: MONTELUKAST SODIUM 10 MG TAB PO SCH (08:13)
[2016-12-20] MEDS: clonazePAM 0.5 MG TAB PO SCH ×2 (08:14→20:13)
[2016-12-20] MEDS: SENNOSIDES/DOCUSATE SODIUM TAB PO SCH ×2 (08:14→20:13)
[2016-12-20] MEDS: traMADol 50 MG TAB PO PRN ×2 (08:14→16:38)
[2016-12-20] MEDS: LIDOCAINE 5% 1 EA PATCH TD SCH (08:52)
[2016-12-20] MEDS: HYDROCORTISONE 1% CREAM TP SCH ×2 (08:52→22:42)
--- NOTE | 2016-12-20 08:59 | HOSPPROG ---
Hospitalist Progress Note Assessment/Plan: # worsening R arm edema - check US t or/p DVT today; has PICC n this arm # subpectoral hematoma s/p OR evacuation - hold AC/asa # ABLA - needs transfusion today, will do after UE US to r/p PICC associated DVT # mechanical fall # acute L foot pain with chronic externally rotated/pes planus - XR negative - appreciate podiatry eval - will use knee scooter or AFO brace per podiatry ; f/u as outpatient for possible surgery intervention # acute on chronic pain with continuous narcotic requirement - currently on oxy, tramadol PO; gabapentin # rash - on back, suspect d/t heat - hydroxyzine, hydrocortisone cream # weakness/debilitation - he really needs to mobilize but is having difficulty with this # 11th rib fx # acute on chronic renal failure - d/t rhabdo/pre-renal - resolved, close to baseline # rhabdo - resolved # a-fib, occurred here - now NSR - CHADSVasc=3; hold AC d/t large hematoma - metop 12.5 bid - should get event monitor as outpatient to decide on mcc AC # suspected PE - in setting of new a-fib, hypoxia - echo ok, no LE DVT - hold AC as above as this is just suspected, never confirmed # non-obstructive CAD - asa # htn - started metop, hold lisino for now Subjective: R arm feels more edematous today Objective: Vital Signs Temp Pulse Resp BP Pulse Ox 36.8 C 75 12 106/62 96 12/20/16 07:29 12/20/16 07:29 12/20/16 07:29 12/20/16 07:29 12/20/16 07:29 Laboratory Results 12/20/16 04:10 12/19/16 05:45 12/19/16 12/20/16 12/21/16 05:59 05:59 05:59 Intake Total 350 1200 Output Total 625 2500 Balance -275 -1300 PT 15.8 SEC (12.0-15.0) H 12/18/16 06:10 INR 1.26 (0.83-1.16) H 12/18/16 06:10 CT chest personally reviewed tele personally reviewed - occasional PVCs - Physical Exam Constitutional: no apparent distress, appears nourished Cardiovascular: regular rate and rhythym, no murmur, rub, or gallop, other ( large R chest ecchymosis) Respiratory: no respiratory distress, no rales or rhonchi, clear to auscultation Gastrointestinal: normoactive bowel sounds, soft, non-tender abdomen, no palpable masses Musculoskeletal: other (R arm with palpaple radial pulse, motor and sensation intact in R hand) ICD10 Worksheet Patient Problems: Problems Problem Status Onset Pneumonia Acute Atrial fibrillation Acute Benzodiazepine withdrawal Acute Depression Acute Anxiety Acute Suicide attempt by drug ingestion Acute Intentional overdose of drug in tablet form Acute Bronchitis Acute Bronchospasm Acute Vertigo Acute Hypoxemia Acute Chest wall contusion Acute Right rib fracture Acute Rhabdomyolysis Acute Renal failure Acute Dehydration Acute Hyperkalemia Acute
[2016-12-20] MEDS ORDERED: HYDROmorphONE/DILAUDID 1 MG/ML SYR IVP ONE (09:33)
[2016-12-20] MEDS: ACETAMINOPHEN 325 MG TAB PO PRN (16:38)
[2016-12-20] MEDS: traZODone 100 MG TAB PO SCH (20:12)
[2016-12-20] MEDS: QUEtiapine FUMARATE 100 MG TAB PO SCH (20:13)
[2016-12-20] MEDS: ASPIRIN 81 MG CHEWABLE TAB PO SCH (20:14)
[2016-12-20] MEDS: QUEtiapine FUMARATE 25 MG TAB PO SCH (20:14)
[2016-12-20] MEDS: PATCH REMOVAL 1 EA PATCH TD SCH (22:41)
[2016-12-21] MEDS: oxyCODONE IR 5 MG TAB PO PRN ×5 (03:13→20:42)
[2016-12-21 03:47] LABS: ANION GAP 5 mEq/L (8-16); CALCIUM 8.5 mg/dL (8.5-10.4); CARBON DIOXIDE 25 mEq/l (22-31); CHLORIDE 104 mEq/L (97-110); CREATININE 1.5 mg/dL (0.7-1.3); GLOMERULAR FILTRATION RATE 47; GLUCOSE 92 mg/dL (70-100); SODIUM 134 mEq/L (134-144)
[2016-12-21 04:04] LABS: % IMMATURE GRANULYOCYTES 2.2 % (0.0-1.1); ABSOLUTE IMMATURE GRANULOCYTES 0.19 10^3/uL (0.00-0.10); ADD DIFF? NO; ADD MORPH? NO; ADD SCAN? NO; ATYPICAL LYMPHOCYTE FLAG 0 (0-99); FRAGMENT RBC FLAG 0 (0-99); HEMATOCRIT 23.8 % (40.0-51.0); HEMOGLOBIN 7.9 g/dL (13.7-17.5); LEFT SHIFT FLG 20 (0-99); LIPEMIA HEMOLYSIS FLAG 80 (0-99); MEAN CELL HEMOGLOBIN 31.1 pg (27.9-34.1); MEAN CELL HEMOGLOBIN CONCENTR. 33.2 g/dL (32.4-36.7); MEAN CELL VOLUME 93.7 fL (81.5-99.8); MEAN PLATELET VOLUME 9.7 fL (8.7-11.7); PLATELET CLUMPS FLAG 80 (0-99); PLATELET COUNT 200 10^3/uL (150-400); RED BLOOD CELL COUNT 2.54 10^6/uL (4.40-6.38); RED CELL DISTRIBUTION WIDTH 15.2 % (11.5-15.2)
[2016-12-21] MEDS: MONTELUKAST SODIUM 10 MG TAB PO SCH (07:55)
[2016-12-21] MEDS: GABAPENTIN 300 MG CAP PO SCH ×4 (07:55→20:32)
[2016-12-21] MEDS: clonazePAM 0.5 MG TAB PO SCH ×2 (07:55→20:31)
[2016-12-21] MEDS: SENNOSIDES/DOCUSATE SODIUM TAB PO SCH ×2 (07:59→20:31)
[2016-12-21] MEDS: METOPROLOL TARTRATE 25 MG TAB PO SCH ×2 (08:00→20:32)
[2016-12-21] MEDS ORDERED: ACETAMINOPHEN 500 MG TAB PO PRN (08:48)
--- NOTE | 2016-12-21 08:53 | HOSPPROG ---
Hospitalist Progress Note Assessment/Plan: # RUE DVT to subclavian: s/p PICC removal - discussed with patient; I favor monitoring off AC for now given large subpectoral hematoma and transfusions - consider low dose lovenox tomorrow if anemia stable - will put arm in a sling since AC contraindicated # subpectoral hematoma s/p OR evacuation - hold AC/asa # ABLA - s/p transfusion yesterday (3 U PRBC total) # reported decubitus - wound care; I did not visualize today # mechanical fall # acute L foot pain with chronic externally rotated/pes planus - XR negative - appreciate podiatry eval - will use knee scooter or AFO brace per podiatry ; f/u as outpatient for possible surgery intervention # acute on chronic pain with continuous narcotic requirement - currently on oxy (increase frequency), tramadol PO; gabapentin (increase dose today) # rash - on back, suspect d/t heat - hydroxyzine, hydrocortisone cream # weakness/debilitation - he really needs to mobilize but is having difficulty with this # 11th rib fx # acute on chronic renal failure - d/t rhabdo/pre-renal - resolved, close to baseline # rhabdo - resolved # a-fib, occurred here - now NSR - CHADSVasc=3; hold AC d/t large hematoma - metop 12.5 bid - should get event monitor as outpatient to decide on terminal clerk AC # suspected PE - in setting of new a-fib, hypoxia - echo ok, no LE DVT - hold AC as above as this is just suspected, never confirmed # non-obstructive CAD - asa # htn - started metop, hold lisino for now ## high risk with DVT with strong contraindication to AC Subjective: R arm feels less swollen; s/p PICC removal and replacement and blood transfusion; still in severe pain "all over" Objective: Vital Signs Temp Pulse Resp BP Pulse Ox 36.7 C 67 16 126/62 H 97 12/21/16 07:42 12/21/16 07:42 12/21/16 07:42 12/21/16 07:42 12/21/16 07:42 Laboratory Results 12/21/16 03:20 12/21/16 03:20 12/20/16 12/21/16 12/22/16 05:59 05:59 05:59 Intake Total 1200 2160 Output Total 2500 2024 Balance -1300 135 PT 15.8 SEC (12.0-15.0) H 12/18/16 06:10 INR 1.26 (0.83-1.16) H 12/18/16 06:10 - Physical Exam Constitutional: no apparent distress, appears nourished Cardiovascular: regular rate and rhythym, no murmur, rub, or gallop, other ( large R sided ecchymosis) Respiratory: no respiratory distress, no rales or rhonchi, clear to auscultation Gastrointestinal: normoactive bowel sounds, soft, non-tender abdomen, no palpable masses ICD10 Worksheet Patient Problems: Problems Problem Status Onset Pneumonia Acute Atrial fibrillation Acute Benzodiazepine withdrawal Acute Depression Acute Anxiety Acute Suicide attempt by drug ingestion Acute Intentional overdose of drug in tablet form Acute Bronchitis Acute Bronchospasm Acute Vertigo Acute Hypoxemia Acute Chest wall contusion Acute Right rib fracture Acute Rhabdomyolysis Acute Renal failure Acute Dehydration Acute Hyperkalemia Acute
[2016-12-21] MEDS: LIDOCAINE 5% 1 EA PATCH TD SCH (09:47)
[2016-12-21] MEDS: HYDROCORTISONE 1% CREAM TP SCH ×3 (11:09→20:30)
--- NOTE | 2016-12-21 14:43 | WOCRNPDOC ---
WOCRN Advanced Assessment Note - Skin Integrity Problem, Advanced Assess Left Gluteal Cleft Pressure Injury Dressing Type: Open to Air Exudate Amount: None Exudate Characteristic(s): None Abby Wound Tissue: Blanching, Intact Abby Wound Swelling: None Wound Bed Color: Purple Site Measurement - Head-to-Toe Length X Width X Depth (cm): 1.1cmx0.3mec4sq Pressure Injury Stage: Deep Tissue Injury (DTI) Pressure Injury Present on Admit: No (Reported by product director Madhuri Falcon on 12/20.) Skin Integrity Problem Comment: Linear, dark ecchymotic area of intact skin on patient's L medial buttock (gluteal cleft), consistent in appearance w/ suspected deep tissue injury. Despite this injury being over a fleshy aspect of the buttock, the linear appearance is indicative of pressure from a device or a crease in the bed linen. Patient is already on an Accu-max pump, and has turns q2 and a pressure-relieving cushion in his chair. Order written for nursing to monitor linen under patient and only use 1 layer. Wound care will continue to follow.
[2016-12-21] MEDS: PATCH REMOVAL 1 EA PATCH TD SCH (20:11)
[2016-12-21] MEDS: QUEtiapine FUMARATE 100 MG TAB PO SCH (20:30)
[2016-12-21] MEDS: ASPIRIN 81 MG CHEWABLE TAB PO SCH (20:30)
[2016-12-21] MEDS: QUEtiapine FUMARATE 25 MG TAB PO SCH (20:31)
[2016-12-21] MEDS: traZODone 100 MG TAB PO SCH (20:32)
[2016-12-22] MEDS: oxyCODONE IR 5 MG TAB PO PRN ×5 (04:32→21:31)
[2016-12-22] MEDS: QUEtiapine FUMARATE 25 MG TAB PO PRN (04:56)
[2016-12-22 05:55] LABS: % IMMATURE GRANULYOCYTES 1.9 % (0.0-1.1); ABSOLUTE IMMATURE GRANULOCYTES 0.15 10^3/uL (0.00-0.10); ADD DIFF? NO; ADD MORPH? NO; ADD SCAN? NO; ATYPICAL LYMPHOCYTE FLAG 10 (0-99); FRAGMENT RBC FLAG 0 (0-99); HEMATOCRIT 24.7 % (40.0-51.0); HEMOGLOBIN 8.2 g/dL (13.7-17.5); LEFT SHIFT FLG 10 (0-99); LIPEMIA HEMOLYSIS FLAG 80 (0-99); MEAN CELL HEMOGLOBIN 31.1 pg (27.9-34.1); MEAN CELL HEMOGLOBIN CONCENTR. 33.2 g/dL (32.4-36.7); MEAN CELL VOLUME 93.6 fL (81.5-99.8); MEAN PLATELET VOLUME 9.6 fL (8.7-11.7); PLATELET CLUMPS FLAG 0 (0-99); PLATELET COUNT 222 10^3/uL (150-400); RED BLOOD CELL COUNT 2.64 10^6/uL (4.40-6.38); RED CELL DISTRIBUTION WIDTH 14.9 % (11.5-15.2)
[2016-12-22 06:12] LABS: ANION GAP 7 mEq/L (8-16); CALCIUM 8.6 mg/dL (8.5-10.4); CARBON DIOXIDE 26 mEq/l (22-31); CHLORIDE 102 mEq/L (97-110); CREATININE 1.4 mg/dL (0.7-1.3); GLOMERULAR FILTRATION RATE 50; GLUCOSE 78 mg/dL (70-100); SODIUM 135 mEq/L (134-144)
[2016-12-22] MEDS: traMADol 50 MG TAB PO PRN ×2 (07:02→14:32)
[2016-12-22] MEDS: LIDOCAINE 5% 1 EA PATCH TD SCH (07:09)
[2016-12-22] MEDS: clonazePAM 0.5 MG TAB PO SCH ×2 (08:11→20:15)
[2016-12-22] MEDS: METOPROLOL TARTRATE 25 MG TAB PO SCH ×2 (08:12→20:14)
[2016-12-22] MEDS: GABAPENTIN 300 MG CAP PO SCH ×3 (08:13→20:18)
[2016-12-22] MEDS: SENNOSIDES/DOCUSATE SODIUM TAB PO SCH ×2 (08:13→20:16)
[2016-12-22] MEDS: MONTELUKAST SODIUM 10 MG TAB PO SCH (08:13)
--- NOTE | 2016-12-22 09:22 | HOSPPROG ---
Hospitalist Progress Note Assessment/Plan: # RUE DVT to subclavian: s/p PICC removal - I have started low dose ppx AC today - lovenox 30mg daily; consider increasing to 40mg tomorrow # subpectoral hematoma s/p OR evacuation - hold asa - AC as above # ABLA - s/p 3 U PRBC - stable today # reported decubitus - wound care; I did not visualize today # mechanical fall # acute L foot pain with chronic externally rotated/pes planus - XR negative - appreciate podiatry eval - will use knee scooter or AFO brace per podiatry ; f/u as outpatient for possible surgery intervention # acute on chronic pain with continuous narcotic requirement - currently on oxy (increase frequency), tramadol PO; gabapentin (increase dose today) # rash - not complaining of this anymore - hydroxyzine, hydrocortisone cream # weakness/debilitation - he really needs to mobilize but is having difficulty with this # 11th rib fx # acute on chronic renal failure - d/t rhabdo/pre-renal - resolved, close to baseline # rhabdo - resolved # a-fib, occurred here - now NSR - CHADSVasc=3; hold AC d/t large hematoma - metop 12.5 bid - should get event monitor as outpatient to decide on alf AC # suspected PE - in setting of new a-fib, hypoxia - echo ok, no LE DVT - hold AC as above as this is just suspected, never confirmed # non-obstructive CAD - asa # htn - started metop, hold lisino for now ## high risk with DVT and hematoma restarting low dose AC Subjective: sat in chair for about 2 hours yesterday Objective: Vital Signs Temp Pulse Resp BP Pulse Ox 37.4 C 79 22 H 116/66 93 12/22/16 07:53 12/22/16 07:53 12/22/16 07:53 12/22/16 07:53 12/22/16 07:53 Laboratory Results 12/22/16 04:45 12/22/16 04:45 12/21/16 12/22/16 12/23/16 05:59 05:59 05:59 Intake Total 2160 350 Output Total 2024 1520 650 Balance 135 -1170 -650 PT 15.8 SEC (12.0-15.0) H 06/04/17 06:10 INR 1.26 (0.83-1.16) H 12/18/16 06:10 - Physical Exam Constitutional: obese, other (holding R arm towards chest; L arm with ecchymosis ) Cardiovascular: regular rate and rhythym, no murmur, rub, or gallop Respiratory: no respiratory distress, no rales or rhonchi, clear to auscultation Gastrointestinal: normoactive bowel sounds, soft, non-tender abdomen, no palpable masses ICD10 Worksheet Patient Problems: Problems Problem Status Onset Pneumonia Acute Atrial fibrillation Acute Benzodiazepine withdrawal Acute Depression Acute Anxiety Acute Suicide attempt by drug ingestion Acute Intentional overdose of drug in tablet form Acute Bronchitis Acute Bronchospasm Acute Vertigo Acute Hypoxemia Acute Chest wall contusion Acute Right rib fracture Acute Rhabdomyolysis Acute Renal failure Acute Dehydration Acute Hyperkalemia Acute
[2016-12-22] MEDS: ENOXAPARIN 30 MG/0.3 ML SYR SC SCH (10:02)
[2016-12-22] MEDS: HYDROCORTISONE 1% CREAM TP SCH ×2 (12:09→20:26)
[2016-12-22] MEDS: QUEtiapine FUMARATE 25 MG TAB PO SCH (20:15)
[2016-12-22] MEDS: QUEtiapine FUMARATE 100 MG TAB PO SCH (20:18)
[2016-12-22] MEDS: traZODone 100 MG TAB PO SCH (20:18)
[2016-12-22] MEDS: PATCH REMOVAL 1 EA PATCH TD SCH (21:11)
[2016-12-23 04:52] LABS: % IMMATURE GRANULYOCYTES 1.2 % (0.0-1.1); ABSOLUTE IMMATURE GRANULOCYTES 0.07 10^3/uL (0.00-0.10); ADD DIFF? NO; ADD MORPH? NO; ADD SCAN? NO; ATYPICAL LYMPHOCYTE FLAG 10 (0-99); FRAGMENT RBC FLAG 0 (0-99); HEMATOCRIT 24.7 % (40.0-51.0); LEFT SHIFT FLG 10 (0-99); LIPEMIA HEMOLYSIS FLAG 80 (0-99); MEAN CELL HEMOGLOBIN 30.8 pg (27.9-34.1); MEAN CELL HEMOGLOBIN CONCENTR. 32.4 g/dL (32.4-36.7); MEAN PLATELET VOLUME 8.9 fL (8.7-11.7); PLATELET CLUMPS FLAG 10 (0-99); PLATELET COUNT 209 10^3/uL (150-400); RED CELL DISTRIBUTION WIDTH 14.5 % (11.5-15.2)
[2016-12-23] MEDS: oxyCODONE IR 5 MG TAB PO PRN ×5 (05:36→22:22)
[2016-12-23] MEDS: METOPROLOL TARTRATE 25 MG TAB PO SCH ×2 (09:15→20:19)
[2016-12-23] MEDS: GABAPENTIN 300 MG CAP PO SCH ×3 (09:15→20:19)
[2016-12-23] MEDS: clonazePAM 0.5 MG TAB PO SCH ×2 (09:15→20:20)
[2016-12-23] MEDS: MONTELUKAST SODIUM 10 MG TAB PO SCH (09:15)
[2016-12-23] MEDS: SENNOSIDES/DOCUSATE SODIUM TAB PO SCH ×2 (09:16→20:20)
[2016-12-23] MEDS: HYDROCORTISONE 1% CREAM TP SCH ×2 (09:16→20:21)
[2016-12-23] MEDS: LIDOCAINE 5% 1 EA PATCH TD SCH (09:16)
[2016-12-23] MEDS: ENOXAPARIN 30 MG/0.3 ML SYR SC SCH (11:15)
--- NOTE | 2016-12-23 11:26 | HOSPPROG ---
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 s/p OR evacuation - hold AC/asa appears to have reaccumulating hematoma u/s today ABLA - s/p 3 units total reported decubitus - wound care; I did not visualize today mechanical fall acute L foot pain with chronic externally rotated/pes planus - XR negative - appreciate podiatry eval - will use knee scooter or AFO brace per podiatry ; f/u as outpatient for possible surgery intervention acute on chronic pain with continuous narcotic requirement - currently on oxy (increase frequency), tramadol PO; gabapentin (increase dose today) rash - on back, suspect d/t heat - hydroxyzine, hydrocortisone cream weakness/debilitation - he really needs to mobilize but is having difficulty with this ' 11th rib fx acute on chronic renal failure - d/t rhabdo/pre-renal - resolved, close to baseline rhabdo - resolved a-fib, occurred here - now NSR - CHADSVasc=3; hold AC d/t large hematoma - metop 12.5 bid - should get event monitor as outpatient to decide on fdc AC suspected PE - in setting of new a-fib, hypoxia - echo ok, no LE DVT - hold AC as above as this is just suspected, never confirmed non-obstructive CAD - asa htn - started metop, hold lisino for now ## high risk with DVT with strong contraindication to AC Subjective: c/o swelling in RUE/ R chest. tele: no events, interp by me. multiple imaging studies reviewed/interpreted by me Objective: Vital Signs Temp Pulse Resp BP Pulse Ox 36.4 C 72 18 124/86 H 94 12/23/16 07:00 12/23/16 07:00 12/23/16 07:00 12/23/16 07:00 12/23/16 07:00 Laboratory Results 12/23/16 04:35 12/22/16 04:45 12/22/16 12/23/16 12/24/16 05:59 05:59 05:59 Intake Total 350 1040 180 Output Total 1520 775 Balance -1170 265 180 PT 15.8 SEC (12.0-15.0) H 12/18/16 06:10 INR 1.26 (0.83-1.16) H 12/18/16 06:10 - Physical Exam Constitutional: no apparent distress, appears nourished Eyes: PERRL, anicteric sclera Ears, Nose, Mouth, Throat: moist mucous membranes, ears appear normal Cardiovascular: regular rate and rhythym, no murmur, rub, or gallop Respiratory: no respiratory distress, other (R chest w significant ecchymoses as well as apparent hematoma) Gastrointestinal: normoactive bowel sounds, soft, non-tender abdomen Genitourinary: No rodriges in urethra Skin: warm, normal color Musculoskeletal: full muscle strength, no muscle tenderness Neurologic: AAOx3 ICD10 Worksheet Patient Problems: Problems Problem Status Onset Chest wall contusion Acute Dehydration Acute Hyperkalemia Acute Renal failure Acute Rhabdomyolysis Acute Right rib fracture Acute Anxiety Acute Atrial fibrillation Acute Benzodiazepine withdrawal Acute Bronchitis Acute Bronchospasm Acute Depression Acute Hypoxemia Acute Intentional overdose of drug in tablet form Acute Pneumonia Acute Suicide attempt by drug ingestion Acute Vertigo Acute
[2016-12-23] MEDS: QUEtiapine FUMARATE 25 MG TAB PO SCH (20:20)
[2016-12-23] MEDS: QUEtiapine FUMARATE 100 MG TAB PO SCH (20:21)
[2016-12-23] MEDS: traZODone 100 MG TAB PO SCH (20:21)
[2016-12-23] MEDS: PATCH REMOVAL 1 EA PATCH TD SCH (20:22)
[2016-12-24] MEDS: oxyCODONE IR 5 MG TAB PO PRN ×4 (03:59→21:31)
[2016-12-24] MEDS: QUEtiapine FUMARATE 25 MG TAB PO PRN (06:36)
[2016-12-24] MEDS: SENNOSIDES/DOCUSATE SODIUM TAB PO SCH ×2 (08:44→21:32)
[2016-12-24] MEDS: clonazePAM 0.5 MG TAB PO SCH ×2 (08:44→21:32)
[2016-12-24] MEDS: METOPROLOL TARTRATE 25 MG TAB PO SCH ×2 (08:44→21:33)
[2016-12-24] MEDS: MONTELUKAST SODIUM 10 MG TAB PO SCH (08:45)
[2016-12-24] MEDS: GABAPENTIN 300 MG CAP PO SCH ×3 (08:45→21:32)
[2016-12-24] MEDS: LIDOCAINE 5% 1 EA PATCH TD SCH (08:45)
[2016-12-24] MEDS: HYDROCORTISONE 1% CREAM TP SCH ×2 (08:49→21:35)
[2016-12-24] MEDS ORDERED: ENOXAPARIN 30 MG/0.3 ML SYR SC SCH (11:25)
[2016-12-24] MEDS: ENOXAPARIN 30 MG/0.3 ML SYR SC SCH (11:35)
[2016-12-24] MEDS: ENOXAPARIN 40 MG/0.4 ML SYR SC SCH (12:58)
[2016-12-24] MEDS: POLYETHYLENE GLYCOL 3350 17 GM PKT PO PRN (16:38)
--- NOTE | 2016-12-24 18:14 | HOSPPROG ---
Hospitalist Progress Note Assessment/Plan: 66 yo M with hx of chronic pain, CAD, and largely bed bound at baseline with decub present on admission presenting with rhabdo after being found down s/p fall hospital stay complicated by RUE DVT and subpectoral hematoma. # RUE DVT to subclavian: in setting of PICC which has since been removed. US showing much improvement but some clot remains. currently only on ppx dose lovenox. He is very resistant to AC and is quite a high fall risk so likely will opt to dc all anticoagulation at discharge. # subpectoral hematoma s/p OR evacuation--unclear precipitant for this to occur , currently no e/o reaccumulation # ABLA - s/p 3 units total, h/h remains low but stable, repeat in am # gluteal decubitus - followed by wound care--please see their note for more information; I did not visualize today # mechanical fall--remains high fall risk with chronic debilitation and generalized weakness, reluctant to work with pt/ot but also states he is not willing to go to rehab/snf. Will continue pt/ot and have CM help with dispo planning. # acute L foot pain with chronic externally rotated/pes planus - XR negative - appreciate podiatry eval - will use knee scooter or AFO brace per podiatry ; f/u as outpatient for possible surgery intervention # acute on chronic pain with continuous narcotic requirement--pain controlled on current regimen that includes gabapentin, oxycodone, tramadol # weakness/debilitation - this is an acute on chronic picture--he says at baseline he does not get out of bed essentially, as above resistant to working with pt. complicated by obesity and chronic pain. Refusing snf and realistically unclear how much rehab potential he actually has--likely home with home health # 11th rib fx # acute on chronic renal failure - d/t rhabdo/pre-renal, baseline creatinine in low 1s and currently near baseline # rhabdo - resolved # a-fib, occurred here - now NSR by personal review of tele, continued on metop , no AC given recent significant bleed and concerns around AC as above. # ? PE - in setting of new a-fib, hypoxia but echo without right heart strain and BLE neg for DVT. No AC given concerns as above. Consider CTA if resp status fails to continue to improve # acute hypoxic respiratory failure: continues to desat to the high 70s on RA, will get cxr in am, suspect largely due to immobility and atelectasis. Reviewed recent CT chest that did not show pna, ptx etc. # non-obstructive CAD - asa # htn - continued metop, hold lisinopril and BP has been within reasonable limits IP Patient new to my care. Old records reviewed and summarized as above, care plan reviewed with CM> Subjective: no significant overnight events, patient very eager to leave but states he wants to go home only, states he does not like working with pt. Pain is controlled, still feels very weak Objective: Vital Signs Temp Pulse Resp BP Pulse Ox 37.2 C 76 16 148/78 H 88 L 12/24/16 16:00 12/24/16 16:00 12/24/16 16:00 12/24/16 16:00 12/24/16 16:00 Laboratory Results 12/23/16 04:35 12/22/16 04:45 12/23/16 12/24/16 12/25/16 05:59 05:59 05:59 Intake Total 1040 1330 150 Output Total 775 775 400 Balance 265 555 -250 PT 15.8 SEC (12.0-15.0) H 12/18/16 06:10 INR 1.26 (0.83-1.16) H 12/18/16 06:10 obese, awake alert nad anicteric op clear mmm distant regular no mrg dec bs at bases, limited exam 2/2 body habitus obese soft nt no cce warm dry well perfused oriented appropriate - Time Spent With Patient Time Spent with Patient: greater than 35 minutes Time Spent with Patient: Greater than 35 minutes spent on this patients care, greater than 50% of time spent counseling, educating, and coordinating care regarding the above mentioned plan. ICD10 Worksheet Patient Problems: Problems Problem Status Onset Pneumonia Acute Atrial fibrillation Acute Benzodiazepine withdrawal Acute Depression Acute Anxiety Acute Suicide attempt by drug ingestion Acute Intentional overdose of drug in tablet form Acute Bronchitis Acute Bronchospasm Acute Vertigo Acute Hypoxemia Acute Chest wall contusion Acute Right rib fracture Acute Rhabdomyolysis Acute Renal failure Acute Dehydration Acute Hyperkalemia Acute
[2016-12-24] MEDS: traZODone 100 MG TAB PO SCH (21:32)
[2016-12-24] MEDS: QUEtiapine FUMARATE 100 MG TAB PO SCH (21:33)
[2016-12-24] MEDS: QUEtiapine FUMARATE 25 MG TAB PO SCH (21:33)
[2016-12-24] MEDS: PATCH REMOVAL 1 EA PATCH TD SCH (21:36)
[2016-12-24] MEDS: LACTULOSE 20 GM/30 ML UDCUP PO PRN (21:41)
[2016-12-25] MEDS: oxyCODONE IR 5 MG TAB PO PRN ×4 (05:22→18:58)
[2016-12-25 05:29] LABS: % IMMATURE GRANULYOCYTES 1.2 % (0.0-1.1); ABSOLUTE IMMATURE GRANULOCYTES 0.05 10^3/uL (0.00-0.10); ADD DIFF? NO; ADD MORPH? NO; ADD SCAN? NO; ATYPICAL LYMPHOCYTE FLAG 0 (0-99); FRAGMENT RBC FLAG 0 (0-99); HEMATOCRIT 25.2 % (40.0-51.0); HEMOGLOBIN 8.3 g/dL (13.7-17.5); LEFT SHIFT FLG 10 (0-99); LIPEMIA HEMOLYSIS FLAG 80 (0-99); MEAN CELL HEMOGLOBIN 31.4 pg (27.9-34.1); MEAN CELL HEMOGLOBIN CONCENTR. 32.9 g/dL (32.4-36.7); MEAN CELL VOLUME 95.5 fL (81.5-99.8); PLATELET CLUMPS FLAG 0 (0-99); PLATELET COUNT 212 10^3/uL (150-400); RED BLOOD CELL COUNT 2.64 10^6/uL (4.40-6.38); RED CELL DISTRIBUTION WIDTH 13.8 % (11.5-15.2)
[2016-12-25 05:47] LABS: ANION GAP 5 mEq/L (8-16); CALCIUM 8.8 mg/dL (8.5-10.4); CARBON DIOXIDE 27 mEq/l (22-31); CHLORIDE 104 mEq/L (97-110); CREATININE 1.3 mg/dL (0.7-1.3); GLOMERULAR FILTRATION RATE 55; GLUCOSE 87 mg/dL (70-100); POTASSIUM 4.3 mEq/L (3.5-5.2); SODIUM 136 mEq/L (134-144)
[2016-12-25] MEDS: LIDOCAINE 5% 1 EA PATCH TD SCH (08:49)
[2016-12-25] MEDS: clonazePAM 0.5 MG TAB PO SCH ×2 (09:31→20:16)
[2016-12-25] MEDS: GABAPENTIN 300 MG CAP PO SCH ×3 (09:31→22:04)
[2016-12-25] MEDS: SENNOSIDES/DOCUSATE SODIUM TAB PO SCH ×2 (09:32→20:17)
[2016-12-25] MEDS: METOPROLOL TARTRATE 25 MG TAB PO SCH ×2 (09:32→20:13)
[2016-12-25] MEDS: ENOXAPARIN 40 MG/0.4 ML SYR SC SCH (09:32)
[2016-12-25] MEDS: MONTELUKAST SODIUM 10 MG TAB PO SCH (09:32)
[2016-12-25] MEDS: HYDROCORTISONE 1% CREAM TP SCH ×2 (09:33→20:24)
--- NOTE | 2016-12-25 18:11 | HOSPPROG ---
Hospitalist Progress Note Assessment/Plan: 66 yo M with hx of chronic pain, CAD, and largely bed bound at baseline with decub present on admission presenting with rhabdo after being found down s/p fall--hospital stay complicated by RUE DVT and subpectoral hematoma. # RUE DVT to subclavian: in setting of PICC placement. US showing much improvement but some clot remains. currently only on ppx dose lovenox. He is very resistant to AC and is quite a high fall risk so likely will opt to dc all anticoagulation at discharge--will dc PICC at dc as well. # subpectoral hematoma s/p OR evacuation--unclear precipitant for this to occur , currently no e/o reaccumulation # ABLA - s/p 3 units total, h/h remains low but stable # gluteal decubitus -present on admission, followed by wound care--please see their notes for more information # mechanical fall--remains high fall risk with chronic debilitation and generalized weakness, remains reluctant to work much with pt/ot but has been transferring independently here--as below # acute L foot pain with chronic externally rotated/pes planus - plan to f/u with podiatry after discharge # acute on chronic pain with continuous narcotic requirement--pain controlled on current regimen that includes gabapentin, oxycodone, tramadol # weakness/debilitation - this is an acute on chronic picture--complicated by obesity and chronic pain. Does not wish to work with pt/ot and refuses snf. He has been transferring independently here and given that he is competent to make his own decisions and understands the risk, will get him set up for dc home with home health in the am # 11th rib fx # acute on chronic renal failure - d/t rhabdo/pre-renal, baseline creatinine in low 1s and currently near baseline # rhabdo - resolved # a-fib, occurred here - now NSR by personal review of tele, continued on metop , no AC given recent significant bleed and concerns around AC as above. # ? PE - in setting of new a-fib, hypoxia but echo without right heart strain and BLE neg for DVT. No AC given concerns as above. Consider CTA if resp status fails to continue to improve but significant PE seems less likely given clinical course # acute hypoxic respiratory failure: continues to desat to the high 80s on RA, suspect largely due to immobility and atelectasis. Reviewed cxr from today (no radiology read yet) and there is no e/o pna or pleural effusion etc and suspect this is mostly due to atelectasis, limited mobility, mohini/ohs. # non-obstructive CAD - asa # htn - continued metop, hold lisinopril and BP has been within reasonable limits IP care plan reviewed with CM> Subjective: no significant overnight events, patient eager to dc home but again states he is not willing to go to snf, has been able to transfer independently today Objective: Vital Signs Temp Pulse Resp BP Pulse Ox 36.9 C 66 16 115/54 L 96 12/25/16 16:00 12/25/16 16:00 12/25/16 16:00 12/25/16 16:00 12/25/16 16:00 Laboratory Results 12/25/16 05:15 12/25/16 05:15 12/24/16 12/25/16 12/26/16 05:59 05:59 05:59 Intake Total 1346 781 6696 Output Total 775 400 Balance 555 -50 1110 PT 15.8 SEC (12.0-15.0) H 12/18/16 06:10 INR 1.26 (0.83-1.16) H 12/18/16 06:10 obese, awake alert nad anicteric op clear mmm distant regular no mrg dec bs at bases, limited exam 2/2 body habitus obese soft nt no cce warm dry well perfused oriented appropriate - Time Spent With Patient Time Spent with Patient: greater than 35 minutes Time Spent with Patient: Greater than 35 minutes spent on this patients care, greater than 50% of time spent counseling, educating, and coordinating care regarding the above mentioned plan. ICD10 Worksheet Patient Problems: Problems Problem Status Onset Pneumonia Acute Atrial fibrillation Acute Benzodiazepine withdrawal Acute Depression Acute Anxiety Acute Suicide attempt by drug ingestion Acute Intentional overdose of drug in tablet form Acute Bronchitis Acute Bronchospasm Acute Vertigo Acute Hypoxemia Acute Chest wall contusion Acute Right rib fracture Acute Rhabdomyolysis Acute Renal failure Acute Dehydration Acute Hyperkalemia Acute
[2016-12-25] MEDS: traZODone 100 MG TAB PO SCH (20:17)
[2016-12-25] MEDS: QUEtiapine FUMARATE 100 MG TAB PO SCH (20:18)
[2016-12-25] MEDS: QUEtiapine FUMARATE 25 MG TAB PO SCH (20:19)
[2016-12-25] MEDS: PATCH REMOVAL 1 EA PATCH TD SCH (20:25)
[2016-12-26] MEDS: oxyCODONE IR 5 MG TAB PO PRN ×3 (00:14→06:31)
[2016-12-26 05:30] VITALS: RESP 16
[2016-12-26 07:54] VITALS: BP 134/52; PULSE 79; TEMP 98.2; O2SAT 90
[2016-12-26] MEDS: METOPROLOL TARTRATE 25 MG TAB PO SCH (08:33)
[2016-12-26] MEDS: ENOXAPARIN 40 MG/0.4 ML SYR SC SCH (08:33)
[2016-12-26] MEDS: GABAPENTIN 300 MG CAP PO SCH (08:34)
[2016-12-26] MEDS: MONTELUKAST SODIUM 10 MG TAB PO SCH (08:34)
[2016-12-26] MEDS: clonazePAM 0.5 MG TAB PO SCH (08:35)
[2016-12-26] MEDS: SENNOSIDES/DOCUSATE SODIUM TAB PO SCH (08:35)
[2016-12-26] MEDS: HYDROCORTISONE 1% CREAM TP SCH (08:36)
[2016-12-26] MEDS: LIDOCAINE 5% 1 EA PATCH TD SCH (08:36)
--- NOTE | 2016-12-26 09:22 | PDIAF ---
- Diagnosis Code Status: Do Not Resuscitate - Medication Management Discharge Medications: Medications to Continue on Transfer Aspirin [Aspirin 81mg (*)] 81 mg PO HS 12/09/16 [Last Taken 12/08/16] Albuterol [Ventolin Hfa Inhaler] 2 puffs IH Q4 PRN #1 mdi 12/26/16 [Last Taken Unknown] Gabapentin [Neurontin 300 MG (*)] 300 mg PO TID #90 cap 12/26/16 [Last Taken Unknown] Hydrocortisone 1% [Hydrocortisone 1% cream (*)] 1 charles TP BID cream 12/26/16 [ Last Taken Unknown] Lidocaine 5% [Lidoderm 5% Patch (*)] 1 ea TD DAILY #30 patch 12/26/16 [Last Taken Unknown] Meclizine HCl [Meclizine HCl 25 mg (RX,OTC)] 25 mg PO Q6 PRN #30 tab 12/26/16 [ Last Taken Unknown] Metoprolol Tartrate [Lopressor 25 mg (*)] 12.5 mg PO BID #60 tab 12/26/16 [Last Taken Unknown] Montelukast Sodium [Singulair 10 mg (*)] 10 mg PO DAILY #30 tab 12/26/16 [Last Taken Unknown] Patch Removal 1 ea TD DAILY21 #1 patch 12/26/16 [Last Taken Unknown] QUEtiapine FUMARATE [Seroquel 100 mg (*)] 200 mg PO HS #30 tab 12/26/16 [Last Taken Unknown] QUEtiapine FUMARATE [Seroquel 25 mg (*)] 25 mg PO DAILY PRN #30 tab 12/26/16 [ Last Taken Unknown] QUEtiapine FUMARATE [Seroquel 25 mg (*)] 50 mg PO HS #30 tab 12/26/16 [Last Taken Unknown] Sennosides/Docusate Sodium [Senokot-S] 1 - 2 tab PO BID tab 12/26/16 [Last Taken Unknown] clonazePAM [klonoPIN (*)] 0.5 mg PO BID #30 tab 12/26/16 [Last Taken Unknown] hydrOXYzine HCL [hydrOXYzine HCL (RX)] 25 mg PO Q8HRS PRN #30 tab 12/26/16 [ Last Taken Unknown] oxyCODONE IR [Oxycodone Ir (*)] 10 - 15 mg PO Q3 PRN #30 tab 12/26/16 [Last Taken Unknown] traMADol [Ultram 50 mg (*)] 50 mg PO Q6HRS PRN #60 tab 12/26/16 [Last Taken Unknown] traZODone [traZODONE 100MG (*)] 400 mg PO HS #30 tab 12/26/16 [Last Taken Unknown] Discharge Medications: Refer to the Discharge Home Medication list for PRN reason. - Orders Services needed: Home Care, Registered Nurse, Physical Therapy, Occupational Therapy Home Care Face to Face: I certify that this patient was under my care and that I had the required [id number] encounter meeting the encounter requirements on the discharge day. My findings support the fact that the patient is homebound as defined in CMS Chapter 7 Medicare Benefits Manual 30.1.1, The condition of the patient is such that there exists a normal inability to leave home and consequently, leaving home would require a considerable and taxing effort. Diet Recommendation: cardiac -low fat low salt - Labs/Radiology BMP Date: 12/29/16 CBC Date: 12/29/16 - Follow Up Care Current Providers and Referrals: Irma Quiros MD [Primary Care Provider] - As per Instructions
--- NOTE | 2016-12-26 09:22 | PDDCSUM ---
Discharge Summary Discharge Summary: Dates of service 12/09-12/26/16 Discharge dx: # rhabdomyolysis # padilla on ckd # PICC related RUE DVT # subpectoral hematoma # acute blood loss anemia # gluteal decubitus # deconditioning/weakness # recurrent falls # a fib # 11th rib fx # acute hypoxic respiratory failure # CAD/non obstructive # htn Consultations: trauma surgery Procedures performed: PICC line placement, echo, evacuation of hematoma Hospital course by problem: # RUE DVT to subclavian: in setting of PICC placement. US showing much improvement but some clot remains. plan is to dc without AC given high fall risk and plan to return to his home, also had spontaneous bleed as next # subpectoral hematoma s/p OR evacuation--unclear precipitant for this to occur , currently no e/o reaccumulation # ABLA - s/p 3 units total, h/h remains low but stable # gluteal decubitus -present on admission, followed by wound care, high risk for recurrent pressure ulcers as patient is largely bed bound at home # mechanical fall/weakness/deconditioning--remains high fall risk with chronic debilitation and generalized weakness, refuses to work with pt/ot for the most part here and adamant that he is not willing to go to snf, dc home, cautioned he remains high risk for fall and repeat issues like brought him in, he understands and is willing to accept risk, understands that if it is not working at home, he should either contact pcp or return here and at that time placement would be needed # acute L foot pain with chronic externally rotated/pes planus - plan to f/u with podiatry after discharge # acute on chronic pain with continuous narcotic requirement--pain controlled on current regimen that includes gabapentin, oxycodone, tramadol # 11th rib fx # acute on chronic renal failure - d/t rhabdo/pre-renal, baseline creatinine in low 1s and currently near baseline # rhabdo - resolved # a-fib, occurred here - now NSR by personal review of tele, continued on metop , no AC given recent significant bleed and concerns around AC as above. # acute hypoxic respiratory failure: continues to desat to the high 80s on RA, suspect largely due to immobility and atelectasis. Reviewed cxr from today (no radiology read yet) and there is no e/o pna or pleural effusion etc and suspect this is mostly due to atelectasis, limited mobility, mohini/ohs. # non-obstructive CAD - asa # htn - continued metop, hold lisinopril and BP has been within reasonable limits Dc home with home health f/u with pcp in coming 1-2 weeks > 35 min spent in dc more than half in face to face counseling of patient regarding return precautions and f/u care plan
== END 2016-12-26 12:20 | disposition home health service (06) | DRG 557 ==
LOC: EDUNIT# → F3N 15:47 → F2W 12-11 15:53 → F2N 12-17 02:46 → F2W 12-17 13:04
PROVIDERS: ADMIT Internal Medicine; ATTEND Internal Medicine
PROC: 02HV33Z Insertion of Infusion Device into Superior Vena Cava, Percutaneous Approach (ICD-10-PCS; principal; 2016-12-09)
PROC: 0JC60ZZ Extirpation of Matter from Chest Subcutaneous Tissue and Fascia, Open Approach (ICD-10-PCS; 2016-12-17)
PROC: 30233N1 Transfusion of Nonautologous Red Blood Cells into Peripheral Vein, Percutaneous Approach (ICD-10-PCS; 2016-12-17)
PROC: 30233K1 Transfusion of Nonautologous Frozen Plasma into Peripheral Vein, Percutaneous Approach (ICD-10-PCS; 2016-12-17)
PROC: 02HV33Z Insertion of Infusion Device into Superior Vena Cava, Percutaneous Approach (ICD-10-PCS; 2016-12-20)
DX: M62.82 Rhabdomyolysis (principal); J96.01 Acute respiratory failure with hypoxia; N17.9 Acute kidney failure, unspecified; T82.868A Thrombosis due to vascular prosthetic devices, implants and grafts, initial encounter; S22.31XA Fracture of one rib, right side, initial encounter for closed fracture; D62 Acute posthemorrhagic anemia; I82.B11 Acute embolism and thrombosis of right subclavian vein; N18.9 Chronic kidney disease, unspecified; M79.81 Nontraumatic hematoma of soft tissue; R29.6 Repeated falls; I48.91 Unspecified atrial fibrillation; I25.10 Atherosclerotic heart disease of native coronary artery without angina pectoris; I10 Essential (primary) hypertension; G89.4 Chronic pain syndrome; L89.329 Pressure ulcer of left buttock, unspecified stage; M21.42 Flat foot [pes planus] (acquired), left foot; W01.0XXA Fall on same level from slipping, tripping and stumbling without subsequent striking against object, initial encounter; Z66 Do not resuscitate
CPT/HCPCS: 80305; 85520-90; 96374; 97110-GP; 97116-GP; 97162-GP; 97166-GO; 97530-GO; 97530-GP; 97535-GO; C1751; G0480; G8978-GP-CK; G8979-GP-CI; G8980-GP-CJ; G8987-GO-CK; G8988-GO-CI; J1170; J1644; J1650; J2310; J2370; J2405; J2550; J2704; J2997; J3430; P9016; P9017

== ENCOUNTER 2017-05-07 05:33 | Emergency (ER) | payer OTHER, MEDICAID ==
[2017-05-07] MEDS ORDERED: QUEtiapine FUMARATE 200 MG TAB PO ONE (06:30)
--- NOTE | 2017-05-07 06:30 | EDPHY ---
H & P Stated Complaint: no sleep X 2 weeks- hallucinations Time Seen by Provider: 05/07/17 05:36 HPI/ROS: HPI The patient presents with insomnia which has been present for the last 2 weeks though worse over the last 2 nights, feels as if he got no sleep at all over the last 48 hours. He is brought in by ambulance. He is currently taking Seroquel, trazodone, clonazepam. A few weeks ago, before his symptoms started, his clonazepam was tapered from 2 mg daily to 1.5 mg daily. He wonders if this could have precipitated his symptoms. He says he is having some visual hallucinations over the last 1 day because of his insomnia. He denies any SI or HI. He gets his medications from a medication dispenser. He is followed by Dr. Natarajan of Psychiatry and has an appointment later this month. REVIEW OF SYSTEMS Constitutional: No fever, no chills. Eyes: No discharge. ENT: No sore throat. Cardiovascular: No chest pain, no palpitations. Respiratory: No cough, no shortness of breath. Gastrointestinal: No abdominal pain, no vomiting. Genitourinary: No hematuria. Musculoskeletal: No back pain. Skin: No rashes. Neurological: No headache. PMHx: Anxiety, chronic insomnia Soc Hx: Lives at home, drinks caffeine in the morning only PHYSICAL General Appearance: Alert, disheveled Eyes: Pupils equal and round no pallor or injection ENT, Mouth: Mucous membranes moist Respiratory: There are no retractions, lungs are clear to auscultation Cardiovascular: Regular rate and rhythm Gastrointestinal: Abdomen is soft and non-tender, no masses, bowel sounds normal Neurological: A&O, moves all extremities Skin: Warm and dry, no rashes Musculoskeletal: Neck is supple non tender Extremities: symmetrical, full range of motion Psychiatric: Patient is oriented X 3, there is no agitation Source: Patient, EMS - Personal History Tetanus Vaccine Date: 10/2010 - Medical/Surgical History Hx Asthma: Yes Hx Chronic Respiratory Disease: Yes Hx Diabetes: No Hx Cardiac Disease: Yes Hx Renal Disease: Yes Hx Cirrhosis: No Hx Alcoholism: No Hx HIV/AIDS: No Hx Splenectomy or Spleen Trauma: No Other PMH: Severe anxiety, chronic pain, CAD, Asthma, left foot deformity/fx from 10 yrs ago, [place] w/stents 2011, kidney problems, appendectomy - Social History Smoking Status: Never smoked Constitutional: Initial Vital Signs Temperature (C) 37.2 C 05/07/17 05:46 Heart Rate 81 05/07/17 05:46 Respiratory Rate 18 05/07/17 05:46 Blood Pressure 161/75 H 05/07/17 05:46 O2 Sat (%) 90 L 05/07/17 05:46 O2 Delivery Mode Room Air Allergies/Adverse Reactions: Sulfa (Sulfonamide Antibiotics) Allergy (Intermediate, Verified 05/07/17 05:45) Vomiting Home Medications: Medication Instructions Recorded Aspirin [Aspirin 81mg (*)] 81 mg PO HS 12/09/16 Albuterol [Ventolin Hfa Inhaler] 2 puffs IH Q4 PRN #1 mdi 12/26/16 Gabapentin [Neurontin 300 MG (*)] 300 mg PO TID #90 cap 12/26/16 Hydrocortisone 1% [Hydrocortisone 1 charles TP BID cream 12/26/16 1% cream (*)] Lidocaine 5% [Lidoderm 5% Patch 1 ea TD DAILY #30 patch 12/26/16 (*)] Meclizine HCl [Meclizine HCl 25 mg 25 mg PO Q6 PRN #30 tab 12/26/16 (RX,OTC)] Metoprolol Tartrate [Lopressor 25 12.5 mg PO BID #60 tab 12/26/16 mg (*)] Montelukast Sodium [Singulair 10 10 mg PO DAILY #30 tab 12/26/16 mg (*)] Patch Removal 1 ea TD DAILY21 #1 patch 12/26/16 QUEtiapine FUMARATE [Seroquel 100 200 mg PO HS #30 tab 12/26/16 mg (*)] QUEtiapine FUMARATE [Seroquel 25 25 mg PO DAILY PRN #30 tab 12/26/16 mg (*)] QUEtiapine FUMARATE [Seroquel 25 50 mg PO HS #30 tab 12/26/16 mg (*)] Sennosides/Docusate Sodium 1 - 2 tab PO BID tab 12/26/16 [Senokot-S] clonazePAM [klonoPIN (*)] 0.5 mg PO BID #30 tab 12/26/16 hydrOXYzine HCL [hydrOXYzine HCL 25 mg PO Q8HRS PRN #30 tab 12/26/16 (RX)] oxyCODONE IR [Oxycodone Ir (*)] 10 - 15 mg PO Q3 PRN #30 tab 12/26/16 traMADol [Ultram 50 mg (*)] 50 mg PO Q6HRS PRN #60 tab 12/26/16 traZODone [traZODONE 100MG (*)] 400 mg PO HS #30 tab 12/26/16 Medical Decision Making Differential Diagnosis: 67-year-old man brought in by ambulance for 2 weeks of insomnia, worse over the last 2 days and now associated with visual hallucinations. He has no SI or HI, nor do I feel he is gravely disabled. He is on multiple medications for insomnia including Seroquel, trazodone, clonazepam. His clonazepam was recently decreased and I wonder if this is precipitated some insomnia. Differential diagnosis includes benzodiazepine withdrawal, insomnia, anxiety. In the emergency department, the patient asks for medication prescription. I said I cannot prescribe this, however I will give him a single dose of Seroquel here. I have encouraged him strongly to follow up with his treating psychiatrist for medication management. I have discussed melatonin, other over- the-counter remedies, however he says he has tried "everything" without any improvement previously. Departure - Departure Disposition: Home, Routine, Self-Care Clinical Impression: Insomnia Qualifiers: Insomnia type: unspecified Qualified Code(s): G47.00 - Insomnia, unspecified Condition: Good Instructions: Insomnia (ED) Additional Instructions: Please return to the emergency department if you are worse in any way. Referrals: Irma Quiros MD [Primary Care Provider] - As per Instructions
[2017-05-07 07:04] VITALS: BP 166/84; PULSE 79; RESP 20; TEMP 98.1; O2SAT 92
== END 2017-05-07 07:04 | disposition home or self-care (01) ==
LOC: EDUNIT#
DX: G47.00 Insomnia, unspecified (principal); J45.909 Unspecified asthma, uncomplicated; I25.10 Atherosclerotic heart disease of native coronary artery without angina pectoris; I25.2 Old myocardial infarction; Z95.5 Presence of coronary angioplasty implant and graft; Z79.82 Long term (current) use of aspirin

== ENCOUNTER 2017-05-12 10:08 | Inpatient (IN) | payer OTHER, MEDICAID ==
--- NOTE | 2017-05-12 10:18 | CPEKG ---
Heart Rate: 114 RR Interval: 526 P-R Interval: 136 QRSD Interval: 82 QT Interval: 300 QTC Interval: 414 P Applegate: 1 QRS Applegate: 27 T Wave Applegate: 7 EKG Severity - OTHERWISE NORMAL ECG - EKG Impression: SINUS TACHYCARDIA Electronically Signed By: Eder Vieira 12-May-2017 10:26:05
[2017-05-12] MEDS ORDERED: LORazepam 2 MG/ML INJ IVP ONE (10:19)
[2017-05-12] MEDS ORDERED: NS 1,000 ML IV ONE (10:19)
--- NOTE | 2017-05-12 10:25 | EDPHY ---
H & P Stated Complaint: Syncope vs Fall Time Seen by Provider: 05/12/17 10:09 HPI/ROS: CHIEF COMPLAINT: Found down HISTORY OF PRESENT ILLNESS: The patient is a 67-year-old man with a history of depression and anxiety, coronary artery disease, asthma, chronic kidney disease , atrial fibrillation and chronic pain from a left foot and ankle injury. He has a chronically deformed left foot. EMS states that this morning a friend helped him to the bathroom and came back and he was lying on the floor. Friend stated that he had lost consciousness but was A and O x3 for EMS. The patient tells me that he did not lose consciousness but that his friend could not support him getting from the bathroom back to the bedroom and helped lower him to the floor. He denies fall or trauma. He denies loss of consciousness. He denies seizure. He denies syncope. He denies any history of seizure disorder. He does take Klonopin daily for anxiety. He states he has never withdrawn. He denies alcohol abuse or withdrawal. He was admitted in November of this year after a fall and had rhabdomyolysis and his admission was complicated by a DVT and a subpectoral hematoma and blood loss. He received transfusion. He has severe chronic deconditioning and weakness and also had gluteal decubitus ulcer at the time. He adamantly refused to go to a skilled nursing or to participate in PT-OT. The patient tells me today that he is not having any new symptoms or pain. He denies headache or neck pain. REVIEW OF SYSTEMS: Constitutional: denies: chills, fever, recent illness, recent injury EENTM: denies: blurred vision, double vision, nose congestion Respiratory: denies: cough, shortness of breath Cardiac: denies: chest pain, irregular heart rate, lightheadedness, palpitations Gastrointestinal/Abdominal: denies: abdominal pain, diarrhea, nausea, vomiting, blood streaked stools Genitourinary: denies: dysuria, frequency, hematuria, pain Musculoskeletal: See HPI Skin: denies: lesions, rash, jaundice, bruising Neurological: denies: headache, numbness, paresthesia, tingling, dizziness, weakness Hematologic/Lymphatic: denies: blood clots, easy bleeding, easy bruising Immunologic/allergic: denies: HIV/AIDS, transplant EXAM: GENERAL: Anxious, shaking,, well-nourished and in no acute distress. HEAD: Atraumatic, normocephalic. EYES: Pupils equal round and reactive to light, extraocular movements intact, sclera anicteric, conjunctiva are normal. ENT: TMs normal, nares patent, oropharynx clear without exudates. Moist mucous membranes. NECK: Normal range of motion, supple without lymphadenopathy or JVD. LUNGS: Breath sounds clear to auscultation bilaterally and equal. No wheezes rales or rhonchi. HEART: Regular rate and rhythm without murmurs, rubs or gallops. ABDOMEN: Soft, nontender, normoactive bowel sounds. No guarding, no rebound. No masses appreciated. BACK: No CVA tenderness, no spinal tenderness, step-offs or deformities no visible decubitus EXTREMITIES: Significant deconditioning, deformed left foot appears chronic, surgical scars visible NEUROLOGICAL: Cranial nerves II through XII grossly intact. Normal speech. 5/ 5 strength, normal movement in all extremities, normal sensation anxious and slightly tremulous, no pronator drift. PSYCH: Normal mood, normal affect. SKIN: Warm, dry, normal turgor, no visible rashes or lesions. Source: Patient Exam Limitations: No limitations - Personal History Current Tetanus Diphtheria and Acellular Pertussis (TDAP): Yes Tetanus Vaccine Date: 10/2010 - Medical/Surgical History Hx Asthma: Yes Hx Chronic Respiratory Disease: Yes Hx Diabetes: No Hx Cardiac Disease: Yes Hx Renal Disease: Yes Hx Cirrhosis: No Hx Alcoholism: No Hx HIV/AIDS: No Hx Splenectomy or Spleen Trauma: No Other PMH: Severe anxiety, chronic pain, CAD, Asthma, left foot deformity/fx from 10 yrs ago, MS w/stents 2011, kidney problems, appendectomy - Social History Smoking Status: Never smoked Constitutional: Initial Vital Signs Temperature (C) 36.7 C 05/12/17 10:16 Heart Rate 115 H 05/12/17 10:16 Respiratory Rate 16 05/12/17 10:16 Blood Pressure 159/94 H 05/12/17 10:16 O2 Sat (%) 91 L 05/12/17 10:16 O2 Delivery Mode Nasal Cannula O2 (L/minute) 2 Allergies/Adverse Reactions: Sulfa (Sulfonamide Antibiotics) Allergy (Intermediate, Verified 05/07/17 05:45) Vomiting Home Medications: Medication Instructions Recorded Aspirin [Aspirin 81mg (*)] 81 mg PO HS 12/09/16 Albuterol [Ventolin Hfa Inhaler] 2 puffs IH Q4 PRN #1 mdi 12/26/16 Gabapentin [Neurontin 300 MG (*)] 300 mg PO TID #90 cap 12/26/16 Meclizine HCl [Meclizine HCl 25 mg 25 mg PO Q6 PRN #30 tab 12/26/16 (RX,OTC)] QUEtiapine FUMARATE [Seroquel 25 25 mg PO DAILY PRN #30 tab 12/26/16 mg (*)] QUEtiapine FUMARATE [Seroquel 25 50 mg PO HS #30 tab 12/26/16 mg (*)] QUEtiapine FUMARATE [Seroquel 200 200 mg PO HS 05/12/17 mg (*)] amLODIPine BESYLATE [Norvasc 5 mg 5 mg PO DAILY 05/12/17 (*)] clonazePAM [klonoPIN (*)] 1.5 mg PO BID 05/12/17 oxyCODONE/APAP 5/325 [Percocet 1 tab PO DAILY PRN 05/12/17 5/325 (*)] traZODone [traZODONE 100MG (*)] 300 mg PO HS 05/12/17 Medical Decision Making - Diagnostics EKG Interpretation: An EKG obtained and was read and documented in trace view. Please see trace view for full reading and report. Sinus tachycardia, no acute ischemic changes Imaging: Discussed imaging studies w/ voice professor Radiologist ED Course/Re-evaluation: Is somewhat difficult to ascertain what happened this morning. EMS state that he was at some point unconscious either from syncope or seizure. The patient denies this and has no seizure history. He states that he simply was helped to the ground because he could not make it because he is generally weak. We will obtain lab work and observe. 1141. The patient has renal insufficiency which is baseline however he is also hyperkalemic. He is also slightly acidotic. Will admit to the medical service for telemetry. Discussed the case with Nupur who accepts for Dr. Clement. Differential Diagnosis: Partial list of the Differential diagnosis considered include but were not limited to; electrolyte abnormality, seizure, syncope, arrhythmia and although unlikely based on the history and physical exam, I also considered head injury, sepsis. - Data Points Laboratory Results: Laboratory Results 05/12/17 10:29 05/12/17 10:29 Medications Given: Aspirin (Aspirin) 81 mg PO HS BRADEN Stop: 11/08/17 20:59 Last Admin: 05/12/17 20:41 Dose: 81 mg Clonazepam (Klonopin) 1.5 mg PO BID BRADEN Stop: 11/08/17 20:59 Last Admin: 05/12/17 20:42 Dose: 1.5 mg Gabapentin (Neurontin) 300 mg PO TID BRADEN Stop: 11/08/17 15:59 Last Admin: 05/12/17 20:41 Dose: 300 mg Sodium Chloride (Ns) 1,000 mls @ 75 mls/hr IV CONT BRADEN Stop: 11/08/17 13:44 Last Admin: 05/12/17 20:35 Dose: 1,000 mls Morphine Sulfate (Morphine) 1 - 2 mg IVP Q1HR PRN PRN Reason: Pain, Severe Unable to Take PO Stop: 05/22/17 13:36 Last Admin: 05/12/17 20:34 Dose: 2 mg Oxycodone/Acetaminophen (Percocet 5/325) 1 tab PO DAILY PRN PRN Reason: Pain, Severe Stop: 05/22/17 13:35 Last Admin: 05/13/17 06:21 Dose: 1 tab Quetiapine Fumarate (Seroquel) 200 mg PO HS [facility] Stop: 11/08/17 20:59 Last Admin: 05/12/17 20:38 Dose: 200 mg Quetiapine Fumarate (Seroquel) 50 mg PO HS [facility] Stop: 11/08/17 20:59 Last Admin: 05/12/17 20:39 Dose: 50 mg Trazodone HCl (Trazodone) 300 mg PO HS BRADEN Stop: 11/08/17 20:59 Last Admin: 05/12/17 20:43 Dose: 300 mg Discontinued Medications Sodium Chloride (Ns) 1,000 mls @ 0 mls/hr IV EDNOW ONE; Wide Open PRN Reason: Protocol Stop: 05/12/17 10:20 Last Admin: 05/12/17 10:55 Dose: 1,000 mls Lorazepam (Ativan Injection) 1 mg IVP EDNOW ONE Stop: 05/12/17 10:20 Last Admin: 05/12/17 10:54 Dose: 1 mg Oxycodone/Acetaminophen (Percocet 5/325) 1 tab PO EDNOW ONE Stop: 05/12/17 12:36 Last Admin: 05/12/17 12:38 Dose: 1 tab Departure - Departure Disposition: [facility] Acute Clinical Impression: Hyperkalemia, Generalized weakness Condition: Good
[2017-05-12 10:39] LABS: PLATELET COUNT 147 10^3/uL (150-400)
[2017-05-12 10:47] LABS: INR 1.01 (0.83-1.16); PROTIME(PATIENT) 13.2 SEC (12.0-15.0)
[2017-05-12] MEDS ORDERED: OXYCODONE/APAP 5/325 TAB PO ONE (12:35)
[2017-05-12] MEDS ORDERED: QUEtiapine FUMARATE 25 MG TAB PO PRN (13:36)
[2017-05-12] MEDS ORDERED: MECLIZINE HCL 25 MG TAB PO PRN (13:36)
[2017-05-12] MEDS ORDERED: ALBUTEROL 200 PUFFS/18 GM MDI IH PRN (13:36)
[2017-05-12] MEDS ORDERED: ONDANSETRON 4 MG/2 ML VIAL IVP PRN (13:37)
[2017-05-12] MEDS ORDERED: ACETAMINOPHEN 325 MG TAB PO PRN (13:37)
[2017-05-12] MEDS ORDERED: ONDANSETRON DISINTEGRATING 4 MG TAB PO PRN (13:37)
[2017-05-12] MEDS ORDERED: hydrALAZINE 20 MG/ML VIAL IVP PRN (13:41)
[2017-05-12] MEDS ORDERED: NS 1,000 ML IV SCH (13:45)
--- NOTE | 2017-05-12 14:14 | PDGENHP ---
History and Physical - Chief Complaint Fall - History of Present Illness 67 yo M admitted for weakness and fall. He felt very weak this morning and had to call a friend to help him get out of bed. After several attempts to help him go to the restroom, he fell. He had been feeling well until this morning. Denies Fevers +Chest pain, but none currently. Denies fever. Still feels weak. IN the E.D found to have leukocytosis, Hyperkalemia, elevated Cr. No palpitations or leg edema. No N/V/D. NO focal weakness PMHx: CAD, Asthma, COPD, Chronic renal failure, Afib, chronic pain syndrome, Lef chornic foot deformity, gluteal decubitus ulcers, CT with hx of stents, HTN, RUE DVT, chronic falls, subpectoral hematoma PSHx: left foot surgery, appendectomy Soc: no T/E/I, lives alone fmHx: NC History Information - Allergies/Home Medication List Allergies/Adverse Reactions: Sulfa (Sulfonamide Antibiotics) Allergy (Intermediate, Verified 05/07/17 05:45) Vomiting Home Medications: Aspirin [Aspirin 81mg (*)] 81 mg PO HS 12/09/16 [Last Taken 05/10/17] QUEtiapine FUMARATE [Seroquel 200 mg (*)] 200 mg PO HS 05/12/17 [Last Taken ] amLODIPine BESYLATE [Norvasc 5 mg (*)] 5 mg PO DAILY 05/12/17 [Last Taken ] clonazePAM [klonoPIN (*)] 1.5 mg PO BID 05/12/17 [Last Taken 05/11/17 21:00] oxyCODONE/APAP 5/325 [Percocet 5/325 (*)] 1 tab PO DAILY PRN 05/12/17 [Last Taken Unknown] traZODone [traZODONE 100MG (*)] 300 mg PO HS 05/12/17 [Last Taken 05/11/17] I have personally reviewed and updated: medical history, social history - Social History Smoking Status: Never smoked Review of Systems Review of Systems: ROS: 10pt was reviewed & negative except for what was stated in HPI & below Physical Exam Physical Exam: Temp Pulse Resp BP Pulse Ox 36.5 C 97 16 147/95 H 94 05/12/17 12:40 05/12/17 12:40 05/12/17 12:40 05/12/17 12:40 05/12/17 12:40 Constitutional: no apparent distress Eyes: PERRL Ears, Nose, Mouth, Throat: dry mucous membranes Cardiovascular: regular rate and rhythym, No edema Respiratory: no respiratory distress, no rales or rhonchi, clear to auscultation Gastrointestinal: normoactive bowel sounds Skin: warm Musculoskeletal: generalized weakness Neurologic: AAOx3 Psychiatric: interacting appropriately, not anxious, not encephalopathic Lab Data & Imaging Review 05/12/17 10:29 05/12/17 10: WBC 16.79 10^3/uL (3.80-9.50) H 05/12/17 10: RBC 4.87 10^6/uL (4.40-6.38) 05/12/17 10: Hgb 15.4 g/dL (13.7-17.5) 05/12/17 10: Hct 45.9 % (40.0-51.0) 05/12/17 10: MCV 94.3 fL (81.5-99.8) 05/12/17 10: MCH 31.6 pg (27.9-34.1) 05/12/17 10: MCHC 33.6 g/dL (32.4-36.7) 05/12/17 10: RDW 13.6 % (11.5-15.2) 05/12/17 10:29 Plt Count 147 10^3/uL (150-400) L 05/12/17 10: MPV 9.2 fL (8.7-11.7) 05/12/17 10: Neut % (Auto) 89.7 % (39.3-74.2) H 05/12/17 10:29 Lymph % (Auto) 3.7 % (15.0-45.0) L 05/12/17 10:29 [place] % (Auto) 5.5 % (4.5-13.0) 05/12/17 10:29 Eos % (Auto) 0.4 % (0.6-7.6) L 05/12/17 10:29 Baso % (Auto) 0.2 % (0.3-1.7) L 05/12/17 10:29 Nucleat RBC Rel Count 0.0 % (0.0-0.2) 05/12/17 10:29 Absolute Neuts (auto) 15.08 10^3/uL (1.70-6.50) H 05/12/17 10:29 Absolute Lymphs (auto) 0.62 10^3/uL (1.00-3.00) L 05/12/17 10:29 Absolute Monos (auto) 0.92 10^3/uL (0.30-0.80) H 05/12/17 10:29 Absolute Eos (auto) 0.06 10^3/uL (0.03-0.40) 05/12/17 10:29 Absolute Basos (auto) 0.03 10^3/uL (0.02-0.10) 05/12/17 10:29 Absolute Nucleated RBC 0.00 10^3/uL (0-0.01) 05/12/17 10:29 Immature Gran % 0.5 % (0.0-1.1) 05/12/17 10:29 Immature Gran # 0.08 10^3/uL (0.00-0.10) 05/12/17 10:29 PT 13.2 SEC (12.0-15.0) 05/12/17 10:29 INR 1.01 (0.83-1.16) 05/12/17 10:29 APTT 25.4 SEC (23.0-38.0) 05/12/17 10:29 Sodium 142 mEq/L (134-144) 05/12/17 10:29 Potassium 5.6 mEq/L (3.5-5.2) H 05/12/17 10:29 Chloride 108 mEq/L (97-110) 05/12/17 10:29 Carbon Dioxide 17 mEq/l (22-31) L 05/12/17 10:29 Anion Gap 17 mEq/L (8-16) H 05/12/17 10:29 BUN 32 mg/dL (7-23) H 05/12/17 10:29 Creatinine 1.9 mg/dL (0.7-1.3) H 05/12/17 10:29 Estimated GFR 35 05/12/17 10:29 Glucose 115 mg/dL (70-100) H 05/12/17 10:29 Calcium 9.1 mg/dL (8.5-10.4) 05/12/17 10:29 Troponin I 0.021 ng/mL (0.000-0.034) 05/12/17 10:29 Specimen Hemolysis 187 05/12/17 10:29 Assessment & Plan Assessment: 67 yo Male admitted s/p fall with generalized weakness and near syncopal episode. He looks very dehydrated and IVF will be continued. He has Leukocytosis and negative review of systems. Abx have not been started yet, but will have a low threshold to start them. He has been afebrile. #Fall #Near Syncope #Leukocytosis #Dehydration #Acute on Chronic renal failure #acute on chronic weakness and deconditioning #chest pain #Hyperkalemia #Metabolic acidosis #Hx of Afib, not in afib currently #Chronic pain syndrome #HTN #chronic gluteal decubitus wounds Plan: Admit IVF check urine and PC, low threshold for abx, Bcx Trop, telemetry, TTE PT/OT Hold BP meds Kayexalate if K worsens, will recheck later this evening wound care SCD's Full code
--- NOTE | 2017-05-12 14:42 | PDMN ---
Medical Necessity Medical necessity: Pt meets INPT criteria per MD; est. LOS >2 MN for eval/tx of acute on chronic weakness and deconditioning, s/p fall, near syncope, leukocytosis, dehydration, acute on chronic renal failure, chest pain, hyperkalemia; hx afib, chronic pain syndrome, htn, chronic decub wounds per H&P.
--- NOTE | 2017-05-12 14:54 | WOCRNPDOC ---
KATHRINE Advanced Assessment Note - Skin Integrity Problem, Advanced Assess Gluteal Cleft Dressing Type: Open to Air Exudate Amount: None Exudate Characteristic(s): None Abby Wound Tissue: Blanching, Intact Abby Wound Swelling: None Skin Integrity Problem Comment: Skin throughout patient's intergluteal cleft and buttocks is intact and blanching. No wounds noted at this time, nor did I observe any scar tissue indicating prior injury. No need for wound care to follow. Please reconsult as needed. Left Medial Foot Dressing Type: Open to Air Exudate Amount: None Exudate Characteristic(s): None Abby Wound Tissue: Erythema (confined to immediate periwound skin only), Swollen , Calloused, Painful/Tender Abby Wound Swelling: Moderate Wound Bed Color: Brown Wound Bed Constitution: Scab Site Odor: None Site Measurement - Head-to-Toe Length X Width X Depth (cm): 0.5cmx0.6cmx0.1cm intact, dry scab; surrounded by raised area 1.8cmx1.6cmx0.7cm (above skin surface) Pressure Injury Stage: Unstageable Pressure Injury Present on Admit: Yes Skin Integrity Problem Comment: This is a long-standing pressure injury r/t an existing bony deformity on patient's L medial foot. This was documented during previous hospitalization in November/December 2016. This site appears as raised, calloused tissue, w/ a fissured, shallow depression medially that presently has an intact scab. Site is not fluctuant, and there is minimal erythema to the surrounding tissues. He does report that it is painful when touched. This author previous advised a podiatry onsult after dc back in December to determine if patient needs a surgical intervention for this injury, or perhaps a referral to an geothermal powerplant supervisor. He reports he has not seen any physician for this injury. No need for wound care intervention at this time. Bilateral Heel Dressing Type: Open to Air Exudate Amount: None Exudate Characteristic(s): None Abby Wound Tissue: Blanching, Intact Skin Integrity Problem Comment: Skin over bilateral heels is currently intact and blanching. However, there is erythema present, and the tissue is boggy. Of particular concern is a dime-sized area of on his L lateral heel. While this is also intact and blanching, he has a bony deformity in this foot which causes increased pressure to the lateral heel. Recommend floating his heels on pillows as a preventative intervention.
--- NOTE | 2017-05-12 16:19 | ECHO ---
[email or web address] [address] [address] Main: [phone] Fax: Transthoracic Echocardiogram Name: TERESE ESPINO MR#: [id number] Study Date: 05/12/2017 Study Time: 02:43 PM Date of : 1950 Age: 67 year(s) Height: 172.7 cm (68 in.) Weight: 83.92 kg (185 lb.) BSA: 1.98 m2 Gender: Male Examination: Limited Echo Indication: Cardiac: syncope Image Quality: Contrast: Requested by: Ricky Clement BP: 148 mmHg/83 mmHg Heart Rate: Rhythm: Normal sinus rhythm Indication: Cardiac: syncope Procedure Staff Police Patrol Lieutenant: Klarissa Mcneil Physician: Aditya Sepulveda Requesting Provider: Measurements: Chambers Valvular Assessment AV/MV Valvular Assessment TV/PV Normal Normal Normal Name Value Range Name Value Range Name Value Range IVSd (2D): 1.0 cm (0.6 cm-1.1 cm) LVDd (2D): 4.0 cm (4.2 cm-5.9 cm) LVDs (2D): 2.6 cm (2.1 cm-4 cm) LVPWd (2D): 1.1 cm (0.6 cm-1 cm) LVEF (MOD4): 57 % (>=55 %) Continued Measurements: Findings: Left Ventricle: Normal size left ventricle. Mild concentric LV hypertrophy. Normal global systolic LV function. EF is 57 %. No regional wall motion abnormality. Right Ventricle: Normal size right ventricle. Pericardium: Small loculated pericardial effusion noted around the RA.. Exam Comments: Full echo 11/26/2016; normal heart valves, no . Patient: TERESE ESPINO Study Date: 05/12/2017 Page 1 of 2 02:43 PM (No Signature Object) Patient: TERESE ESPINO Study Date: 05/12/2017 Page 2 of 2 02:43 PM [id number]
--- NOTE | 2017-05-12 16:19 | ECHO ---
[email or web address] [address] [address] Main: [phone] Fax: Transthoracic Echocardiogram Name: TERESE ESPINO MR#: [id number] Study Date: 05/12/2017 Study Time: 02:43 PM Date of : 1950 Age: 67 year(s) Height: 172.7 cm (68 in.) Weight: 83.92 kg (185 lb.) BSA: 1.98 m2 Gender: Male Examination: Limited Echo Indication: Cardiac: syncope Image Quality: Contrast: Requested by: Ricky Clement BP: 148 mmHg/83 mmHg Heart Rate: Rhythm: Normal sinus rhythm Indication: Cardiac: syncope Procedure Staff Transport Coordinator: Klarissa Mcneil Physician: Aditya Sepulveda Requesting Provider: Measurements: Chambers Valvular Assessment AV/MV Valvular Assessment TV/PV Normal Normal Normal Name Value Range Name Value Range Name Value Range IVSd (2D): 1.0 cm (0.6 cm-1.1 cm) LVDd (2D): 4.0 cm (4.2 cm-5.9 cm) LVDs (2D): 2.6 cm (2.1 cm-4 cm) LVPWd (2D): 1.1 cm (0.6 cm-1 cm) LVEF (MOD4): 57 % (>=55 %) Continued Measurements: Findings: Left Ventricle: Normal size left ventricle. Mild concentric LV hypertrophy. Normal global systolic LV function. EF is 57 %. No regional wall motion abnormality. Right Ventricle: Normal size right ventricle. Pericardium: Small loculated pericardial effusion noted around the RA.. Exam Comments: Full echo 11/26/2016; normal heart valves, no . Patient: TERESE ESPINO Study Date: 05/12/2017 Page 1 of 2 02:43 PM (No Signature Object) Patient: TERESE ESPINO Study Date: 05/12/2017 Page 2 of 2 02:43 PM [id number]
--- NOTE | 2017-05-12 16:19 | ECHO ---
[email or web address] [address] [address] Main: [phone] Fax: Transthoracic Echocardiogram Name: TERESE ESPINO MR#: [id number] Study Date: 05/12/2017 Study Time: 02:43 PM Date of : 1950 Age: 67 year(s) Height: 172.7 cm (68 in.) Weight: 83.92 kg (185 lb.) BSA: 1.98 m2 Gender: Male Examination: Limited Echo Indication: Cardiac: syncope Image Quality: Contrast: Requested by: Ricky Clement BP: 148 mmHg/83 mmHg Heart Rate: Rhythm: Normal sinus rhythm Indication: Cardiac: syncope Procedure Staff Graphic Coordinator: Klarissa Mcneil Physician: Aditya Sepulveda Requesting Provider: Measurements: Chambers Valvular Assessment AV/MV Valvular Assessment TV/PV Normal Normal Normal Name Value Range Name Value Range Name Value Range IVSd (2D): 1.0 cm (0.6 cm-1.1 cm) LVDd (2D): 4.0 cm (4.2 cm-5.9 cm) LVDs (2D): 2.6 cm (2.1 cm-4 cm) LVPWd (2D): 1.1 cm (0.6 cm-1 cm) LVEF (MOD4): 57 % (>=55 %) Continued Measurements: Findings: Left Ventricle: Normal size left ventricle. Mild concentric LV hypertrophy. Normal global systolic LV function. EF is 57 %. No regional wall motion abnormality. Right Ventricle: Normal size right ventricle. Pericardium: Small loculated pericardial effusion noted around the RA.. Exam Comments: Full echo 11/26/2016; normal heart valves, no . Patient: TERESE ESPINO Study Date: 05/12/2017 Page 1 of 2 02:43 PM (No Signature Object) Patient: TERESE ESPINO Study Date: 05/12/2017 Page 2 of 2 02:43 PM [id number]
[2017-05-12] MEDS: GABAPENTIN 300 MG CAP PO SCH ×2 (17:01→20:41)
[2017-05-12] MEDS: OXYCODONE/APAP 5/325 TAB PO PRN (20:38)
[2017-05-12] MEDS: QUEtiapine FUMARATE 200 MG TAB PO SCH (20:38)
[2017-05-12] MEDS: QUEtiapine FUMARATE 25 MG TAB PO SCH (20:39)
[2017-05-12] MEDS: ASPIRIN 81 MG CHEWABLE TAB PO SCH (20:41)
[2017-05-12] MEDS: clonazePAM 1 MG TAB PO SCH (20:42)
[2017-05-12] MEDS: traZODone 100 MG TAB PO SCH (20:43)
[2017-05-13 03:45] LABS: PLATELET COUNT 110 10^3/uL (150-400)
[2017-05-13] MEDS: OXYCODONE/APAP 5/325 TAB PO PRN ×3 (06:21→20:34)
[2017-05-13] MEDS: clonazePAM 1 MG TAB PO SCH ×2 (08:20→20:29)
[2017-05-13] MEDS: GABAPENTIN 300 MG CAP PO SCH ×3 (08:20→20:29)
[2017-05-13] MEDS ORDERED: OXYCODONE/APAP 5/325 TAB PO PRN (10:28)
--- NOTE | 2017-05-13 10:33 | HOSPPROG ---
Hospitalist Progress Note Assessment/Plan: 67 yo Male admitted s/p fall with generalized weakness and near syncopal episode. Dehydration and Leukocytosis present on admission. No clear source of infection, so abx not started. Has improved significantly with IVF and no abx. Leukocytosis resolved. Hypokalemia resolved. Cr. back to baseline. Still with significant generalized weakness and right shoulder pain and weakness following his fall. Plan: -PT/OT -?may need rehab, not sure if he would be agreeable. Lives alone. -repeat labs in a.m. -cont to hold anti HTN meds -Pain management -keep inpatient -SCD's -Full code #Fall, etiology is multifactoria #Near Syncope #Leukocytosis, resolved #Dehydration, improving #Acute on Chronic renal failure #acute shoulder pain from fall. No e/o of fracture #acute on chronic weakness and deconditioning #chest pain, resolved #Hyperkalemia, resolved #Metabolic acidosis, resolved #Hx of Afib, not in afib currently #Acute on Chronic pain syndrome #HTN, holding BP meds. Labile BP. #chronic gluteal decubitus wounds, no active wounds at this time Subjective: Feels better. Still with right shoulder pain. Still very weak throughout. Working with PT. Objective: Vital Signs Temp Pulse Resp BP Pulse Ox 36.3 C 76 16 140/73 H 97 05/13/17 07:15 05/13/17 07:15 05/13/17 07:15 05/13/17 07:15 05/13/17 07:15 Laboratory Results 05/13/17 03:20 05/13/17 03:20 05/12/17 05/13/17 05/14/17 05:59 05:59 05:59 Intake Total 1296 Output Total 500 825 Balance 796 -825 PT 13.2 SEC (12.0-15.0) 05/12/17 10: INR 1.01 (0.83-1.16) 05/12/17 10:29 - Physical Exam Constitutional: no apparent distress Eyes: PERRL Ears, Nose, Mouth, Throat: moist mucous membranes Cardiovascular: regular rate and rhythym Respiratory: no respiratory distress, no rales or rhonchi, clear to auscultation Gastrointestinal: normoactive bowel sounds Skin: warm Neurologic: AAOx3 Psychiatric: interacting appropriately, not anxious, not encephalopathic ICD10 Worksheet Patient Problems: Problems Problem Status Onset Generalized weakness Acute Hyperkalemia Acute Anxiety Acute Atrial fibrillation Acute Benzodiazepine withdrawal Acute Bronchitis Acute Bronchospasm Acute Chest wall contusion Acute Dehydration Acute Depression Acute Hypoxemia Acute Intentional overdose of drug in tablet form Acute Pneumonia Acute Renal failure Acute Rhabdomyolysis Acute Right rib fracture Acute Suicide attempt by drug ingestion Acute Vertigo Acute
--- NOTE | 2017-05-13 12:37 | ASMTCMCOM ---
CM Note CM Note Notes: Pt. is a 67-year-old man admitted w/ hyperkalemia and generalized weakness after a fall. Pt. in DNR status. Pt. lives alone. hx. chronically deformed L foot, depression, anxiety, and a chronic decubitus gluteal ulcer. Per OT, Pt. has poor insight and awareness. OT recommending SNF and MD agrees, but Pt. is adamant about not going SNF. If Pt. cannot be convinced of going to SNF, may d/c tomorrow. CM should discuss homecare option w/ Pt. Per OT, Pt. is anxious about getting his "Medicaid application in by 05/16". Yangr emailed [employer] staff to see Pt. about his Medicaid issues on Monday if Pt. is still here. CM to follow for d/c POC. Current plan: SNF vs HC vs Home Date Signed: 05/13/2017 12:37 PM Electronically Signed By:Leena Cardenas LCSW
--- NOTE | 2017-05-13 12:37 | ASMTCMCOM ---
CM Note CM Note Notes: Pt. is a 67-year-old man admitted w/ hyperkalemia and generalized weakness after a fall. Pt. in DNR status. Pt. lives alone. hx. chronically deformed L foot, depression, anxiety, and a chronic decubitus gluteal ulcer. Per OT, Pt. has poor insight and awareness. OT recommending SNF and MD agrees, but Pt. is adamant about not going SNF. If Pt. cannot be convinced of going to SNF, may d/c tomorrow. CM should discuss homecare option w/ Pt. Per OT, Pt. is anxious about getting his "Medicaid application in by 05/16". Yangr emailed [employer] staff to see Pt. about his Medicaid issues on Monday if Pt. is still here. CM to follow for d/c POC. Current plan: SNF vs HC vs Home Date Signed: 05/13/2017 12:37 PM Electronically Signed By:Leena Cardenas LCSW
--- NOTE | 2017-05-13 12:37 | ASMTCMCOM ---
CM Note CM Note Notes: Pt. is a 67-year-old man admitted w/ hyperkalemia and generalized weakness after a fall. Pt. in DNR status. Pt. lives alone. hx. chronically deformed L foot, depression, anxiety, and a chronic decubitus gluteal ulcer. Per OT, Pt. has poor insight and awareness. OT recommending SNF and MD agrees, but Pt. is adamant about not going SNF. If Pt. cannot be convinced of going to SNF, may d/c tomorrow. CM should discuss homecare option w/ Pt. Per OT, Pt. is anxious about getting his "Medicaid application in by 05/16". Yangr emailed [employer] staff to see Pt. about his Medicaid issues on Monday if Pt. is still here. CM to follow for d/c POC. Current plan: SNF vs HC vs Home Date Signed: 05/13/2017 12:37 PM Electronically Signed By:Leena Cardenas LCSW
[2017-05-13] MEDS: traZODone 100 MG TAB PO SCH ×2 (20:27→20:31)
[2017-05-13] MEDS: ASPIRIN 81 MG CHEWABLE TAB PO SCH (20:28)
[2017-05-13] MEDS: QUEtiapine FUMARATE 25 MG TAB PO SCH (20:28)
[2017-05-13] MEDS: QUEtiapine FUMARATE 200 MG TAB PO SCH (20:28)
[2017-05-14] MEDS: OXYCODONE/APAP 5/325 TAB PO PRN ×2 (01:23→08:21)
[2017-05-14 05:02] LABS: PLATELET COUNT 116 10^3/uL (150-400)
[2017-05-14] MEDS: GABAPENTIN 300 MG CAP PO SCH (08:20)
[2017-05-14] MEDS: clonazePAM 1 MG TAB PO SCH (08:20)
[2017-05-14 11:13] VITALS: BP 143/80; PULSE 67; RESP 14; TEMP 97.7; O2SAT 91
--- NOTE | 2017-05-14 11:44 | ASMTCMCOM ---
CM Note CM Note Notes: Patient continues to refuse to go to SNF Rehab wants to return home w/HC. Patient would like [facility] to follow him at home. Referral made to [facility]. Sister coming from [facility] to transport and assist. No other needs at this time. Date Signed: 05/14/2017 11:43 AM Electronically Signed By:Mitzy Vogel LCSW
--- NOTE | 2017-05-14 11:44 | ASMTCMCOM ---
CM Note CM Note Notes: Patient continues to refuse to go to SNF Rehab wants to return home w/HC. Patient would like [facility] to follow him at home. Referral made to [facility]. Sister coming from [facility] to transport and assist. No other needs at this time. Date Signed: 05/14/2017 11:43 AM Electronically Signed By:Mitzy Vogel LCSW
--- NOTE | 2017-05-14 11:44 | ASMTCMCOM ---
CM Note CM Note Notes: Patient continues to refuse to go to SNF Rehab wants to return home w/HC. Patient would like [facility] to follow him at home. Referral made to [facility]. Sister coming from [facility] to transport and assist. No other needs at this time. Date Signed: 05/14/2017 11:43 AM Electronically Signed By:Mitzy Vogel LCSW
--- NOTE | 2017-05-14 12:06 | PDDCSUM ---
Discharge Summary Discharge Summary: HPI/Hospital Course: 67 yo Male admitted s/p fall with generalized weakness and near syncopal episode. Dehydration and Leukocytosis present on admission. No clear source of infection, so abx not started. Has improved significantly with IVF and no abx. Leukocytosis resolved. Hypokalemia resolved. Cr. back to baseline. Still with significant generalized weakness and right shoulder pain and weakness following his fall. He has some improvement through working with PT/ OT. They are recommending SNF but pt refuses. He will d/c home with [facility]. Percocet prescription given. No other changes to his medication regimen. DDX: #Fall, etiology is multifactoria #Near Syncope #Leukocytosis, resolved #Dehydration, improving #Acute on Chronic renal failure #acute shoulder pain from fall. No e/o of fracture #acute on chronic weakness and deconditioning #chest pain, resolved #Hyperkalemia, resolved #Metabolic acidosis, resolved #Hx of Afib, not in afib currently #Acute on Chronic pain syndrome #HTN, holding BP meds. Labile BP. #chronic gluteal decubitus wounds, no active wounds at this time Exam: NAD AAOx3 RRR CTA B s/nt/nd no LE edema meds: See med rec f/u: with pcp in one week total care time spent on discharge is 35 minutes
--- NOTE | 2017-05-14 12:07 | PDIAF ---
- Diagnosis Diagnosis: fall, syncope Code Status: Do Not Resuscitate - Medication Management Discharge Medications: Medications to Continue on Transfer Aspirin [Aspirin 81mg (*)] 81 mg PO HS 12/09/16 [Last Taken 05/10/17] Albuterol [Ventolin Hfa Inhaler] 2 puffs IH Q4 PRN #1 mdi 12/26/16 [Last Taken Unknown] Gabapentin [Neurontin 300 MG (*)] 300 mg PO TID #90 cap 12/26/16 [Last Taken 21:00] Meclizine HCl [Meclizine HCl 25 mg (RX,OTC)] 25 mg PO Q6 PRN #30 tab 12/26/16 [ Last Taken 05/11/17] QUEtiapine FUMARATE [Seroquel 25 mg (*)] 25 mg PO DAILY PRN #30 tab 12/26/16 [ Last Taken Unknown] QUEtiapine FUMARATE [Seroquel 25 mg (*)] 50 mg PO HS #30 tab 12/26/16 [Last Taken 05/11/17] QUEtiapine FUMARATE [Seroquel 200 mg (*)] 200 mg PO HS 05/12/17 [Last Taken ] amLODIPine BESYLATE [Norvasc 5 mg (*)] 5 mg PO DAILY 05/12/17 [Last Taken ] clonazePAM [klonoPIN (*)] 1.5 mg PO BID 05/12/17 [Last Taken 05/11/17 21:00] traZODone [traZODONE 100MG (*)] 300 mg PO HS 05/12/17 [Last Taken 05/11/17] oxyCODONE/APAP 5/325 [Percocet 5/325 (*)] 1 - 2 tab PO Q3 PRN #30 tab 05/14/17 [ Last Taken Unknown] Discharge Medications: Refer to the Discharge Home Medication list for PRN reason. - Orders Services needed: Home Care, Physical Therapy Home Care Face to Face: I certify that this patient was under my care and that I had the required [id number] encounter meeting the encounter requirements on the discharge day. My findings support the fact that the patient is homebound as defined in Home Care Face to Face Continued: CMS Chapter 7 Medicare Benefits Manual 30.1.1 , The condition of the patient is such that there exists a normal inability to leave home and consequently, leaving home would require a considerable and taxing effort. Diet Recommendation: no restrictions on diet Diet Texture: Regular Texture Diet - Follow Up Care Current Providers and Referrals: Patient,NotPresent [Unknown] - As per Instructions
--- NOTE | 2017-05-14 14:25 | ASDISCHSUM ---
Discharge Information Plan Status:Home with Home Health Medically Cleared to Leave:05/14/2017 Discharge Date:05/14/2017 01:55 PM CM D/C Disposition:Home Health Service ADT D/C Disposition:Home Health Service Projected Discharge Date:05/14/2017 01:00 PM Transportation at D/C:Family Discharge Delay Reason: Follow-Up Date:05/14/2017 01:00 PM Discharge Slot:2 - 12:01 pm - 18:00 pm Final Diagnosis:Hyperkalemia Placement Information Referral Type:*Home Health Care Services Referral ID:[id number] Provider Name:[facility] Address 1:[address] [place] [address] Address 2: City:[place] Selection Factors: State:[place] Patient Contact Information Contact Name:JASVIRBELL Relationship:Sister Address: Work Phone: City:[place] Alternate Phone: [facility]/Zip Code:[place] Email: Financial Information Financial Class: Primary Plan Desc:MEDICARE INPATIENT Primary Plan Number:[id number] Secondary Plan Desc:MED[place] Secondary Plan Number:[id number] Assessment Information [facility] CM Progress Note CM Note CM Note Notes: Pt. is a 67-year-old man admitted w/ hyperkalemia and generalized weakness after a fall. Pt. in DNR status. Pt. lives alone. hx. chronically deformed L foot, depression, anxiety, and a chronic decubitus gluteal ulcer. Per OT, Pt. has poor insight and awareness. OT recommending SNF and agrees, but Pt. is adamant about not going SNF. If Pt. cannot be convinced of going to SNF, may d/c tomorrow. CM should discuss homecare option w/ Pt. Per OT, Pt. is anxious about getting his "Medicaid application in by 05/16". Yangr emailed [employer] staff to see Pt. about his Medicaid issues on Monday if Pt. is still here. CM to follow for d/c POC. Current plan: SNF vs HC vs Home Date Signed: 05/13/2017 12:37 PM Electronically Signed By:Leena Cardenas LCSW [facility] CM Progress Note CM Note CM Note Notes: Patient continues to refuse to go to SNF Rehab wants to return home w/HC. Patient would like [facility] to follow him at home. Referral made to [facility]. Sister coming from [facility] to transport and assist. No other needs at this time. Date Signed: 05/14/2017 11:43 AM Electronically Signed By:Mitzy Vogel LCSW Intervention Information Intervention Type:*Incorrect Registration Date of Service:05/12/2017 02:35 PM Patient Type:Observation Staff Member:NORA Fowler Kerry Hours: Discipline: Severity: Comment:
--- NOTE | 2017-05-14 14:25 | ASDISCHSUM ---
Discharge Information Plan Status:Home with Home Health Medically Cleared to Leave:05/14/2017 Discharge Date:05/14/2017 01:55 PM CM D/C Disposition:Home Health Service ADT D/C Disposition:Home Health Service Projected Discharge Date:05/14/2017 01:00 PM Transportation at D/C:Family Discharge Delay Reason: Follow-Up Date:05/14/2017 01:00 PM Discharge Slot:2 - 12:01 pm - 18:00 pm Final Diagnosis:Hyperkalemia Placement Information Referral Type:*Home Health Care Services Referral ID:[id number] Provider Name:[facility] Address 1:[address] [place] [address] Address 2: City:[place] Selection Factors: State:[place] Patient Contact Information Contact Name:JASVIRBELL Relationship:Sister Address: Work Phone: City:[place] Alternate Phone: [facility]/Zip Code:[place] Email: Financial Information Financial Class: Primary Plan Desc:MEDICARE INPATIENT Primary Plan Number:[id number] Secondary Plan Desc:[place] Secondary Plan Number:[id number] Assessment Information [facility] CM Progress Note CM Note CM Note Notes: Pt. is a 67-year-old man admitted w/ hyperkalemia and generalized weakness after a fall. Pt. in DNR status. Pt. lives alone. hx. chronically deformed L foot, depression, anxiety, and a chronic decubitus gluteal ulcer. Per OT, Pt. has poor insight and awareness. OT recommending SNF and agrees, but Pt. is adamant about not going SNF. If Pt. cannot be convinced of going to SNF, may d/c tomorrow. CM should discuss homecare option w/ Pt. Per OT, Pt. is anxious about getting his "Medicaid application in by 05/16". Yangr emailed [employer] staff to see Pt. about his Medicaid issues on Monday if Pt. is still here. CM to follow for d/c POC. Current plan: SNF vs HC vs Home Date Signed: 05/13/2017 12:37 PM Electronically Signed By:Leena Cardenas LCSW [facility] CM Progress Note CM Note CM Note Notes: Patient continues to refuse to go to SNF Rehab wants to return home w/HC. Patient would like [facility] to follow him at home. Referral made to [facility]. Sister coming from [facility] to transport and assist. No other needs at this time. Date Signed: 05/14/2017 11:43 AM Electronically Signed By:Mitzy Vogel LCSW Intervention Information Intervention Type:*Incorrect Registration Date of Service:05/12/2017 02:35 PM Patient Type:Observation Staff Member:NORA Fowler Kerry Hours: Discipline: Severity: Comment:
--- NOTE | 2017-05-14 14:25 | ASDISCHSUM ---
Discharge Information Plan Status:Home with Home Health Medically Cleared to Leave:05/14/2017 Discharge Date:05/14/2017 01:55 PM CM D/C Disposition:Home Health Service ADT D/C Disposition:Home Health Service Projected Discharge Date:05/14/2017 01:00 PM Transportation at D/C:Family Discharge Delay Reason: Follow-Up Date:05/14/2017 01:00 PM Discharge Slot:2 - 12:01 pm - 18:00 pm Final Diagnosis:Hyperkalemia Placement Information Referral Type:*Home Health Care Services Referral ID:[id number] Provider Name:[facility] Address 1:[address] [place] [address] Address 2: City:[place] Selection Factors: State:[place] Patient Contact Information Contact Name:JASVIRBELL Relationship:Sister Address: Work Phone: City:[place] Alternate Phone: [facility]/Zip Code:[place] Email: Financial Information Financial Class: Primary Plan Desc:MEDICARE INPATIENT Primary Plan Number:[id number] Secondary Plan Desc:MED[place] Secondary Plan Number:[id number] Assessment Information [facility] CM Progress Note CM Note CM Note Notes: Pt. is a 67-year-old man admitted w/ hyperkalemia and generalized weakness after a fall. Pt. in DNR status. Pt. lives alone. hx. chronically deformed L foot, depression, anxiety, and a chronic decubitus gluteal ulcer. Per OT, Pt. has poor insight and awareness. OT recommending SNF and agrees, but Pt. is adamant about not going SNF. If Pt. cannot be convinced of going to SNF, may d/c tomorrow. CM should discuss homecare option w/ Pt. Per OT, Pt. is anxious about getting his "Medicaid application in by 05/16". Yangr emailed [employer] staff to see Pt. about his Medicaid issues on Monday if Pt. is still here. CM to follow for d/c POC. Current plan: SNF vs HC vs Home Date Signed: 05/13/2017 12:37 PM Electronically Signed By:Leena Cardenas LCSW [facility] CM Progress Note CM Note CM Note Notes: Patient continues to refuse to go to SNF Rehab wants to return home w/HC. Patient would like [facility] to follow him at home. Referral made to [facility]. Sister coming from [facility] to transport and assist. No other needs at this time. Date Signed: 05/14/2017 11:43 AM Electronically Signed By:Mitzy Vogel LCSW Intervention Information Intervention Type:*Incorrect Registration Date of Service:05/12/2017 02:35 PM Patient Type:Observation Staff Member:NORA Fowler Kerry Hours: Discipline: Severity: Comment:
== END 2017-05-14 13:55 | disposition home health service (06) | DRG 641 ==
LOC: EDUNIT# → OBSVTOIN 11:42 → F2W 12:50
PROVIDERS: ADMIT Family Medicine; ATTEND Family Medicine
CPT/HCPCS: 97110-GP; 97116-GP; 97161-GP; 97166-GO; 97530-GO; 97535-GO; G8978-GP-CJ; G8979-GP-CI; G8987-GO-CI; G8988-GO-CI; J2060

== ENCOUNTER 2017-05-15 05:46 | Emergency (ER) | payer OTHER, MEDICAID ==
[2017-05-15 05:57] VITALS: RESP 18
--- NOTE | 2017-05-15 05:59 | EDPHY ---
H & P Time Seen by Provider: 05/15/17 05:50 HPI/ROS: HPI The patient presents brought in by ambulance after calling 911 asking for medication refill. He was discharged from the hospital just yesterday. He was admitted for a fall in weakness and received IV fluids. It was recommended that he go to a assisted facility, however he was insistent upon returning to his own home. He was discharged home with home health care, though they have not visited him yet. He had prescriptions he says for Seroquel and Klonopin from his discharge, he took these to the pharmacy, however they were unable to fill them. He is concerned that he will be going through withdrawal from these medications and that is what caused him to call 911. He is feeling anxious. He denies any seizures. He has a visiting nurse who is coming to the house at 8:15 a.m. this morning. This is her 1st visit to see him. She can dispense his medications to him. Paramedics concerned about the state of his apartment. He lives in a studio by himself. It was in a state of disarray, dirty, mold the food on the counter tops, toilet over flowing with feces. Their concern that this is not a safe place her his to return to. REVIEW OF SYSTEMS Constitutional: No fever, no chills. Eyes: No discharge. ENT: No sore throat. Cardiovascular: No chest pain, no palpitations. Respiratory: No cough, no shortness of breath. Gastrointestinal: No abdominal pain, no vomiting. Genitourinary: No hematuria. Musculoskeletal: No back pain. Skin: No rashes. Neurological: No headache. Soc Hx: Lives alone PHYSICAL General Appearance: Alert, no distress Eyes: Pupils equal and round no pallor or injection ENT, Mouth: Mucous membranes moist Respiratory: There are no retractions, lungs are clear to auscultation Cardiovascular: Regular rate and rhythm Gastrointestinal: Abdomen is soft and non-tender, no masses, bowel sounds normal Neurological: A&O, moves all extremities Skin: Warm and dry, no rashes Musculoskeletal: Neck is supple non tender Extremities: symmetrical, full range of motion Psychiatric: Patient is oriented X 3, there is no agitation Source: Patient, EMS - Personal History Tetanus Vaccine Date: 10/2010 - Medical/Surgical History Hx Asthma: Yes Hx Chronic Respiratory Disease: Yes Hx Diabetes: No Hx Cardiac Disease: Yes Hx Renal Disease: Yes Hx Cirrhosis: No Hx Alcoholism: No Hx HIV/AIDS: No Hx Splenectomy or Spleen Trauma: No Other PMH: Severe anxiety, chronic pain, CAD, Asthma, left foot deformity/fx from 10 yrs ago, MA w/stents 2011, kidney problems, appendectomy - Social History Smoking Status: Never smoked Constitutional: Initial Vital Signs Temperature (C) 37 C 05/15/17 05:53 Heart Rate 78 05/15/17 05:53 Respiratory Rate 18 05/15/17 05:53 Blood Pressure 195/86 H 05/15/17 05:53 O2 Sat (%) 95 05/15/17 05:53 O2 Delivery Mode Room Air Allergies/Adverse Reactions: Sulfa (Sulfonamide Antibiotics) Allergy (Intermediate, Verified 05/07/17 05:45) Vomiting Home Medications: Medication Instructions Recorded Aspirin [Aspirin 81mg (*)] 81 mg PO HS 12/09/16 Albuterol [Ventolin Hfa Inhaler] 2 puffs IH Q4 PRN #1 mdi 12/26/16 Gabapentin [Neurontin 300 MG (*)] 300 mg PO TID #90 cap 12/26/16 Meclizine HCl [Meclizine HCl 25 mg 25 mg PO Q6 PRN #30 tab 12/26/16 (RX,OTC)] QUEtiapine FUMARATE [Seroquel 25 25 mg PO DAILY PRN #30 tab 12/26/16 mg (*)] QUEtiapine FUMARATE [Seroquel 25 50 mg PO HS #30 tab 12/26/16 mg (*)] QUEtiapine FUMARATE [Seroquel 200 200 mg PO HS 05/12/17 mg (*)] amLODIPine BESYLATE [Norvasc 5 mg 5 mg PO DAILY 05/12/17 (*)] clonazePAM [klonoPIN (*)] 1.5 mg PO BID 05/12/17 traZODone [traZODONE 100MG (*)] 300 mg PO HS 05/12/17 oxyCODONE/APAP 5/325 [Percocet 1 - 2 tab PO Q3 PRN #30 tab 05/14/17 5/325 (*)] Medical Decision Making Differential Diagnosis: 67-year-old male brought in by ambulance with multiple medical problems including severe anxiety, CAD, foot deformity, he was released from the hospital yesterday afternoon. He was not able to fill his prescriptions for Seroquel and Klonopin. He is worried he will go through withdrawal. Paramedics were concerned about the state of his living situation and feel that it is in a state of disarray. The patient has a visiting nurse arriving to his house at 8:15 a.m. this morning. He is insistent upon returning home. He makes his own medical decisions. He says he does not want to go to a care home when given the option. He says he will be able to clean up his house today. I will give him low doses of his usual medications to prevent any withdrawals. He will be discharged home. I have told him that he can return at any time if he would like to be placed in a care home. Departure - Departure Disposition: Home, Routine, Self-Care Clinical Impression: Medication refill Benzodiazepine withdrawal Qualifiers: Complication of substance-induced condition: uncomplicated Qualified Code(s): F13.230 - Sedative, hypnotic or anxiolytic dependence with withdrawal, uncomplicated Condition: Good Instructions: Anxiety (ED) Additional Instructions: If you would like to be placed in a care home, please contact her primary physician. Please return to the emergency department if your worse in any way. Referrals: Patient,NotPresent [Primary Care Provider] - As per Instructions
--- NOTE | 2017-05-15 05:59 | EDPHY ---
H & P Time Seen by Provider: 05/15/17 05:50 HPI/ROS: HPI The patient presents brought in by ambulance after calling 911 asking for medication refill. He was discharged from the hospital just yesterday. He was admitted for a fall in weakness and received IV fluids. It was recommended that he go to a [place] [facility] [place], however he was insistent upon returning to his own home. He was discharged home with home health care, though they have not visited him yet. He had prescriptions he says for Seroquel and Klonopin from his discharge, he took these to the pharmacy, however they were unable to fill them. He is concerned that he will be going through withdrawal from these medications and that is what caused him to call 911. He is feeling anxious. He denies any seizures. He has a visiting nurse who is coming to the house at 8:15 a.m. this morning. This is her 1st visit to see him. She can dispense his medications to him. Paramedics concerned about the state of his apartment. He lives in a studio by himself. It was in a state of disarray, dirty, mold the food on the counter tops, toilet over flowing with feces. Their concern that this is not a safe place her his to return to. REVIEW OF SYSTEMS Constitutional: No fever, no chills. Eyes: No discharge. ENT: No sore throat. Cardiovascular: No chest pain, no palpitations. Respiratory: No cough, no shortness of breath. Gastrointestinal: No abdominal pain, no vomiting. Genitourinary: No hematuria. Musculoskeletal: No back pain. Skin: No rashes. Neurological: No headache. Soc Hx: Lives alone PHYSICAL General Appearance: Alert, no distress Eyes: Pupils equal and round no pallor or injection ENT, Mouth: Mucous membranes moist Respiratory: There are no retractions, lungs are clear to auscultation Cardiovascular: Regular rate and rhythm Gastrointestinal: Abdomen is soft and non-tender, no masses, bowel sounds normal Neurological: A&O, moves all extremities Skin: Warm and dry, no rashes Musculoskeletal: Neck is supple non tender Extremities: symmetrical, full range of motion Psychiatric: Patient is oriented X 3, there is no agitation Source: Patient, EMS - Personal History Tetanus Vaccine Date: 10/2010 - Medical/Surgical History Hx Asthma: Yes Hx Chronic Respiratory Disease: Yes Hx Diabetes: No Hx Cardiac Disease: Yes Hx Renal Disease: Yes Hx Cirrhosis: No Hx Alcoholism: No Hx HIV/AIDS: No Hx Splenectomy or Spleen Trauma: No Other PMH: Severe anxiety, chronic pain, CAD, Asthma, left foot deformity/fx from 10 yrs ago, DC w/stents 2011, kidney problems, appendectomy - Social History Smoking Status: Never smoked Constitutional: Initial Vital Signs Temperature (C) 37 C 05/15/17 05:53 Heart Rate 78 05/15/17 05:53 Respiratory Rate 18 05/15/17 05:53 Blood Pressure 195/86 H 05/15/17 05:53 O2 Sat (%) 95 05/15/17 05:53 O2 Delivery Mode Room Air Allergies/Adverse Reactions: Sulfa (Sulfonamide Antibiotics) Allergy (Intermediate, Verified 05/07/17 05:45) Vomiting Home Medications: Medication Instructions Recorded Aspirin [Aspirin 81mg (*)] 81 mg PO HS 12/09/16 Albuterol [Ventolin Hfa Inhaler] 2 puffs IH Q4 PRN #1 mdi 12/26/16 Gabapentin [Neurontin 300 MG (*)] 300 mg PO TID #90 cap 12/26/16 Meclizine HCl [Meclizine HCl 25 mg 25 mg PO Q6 PRN #30 tab 12/26/16 (RX,OTC)] QUEtiapine FUMARATE [Seroquel 25 25 mg PO DAILY PRN #30 tab 12/26/16 mg (*)] QUEtiapine FUMARATE [Seroquel 25 50 mg PO HS #30 tab 12/26/16 mg (*)] QUEtiapine FUMARATE [Seroquel 200 200 mg PO HS 05/12/17 mg (*)] amLODIPine BESYLATE [Norvasc 5 mg 5 mg PO DAILY 05/12/17 (*)] clonazePAM [klonoPIN (*)] 1.5 mg PO BID 05/12/17 traZODone [traZODONE 100MG (*)] 300 mg PO HS 05/12/17 oxyCODONE/APAP 5/325 [Percocet 1 - 2 tab PO Q3 PRN #30 tab 05/14/17 5/325 (*)] Medical Decision Making Differential Diagnosis: 67-year-old male brought in by ambulance with multiple medical problems including severe anxiety, CAD, foot deformity, he was released from the hospital yesterday afternoon. He was not able to fill his prescriptions for Seroquel and Klonopin. He is worried he will go through withdrawal. Paramedics were concerned about the state of his living situation and feel that it is in a state of disarray. The patient has a visiting nurse arriving to his house at 8:15 a.m. this morning. He is insistent upon returning home. He makes his own medical decisions. He says he does not want to go to a usp when given the option. He says he will be able to clean up his house today. I will give him low doses of his usual medications to prevent any withdrawals. He will be discharged home. I have told him that he can return at any time if he would like to be placed in a usp. Departure - Departure Disposition: Home, Routine, Self-Care Clinical Impression: Medication refill Benzodiazepine withdrawal Qualifiers: Complication of substance-induced condition: uncomplicated Qualified Code(s): F13.230 - Sedative, hypnotic or anxiolytic dependence with withdrawal, uncomplicated Condition: Good Instructions: Anxiety (ED) Additional Instructions: If you would like to be placed in a usp, please contact her primary physician. Please return to the emergency department if your worse in any way. Referrals: Patient,NotPresent [Primary Care Provider] - As per Instructions
[2017-05-15] MEDS ORDERED: QUEtiapine FUMARATE 50 MG TAB PO ONE (06:34)
[2017-05-15] MEDS ORDERED: clonazePAM 0.5 MG TAB PO ONE (06:35)
[2017-05-15 07:39] VITALS: BP 178/91; PULSE 69; TEMP 99.1; O2SAT 93
--- NOTE | 2017-05-15 11:51 | ASDISCHSUM ---
Discharge Information Plan Status:Home with Home Health Medically Cleared to Leave: Discharge Date:05/15/2017 07:52 AM CM D/C Disposition:Home Health Service ADT D/C Disposition:Home, Routine, Self-Care Projected Discharge Date:05/15/2017 07:52 AM Transportation at D/C:ALS/BLS Discharge Delay Reason: Follow-Up Date:05/15/2017 07:52 AM Discharge Slot: Final Diagnosis: Placement Information Patient Contact Information Contact Name:HERACLIO Relationship:Sister Address: Work Phone: City:[place] Alternate Phone: State/[place] Code[place] Email: Financial Information Financial Class: Primary Plan Desc:MEDICARE OUTPATIENT Primary Plan Number:[id number] Secondary Plan Desc:MEDICAID [place] Secondary Plan Number:[id number] Assessment Information Intervention Information
--- NOTE | 2017-05-15 11:51 | ASDISCHSUM ---
Discharge Information Plan Status:Home with Home Health Medically Cleared to Leave: Discharge Date:05/15/2017 07:52 AM CM D/C Disposition:Home Health Service ADT D/C Disposition:Home, Routine, Self-Care Projected Discharge Date:05/15/2017 07:52 AM Transportation at D/C:ALS/BLS Discharge Delay Reason: Follow-Up Date:05/15/2017 07:52 AM Discharge Slot: Final Diagnosis: Placement Information Patient Contact Information Contact Name:HERACLIO Relationship:Sister Address: Work Phone: City:[place] Alternate Phone: State/[place] Transportation Code:[place] Email: Financial Information Financial Class: Primary Plan Desc:MEDICARE OUTPATIENT Primary Plan Number:[id number] Secondary Plan Desc:MEDICAID [place] Secondary Plan Number:[id number] Assessment Information Intervention Information
--- NOTE | 2017-05-15 11:51 | ASDISCHSUM ---
Discharge Information Plan Status:Home with Home Health Medically Cleared to Leave: Discharge Date:05/15/2017 07:52 AM CM D/C Disposition:Home Health Service ADT D/C Disposition:Home, Routine, Self-Care Projected Discharge Date:05/15/2017 07:52 AM Transportation at D/C:ALS/BLS Discharge Delay Reason: Follow-Up Date:05/15/2017 07:52 AM Discharge Slot: Final Diagnosis: Placement Information Patient Contact Information Contact Name:HERACLIO Relationship:Sister Address: Work Phone: City:[place] Alternate Phone: State/[place] Email: Financial Information Financial Class: Primary Plan Desc:MEDICARE OUTPATIENT Primary Plan Number:[id number] Secondary Plan Desc:MEDICAID HEALTH [place] Secondary Plan Number:[id number] Assessment Information Intervention Information
--- NOTE | 2017-05-15 12:39 | ASMTCMCOM ---
CM Note CM Note Notes: Received a call from Kathleen at [facility] ([phone]) this morning regarding patient. Patient was discharged from [facility] yesterday and transported home by his sister Jumana Willson ([phone]) who lives in [place]. Patient had been admitted this past 05/12/17 and although was strongly recommended to discharged to a SNF, patient refused and instead was dc'd home with [facility] to start today. Patient did not tell CM over this past weekend that he already was set up with [facility] ([place] team: [phone]) and non-skilled care. [facility] was to do an initial visit today but since confirming that he is already set up with [facility], [facility] orders have been canceled. Spoke with Goldie at [facility] and she is very familiar with patient and they were unaware that patient had been in the hospital over the weekend. Patient's RN is Aisha and she last saw him on 05/11. Patient has a locked medication dispensing system and knows that [facility] fills his prescriptions and restocks his dispenser. Goldie said Aisha reported that patient had went to a pharmacy and somehow convinced them to refill his meds directly to him. Patient has an extensive history of overdosing on his meds. This CM called patient but there was no answer. This CM contacted Jumana to confirm that she transported patient home yesterday and she said she did and that she also received text messages from him this morning saying he had gone to the ED and then returned home. Jumana says she will call and/or text patient to let them know his home health company is trying to get a hold of him. Spoke with patient's PCP Dr. Irma Quiros's Straight Slicing Machine Operator, Lucy ([phone]) and she says she is very familiar with patient and also has been in contact with Goldie at [facility] in the past. Patient has been a no-show to the last 7 scheduled appointments and they're considering discharging the patient from their care. Lucy updated on patient's open status with [facility] and will look into collaborating with [facility] to try to get patient into an appt. In the ED MD report there was mention of EMS being concerned about the safety and sanitation of the patient's home. There was no mention of EMS or the ED MD making a report to Adult Protective Services. Patient was d/c'd from the ED before CM arrived today. Called [facility] and spoke with stock control supervisor Noah Ramsey ([phone]); the crew who reported the concerns is no longer on shift. Spoke with Goldie at [facility] and she says Aisha will attempt to contact and/or visit patient today to resume services and care and if they will assess patient's living situation. Faxed over pt's 05/12-05/14 admission referral to [facility] in [place] and will also fax this ED visit referral information. Date Signed: 05/15/2017 12:38 PM Electronically Signed By:Leena Gibbons RN
--- NOTE | 2017-05-15 12:39 | ASMTCMCOM ---
CM Note CM Note Notes: Received a call from Kathleen at [facility] ([phone]) this morning regarding patient. Patient was discharged from [facility] yesterday and transported home by his sister Jumana Willson ([phone]) who lives in [place]. Patient had been admitted this past 05/12/17 and although was strongly recommended to discharged to a SNF, patient refused and instead was dc'd home with [facility] to start today. Patient did not tell CM over this past weekend that he already was set up with [facility] ([place] team: [phone]) and non-skilled care. [facility] was to do an initial visit today but since confirming that he is already set up with [facility], [facility] orders have been canceled. Spoke with Goldie at [facility] and she is very familiar with patient and they were unaware that patient had been in the hospital over the weekend. Patient's RN is Aisha and she last saw him on 05/11. Patient has a locked medication dispensing system and knows that [facility] fills his prescriptions and restocks his dispenser. Goldie said Aisha reported that patient had went to a pharmacy and somehow convinced them to refill his meds directly to him. Patient has an extensive history of overdosing on his meds. This CM called patient but there was no answer. This CM contacted Jumana to confirm that she transported patient home yesterday and she said she did and that she also received text messages from him this morning saying he had gone to the ED and then returned home. Jumana says she will call and/or text patient to let them know his home health company is trying to get a hold of him. Spoke with patient's PCP Dr. Irma Quiros's Warp Scouring Vat Tender, Lucy ([phone]) and she says she is very familiar with patient and also has been in contact with Goldie at [facility] in the past. Patient has been a no-show to the last 7 scheduled appointments and they're considering discharging the patient from their care. Lucy updated on patient's open status with [facility] and will look into collaborating with [facility] to try to get patient into an appt. In the ED MD report there was mention of EMS being concerned about the safety and sanitation of the patient's home. There was no mention of EMS or the ED MD making a report to Adult Protective Services. Patient was d/c'd from the ED before CM arrived today. Called [facility] and spoke with paper coating supervisor Noah Ramsey ([phone]); the crew who reported the concerns is no longer on shift. Spoke with Goldie at [facility] and she says Aisha will attempt to contact and/or visit patient today to resume services and care and if they will assess patient's living situation. Faxed over pt's 05/12-05/14 admission referral to [facility] in [place] and will also fax this ED visit referral information. Date Signed: 05/15/2017 12:38 PM Electronically Signed By:Leena Gibbons RN
--- NOTE | 2017-05-15 12:39 | ASMTCMCOM ---
CM Note CM Note Notes: Received a call from Kathleen at [facility] ([phone]) this morning regarding patient. Patient was discharged from [facility] yesterday and transported home by his sister Jumana Willson ([phone]) who lives in [place]. Patient had been admitted this past 05/12/17 and although was strongly recommended to discharged to a SNF, patient refused and instead was dc'd home with [facility] to start today. Patient did not tell CM over this past weekend that he already was set up with [facility] RN ([place] team: [phone]) and non-skilled care. [facility] was to do an initial visit today but since confirming that he is already set up with [facility], [facility] orders have been canceled. Spoke with Goldie at [facility] and she is very familiar with patient and they were unaware that patient had been in the hospital over the weekend. Patient's RN is Aisha and she last saw him on 05/11. Patient has a locked medication dispensing system and knows that [facility] fills his prescriptions and restocks his dispenser. Goldie said Aisha reported that patient had went to a pharmacy and somehow convinced them to refill his meds directly to him. Patient has an extensive history of overdosing on his meds. This CM called patient but there was no answer. This CM contacted Jumana to confirm that she transported patient home yesterday and she said she did and that she also received text messages from him this morning saying he had gone to the ED and then returned home. Jumana says she will call and/or text patient to let them know his home health company is trying to get a hold of him. Spoke with patient's PCP Dr. Irma Quiros's Software Quality Automation Engineer, Lucy ([phone]) and she says she is very familiar with patient and also has been in contact with Goldie at [facility] in the past. Patient has been a no-show to the last 7 scheduled appointments and they're considering discharging the patient from their care. Lucy updated on patient's open status with [facility] and will look into collaborating with [facility] to try to get patient into an appt. In the ED MD report there was mention of EMS being concerned about the safety and sanitation of the patient's home. There was no mention of EMS or the ED MD making a report to Adult Protective Services. Patient was d/c'd from the ED before CM arrived today. Called [facility] and spoke with test deck supervisor Noah Ramsey ([phone]); the crew who reported the concerns is no longer on shift. Spoke with Goldie at [facility] and she says Aisha will attempt to contact and/or visit patient today to resume services and care and if they will assess patient's living situation. Faxed over pt's 05/12-05/14 admission referral to [facility] in [place] and will also fax this ED visit referral information. Date Signed: 05/15/2017 12:38 PM Electronically Signed By:Leena Gibbons RN
== END 2017-05-15 07:52 | disposition home or self-care (01) ==
LOC: EDUNIT#
DX: Z76.0 Encounter for issue of repeat prescription (principal); F13.230 Sedative, hypnotic or anxiolytic dependence with withdrawal, uncomplicated; J45.909 Unspecified asthma, uncomplicated; I25.10 Atherosclerotic heart disease of native coronary artery without angina pectoris; I25.2 Old myocardial infarction; Z79.82 Long term (current) use of aspirin

== ENCOUNTER 2017-05-28 08:03 | Emergency (ER) | payer OTHER, MEDICAID ==
[2017-05-28 08:12] VITALS: RESP 16
--- NOTE | 2017-05-28 08:52 | EDPHY ---
H & P Smoking Status: Never smoked Time Seen by Provider: 05/28/17 08:08 HPI/ROS: CHIEF COMPLAINT: Depression, feeling suicidal HISTORY OF PRESENT ILLNESS: 67-year-old male presents to the emergency department on M1 hold feeling depressed and suicidal. Patient states "[facility] decreased by medication and did tell me why and now I want to ". Patient has a plan of poisoning himself. He has eaten cyanide in the past. Currently has no physical complaints. He does not abuse drugs or alcohol. He is specifically upset that they decreased his Klonopin which she has been taking 2 mg daily for many years. No reported trauma. Patient lives alone. He called EMS for transport when he was feeling depressed. REVIEW OF SYSTEMS: Constitutional: No fever, no chills. Eyes: No double or blurry vision. ENT: No sore throat. Respiratory: No cough, no shortness of breath. Cardiac: No chest pain. Gastrointestinal: No abdominal pain, vomiting or diarrhea. Genitourinary: No dysuria. Musculoskeletal: No neck or back pain. Skin: No rashes. Neurological: No headache. 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 Eyes: Pupils equal and round. Extraocular motions are all intact. ENT: Mouth: Mucous membranes moist. Respiratory: No wheezing, rhonchi, or rales, lungs are clear to auscultation. Cardiovascular: Regular rate and rhythm. Gastrointestinal: Abdomen is soft and nontender, no masses, no rebound or guarding, bowel sounds normal. Neurological: Alert and oriented x 3, cranial nerves II through XII grossly intact Skin: Warm and dry, no rashes. Musculoskeletal: Nontender to palpate along the cervical, thoracic or lumbar spine. Neck is supple. Extremities: Full range of motion and no peripheral edema. Deformity noted to the left foot. Mildly diffusely tender. Psychiatric: Patient is oriented X 3, there is no agitation. (Klarissa Rodarte M) Constitutional: Initial Vital Signs Temperature (C) 37.0 C 05/28/17 08:10 Heart Rate 87 05/28/17 08:10 Respiratory Rate 16 05/28/17 08:10 Blood Pressure 189/89 H 05/28/17 08:10 O2 Sat (%) 96 05/28/17 08:10 O2 Delivery Mode Room Air Allergies/Adverse Reactions: Sulfa (Sulfonamide Antibiotics) Allergy (Intermediate, Verified 05/07/17 05:45) Vomiting Home Medications: Medication Instructions Recorded Aspirin [Aspirin 81mg (*)] 81 mg PO HS 12/09/16 Albuterol [Ventolin Hfa Inhaler] 2 puffs IH Q4 PRN #1 mdi 12/26/16 Gabapentin [Neurontin 300 MG (*)] 300 mg PO TID #90 cap 12/26/16 Meclizine HCl [Meclizine HCl 25 mg 25 mg PO Q6 PRN #30 tab 12/26/16 (RX,OTC)] QUEtiapine FUMARATE [Seroquel 25 25 mg PO DAILY PRN #30 tab 12/26/16 mg (*)] QUEtiapine FUMARATE [Seroquel 25 50 mg PO HS #30 tab 12/26/16 mg (*)] QUEtiapine FUMARATE [Seroquel 200 200 mg PO HS 05/12/17 mg (*)] amLODIPine BESYLATE [Norvasc 5 mg 5 mg PO DAILY 05/12/17 (*)] clonazePAM [klonoPIN (*)] 1.5 mg PO BID 05/12/17 traZODone [traZODONE 100MG (*)] 300 mg PO HS 05/12/17 oxyCODONE/APAP 5/325 [Percocet 1 - 2 tab PO Q3 PRN #30 tab 05/14/17 5/325 (*)] Medical Decision Making ED Course/Re-evaluation: The patient was evaluated and managed by the physician's triage assistant. My cosignature indicates that I reviewed the chart and I agree with the findings and plan of care as documented. I am the secondary supervising physician. ( Lorraine Ocasio) 67-year-old male presents to the emergency department feeling depressed and suicidal. He was evaluated by mental health and they are looking for placement. They think he will likely go to [facility]. (Klarissa Rodarte) Differential Diagnosis: Depression including functional and major depression, situational depression, medication side effect, drugs and alcohol abuse. (Klarissa Rodarte) Other Provider: I assumed care of this patient from Klarissa Rodarte seen at 6:00 p.m.. Patient is an open client at [facility] and is on chronic opiates. They have been trying to decrease his benzodiazepines He presents tonight reporting that he is feeling very suicidal. Patient has been evaluated by [facility] and plan at this point is placement in either a [facility] potentially [facility]. 11:30 p.m., I was informed by [facility] that they will attempt to place the patient in the morning. Patient's care assumed by Dr. Kimo Celeste at 11:30 p.m.. (Flora Levin) I assumed care from Dr. Celeste at 7:00 a.m.. Patient's medications have been reviewed. He received Seroquel and tramadol last night. These are on his previous medication list, as is amlodipine. Blood pressure was checked by his nurse and was found to be 162/83. He reports that he has been discontinued from the practice of his primary care physician, Dr. Irma Quiros. He states that he was asked to present daily to receive his medications and that this was a financial burden for him, as he had to take a taxi. As result, he has not had prescriptions or medications for the past couple of months. I will verify this information when Dr. Quiros saw office opens. In the meantime, he is given a dose of Norvasc 5 mg p.o.. He has been accepted at [facility] and will be transferred. He has been stable throughout the day with no new complaints. EMTALA form signed. (Liseth Puri) - Data Points Laboratory Results: Laboratory Results 05/28/17 09:14 05/28/17 09:14 Medications Given: Discontinued Medications Amlodipine Besylate (Norvasc) 5 mg PO EDNOW ONE Stop: 05/29/17 07:50 Last Admin: 05/29/17 08:02 Dose: 5 mg Ibuprofen (Motrin) 600 mg PO EDNOW ONE Stop: 05/29/17 01:41 Last Admin: 05/29/17 01:44 Dose: 600 mg Ibuprofen (Motrin) 600 mg PO EDNOW ONE Stop: 05/29/17 09:18 Last Admin: 05/29/17 09:21 Dose: 600 mg Lorazepam (Ativan) 1 mg PO EDNOW ONE Stop: 05/29/17 02:15 Last Admin: 05/29/17 02:21 Dose: 1 mg Quetiapine Fumarate (Seroquel) 250 mg PO EDNOW ONE Stop: 05/28/17 18:19 Last Admin: 05/28/17 18:45 Dose: 250 mg Quetiapine Fumarate (Seroquel) 50 mg PO ONCE ONE Stop: 05/28/17 18:31 Last Admin: 05/28/17 18:45 Dose: Not Given Trazodone HCl (Trazodone) 300 mg PO EDNOW ONE Stop: 05/28/17 18:19 Last Admin: 05/28/17 18:45 Dose: 300 mg Trazodone HCl (Trazodone) 300 mg PO ONCE ONE Stop: 05/28/17 18:31 Last Admin: 05/28/17 18:45 Dose: Not Given Departure - Departure Disposition: Other Psych, Not Veronica Clinical Impression: Suicidal ideation Depression Qualifiers: Depression Type: unspecified Qualified Code(s): F32.9 - Major depressive disorder, single episode, unspecified Condition: Good Referrals: Patient,NotPresent [Unknown] - As per Instructions
[2017-05-28 09:40] LABS: % IMMATURE GRANULYOCYTES 0.5 % (0.0-1.1); ABSOLUTE IMMATURE GRANULOCYTES 0.03 10^3/uL (0.00-0.10); ADD DIFF? NO; ADD MORPH? NO; ADD SCAN? NO; ATYPICAL LYMPHOCYTE FLAG 0 (0-99); FRAGMENT RBC FLAG 0 (0-99); HEMATOCRIT 45.5 % (40.0-51.0); HEMOGLOBIN 15.8 g/dL (13.7-17.5); LEFT SHIFT FLG 0 (0-99); LIPEMIA HEMOLYSIS FLAG 90 (0-99); MEAN CELL HEMOGLOBIN 32.2 pg (27.9-34.1); MEAN CELL HEMOGLOBIN CONCENTR. 34.7 g/dL (32.4-36.7); MEAN CELL VOLUME 92.7 fL (81.5-99.8); PLATELET CLUMPS FLAG 20 (0-99); PLATELET COUNT 198 10^3/uL (150-400); RED BLOOD CELL COUNT 4.91 10^6/uL (4.40-6.38); RED CELL DISTRIBUTION WIDTH 13.2 % (11.5-15.2)
[2017-05-28 09:47] LABS: ANION GAP 12 mEq/L (8-16); CALCIUM 9.8 mg/dL (8.5-10.4); CARBON DIOXIDE 23 mEq/l (22-31); CHLORIDE 105 mEq/L (97-110); CREATININE 1.3 mg/dL (0.7-1.3); ETHANOL SERUM < 10 mg/dL (0-10); GLOMERULAR FILTRATION RATE 55; GLUCOSE 116 mg/dL (70-100); POTASSIUM 4.2 mEq/L (3.5-5.2); SODIUM 140 mEq/L (134-144)
[2017-05-28] MEDS ORDERED: traZODone 50 MG TAB PO ONE (18:18)
[2017-05-28] MEDS ORDERED: QUEtiapine FUMARATE 200 MG TAB PO ONE (18:18)
[2017-05-28] MEDS ORDERED: QUEtiapine FUMARATE 50 MG TAB PO ONE (18:30)
[2017-05-29] MEDS ORDERED: IBUPROFEN 600 MG TAB PO ONE ×2 (01:40→09:17)
[2017-05-29] MEDS ORDERED: LORazepam 1 MG TAB ONE (02:14)
[2017-05-29] MEDS ORDERED: LORazepam 1 MG TAB PO ONE ×2 (02:14→16:23)
[2017-05-29] MEDS ORDERED: amLODIPine BESYLATE 5 MG TAB PO ONE (07:49)
[2017-05-29] MEDS ORDERED: QUEtiapine FUMARATE 50 MG TAB PO ONE (15:32)
[2017-05-29 15:48] VITALS: BP 158/81; PULSE 76; TEMP 98.4; O2SAT 93
[2017-05-29] MEDS ORDERED: ALBUTEROL 60 PUFFS/8 GM MDI IH ONE (16:15)
[2017-05-29] MEDS ORDERED: ALBUTEROL INH PREPACK MDI TAKEHOME ONE (16:19)
== END 2017-05-29 19:53 ==
LOC: EDUNIT#
DX: F32.9 Major depressive disorder, single episode, unspecified (principal); Z79.82 Long term (current) use of aspirin
CPT/HCPCS: 80305; G0480

== ENCOUNTER 2017-06-07 00:06 | Emergency (ER) | payer OTHER, MEDICAID ==
--- NOTE | 2017-06-07 00:23 | EDPHY ---
H & P HPI/ROS: HPI CHIEF COMPLAINT: "I am having a panic attack" HISTORY OF PRESENT ILLNESS: This patient very pleasant 67-year-old male, he has significant past medical history for anxiety, benzo dependency, panic attacks, coronary artery disease asthma AFib hypertension COPD chronic back pain , presents emergency room stating that he is having anxiety attack. He called 911 as he feels very anxious he thinks he is having a panic attack and severe anxiety. He states he just detox from benzodiazepines in [place]. He was released today. He states that he is afraid of the dark. This caused him to have severe anxiety. He had no benzodiazepine available to him and had to call 911 and presents emergency room stating he is very anxious. He denies chest pain or shortness of breath. Denies numbness or tingling. Denies focal weakness. He states this feels like he always does with anxiety attack. He is requesting Ativan 1 mg p.o.. Past Medical History: Coronary artery disease with stent, asthma, hypoxic respiratory failure, AFib, hypertension, chronic back pain, anxiety Past Surgical History: No recent surgery Social History: Denies daily use of drugs alcohol tobacco. Family History: Noncontributory. ROS REVIEW OF SYSTEMS: A comprehensive 10 point review of systems is otherwise negative aside from elements mentioned in the history of present illness. Exam Constitutional appears anxious triage nursing summary reviewed, vital signs reviewed, awake/alert. Eyes normal conjunctivae and sclera, EOMI, PERRLA. HENT normal inspection, atraumatic, moist mucus membranes, no epistaxis, neck supple/ no meningismus, no raccoon eyes. Respiratory clear to auscultation bilaterally, normal breath sounds, no respiratory distress, no wheezing. Cardiovascular rate normal, regular rhythm, no murmur, no edema, distal pulses normal. Gastrointestinal soft, non-tender, no rebound, no guarding, normal bowel sounds, no distension, no pulsatile mass. Genitourinary no CVA tenderness. Musculoskeletal no midline vertebral tenderness, full range of motion, no calf swelling, no tenderness of extremities, no meningismus, good pulses, neurovascularly intact. Skin pink, warm, & dry, no rash, skin atraumatic. Neurologic awake, alert and oriented x 3, AAOx3, moves all 4 extremities equally, motor intact, sensory intact, CN II-XII intact, normal cerebellar, normal vision, normal speech. Psychiatric anxious Heme/Lymph/Immune no lymphadenopathy. Differential Diagnosis: Includes but is not limited to in a particular order, acute anxiety, panic at, need for benzodiazepine, previous benzo dependency Medical Decision Making: Plan for this patient he has no complaints except anxiety. Will treat with 1 mg p.o. Ativan. He understands he will not be giving more than this and he understands that I will not be giving him a prescription as he just went through detox benzos. He is fine with this plan. Re-evaluation: 0137: Patient feels much better after p.o. Ativan 1 mg. He is resting comfortably no complaints. Specifically denies chest pain or shortness of breath. Additionally has been provided outpatient resources for anxiety by mental health. Additionally he understands return emergency room if develops worsening symptoms questions or concerns. Source: Patient, EMS - Personal History Tetanus Vaccine Date: 10/2010 - Medical/Surgical History Hx Asthma: Yes Hx Chronic Respiratory Disease: Yes Hx Diabetes: No Hx Cardiac Disease: Yes Hx Renal Disease: Yes Hx Cirrhosis: No Hx Alcoholism: No Hx HIV/AIDS: No Hx Splenectomy or Spleen Trauma: No Other PMH: Severe anxiety, chronic pain, CAD, Asthma, left foot deformity/fx from 10 yrs ago, [place] w/stents 2011, kidney problems, appendectomy - Social History Smoking Status: Never smoked Constitutional: Initial Vital Signs Temperature (C) 37.1 C 06/07/17 00:21 Heart Rate 60 06/07/17 00:21 Respiratory Rate 18 06/07/17 00:21 Blood Pressure 186/85 H 06/07/17 00:21 O2 Sat (%) 93 06/07/17 00:21 O2 Delivery Mode Room Air Allergies/Adverse Reactions: Sulfa (Sulfonamide Antibiotics) Allergy (Intermediate, Verified 06/07/17 00:23) Vomiting Home Medications: Medication Instructions Recorded Aspirin [Aspirin 81mg (*)] 81 mg PO HS 12/09/16 Albuterol [Ventolin Hfa Inhaler] 2 puffs IH Q4 PRN #1 mdi 12/26/16 Gabapentin [Neurontin 300 MG (*)] 300 mg PO TID #90 cap 12/26/16 Meclizine HCl [Meclizine HCl 25 mg 25 mg PO Q6 PRN #30 tab 12/26/16 (RX,OTC)] QUEtiapine FUMARATE [Seroquel 25 25 mg PO DAILY PRN #30 tab 12/26/16 mg (*)] QUEtiapine FUMARATE [Seroquel 25 50 mg PO HS #30 tab 12/26/16 mg (*)] QUEtiapine FUMARATE [Seroquel 200 200 mg PO HS 05/12/17 mg (*)] amLODIPine BESYLATE [Norvasc 5 mg 5 mg PO DAILY 05/12/17 (*)] clonazePAM [klonoPIN (*)] 1.5 mg PO BID 05/12/17 traZODone [traZODONE 100MG (*)] 300 mg PO HS 05/12/17 oxyCODONE/APAP 5/325 [Percocet 1 - 2 tab PO Q3 PRN #30 tab 05/14/17 5/325 (*)] Medical Decision Making - Data Points Medications Given: Discontinued Medications Lorazepam (Ativan) 1 mg PO ONCE ONE Stop: 06/07/17 00:31 Last Admin: 06/07/17 00:42 Dose: 1 mg Departure - Departure Disposition: Home, Routine, Self-Care Clinical Impression: Anxiety Condition: Good Instructions: Anxiety (ED) Additional Instructions: 1.Return emergency room if develops any worsening symptoms questions or concerns. Referrals: NONE *PRIMARY CARE P,. [Primary Care Provider] - As per Instructions
[2017-06-07] MEDS ORDERED: LORazepam 1 MG TAB PO ONE (00:30)
[2017-06-07 02:04] VITALS: RESP 16
[2017-06-07 02:58] VITALS: BP 151/74; PULSE 74; TEMP 97.9; O2SAT 96
== END 2017-06-07 02:58 | disposition home or self-care (01) ==
LOC: EDUNIT#
DX: F41.9 Anxiety disorder, unspecified (principal); I25.10 Atherosclerotic heart disease of native coronary artery without angina pectoris; J45.909 Unspecified asthma, uncomplicated; I10 Essential (primary) hypertension; J44.9 Chronic obstructive pulmonary disease, unspecified; I25.2 Old myocardial infarction; Z79.82 Long term (current) use of aspirin

== ENCOUNTER 2017-06-17 15:12 | Emergency (ER) | payer OTHER, MEDICAID ==
[2017-06-17 15:18] VITALS: BP 182/91; PULSE 89; RESP 16; TEMP 98.2; O2SAT 93
--- NOTE | 2017-06-17 15:36 | EDPHY ---
H & P Time Seen by Provider: 06/17/17 15:25 HPI/ROS: CHIEF COMPLAINT: Anxiety HISTORY OF PRESENT ILLNESS: Patient is long history of severe anxiety and used to be on Klonopin. He was seen previously in our department by Dr. Celeste and was given oral Ativan. Patient says he gets intermittent anxiety and panic attacks and he is having 1 now. He said he was at home and was seeing his son and an despite his Seroquel and trazodone felt panicky and called the ambulance to bring him to the emergency department. He says symptoms are severe. Denies hallucinations or suicidal or homicidal ideation. REVIEW OF SYSTEMS: Eye: no change in vision ENT: no sore throat Cardiac: no chest pain or syncope Pulmonary: no cough or SOB Abdomen: no vomiting, diarrhea, abdominal pain Musculoskeletal: Multiple areas of chronic pain, unchanged Skin: no rash Neuro: no headache Constitutional: no fever : no urinary symptoms A comprehensive 10 point review of systems is otherwise negative aside from elements mentioned in the history of present illness. PAST MEDICAL HISTORY: Includes anxiety, chronic pain, or new disease, asthma, previous left foot deformity and fracture. Appendectomy Social history: Smoker, denies recent alcohol. General Appearance: Alert and conversant, cooperative. Eyes: No scleral icterus. ENT, Mouth: Normal mucous membranes. Respiratory: Normal respiratory effort, breath sounds equal, lungs are clear to auscultation. Cardiovascular: Regular rate and rhythm. Gastrointestinal: Abdomen is soft and non tender. Neurological: Alert and oriented x3. Normally conversant. Face symmetric, normal movement and sensation in all extremities. Skin: Warm and dry, no rashes. Musculoskeletal: Left foot outwardly rotated, no extremity tenderness. Psychiatric: Moderately anxious. Emergency Department course/MDM: 1 mg oral Ativan, discharge with mental health out patient follow-up. Smoking Status: Never smoked Constitutional: Initial Vital Signs Temperature (C) 36.8 C 06/17/17 15:17 Heart Rate 89 06/17/17 15:17 Respiratory Rate 16 06/17/17 15:17 Blood Pressure 182/91 H 06/17/17 15:17 O2 Sat (%) 93 06/17/17 15:17 O2 Delivery Mode Room Air Allergies/Adverse Reactions: Sulfa (Sulfonamide Antibiotics) Allergy (Intermediate, Verified 06/07/17 00:23) Vomiting Home Medications: Medication Instructions Recorded Aspirin [Aspirin 81mg (*)] 81 mg PO HS 12/09/16 QUEtiapine FUMARATE [Seroquel 25 25 mg PO DAILY PRN #30 tab 12/26/16 mg (*)] QUEtiapine FUMARATE [Seroquel 25 50 mg PO HS #30 tab 12/26/16 mg (*)] QUEtiapine FUMARATE [Seroquel 200 200 mg PO HS 05/12/17 mg (*)] amLODIPine BESYLATE [Norvasc 5 mg 5 mg PO DAILY 05/12/17 (*)] traZODone [traZODONE 100MG (*)] 300 mg PO HS 05/12/17 Departure - Departure Disposition: Home, Routine, Self-Care Clinical Impression: Anxiety Condition: Good Instructions: Anxiety (ED) Referrals: Patient,NotPresent [Primary Care Provider] - As per Instructions [facility] [Clinic] - As per Instructions
[2017-06-17] MEDS ORDERED: LORazepam 1 MG TAB PO ONE (15:39)
== END 2017-06-17 15:49 | disposition home or self-care (01) ==
LOC: EDUNIT#
DX: F41.9 Anxiety disorder, unspecified (principal); J45.909 Unspecified asthma, uncomplicated; F17.200 Nicotine dependence, unspecified, uncomplicated; Z79.82 Long term (current) use of aspirin

== ENCOUNTER 2017-07-15 00:31 | Emergency (ER) | payer OTHER, MEDICAID ==
[2017-07-15 00:40] VITALS: RESP 16; TEMP 98.1
[2017-07-15] MEDS ORDERED: LORazepam 1 MG TAB ONE (00:45)
[2017-07-15] MEDS ORDERED: LORazepam 1 MG TAB PO ONE ×2 (00:47→01:13)
--- NOTE | 2017-07-15 01:03 | EDPHY ---
General Narrative: CHIEF COMPLAINT: Anxious, can't sleep, out of medications HISTORY OF PRESENT ILLNESS: Patient complains of feeling anxious, being unable to sleep and having a night tear this evening. Says he has an extensive history of anxiety and has been taking his trazodone and Seroquel, but that he has been taking more than prescribed of the Seroquel. He says that it is not helping. He contacted his 1st seizure refill medication but they will not do so as it is too early. He still has trazodone 100 mg at home, 1 more dose. He ran out of the seroquel less than a week ago. He has no chest pain or shortness of breath. He says that he is just feeling anxious. He is here for help with this and help sleeping. No other associated complaints or modifying factors. REVIEW OF SYSTEMS: Ten systems reviewed and are negative unless otherwise noted in the HPI PCP: In the process of finding a new physician. Recently with Dr. Irma Quiros SPECIALISTS: [facility] PAST MEDICAL HISTORY: Extensive anxiety and insomnia. On disability SOCIAL HISTORY: Nonsmoker. No drug or alcohol use. Lives independently with some home health FAMILY HISTORY: Noncontributory EXAMINATION General Appearance: Alert, no distress, anxious and fidgeting, tearful Head: normocephalic, atraumatic Eyes: Pupils equal and round, no conjunctival pallor or injection ENT, Mouth: Mucous membranes moist Neck: Normal inspection, supple, non-tender Respiratory: Lungs are clear to auscultation. No wheezing, rhonchi or crackles Cardiovascular: Regular rate and rhythm. No murmur Neurological: GCS 15. A&O, nonfocal Skin: Warm and dry, no rash. Seborrhea to the hair and eyebrows Psychiatric: Anxious mood. Denies any suicidal ideation. Denies any homicidal ideation. DIFFERENTIAL DIAGNOSES: Including but not limited to anxiety, depression, insomnia MDM: 1:09 a.m. Anxiety with difficulty sleeping reportedly due to running out of his medications. This is a complex scenario as the patient has been noncompliant with his visits per case management documentation. He admits to being noncompliant visits due to anxiety and fear of leaving the home for his visits. He denies suicidal ideation or homicidal ideation. He says that he has been eating and drinking. Says that he has been taking care of himself at home but has been increasingly anxious. I reviewed most was recent documentation. He was hypertensive upon arrival to the emergency department but is asymptomatic from this. 1:40 a.m. Patient re-evaluated. Blood pressure has improved. He still hypertensive at 170/90, but he is asymptomatic from this. I do feel there is a component of anxiety to this as well. He has been treated with Ativan and starting to feel much better. He is comfortable going home and calling [facility] tomorrow. We discussed return to emergency department if his symptoms do not improve, if he develops any headache, chest pain or if his anxiety not controlled with the medications he has at home. I do feel this is multifactorial that he would benefit from a social work consult I will discuss with social work to have contacted tomorrow. I discussed this with Dr. Weir, and he and I are in agreement with plan. Addendum: 9:50 a.m., MondayJuly 15 This is an addendum from the previous night's visit. I discussed the case with the on-call case loader operator, Leena Gibbons. She will review the patient 's case and contact him. She will provide assistance if necessary. SUPERVISION: Patient was independently examined, but I discussed the case with my secondary supervising physician Dr. Weir - History Smoking Status: Never smoked - Objective Vital Signs: Initial Vital Signs Temperature (C) 98.1 F 07/15/17 00:38 Heart Rate 66 07/15/17 00:38 Respiratory Rate 16 07/15/17 00:38 Blood Pressure 154/132 H 07/15/17 00:38 O2 Sat (%) 98 07/15/17 00:38 O2 Delivery Mode Room Air Allergies/Adverse Reactions: Sulfa (Sulfonamide Antibiotics) Allergy (Intermediate, Verified 07/15/17 00:40) Vomiting Home Medications: Medication Instructions Recorded Aspirin [Aspirin 81mg (*)] 81 mg PO HS 12/09/16 QUEtiapine FUMARATE [Seroquel 25 25 mg PO DAILY PRN #30 tab 12/26/16 mg (*)] QUEtiapine FUMARATE [Seroquel 25 50 mg PO HS #30 tab 12/26/16 mg (*)] QUEtiapine FUMARATE [Seroquel 200 200 mg PO HS 05/12/17 mg (*)] amLODIPine BESYLATE [Norvasc 5 mg 5 mg PO DAILY 05/12/17 (*)] traZODone [traZODONE 100MG (*)] 300 mg PO HS 05/12/17 Medications Given: Discontinued Medications Lorazepam (Ativan) 1 mg PO EDNOW ONE Stop: 07/15/17 00:48 Last Admin: 07/15/17 00:47 Dose: 1 mg Lorazepam (Ativan) 1 mg PO EDNOW ONE Stop: 07/15/17 01:14 Last Admin: 07/15/17 01:15 Dose: 1 mg Departure - Departure Disposition: Home, Routine, Self-Care Clinical Impression: Anxiety Hypertension Qualifiers: Hypertension type: unspecified Qualified Code(s): I10 - Essential (primary) hypertension Condition: Good Instructions: DASH Eating Plan (ED), Hypertension (ED), Anxiety (ED), Anxiolysis in Adults (ED) Additional Instructions: 1. Contact [facility] for outpatient care and medication reconciliation 2. Return to emergency department for any headache, chest pain or worsening anxiety 3. I have provided the on-call primary care physician for you to contact to establish with Referrals: Veronica Guzman MD [Medical Doctor] - As per Instructions
[2017-07-15 01:55] VITALS: BP 183/82; PULSE 67; O2SAT 95
== END 2017-07-15 01:55 | disposition home or self-care (01) ==
LOC: EDUNIT#
DX: F41.9 Anxiety disorder, unspecified (principal); I10 Essential (primary) hypertension; Z79.82 Long term (current) use of aspirin

== ENCOUNTER 2017-07-16 12:56 | Emergency (ER) | payer OTHER, MEDICAID ==
[~2017-07-16 12:56] MED LIST: QUEtiapine FUMARATE 200 MG TAB PO SCH; traZODone 100 MG TAB PO SCH
[2017-07-16 13:10] VITALS: TEMP 98.8
--- NOTE | 2017-07-16 13:16 | EDPHY ---
H & P Time Seen by Provider: 07/16/17 13:00 HPI/ROS: CHIEF COMPLAINT: Anxiety HISTORY OF PRESENT ILLNESS: Patient was here 36 hr ago and saw Jeffrey Luis. He has a history which is extensive of anxiety, and was on Klonopin in the past. He was additionally on Seroquel and trazodone but took more than he was prescribed and he has been out for at least a week. He presents today with just severe feeling of anxiety. He lives by himself without roommate or pet or family members. Patient was treated with Ativan 36 hr ago and discharge, he comes back to us feeling anxious. Not suicidal or homicidal. No history of seizures. Not elucidating. REVIEW OF SYSTEMS: Eye: no change in vision ENT: no sore throat Cardiac: no chest pain or syncope Pulmonary: no cough or SOB Abdomen: no vomiting, diarrhea, abdominal pain Musculoskeletal: no back pain Skin: no rash Neuro: no headache Constitutional: no fever : no urinary symptoms A comprehensive 10 point review of systems is otherwise negative aside from elements mentioned in the history of present illness. PAST MEDICAL HISTORY: Includes anxiety and insomnia Social history: No alcohol or drugs General Appearance: Alert and conversant, cooperative. Eyes: No scleral icterus. ENT, Mouth: Normal mucous membranes. Respiratory: Normal respiratory effort, breath sounds equal, lungs are clear to auscultation. Cardiovascular: Regular rate and rhythm. Gastrointestinal: Abdomen is soft and non tender. Neurological: Alert, face symmetric, normal motor and sensory in extremities. Not tremulous Skin: Warm and dry, no rashes. Musculoskeletal: No peripheral edema. Psychiatric: Anxious, but not suicidal or homicidal. Not hallucinating. Emergency Department course/MDM: Patient has anxiety without evidence that he requires mental health hold. He does not appear to be a danger to himself or others or gravely disabled. He says that he came here instead of going to the walk-in mental health clinic because he does not "have any transportation "so he came by ambulance. He says he does not have any money until his disability check comes through. 1411: Patient has agreed to go to the walk-in center, has [facility] appointment to get a PCP and this coming Monday. All of this arranged through case management. I wrote a prescription for 200 mg Seroquel and 300 mg trazodone at bedtime as confirmed with his pharmacy; for 3 days only. Smoking Status: Never smoked Constitutional: Initial Vital Signs Temperature (C) 37.1 C 07/16/17 13:06 Heart Rate 77 07/16/17 13:06 Respiratory Rate 20 07/16/17 13:06 Blood Pressure 183/99 H 07/16/17 13:06 O2 Sat (%) 97 07/16/17 13:06 O2 Delivery Mode Room Air Allergies/Adverse Reactions: Sulfa (Sulfonamide Antibiotics) Allergy (Intermediate, Verified 07/15/17 00:40) Vomiting Home Medications: Medication Instructions Recorded Aspirin [Aspirin 81mg (*)] 81 mg PO HS 12/09/16 QUEtiapine FUMARATE [Seroquel 25 25 mg PO DAILY PRN #30 tab 12/26/16 mg (*)] QUEtiapine FUMARATE [Seroquel 25 50 mg PO HS #30 tab 12/26/16 mg (*)] QUEtiapine FUMARATE [Seroquel 200 200 mg PO HS 05/12/17 mg (*)] amLODIPine BESYLATE [Norvasc 5 mg 5 mg PO DAILY 05/12/17 (*)] traZODone [traZODONE 100MG (*)] 300 mg PO HS 05/12/17 QUEtiapine FUMARATE [Seroquel 200 200 mg PO HS 3 Days tab 07/16/17 mg (*)] traZODone [traZODONE 100MG (*)] 300 mg PO HS 3 Days tab 07/16/17 Medical Decision Making Differential Diagnosis: Differential for anxiety considered including but not limited to primary psychiatric anxiety, situational reaction, medication withdrawal, personality disorder. Departure - Departure Disposition: Home, Routine, Self-Care Clinical Impression: Anxiety Condition: Good Instructions: Trazodone (By mouth), Quetiapine (By mouth), Anxiety (ED) Additional Instructions: You have been provided 3 days worth of your usual nighttime medications with the understanding that you need to establish a Primary Care Physician. The argon tester will assist you with getting an appointment this Monday07/18/16 and also assist with arranging a Medicaid cab to transport you to the appointment. We understand you do not have a working phone at this time, so please call the argon tester on Monday by 10am at [phone]. Referrals: [facility],. [Clinic] - As per Instructions [facility],. [Clinic] - As per Instructions Prescriptions: QUEtiapine FUMARATE [Seroquel 200 mg (*)] 200 mg PO HS 3 Days tab traZODone [traZODONE 100MG (*)] 300 mg PO HS 3 Days tab
[2017-07-16 14:45] VITALS: BP 171/82; PULSE 73; RESP 18; O2SAT 94
--- NOTE | 2017-07-16 18:05 | ASDISCHSUM ---
Discharge Information Plan Status:Outpatient Psych Referrals Medically Cleared to Leave: Discharge Date:07/16/2017 02:52 PM CM D/C Disposition:Home, Routine, Self-Care ADT D/C Disposition:Home, Routine, Self-Care Projected Discharge Date:07/16/2017 02:52 PM Transportation at D/C:Cab Voucher Discharge Delay Reason: Follow-Up Date:07/16/2017 02:52 PM Discharge Slot: Final Diagnosis: Placement Information Patient Contact Information Contact Name:FIONA Relationship:Sister Address: Work Phone: City:[place] Alternate Phone: [facility]/[place] Interactive Code:[place] Email: Financial Information Financial Class: Primary Plan Desc:MEDICARE OUTPATIENT Primary Plan Number:[id number] Secondary Plan Desc:MEDICAID HEALTH FIRST [place] OP Secondary Plan Number:[id number] Assessment Information [facility] CM Progress Note CM Note CM Note Notes: Patient presented to the ED today for anxiety, panic attack and reports he "ran out of his meds." Patient was in the ED for same chief complaint yesterday. Patient is well-known to the ED and has a history of non-compliance with PCP follow-up (recently fired from Dr Irma Quiros's care due to 7 no-shows). Patient had an RN for medication management through [facility] up until a a couple of months ago when he didn't renew his Medicaid in time for them to continue services. Spoke with Goldie at [facility] and she confirms that is patient is able to establish a new PCP and if his Medicaid is indeed active (eligibilty and active status was confirmed at [facility] on 06/17/17), they will re-start RN services. Patient states he would like to have [facility] resume services. This CM and ED MD Dr Johnson decided that even though patient was provided his Seroquel and Trazodone by Melanie Natarajan from [facility] on 06/27/17 and it should have lasted him through 07/25/16 (per [facility] where he picks up Rxns), if he agrees to go directly to [facility] from the ED today then we will provide him with 3 days worth of Seroquel and Trazodone. IT is also expected that the patient follow-up and establish a PCP with [facility] on Monday. Patient reluctant but eventually agreeable to this plan. Patient states his phone is not working right now so he says he will borrow a phone from a neighbor on Monday morning and call ED Case Mgmt to find out about [facility] appointment. This CM plans to call [facility] on Monday and get a new patient appt that day and arrange for Medicaid Cab transport for patient to get to appt. As this CM was walking patient out to the cab, patient became tearful and gave permission for this CM to contact his sister, Jumana ([phone]) and let her know he was "in crisis" and gave permission "to tell her anything and everything." This CM spoke with Jumana and notified her of patient's ED visit and discharge plan. Jumana says she and patient have discussed him moving into low-income housing in [facility], where she lives, so she can provide additional assistance such as grocery shopping, etc. Jumana says she plan on getting patient on the wait list at [facility]. This CM to follow up on Monday07/18/16 Date Signed: 07/16/2017 06:04 PM Electronically Signed By:Leena Gibbons RN LACE LACE Acuity / Level of Care Answers: No. Emergency dept visits in Answers: 4+ last 6 months Score: 4 Date Signed: 07/16/2017 04:44 PM Electronically Signed By:Leena Gibbons RN Intervention Information Intervention Type:Cab Vouchers Date of Service:07/16/2017 04:14 PM Patient Type:Emergency Room Staff Member:NORA Gibbons [place] Hours:0.25 Discipline:Brick Veneer Maker Severity: Comment:Provided a cab to [facility] enter Intervention Type:Medication Date of Service:07/16/2017 04:14 PM Patient Type:Emergency Room Staff Member:NORA Gibbons [place] Hours:0.5 Discipline:Brick Veneer Maker Severity: Comment:Verified patient's doses through [facility]. Provided 3 days worth of patient's nighttime medications via [facility] Intervention Type:Education Family/Patient Date of Service:07/16/2017 04:14 PM Patient Type:Emergency Room Staff Member:NORA Gibbons [place] Hours:0.5 Discipline:Brick Veneer Maker Severity: Comment:Spoke extensively about patient's rece nt ED visits and need for PCP follow-up.
--- NOTE | 2017-07-18 19:34 | ASMTCMCOM ---
CM Note CM Note Notes: Followed up with patient today. Patient called at around 9:15am, as planned. Patient's cell phone ([phone]) appears to be working since he called from that number. Spoke with [facility] ([phone]) and able to get patient an appointment today at 12pm with Kanika Larios (same provider he saw back in 2016), discussed need for medications, and home care. T his CM called and arranged for a cab through [employer] to transport patient to appt; cab to pick pt up at 11:15am. This CM tried to arrange for a Medicaid cab since over the weekend it was verified that patient's Medicaid is active and [facility] said pt was eligible for their services, however, today [facility] said he is not eligible. This CM asked Oly with [employer] to run patient's Medicaid and she said it appeared inactive however she though there might be something wrong with Medicaid's system. This needs to be followed up on for the patient. Patient states he filled out the paperwork to re-enroll in Medicaid and has the # for [employer] ([phone], opt.4) to check the status of the application. Patient needs active Medicaid and PCP in order for homecare services to resume (via [facility]). Spoke with patient and he was agreeable to taking the cab and making the 12pm appt. Patient was able to make an appt with his clinician at [facility], Rosi Natarajan, today at 2:30pm. After much reluctance, extensive amount of time reassuring patient was going to be able to make both appts and be provided with cab transportation to and from the appts and home, patient did take the cab to . Spoke with Tayler at and she said patient did check in but the left without being seen. A case picker there went out to find the patient but was unable to locate him. This CM called the patient and it went straight to voicemail; left a voicemail to call ED CM back. [facility] unable to provide information on whether patient made his 2:30pm appt with Rosi Natarajan, due to not having a YE from patient. Patient was clearly and directly informed that if he didn't follow through with making his PCP appointment that the ED would no longer provide any further home medications to him whatsoever. Patient verbally expressed comprehension of this agreement. CM to continue to follow up as needed. Date Signed: 07/18/2017 07:33 PM Electronically Signed By:Leena Gibbons RN
== END 2017-07-16 14:52 | disposition home or self-care (01) ==
LOC: EDUNIT#
DX: F41.9 Anxiety disorder, unspecified (principal); Z79.82 Long term (current) use of aspirin

== ENCOUNTER 2017-10-18 20:19 | Emergency (ER) | payer OTHER, MEDICAID ==
[2017-10-18 20:25] VITALS: TEMP 97.9
--- NOTE | 2017-10-18 21:01 | EDPHY ---
H & P Stated Complaint: 6 Klonipin in 6 hours Source: Patient Exam Limitations: No limitations - Personal History Current Tetanus Diphtheria and Acellular Pertussis (TDAP): Yes Tetanus Vaccine Date: 10/2010 - Medical/Surgical History Hx Asthma: Yes Hx Chronic Respiratory Disease: Yes Hx Diabetes: No Hx Cardiac Disease: Yes Hx Renal Disease: Yes Hx Cirrhosis: No Hx Alcoholism: No Hx HIV/AIDS: No Hx Splenectomy or Spleen Trauma: No Other PMH: Severe anxiety, chronic pain, CAD, Asthma, left foot deformity/fx from 10 yrs ago, [place] w/stents 2011, kidney problems, appendectomy - Social History Smoking Status: Never smoked Time Seen by Provider: 10/18/17 21:00 HPI/ROS: CHIEF COMPLAINT: Klonopin ingestion HISTORY OF PRESENT ILLNESS: The patient presents to the ED after he has taken a total of 6 mg of Klonopin over the past day. This has precipitated some nausea and excessive sleepiness. The patient denies suicidal or homicidal ideation. He has a history of anxiety and insomnia. The patient currently takes Seroquel and trazodone for his symptoms as well. He denies any fever, cough or congestion. REVIEW OF SYSTEMS: A comprehensive 10 point review of systems is otherwise negative aside from elements mentioned in the history of present illness. (Madhav Noriega) - Physical Exam Exam: General Appearance: Alert, no distress Eyes: Pupils equal and round no pallor or injection ENT, Mouth: Mucous membranes moist Respiratory: There are no retractions, lungs are clear to auscultation Cardiovascular: Regular rate and rhythm Gastrointestinal: Abdomen is soft and nontender, no masses, bowel sounds normal Neurological: A&O, normal motor function, normal sensory exam, normal cranial nerves Skin: Warm and dry, no rashes Musculoskeletal: Neck is supple nontender Extremities: Chronic left foot deformity Psychiatric: Cooperative, denies suicidal or homicidal ideation (Madhav Noriega) Constitutional: Initial Vital Signs Temperature (C) 36.6 C 10/18/17 20:22 Heart Rate 100 10/18/17 20:22 Respiratory Rate 14 10/18/17 20:22 Blood Pressure 180/91 H 10/18/17 20:22 O2 Sat (%) 86 L 10/18/17 20:22 O2 Delivery Mode Room Air O2 (L/minute) 2 Allergies/Adverse Reactions: Sulfa (Sulfonamide Antibiotics) Allergy (Intermediate, Verified 10/18/17 20:21) Vomiting Home Medications: Medication Instructions Recorded Aspirin [Aspirin 81mg (*)] 81 mg PO HS 12/09/16 QUEtiapine FUMARATE [Seroquel 25 25 mg PO DAILY PRN #30 tab 12/26/16 mg (*)] amLODIPine BESYLATE [Norvasc 5 mg 5 mg PO DAILY 05/12/17 (*)] traZODone [traZODONE 100MG (*)] 300 mg PO HS 3 Days tab 07/16/17 Medical Decision Making - Diagnostics Imaging Results: Imaging Impressions Chest X-Ray 10/18/17 21:12 Impression: 1. Findings suggestive of airways disease are noted. 2. Basilar atelectasis. 3. Shallow inspiration. 4. Borderline cardiac enlargement suggestive of low-grade congestive heart failure. ED Course/Re-evaluation: The patient presents to the ED with mild hypoxemia in the setting of using 6 mg of Klonopin over the course of the day. The patient's chest x-ray demonstrates no obvious pneumonia. The patient is not suicidal or homicidal and does not meet criteria for 72 hr mental health hold. The patient was somewhat somnolent secondary to the effect of his Klonopin. Plan will be for observation in the emergency department as the patient metabolizes his Klonopin. The patient will be turned over to Dr. Boudreaux at 11pm. (Madhav Noriega) 12:14 a.m.- Patient has improved during the course of my shift. He is now more awake and alert. Oxygenation is normal. He will be discharged. (Rocio Boudreaux) Differential Diagnosis: Differential diagnosis considered includes pneumonia, intentional overdose, benzodiazepine toxicity, suicidal ideation, anxiety (Madhav Noriega) Departure - Departure Disposition: Home, Routine, Self-Care Clinical Impression: Anxiety Condition: Good Instructions: Anxiety (ED) Additional Instructions: 1. Do not take take more Klonopin than you have been prescribed. 2. Return to the ED for any worsening symptoms, difficulty breathing or other concerns. 3. Please follow up with your primary care provider as needed. Referrals: Kimo John MD [Primary Care Provider] - As per Instructions
[2017-10-19 00:18] VITALS: BP 182/92; PULSE 90; RESP 18; O2SAT 93
== END 2017-10-19 00:26 | disposition home or self-care (01) ==
LOC: EDUNIT#
DX: F41.9 Anxiety disorder, unspecified (principal); J45.909 Unspecified asthma, uncomplicated; I25.10 Atherosclerotic heart disease of native coronary artery without angina pectoris; Z79.82 Long term (current) use of aspirin

== ENCOUNTER 2017-11-02 10:56 | Inpatient (IN) | payer OTHER, MEDICAID ==
[2017-11-02] MEDS ORDERED: methylPREDNISolone SOD SUCC 125 MG/2 ML VIAL ONE (11:09)
[2017-11-02] MEDS ORDERED: NS 500 ML IV ONE ×2 (11:09→13:30)
[2017-11-02] MEDS ORDERED: IPRATROPIUM/ALBUTEROL 3 ML DEYVIAL IH ONE (11:09)
[2017-11-02] MEDS ORDERED: methylPREDNISolone SOD SUCC 125 MG/2 ML VIAL IVP ONE (11:09)
[2017-11-02] MEDS ORDERED: MAGNESIUM SULF 2 GM/WATER 50 ML IV ONE (11:09)
--- NOTE | 2017-11-02 11:21 | CPEKG ---
Heart Rate: 109 RR Interval: 550 P-R Interval: 136 QRSD Interval: 78 QT Interval: 348 QTC Interval: 469 P Piedmont: 65 QRS P[place]mont: 11 T Wave P[place]: 27 EKG Severity - ABNORMAL ECG - EKG Impression: SINUS TACHYCARDIA EKG Impression: PROBABLE POSTERIOR INFARCT Electronically Signed By: Mj Hannah 02-Nov-2017 15:33:16
[2017-11-02 11:25] LABS: PLATELET COUNT 144 10^3/uL (150-400)
--- NOTE | 2017-11-02 11:31 | EDPHY ---
H & P Time Seen by Provider: 11/02/17 11:09 HPI/ROS: HPI Shortness of breath. 67-year-old male by ambulance from home. Patient's roommate found him laying in bed having a difficult time breathing. No associated chest pain. Reports that he started having trouble breathing last night before going to sleep. He reports that he is not able to lay flat. He does have a history of COPD but denies smoking. Reports having a chronic cough. ROS: Constitutional: No fever, no chills. No weakness. Eyes: No discharge. No changes in vision. ENT: No sore throat. No nasal congestion or rhinorrhea. Respiratory: As above. Cardiac: No chest pain, no palpitations. Gastrointestinal: No abdominal pain, no vomiting, no diarrhea. Genitourinary: No hematuria. No dysuria or increased frequency with urination. Musculoskeletal: No back pain. No neck pain. No myalgias or arthralgias. Skin: No rashes. Neurological: No headache. No focal weakness or altered sensation. Past medical history: Anxiety, chronic pain, coronary artery disease, COPD, left foot deformity from 10 years ago, ND with stents in 2011, appendectomy, kidney problems. Social history: Former smoker. Currently here by himself. Has a roommate. Denies alcohol. Physical Exam: General Appearance: Sleepy but is easily arousable. This patient is responding to questions appropriately short yes or no answers. This patient appears generally well-hydrated and well-nourished. Eyes: Pupils equal and round no pallor or injection. No lid edema, erythema or injection. ENT, Mouth: Mucous membranes are moist. The pharyngeal tissues are unremarkable. No edema or swelling. No asymmetry suggestive of abscess. No erythema or exudates. Respiratory: There are no retractions, decreased air movement throughout with scant rhonchi bilaterally. Tachypnea at 22. Cardiovascular: Regular rate and rhythm. Tachycardia. No murmur. Gastrointestinal: Obese habitus. Abdomen is soft and nontender, no masses, bowel sounds normal. No focal tenderness at McBurney's point. No Eaton sign. Neurological: Motor sensory function is grossly intact. Cranial nerves are normal. Skin: Warm and dry, no rashes. Musculoskeletal: Neck is supple and nontender. Extremities are symmetrical except for chronic deformity of left foot. All joints range without pain or impingement. Psychiatric: No agitation. No depression. Database: EKG: EKG time is 11:19 a.m.; EKG shows a narrow complex normal sinus rhythm with a ventricular rate of 109. The MN, QRS, QT intervals are within normal limits. There are no ST-T wave changes indicative of ischemic or injury pattern. No evidence of right heart strain. Interpreted by me. Imaging: Chest x-ray the portable; the cardiac mediastinal silhouette is unremarkable. Shallow inspiration, basilar atelectasis. No evidence of infiltrate or pneumothorax. Bronchitis. No other acute cardiopulmonary disease process noted. No significant change from October 18 of this year. Interpreted by me. Procedures: Emergency department course: IV placed x2. Advanced airway equipment to the bedside. Patient placed on a monitoring and evaluation advisor. Vital signs reviewed. Blood cultures obtained. EKG obtained and reviewed by myself shortly after arrival. Patient started on IV normal saline with 250 cc to 500 cc to be given over the next hour. Medical records reviewed. Recent emergency department visit for unintentional Klonopin overdose. The patient also takes Seroquel and trazodone. 12:05 p.m., patient re-evaluated. Much more comfortable at this time. Currently on 10 L of Oxy mask oxygen pulse oximetries 92%. Denies overdosing on Klonopin. Speaking more comfortably. Not dyspneic at rest. Much improved air movement anteriorly. Hospitalist paged. 12:10 p.m., spoke with hospitalist. Patient accepted for admission to the step- down unit under the care of Dr. Grzegorz Vee. Discussed elevated troponin, slightly elevated D-dimer and need for antibiotics. Imaging for PE and antibiotics deferred to hospitalist service. Patient admitted to the step-down unit in stable and improved condition. Differential Diagnosis: The differential diagnosis on this patient includes but is not limited to pneumonia, CHF, acute coronary syndrome, pulmonary embolism, COPD exacerbation. This represents a partial list of diagnoses considered. These considerations are based on history, physical exam, past history, reassessment and diagnostic testing. Smoking Status: Never smoked Constitutional: Initial Vital Signs Temperature (C) 38.1 C 11/02/17 11:04 Heart Rate 118 H 11/02/17 11:04 Respiratory Rate 22 H 11/02/17 11:04 Blood Pressure 150/98 H 11/02/17 11:04 O2 Sat (%) 93 11/02/17 11:04 O2 Delivery Mode Oxymask O2 (L/minute) 10 Allergies/Adverse Reactions: Sulfa (Sulfonamide Antibiotics) Allergy (Intermediate, Verified 10/18/17 20:21) Vomiting Home Medications: Medication Instructions Recorded Aspirin [Aspirin 81mg (*)] 81 mg PO HS 12/09/16 amLODIPine BESYLATE [Norvasc 5 mg 5 mg PO DAILY 05/12/17 (*)] traZODone [traZODONE 100MG (*)] 300 mg PO HS 3 Days tab 07/16/17 Gabapentin [Neurontin 300 MG (*)] 300 mg PO DAILY 11/02/17 QUEtiapine FUMARATE [Seroquel 200 200 mg PO HS 11/02/17 mg (*)] QUEtiapine FUMARATE [Seroquel 50 50 mg PO HS 11/02/17 mg (*)] Medical Decision Making - Data Points Laboratory Results: Laboratory Results 11/02/17 11:10 11/02/17 11:10 11/02/17 11/02/17 11/02/17 11:16 11:10 11:10 WBC RBC Hgb Hct MCV MCH MCHC RDW Plt Count MPV Neut % (Auto) Lymph % (Auto) Chambers % (Auto) Eos % (Auto) Baso % (Auto) Nucleat RBC Rel Count Absolute Neuts (auto) Absolute Lymphs (auto) Absolute Monos (auto) Absolute Eos (auto) Absolute Basos (auto) Absolute Nucleated RBC Immature Gran % Immature Gran # PT INR APTT D-Dimer VBG Lactic Acid 1.4 mmol/L mmol/L (0.7-2.1) Sodium 143 mEq/L mEq/L (135-145) Potassium 4.7 mEq/L mEq/L (3.5-5.2) Chloride 108 mEq/L mEq/L (97-110) Carbon Dioxide 25 mEq/l mEq/l (22-31) Anion Gap 10 mEq/L mEq/L (8-16) BUN 29 mg/dL H mg/dL (7-23) Creatinine 1.5 mg/dL H mg/dL (0.7-1.3) Estimated GFR 46 Glucose 113 mg/dL H mg/dL (70-100) Calcium 9.2 mg/dL mg/dL (8.5-10.4) Troponin I 0.057 ng/mL H ng/mL (0.000-0.034) NT-Pro-B Natriuret Pep 626 pg/mL H pg/mL (0-125) Ethyl Alcohol < 10 mg/dL mg/dL (0-10) 11/02/17 11/02/17 11:10 11:10 WBC 12.67 10^3/uL H 10^3/uL (3.80-9.50) RBC 5.25 10^6/uL 10^6/uL (4.40-6.38) Hgb 16.9 g/dL g/dL (13.7-17.5) Hct 50.6 % % (40.0-51.0) MCV 96.4 fL fL (81.5-99.8) MCH 32.2 pg pg (27.9-34.1) MCHC 33.4 g/dL g/dL (32.4-36.7) RDW 12.6 % % (11.5-15.2) Plt Count 144 10^3/uL L 10^3/uL (150-400) MPV 9.1 fL fL (8.7-11.7) Neut % (Auto) 89.5 % H % (39.3-74.2) Lymph % (Auto) 3.3 % L % (15.0-45.0) Chambers % (Auto) 6.5 % % (4.5-13.0) Eos % (Auto) 0.1 % L % (0.6-7.6) Baso % (Auto) 0.2 % L % (0.3-1.7) Nucleat RBC Rel Count 0.0 % % (0.0-0.2) Absolute Neuts (auto) 11.34 10^3/uL H 10^3/uL (1.70-6.50) Absolute Lymphs (auto) 0.42 10^3/uL L 10^3/uL (1.00-3.00) Absolute Monos (auto) 0.82 10^3/uL H 10^3/uL (0.30-0.80) Absolute Eos (auto) 0.01 10^3/uL L 10^3/uL (0.03-0.40) Absolute Basos (auto) 0.03 10^3/uL 10^3/uL (0.02-0.10) Absolute Nucleated RBC 0.00 10^3/uL 10^3/uL (0-0.01) Immature Gran % 0.4 % % (0.0-1.1) Immature Gran # 0.05 10^3/uL 10^3/uL (0.00-0.10) PT 13.8 SEC SEC (12.0-15.0) INR 1.04 (0.83-1.16) APTT 26.8 SEC SEC (23.0-38.0) D-Dimer 0.63 ug/mLFEU H ug/mLFEU (0.00-0.50) VBG Lactic Acid Sodium Potassium Chloride Carbon Dioxide Anion Gap BUN Creatinine Estimated GFR Glucose Calcium Troponin I NT-Pro-B Natriuret Pep Ethyl Alcohol Medications Given: Doxycycline Hyclate 100 mg/ (Sodium Chloride) 260 mls @ 260 mls/hr IV Q12HRS BRADEN PRN Reason: Protocol Stop: 12/02/17 13:29 Last Admin: 11/02/17 14:52 Dose: 260 mls Discontinued Medications Albuterol/Ipratropium (Duoneb) 9 ml IH EDNOW ONE Stop: 11/02/17 11:10 Last Admin: 11/02/17 11:20 Dose: 9 ml Sodium Chloride (Ns) 500 mls @ 1,000 mls/hr IV EDNOW ONE PRN Reason: Protocol Stop: 11/02/17 11:38 Last Admin: 11/02/17 11:15 Dose: 500 mls Magnesium Sulfate (Magnesium Sulf 2 Gm (Premix)) 50 mls @ 50 mls/hr IV EDNOW ONE Stop: 11/02/17 12:08 Last Admin: 11/02/17 11:23 Dose: 50 mls Sodium Chloride (Ns) 500 mls @ 1,500 mls/hr IV ONCE ONE Stop: 11/02/17 13:49 Last Admin: 11/02/17 14:52 Dose: 500 mls Methylprednisolone Sodium Succinate (Solu-Medrol) 125 mg IVP EDNOW ONE Stop: 11/02/17 11:10 Last Admin: 11/02/17 11:20 Dose: 125 mg Departure - Departure Disposition: [facility] Acute Clinical Impression: Dyspnea, Hypoxia, COPD exacerbation, Bronchitis
[2017-11-02 11:34] LABS: INR 1.04 (0.83-1.16); PROTIME(PATIENT) 13.8 SEC (12.0-15.0)
--- NOTE | 2017-11-02 12:12 | ASMTCMCOM ---
CM Note CM Note Notes: Pt presented to the Emergency Department with shortness of breath and malaise. Pt to be admitted for dyspnea, hypoxia and an elevated troponin. Pt was found in bed by his roommate with difficulty breathing. History includes COPD, anxiety, chronic pain, CAD with ND and stent placement in 2011, an appy and left foot deformity approx 10 yrs ago. Pt lives with his roommate and is well known this Emergency Department. Pt was previously followed by Dr. Irma Quiros, but no-showed for his appointments 7 times and was finally asked to find a new doctor. [facility] ED Case Management previously tried to set pt up with a PCP at [facility]. Pt showed up for the appointment in early July, but left prior to being seen. Pt takes Klonopin, Seroquel and Trazadone to manage his anxiety/pain. He has presented to the Emergency Department in the past seeking refills. Per ED CM notes, pt is not eligible for refills from [facility], because he has had difficulty establishing care with a PCP and has a history of noncompliance. Pt's discharge needs remain unclear at this time. CM will continue to follow. Current Discharge Plan: To be determined Date Signed: 11/02/2017 12:09 PM Electronically Signed By:Ricarda Kaur RN
[2017-11-02] MEDS ORDERED: ALBUTEROL 3 ML DEYVIAL IH PRN (13:28)
[2017-11-02] MEDS ORDERED: ACETAMINOPHEN 325 MG TAB PO PRN (13:30)
[2017-11-02] MEDS ORDERED: ONDANSETRON 4 MG/2 ML VIAL IVP PRN (13:30)
--- NOTE | 2017-11-02 14:26 | GHP ---
[f rep st] HISTORY AND PHYSICAL DATE OF ADMISSION: 11/02/2017 HISTORY OF PRESENT ILLNESS: The patient is a 67-year-old gentleman with history of COPD who was brought to the ER today after a friend saw him in respiratory distress and sent to the emergency department. Upon presentation, it sounds like he had increased work of breathing and respiratory exam with poor air movement in the opinion of the ER physician with whom I discussed the case that this represented a COPD flare affair he received steroids, nebulizers and magnesium. When I speak with the patient, he has white cough, feels that his breathing is about the same as it typically is. He denies chest pain. He denies shortness of breath. He acknowledges his prior history of heart attack. He states he has been a lifelong nonsmoker. He denies recent fever, chills. He denies cough or sputum. REVIEW OF SYSTEMS: Complete 10-point review of systems conducted negative, except as noted in the HPI. PAST MEDICAL HISTORY: 1. Anxiety disorder. 2. History of coronary artery disease, previous stent. 3. Chronic kidney disease, baseline creatinine 1.2. 4. Hypertension. 5. Hyperlipidemia. 6. fall with chest wall hematoma. 7. Bipolar. 8. Chronic pain. 9. Left ankle trauma with ongoing deformity. 10. Chronic falls. 11. Right upper extremity DVT. ALLERGIES: Sulfa. SOCIAL HISTORY: He denies smoking. He has had a history of alcoholism, but he denies that now. Denies history of tobacco. Lives alone. FAMILY HISTORY: Reviewed and unremarkable. PHYSICAL EXAMINATION: VITAL SIGNS: Temp 38.1, blood pressure 150/98, pulse 180 , breathing 22 times a minute, 93% on 15 L. GENERAL: No acute distress. HEENT : Sclerae anicteric. Oropharynx is clear. He is on a non-rebreather. He appears to have tobacco stains around his mouth. He has a wet cough. NECK: It is difficult to assess JVD, but he does have or increased increased shortness of breath when I lay him flat. LUNGS: Rhonchorous anterolaterally with good air movement and some wheezes. HEART: S1, S2. Tachycardic. ABDOMEN : Soft, nontender, nondistended. LOWER EXTREMITIES: Show trace edema bilaterally. There is left ankle deformity. SKIN: There is evidence of scratching on his lower extremities. NEUROLOGIC: Nonfocal. LABORATORY/IMAGING: White count 12.7, hematocrit 50, his baseline is 45, platelets are 114, is chronically a little bit low. D-dimer elevated 0.63. INR is 1. Venous lactate today 1.4, which is a normal value. Sodium 143, potassium 4.7, chloride 108, bicarb 25, BUN 29, creatinine 1.5, his baseline about 1.2, glucose 113. Troponin 0.057. BNP 626. He has had normal values in the past. Chest x-ray interpreted by me shows airway disease without focal infiltrate. EKG shows sinus tach at 109 with normal axis and intervals. Some ST depression in lead II, not seen in the other inferior leads, some ST depression in V5 and V6 that is upsloping nonischemic appearing. I discussed the case with Dr. Lilly Hannah. ASSESSMENT/PLAN: 67-year-old gentleman who presents with increased work of breathing, tachycardia, oxygen requirement. 1. Acute hypoxemic respiratory failure. This appears to be a chronic obstructive pulmonary disease or reactive airway disease type exacerbation with the absence of infiltrate, increased work of breathing. I have started him on steroids, doxycycline, scheduled DuoNeb, p.r.n. albuterol. 2. Volume status. The patient has an elevated BNP, but also elevated BUN and creatinine consistent with prerenal. His volume status is a little bit mixed picture. I will bolus him 500 cc and follow his response. 3. Question sepsis. The patient has apparent bronchitis, leukocytosis, and tachycardia consistent with possible sepsis. He does have a normal lactate. As above, we will try empiric resuscitation. 4. Question chronic obstructive pulmonary disease. When the patient is more at his baseline, we can give a trial of bedside pulmonary function tests. 5. Elevated BNP. Will check an echocardiogram. 6. History of deep venous thrombosis. I have considered pulmonary embolism as part of his evaluation. I do note an elevated D-dimer. We will try treating this is a reactive airway disease flare, and if it does not improve, then certainly, a CT pulmonary embolism protocol would be appropriate. At this point in time, my suspicion is low enough that I will not empirically anticoagulate him. Certainly if echocardiogram shows markedly elevated right- sided pressures that would be concerning as well and prompt earlier CT scan. 7. Prophylaxis. Low molecular heparin prophylaxis indicated. 8. Bipolar. Continue his medications. DISPOSITION: Step-down unit. addendum: patient bolused 500 cc ns w subsequent respiratory decompensation. he was wet, not dry. 1. lasix 2. BIPAP 3. agrees to intubation if necessary 4. ABG 5. CT for PE 60 min crit care /[id number]/MODL MTDD
[2017-11-02] MEDS ORDERED: CHLORHEXIDINE GLUC HIBICLENS 118 ML BTL TP ONE (14:37)
[2017-11-02] MEDS: DOXYCYCLINE INJ 100 MG in NS 250 ML IV SCH ×2 (14:52→22:17)
--- NOTE | 2017-11-02 15:14 | ECHO ---
[email or web address] [address] [address] Main: [phone] Fax: Transthoracic Echocardiogram Name: TERESE ESPINO MR#: [id number] Study Date: 11/02/2017 Study Time: 01:56 PM Date of : 1950 Age: 67 year(s) Height: 172.7 cm (68 in.) Weight: 81.65 kg (180 lb.) BSA: 1.95 m2 Gender: Male Examination: Echo Indication: Dyspnea/h/o CAD/elevated bnp Image Quality: Contrast: Requested by: Aguilar Vee BP: 134 mmHg/71 mmHg Heart Rate: Rhythm: Indication: Dyspnea/h/o CAD/elevated bnp Procedure Staff Principal Technical Specialist: Daina Norman RDCS Reading Physician: Eric Chow MD Requesting Provider: Conclusions: Global hypercontractility of the left ventricle. The ejection fraction is estimated to be 70-75 %. Normal size right ventricle. The left atrium is normal in size. The right atrium is normal in size. The mitral valve is normal in appearance. Measurements: Chambers Valvular Assessment AV/MV Valvular Assessment TV/PV Normal Normal Normal Name Value Range Name Value Range Name Value Range Ao Velia (MM): 3.5 cm (2.2 cm-3.7 AV Vmax: 1.43 m/s (1 m/s-1.7 cm) m/s) EF Range: 70-75 % AV maxP mmHg ( - ) AV meanP mmHg ( - ) MV E Vmax: 0.63 m/s ( - ) MV A Vmax: 0.90 m/s ( - ) MV E/A: 0.70 ( - ) Continued Measurements: Valvular Assessment AV/MV Name Value MV E/E' Septal: 11.80 MV E/E' Lateral: 7.00 Findings: Left Ventricle: Patient: TERESE ESPINO Study Date: 11/02/2017 Page 1 of 2 01:56 PM Global hypercontractility of the left ventricle. The ejection fraction is estimated to be 70-75 %. Right Ventricle: Normal size right ventricle. Left Atrium: The left atrium is normal in size. Right Atrium: The right atrium is normal in size. Mitral Valve: The mitral valve is normal in appearance. Aortic Valve: AV opens well.. Tricuspid Valve: The tricuspid valve appears normal. Pulmonic Valve: Pulmonary valve not well visualized. Pericardium: There is pericardial fat. (No Signature Object) Patient: TERESE ESPINO Study Date: 11/02/2017 Page 2 of 2 01:56 PM D:_[id number]
[2017-11-02] MEDS ORDERED: FUROSEMIDE 20 MG/2 ML VIAL ONE (16:08)
[2017-11-02] MEDS ORDERED: FUROSEMIDE 100 MG/10 ML VIAL IV ONE (16:15)
[2017-11-02] MEDS ORDERED: FUROSEMIDE 20 MG/2 ML VIAL IV ONE (16:15)
[2017-11-02] MEDS: IPRATROPIUM/ALBUTEROL 3 ML DEYVIAL IH SCH ×2 (16:26→22:43)
[2017-11-02] MEDS ORDERED: IOPAMIDOL (ISOVUE 370) 100 ML BTL IV ONE (17:03)
--- NOTE | 2017-11-02 17:03 | ASMTLACE ---
BALTA Acuity / Level of Answers: Yes Care: Did the patient have an inpatient admission? Comorbidities - select Answers: Chronic pulmonary disease all that apply Coronary Artery Disease Previous myocardial infarction Other Notes: Stents, L foot deformity, chronic pain # of Emergency department Answers: 9-12 visits in the last 6 months Social determinants Answers: History of substance abuse (ETOH, street drugs, prescription drugs, etc.) Mental health diagnosis (anxiety, depression, pers onality disorders, etc.) Lack of community resources and/or lack of social support (no pcp, lives alone, transportation, rikki d) Score: 24 Date Signed: 11/02/2017 05:02 PM Electronically Signed By:Ricarda Kaur RN
--- NOTE | 2017-11-02 17:58 | PDMN ---
Medical Necessity Medical necessity: Pt meets IP criteria per MD; est los >2 mn for eval/tx of acute hypoxemic respiratory failure, possible sepsis & elevated BNP; admit to SDU for further workup/monitoring, BIPAP, respiratory supportive care, IV abx, IV Solu-Medrol, IV Lasix & therapies; hx CAD, HTN, COPD, CKD, DVT, chronic falls ; per H&P & order 11/02/17
[2017-11-02] MEDS: methylPREDNISolone SOD SUCC 125 MG/2 ML VIAL IVP SCH (18:05)
[2017-11-02] MEDS ORDERED: FUROSEMIDE 40 MG/4 ML VIAL IVP ONE (22:00)
[2017-11-02] MEDS: traZODone 100 MG TAB PO SCH (22:16)
[2017-11-02] MEDS: QUEtiapine FUMARATE 50 MG TAB PO SCH (22:16)
[2017-11-02] MEDS: QUEtiapine FUMARATE 200 MG TAB PO SCH (22:16)
[2017-11-02] MEDS: ASPIRIN 81 MG CHEWABLE TAB PO SCH (22:17)
[2017-11-02] MEDS: GABAPENTIN 300 MG CAP PO SCH ×2 (22:26→22:27)
[2017-11-02] MEDS: OXYCODONE/APAP 5/325 TAB PO PRN (22:54)
[2017-11-03] MEDS: methylPREDNISolone SOD SUCC 125 MG/2 ML VIAL IVP SCH ×2 (00:20→06:15)
[2017-11-03] MEDS: OXYCODONE/APAP 5/325 TAB PO PRN ×3 (03:36→21:18)
[2017-11-03 04:47] LABS: PLATELET COUNT 131 10^3/uL (150-400)
[2017-11-03] MEDS: IPRATROPIUM/ALBUTEROL 3 ML DEYVIAL IH SCH ×3 (05:41→16:58)
[2017-11-03] MEDS: ENOXAPARIN 40 MG/0.4 ML SYR SC SCH ×2 (09:23→09:27)
[2017-11-03] MEDS: DOXYCYCLINE INJ 100 MG in NS 250 ML IV SCH ×2 (09:54→22:00)
--- NOTE | 2017-11-03 10:11 | HOSPPROG ---
Hospitalist Progress Note Assessment/Plan: 67 yo M a/w sepsis, LLL infiltrate ahrf sepsis: septic physiology has resolved did not require pressors LLL pneumonia: ceftrixone/doxy pulm toilet AHRF: attributable to air space disease dc steroids ? PE: h/o dvt and elevated d dimer check LE u/s CANNOT DUE CT PE today 2/2 cr no empiric anticoag + trop: normal echo no CP trending down rec stress at end of hospitalization proph: lmwh dispo: likley to floor later today Subjective: case d/w dr millan. cxr w LLL effusion (interp by me). imprpved frm last pm Objective: Vital Signs Temp Pulse Resp BP Pulse Ox 36.5 C 97 15 129/54 H 92 11/03/17 08:12 11/03/17 08:12 11/03/17 08:12 11/03/17 08:12 11/03/17 08:12 Laboratory Results 11/03/17 04:14 11/03/17 04:14 11/02/17 11/03/17 11/04/17 05:59 05:59 05:59 Intake Total 2498 Output Total 2650 Balance -152 PT 13.8 SEC (12.0-15.0) 11/02/17 11:10 INR 1.04 (0.83-1.16) 11/02/17 11:10 - Physical Exam Constitutional: no apparent distress, appears nourished, other (more alert and conversant than yesterday) Eyes: PERRL, anicteric sclera Ears, Nose, Mouth, Throat: moist mucous membranes, hearing normal Cardiovascular: regular rate and rhythym, no murmur, rub, or gallop Respiratory: no respiratory distress, other (wet cough. good air movement. no wheeze. crackles L base) Gastrointestinal: normoactive bowel sounds, soft, non-tender abdomen Genitourinary: no bladder fullness, rodriges in urethra Skin: warm, normal color Musculoskeletal: full muscle strength, no muscle tenderness Neurologic: AAOx3 ICD10 Worksheet Patient Problems: Problems Problem Status Onset Bronchitis Acute COPD exacerbation Acute Dyspnea Acute Hypoxia Acute chronic disease mgmt/transitional care Acute Anxiety Acute Atrial fibrillation Acute Benzodiazepine withdrawal Acute Bronchospasm Acute Chest wall contusion Acute Dehydration Acute Depression Acute Generalized weakness Acute Hyperkalemia Acute Hypoxemia Acute Intentional overdose of drug in tablet form Acute Pneumonia Acute Renal failure Acute Rhabdomyolysis Acute Right rib fracture Acute Suicide attempt by drug ingestion Acute Vertigo Acute
--- NOTE | 2017-11-03 11:43 | CPEKG ---
Heart Rate: 85 RR Interval: 706 P-R Interval: 140 QRSD Interval: 88 QT Interval: 348 QTC Interval: 414 P [place]: 71 QRS [place]: 27 T Wave [place]: 10 EKG Severity - BORDERLINE ECG - EKG Impression: SINUS RHYTHM EKG Impression: BORDERLINE T WAVE ABNORMALITIES -- More prominent since November 02, 2017 Electronically Signed By: Amol Coronel 03-Nov-2017 17:14:54
--- NOTE | 2017-11-03 12:42 | ASMTCMCOM ---
CM Note CM Note Notes: Patient admitted for sepsis (did not require pressors), LLL PNA (IV antibiotics), and questionable PE. He needs a CT but cannont proceed due to creatinine level today. Of important note: patient has been seen multiple times in our ED for anxiety/anxiety-medication related concerns. I spoke with him about his support in this regard, and without going into much detail about his past or diagnosis, he shared this with me: he is seen by Melanie Natarajan, an SENIOR ENGINEERING SPECIALIST at [facility] for med management. Per patient, he sees her every three months, and "she does nothing." He says he is prescribed sleep medication but nothing else. He says he is not taking any benzos right now but "would be so much better if I was." I reminded him of the complexity of this, and he agreed. I also encouraged him to seek a new provider at [facility] if he is that dissatisfied with his current one. I recommended a therapist, as well. I did call [facility] on patient's behalf and made an appointment for him on 11/08 at 10AM. Regarding d/c needs related to his acute hypoxic respiratory failure, patient says he does have an oxygen "machine" at home but no oxygen. He says that he had some but when it ran out, he did not call to resupply. He believes it was [employer] who brought the equipment. If he has needs in this regard, Respiratory Therapy will arrange. Other discharge needs can be facilitated by Case Management. Date Signed: 11/03/2017 12:41 PM Electronically Signed By:Leny Aleman RN
--- NOTE | 2017-11-03 14:56 | GCON ---
[f rep st] CONSULTATION PULMONARY CRITICAL CARE CONSULTATION DATE OF CONSULTATION: 11/03/2017 HISTORY OF PRESENT ILLNESS: This patient is a 67-year-old male with history of coronary artery disea se and chronic kidney disease, who is thought to have COPD, though he is a lifelong nonsmoker. He de la o s longstanding chronic cough, as well as shortness of breath that he was unable to determine the caus e for, and has used a variety of inhalers in the past with success using nebulizers, but not meter do se inhalers. In any case, he was in his usual state of health until yesterday and had sudden onset o f shortness of breath, and came to the emergency room where he required 15 L to maintain an oxygen sa turation of 93%. Chest x-ray was initially negative. He was treated with some IV fluids, and his est x-ray has a new infiltrate on it. He was also given steroid, ceftriaxone, doxycycline, Solu-Medr ol, and DuoNebs, and required BiPAP overnight. However, he stabilized and felt much better today, an d had lower extremity ultrasounds that showed an occlusive right lower extremity DVT. Of note, he de la o d a right upper extremity DVT in the past that was PICC line associated, but no other venous thromboe mbolic events that I am aware of. Of note, the patient states that his sleep has been very poor for quite some time and says he rarely gets a decent night sleep. He has well known snoring and excess daytime somnolence, but has never de la o d a formal sleep study in the past, but no family history of sleep apnea. REVIEW OF SYSTEMS: Otherwise negative. PAST MEDICAL HISTORY: 1. Coronary artery disease. 2. Chronic kidney disease with baseline creatinine 1.2. 3. Hypertension. 4. Hyperlipidemia. 5. Bipolar. 6. Chest wall hematoma. 7. Right upper extremity DVT. 8. History of falls. 9. History of alcoholism, though he is sober. SURGICAL HISTORY: Unknown. SOCIAL HISTORY: He is a nonsmoker. No alcohol or IV drug use currently. FAMILY HISTORY: Noncontributory. MEDICATIONS: At this time include DuoNeb, albuterol, aspirin, ceftriaxone, doxycycline, Lovenox, Yelena rontin, Zofran, Percocet, Seroquel, trazodone. PHYSICAL EXAM: VITAL SIGNS: He is afebrile during this admission. Blood pressure 129/54, heart rat e 97, respiratory rate 15, oxygen saturation 94% on 10 L nasal cannula. GENERAL: He was overweight, but not morbidly obese. Awake and alert and oriented x3, in no apparent distress. Able to speak in full sentences without using accessory muscles for breathing. HEENT: Pupils equally round and reac tive to light and nonicteric. Mucous membranes are moist without erythema or exudate. NECK: Supple without adenopathy or jugular vein distention. LUNGS: Breath sounds revealed bilateral diffuse coa rse breath sounds without wheezing. HEART: Regular rate and rhythm without murmurs, rubs, gallops. ABDOMEN: Soft, nontender, nondistended, without hepatosplenomegaly. EXTREMITIES: Show no clubbing, cyanosis, or edema. NEUROLOGIC: Nonfocal, including cranial nerves and deep tendon reflexes. SKIN : Warm and dry, without evidence of rash. OBJECTIVE DATA: Includes the ultrasound as described above. His white count was 12.6 on arrival, 10 .9 this morning, hematocrit 45, platelets 131. Basic metabolic panel was remarkable for BUN of 34, c reatinine 1.7. This is up from admission glucose of 210. Troponin was 0.05, but 0.[address] one. BNP 626, up to 709. Procalcitonin 0.95. Blood cultures negative to date. ASSESSMENT AND PLAN: 1. Acute hypoxic respiratory failure. He could possibly have pneumonia because of his elevated proc alcitonin, and I would certainly continue his antibiotics for now. Pulmonary embolism is also a dist inct possibility, but his creatinine precludes doing CT angiogram, and he has had a lower extremity u ltrasound showing a deep vein thrombosis and he needs to be anticoagulated anyway, so I am not sure w e will be able to tease those things out. There is an element probably of fluid overload, since he d id appear to get worse with a rising BNP, and the administration of IV fluids, which was certainly re asonable at the time. I do not think I would give him diuretics just yet. Otherwise, I would contin ue to titrate his oxygen and treat him with full dose anticoagulation, as well as antibiotics. 2. Chronic obstructive pulmonary disease by history, it is highly unlikely that a nonsmoker would de la o ve chronic obstructive pulmonary disease. It is possible he does have asthma because he does report benefit from nebulizer, but not meter dose inhalers in the past. He has no history of asthma either in himself or his family, but does have seasonal allergies. When he is discharged as an outpatient, pulmonary function test could help settle this or at least provide some insight. 3. Acute kidney injury. I would watch this for now and see what his urine output does and his creat inine over the next couple days, particularly on the development of adding on anticoagulation. At th is time, given his response to fluids overnight, I am hesitant to give fluids at this time. /[id number]/MODL
[2017-11-03] MEDS: ENOXAPARIN 80 MG/0.8 ML SYR SC SCH ×2 (16:07→22:24)
[2017-11-03] MEDS: QUEtiapine FUMARATE 50 MG TAB PO SCH (21:18)
[2017-11-03] MEDS: ASPIRIN 81 MG CHEWABLE TAB PO SCH (21:18)
[2017-11-03] MEDS: traZODone 100 MG TAB PO SCH (21:18)
[2017-11-03] MEDS: GABAPENTIN 300 MG CAP PO SCH (21:18)
[2017-11-03] MEDS: QUEtiapine FUMARATE 200 MG TAB PO SCH (21:18)
[2017-11-04] MEDS: IPRATROPIUM/ALBUTEROL 3 ML DEYVIAL IH SCH ×5 (00:39→22:30)
[2017-11-04 05:13] LABS: PLATELET COUNT 117 10^3/uL (150-400)
[2017-11-04] MEDS: OXYCODONE/APAP 5/325 TAB PO PRN (05:25)
[2017-11-04] MEDS: DOXYCYCLINE INJ 100 MG in NS 250 ML IV SCH ×2 (08:15→21:37)
[2017-11-04] MEDS: ENOXAPARIN 80 MG/0.8 ML SYR SC SCH ×2 (08:43→21:29)
--- NOTE | 2017-11-04 09:41 | HOSPPROG ---
Hospitalist Progress Note Assessment/Plan: 67 yo M a/w sepsis, LLL infiltrate ahrf sepsis: septic physiology has resolved did not require pressors LLL pneumonia: ceftriaxone/doxy pulm toilet AHRF: attributable to air space disease dc steroids improving ? PE: dvt noted will anticoagulate no R heart strain on echo + trop: normal echo no CP trending down rec stress at end of hospitalization proph: lmwh dispo: to floor Subjective: case d/w dr millan. u/s + for dvt Objective: Vital Signs Temp Pulse Resp BP Pulse Ox 36.6 C 67 12 127/62 H 93 11/04/17 07:32 11/04/17 07:32 11/04/17 07:32 11/04/17 07:32 11/04/17 07:32 Laboratory Results 11/04/17 05:00 11/04/17 05:00 11/03/17 11/04/17 11/05/17 05:59 05:59 05:59 Intake Total 2498 3490 Output Total 2650 2275 Balance -152 1215 PT 13.8 SEC (12.0-15.0) 11/02/17 11:10 INR 1.04 (0.83-1.16) 11/02/17 11:10 - Physical Exam Constitutional: no apparent distress, appears nourished, other (looks better today) Eyes: PERRL, anicteric sclera Ears, Nose, Mouth, Throat: moist mucous membranes, hearing normal Cardiovascular: regular rate and rhythym, no murmur, rub, or gallop Respiratory: no respiratory distress, other (improved exam) Gastrointestinal: normoactive bowel sounds, soft, non-tender abdomen Genitourinary: no bladder fullness, No rodriges in urethra Skin: warm, normal color Musculoskeletal: full muscle strength, no muscle tenderness Neurologic: AAOx3 ICD10 Worksheet Patient Problems: Problems Problem Status Onset Bronchitis Acute COPD exacerbation Acute Dyspnea Acute Hypoxia Acute chronic disease mgmt/transitional care Acute Anxiety Acute Atrial fibrillation Acute Benzodiazepine withdrawal Acute Bronchospasm Acute Chest wall contusion Acute Dehydration Acute Depression Acute Generalized weakness Acute Hyperkalemia Acute Hypoxemia Acute Intentional overdose of drug in tablet form Acute Pneumonia Acute Renal failure Acute Rhabdomyolysis Acute Right rib fracture Acute Suicide attempt by drug ingestion Acute Vertigo Acute
--- NOTE | 2017-11-04 11:40 | PDINTPN ---
Video Game Designer Progress Note Assessment/Plan: Assessment/plan: 67 M admitted 11/02 with acute on chronic SOB (thought to be COPD despite lack of smoking history) with increasing O2 requirement after fluid challenge, but later found to have DVT. Also reports long history of poor sleep, snoring and excess daytime somnolence. Mostly sedentary related to foot deformity and chronic pain issues. * Acute respiratory failure with hypoxia - his PCT was elevated enough to suggest bacterial infection such as PNA but PE is also possible. Not likely COPD without smoking history, but possibly asthma. Continue abx, and holding steroids for now. Will need PFTs when stable as an outpatient. * DVT with ?PE- history of PICC associated RUE DVT in past but unclear anticoag story. Now DVT provoked by immobilization, hx VTE, with possible contribution for moderate obesity and ANGEL. Will need exterminator termite oral AC for at least 3-6 months and arguably for life. Outpatient Heme consult may be helpful * ANGEL- more than likely pretest probability. Once stabilized needs outpatient sleep study. * * agree with floor Subjective: feels much better today with minimal O2 requirement. Objective: Vital Signs Temp Pulse Resp BP Pulse Ox 36.6 C 67 12 127/62 H 93 11/04/17 07:32 11/04/17 07:32 11/04/17 07:32 11/04/17 07:32 11/04/17 07:32 Laboratory Results 11/04/17 05:00 11/04/17 05:00 11/03/17 11/04/17 11/05/17 05:59 05:59 05:59 Intake Total 2498 3490 Output Total 2650 2275 Balance -152 1215 PT 13.8 SEC (12.0-15.0) 11/02/17 11:10 INR 1.04 (0.83-1.16) 11/02/17 11:10 Physical Exam - Physical Exam General Appearance: alert, no apparent distress, obese EENT: PERRL/EOMI Neck: supple Respiratory: lungs clear, normal breath sounds, No respiratory distress, No accessory muscle use Cardiac/Chest: regular rate, rhythm, No edema Abdomen: non-tender, soft, No distended Skin: normal color, warm/dry, No cyanosis Lymphatic: no adenopathy Extremities: pedal edema, other (LLE deformity) Neuro/Psych: alert, normal mood/affect, oriented x 3 ICD10 Worksheet Patient Problems: Problems Problem Status Onset Bronchitis Acute COPD exacerbation Acute Dyspnea Acute Hypoxia Acute chronic disease mgmt/transitional care Acute Anxiety Acute Atrial fibrillation Acute Benzodiazepine withdrawal Acute Bronchospasm Acute Chest wall contusion Acute Dehydration Acute Depression Acute Generalized weakness Acute Hyperkalemia Acute Hypoxemia Acute Intentional overdose of drug in tablet form Acute Pneumonia Acute Renal failure Acute Rhabdomyolysis Acute Right rib fracture Acute Suicide attempt by drug ingestion Acute Vertigo Acute
--- NOTE | 2017-11-04 14:59 | ASMTCMCOM ---
CM Note CM Note Notes: Spoke with pt regarding PT/OT's recommendation for homecare at d/c. He currently receives [facility] services through [facility]. Sent referral via [facility] for [facility] RN/PT/OT. Anticipate he will transfer to [facility] soon. Date Signed: 11/04/2017 02:58 PM Electronically Signed By:JAMEEL Pace
[2017-11-04] MEDS: ASPIRIN 81 MG CHEWABLE TAB PO SCH (21:29)
[2017-11-04] MEDS: traZODone 100 MG TAB PO SCH (21:30)
[2017-11-04] MEDS: QUEtiapine FUMARATE 200 MG TAB PO SCH (21:30)
[2017-11-04] MEDS: QUEtiapine FUMARATE 50 MG TAB PO SCH (21:30)
[2017-11-04] MEDS: GABAPENTIN 300 MG CAP PO SCH (21:30)
[2017-11-04] MEDS: TEMAZEPAM 15 MG CAP PO SCH (21:30)
[2017-11-05] MEDS: OXYCODONE/APAP 5/325 TAB PO PRN ×3 (04:35→16:26)
[2017-11-05 04:53] LABS: PLATELET COUNT 133 10^3/uL (150-400)
[2017-11-05] MEDS: IPRATROPIUM/ALBUTEROL 3 ML DEYVIAL IH SCH ×4 (05:58→22:53)
[2017-11-05] MEDS: ENOXAPARIN 80 MG/0.8 ML SYR SC SCH ×2 (08:51→20:08)
[2017-11-05] MEDS: DOXYCYCLINE INJ 100 MG in NS 250 ML IV SCH ×2 (09:32→20:07)
--- NOTE | 2017-11-05 10:59 | HOSPPROG ---
Hospitalist Progress Note Assessment/Plan: 67 yo M a/w sepsis, LLL infiltrate, ahrf sepsis: septic physiology has resolved did not require pressors LLL pneumonia: ceftriaxone/doxy pulm toilet AHRF: attributable to air space disease dc steroids improving ? PE: dvt noted will anticoagulate no R heart strain on echo START WARFARIN TODAY + trop: normal echo no CP trending down likely relatal illness proph: anticoagulated dispo: to floor per pt/ot, will be independent at dc Subjective: more alert. improving Objective: Vital Signs Temp Pulse Resp BP Pulse Ox 36.5 C 62 17 126/70 H 91 L 11/05/17 08:00 11/05/17 08:00 11/05/17 08:00 11/05/17 08:00 11/05/17 08:00 Laboratory Results 11/05/17 04:20 11/05/17 04:20 11/04/17 11/05/17 11/06/17 05:59 05:59 05:59 Intake Total 3490 400 Output Total 2275 250 Balance 1215 150 PT 13.8 SEC (12.0-15.0) 11/02/17 11:10 INR 1.04 (0.83-1.16) 11/02/17 11:10 - Physical Exam Constitutional: no apparent distress, appears nourished Eyes: PERRL, anicteric sclera Ears, Nose, Mouth, Throat: moist mucous membranes, hearing normal Cardiovascular: regular rate and rhythym, no murmur, rub, or gallop Respiratory: no respiratory distress, other (rhoncorous but good air movement) Gastrointestinal: normoactive bowel sounds, soft, non-tender abdomen Genitourinary: no bladder fullness, No rodriges in urethra Skin: warm, normal color Musculoskeletal: full muscle strength, no muscle tenderness Neurologic: AAOx3 ICD10 Worksheet Patient Problems: Problems Problem Status Onset Bronchitis Acute COPD exacerbation Acute Dyspnea Acute Hypoxia Acute chronic disease mgmt/transitional care Acute Anxiety Acute Atrial fibrillation Acute Benzodiazepine withdrawal Acute Bronchospasm Acute Chest wall contusion Acute Dehydration Acute Depression Acute Generalized weakness Acute Hyperkalemia Acute Hypoxemia Acute Intentional overdose of drug in tablet form Acute Pneumonia Acute Renal failure Acute Rhabdomyolysis Acute Right rib fracture Acute Suicide attempt by drug ingestion Acute Vertigo Acute
--- NOTE | 2017-11-05 15:37 | ASMTCMCOM ---
CM Note CM Note Notes: CM chart review, PT and OT recommending home, discharge date TBD. CM available to follow for further CM needs. Current D/C plan: Date TBD, likely independent. Date Signed: 11/05/2017 03:36 PM Electronically Signed By:Trina Hurley
[2017-11-05] MEDS: WARFARIN SODIUM 7.5 MG TAB PO SCH (16:25)
[2017-11-05] MEDS: traZODone 100 MG TAB PO SCH (20:08)
[2017-11-05] MEDS: QUEtiapine FUMARATE 50 MG TAB PO SCH (20:09)
[2017-11-05] MEDS: GABAPENTIN 300 MG CAP PO SCH (20:09)
[2017-11-05] MEDS: ASPIRIN 81 MG CHEWABLE TAB PO SCH (20:09)
[2017-11-05] MEDS: QUEtiapine FUMARATE 200 MG TAB PO SCH (20:09)
[2017-11-05] MEDS: TEMAZEPAM 15 MG CAP PO SCH (20:09)
[2017-11-05] MEDS: ONDANSETRON DISINTEGRATING 4 MG TAB PO PRN (22:30)
[2017-11-06] MEDS: ONDANSETRON DISINTEGRATING 4 MG TAB PO PRN (04:07)
[2017-11-06] MEDS: OXYCODONE/APAP 5/325 TAB PO PRN ×3 (04:07→15:37)
[2017-11-06 05:20] LABS: INR 1.01 (0.83-1.16); PROTIME(PATIENT) 13.5 SEC (12.0-15.0)
[2017-11-06] MEDS: IPRATROPIUM/ALBUTEROL 3 ML DEYVIAL IH SCH ×4 (06:04→20:46)
--- NOTE | 2017-11-06 08:47 | HOSPPROG ---
Hospitalist Progress Note Assessment/Plan: Patient is a 67-year-old gentleman who was admitted on November 02 who was having respiratory distress. Today is my 1st encounter with the patient. Chart reviewed. It is noted on admission that he was septic, had a left lower lobe infiltrate and had acute heart failure *sepsis: resolved did not require pressors *LLL pneumonia: ceftriaxone/doxy on 1-2 liters of oxygen *AHRF: attributable to air space disease dc steroids improving ? PE: dvt noted will anticoagulate no R heart strain on echo START WARFARIN + trop: normal echo no CP trending down proph: anticoagulated dispo: hopefully, dc tomorrow; likely need home O2 Subjective: Drew is feeling much better today, shortness of breath is better. Objective: Vital Signs Temp Pulse Resp BP Pulse Ox 36.6 C 70 18 136/102 H 92 11/06/17 07:31 11/06/17 07:31 11/06/17 07:31 11/06/17 07:31 11/06/17 07:31 Laboratory Results 11/05/17 04:20 11/05/17 04:20 11/05/17 11/06/17 11/07/17 05:59 05:59 05:59 Intake Total 400 Output Total 250 Balance 150 PT 13.5 SEC (12.0-15.0) 11/06/17 04:51 INR 1.01 (0.83-1.16) 11/06/17 04:51 - Physical Exam Constitutional: no apparent distress, chronically ill appearing Eyes: PERRL Ears, Nose, Mouth, Throat: hearing normal Cardiovascular: regular rate and rhythym Respiratory: no respiratory distress, reduced air movement Gastrointestinal: normoactive bowel sounds Skin: warm Neurologic: AAOx3 Psychiatric: interacting appropriately ICD10 Worksheet Patient Problems: Problems Problem Status Onset Bronchitis Acute COPD exacerbation Acute Dyspnea Acute Hypoxia Acute chronic disease mgmt/transitional care Acute Anxiety Acute Atrial fibrillation Acute Benzodiazepine withdrawal Acute Bronchospasm Acute Chest wall contusion Acute Dehydration Acute Depression Acute Generalized weakness Acute Hyperkalemia Acute Hypoxemia Acute Intentional overdose of drug in tablet form Acute Pneumonia Acute Renal failure Acute Rhabdomyolysis Acute Right rib fracture Acute Suicide attempt by drug ingestion Acute Vertigo Acute
[2017-11-06] MEDS: ENOXAPARIN 80 MG/0.8 ML SYR SC SCH ×2 (09:33→20:39)
[2017-11-06] MEDS: DOXYCYCLINE INJ 100 MG in NS 250 ML IV SCH (09:34)
[2017-11-06] MEDS: amLODIPine BESYLATE 5 MG TAB PO SCH (11:36)
[2017-11-06] MEDS: WARFARIN SODIUM 7.5 MG TAB PO SCH (15:40)
[2017-11-06] MEDS: GABAPENTIN 300 MG CAP PO SCH (20:37)
[2017-11-06] MEDS: DOXYCYCLINE HYCLATE 100 MG CAP/TAB PO SCH (20:37)
[2017-11-06] MEDS: QUEtiapine FUMARATE 200 MG TAB PO SCH (20:37)
[2017-11-06] MEDS: ASPIRIN 81 MG CHEWABLE TAB PO SCH (20:37)
[2017-11-06] MEDS: QUEtiapine FUMARATE 50 MG TAB PO SCH (20:38)
[2017-11-06] MEDS: traZODone 100 MG TAB PO SCH (20:38)
[2017-11-06] MEDS: TEMAZEPAM 15 MG CAP PO SCH (20:38)
[2017-11-07] MEDS: OXYCODONE/APAP 5/325 TAB PO PRN ×2 (03:20→10:03)
[2017-11-07] MEDS: IPRATROPIUM/ALBUTEROL 3 ML DEYVIAL IH SCH ×3 (05:35→17:20)
[2017-11-07 05:43] LABS: INR 1.73 (0.83-1.16); PROTIME(PATIENT) 20.4 SEC (12.0-15.0)
--- NOTE | 2017-11-07 08:21 | HOSPPROG ---
Hospitalist Progress Note Assessment/Plan: Patient is a 67-year-old gentleman who was admitted on November 02 who was having respiratory distress. It is noted on admission that he was septic, had a left lower lobe infiltrate and had acute heart failure *sepsis: resolved did not require pressors *LLL pneumonia: ceftriaxone/doxy on ra today pulled out iv accidentally; will add oral abx *AHRF: attributable to air space disease dc steroids improving ? PE: dvt noted will anticoagulate no R heart strain on echo START WARFARIN + trop: normal echo no CP trending down proph: anticoagulated dispo:hopefully home w home care, patient needs shoes, transportation. Will attempt to call his PCP, Dr John to update him on the plan of care. Subjective: Alex said he is feeling well today, anxious to go home. Objective: Vital Signs Temp Pulse Resp BP Pulse Ox 37.2 C 84 20 168/91 H 92 11/07/17 07:37 11/07/17 07:37 11/07/17 07:37 11/07/17 07:37 11/07/17 07:37 Laboratory Results 11/05/17 04:20 11/05/17 04:20 11/06/17 11/07/17 11/08/17 05:59 05:59 05:59 Intake Total 1050 Balance 1050 PT 20.4 SEC (12.0-15.0) H 11/07/17 04:30 INR 1.73 (0.83-1.16) H 11/07/17 04:30 - Physical Exam Constitutional: no apparent distress, appears nourished, not in pain Eyes: PERRL Ears, Nose, Mouth, Throat: hearing normal Cardiovascular: regular rate and rhythym Respiratory: no respiratory distress, reduced air movement Gastrointestinal: normoactive bowel sounds Skin: warm Musculoskeletal: full muscle strength Neurologic: AAOx3 Psychiatric: interacting appropriately, poor memory ICD10 Worksheet Patient Problems: Problems Problem Status Onset chronic disease mgmt/transitional care Acute Pneumonia Acute Atrial fibrillation Acute Benzodiazepine withdrawal Acute Depression Acute Anxiety Acute Suicide attempt by drug ingestion Acute Intentional overdose of drug in tablet form Acute Bronchitis Acute Bronchospasm Acute Vertigo Acute Hypoxemia Acute Chest wall contusion Acute Right rib fracture Acute Rhabdomyolysis Acute Renal failure Acute Dehydration Acute Hyperkalemia Acute Generalized weakness Acute Dyspnea Acute Hypoxia Acute COPD exacerbation Acute
[2017-11-07] MEDS: amLODIPine BESYLATE 5 MG TAB PO SCH (09:04)
[2017-11-07] MEDS: DOXYCYCLINE HYCLATE 100 MG CAP/TAB PO SCH ×2 (09:04→20:10)
[2017-11-07] MEDS: ENOXAPARIN 80 MG/0.8 ML SYR SC SCH ×2 (09:05→20:10)
[2017-11-07] MEDS: CEFDINIR 300 MG CAP PO SCH ×2 (09:05→20:09)
[2017-11-07] MEDS ORDERED: WARFARIN SODIUM 2.5 MG TAB PO ONE (16:00)
[2017-11-07] MEDS: GABAPENTIN 300 MG CAP PO SCH (20:09)
[2017-11-07] MEDS: QUEtiapine FUMARATE 50 MG TAB PO SCH (20:09)
[2017-11-07] MEDS: traZODone 100 MG TAB PO SCH (20:09)
[2017-11-07] MEDS: QUEtiapine FUMARATE 200 MG TAB PO SCH (20:10)
[2017-11-07] MEDS: TEMAZEPAM 15 MG CAP PO SCH (20:10)
[2017-11-07] MEDS: ASPIRIN 81 MG CHEWABLE TAB PO SCH (20:10)
[2017-11-08] MEDS: IPRATROPIUM/ALBUTEROL 3 ML DEYVIAL IH SCH ×3 (00:05→10:08)
[2017-11-08 05:00] LABS: INR 1.96 (0.83-1.16); PROTIME(PATIENT) 22.4 SEC (12.0-15.0)
[2017-11-08] MEDS: OXYCODONE/APAP 5/325 TAB PO PRN ×2 (05:41→10:20)
[2017-11-08 07:42] VITALS: BP 163/102
[2017-11-08] MEDS: CEFDINIR 300 MG CAP PO SCH (07:55)
[2017-11-08] MEDS: DOXYCYCLINE HYCLATE 100 MG CAP/TAB PO SCH (07:56)
[2017-11-08] MEDS: amLODIPine BESYLATE 5 MG TAB PO SCH (07:56)
[2017-11-08] MEDS: ENOXAPARIN 80 MG/0.8 ML SYR SC SCH (07:56)
--- NOTE | 2017-11-08 09:06 | PDIAF ---
- Diagnosis Diagnosis: sepsis Code Status: Full Code - Medication Management Discharge Medications: Medications to Continue on Transfer Aspirin [Aspirin 81mg (*)] 81 mg PO HS 12/09/16 [Last Taken 11/01/17] amLODIPine BESYLATE [Norvasc 5 mg (*)] 5 mg PO DAILY 05/12/17 [Last Taken ] traZODone [traZODONE 100MG (*)] 300 mg PO HS 3 Days tab 07/16/17 [Last Taken ] Gabapentin [Neurontin 300 MG (*)] 300 mg PO HS 11/02/17 [Last Taken 11/02/17] QUEtiapine FUMARATE [Seroquel 200 mg (*)] 200 mg PO HS 11/02/17 [Last Taken ] QUEtiapine FUMARATE [Seroquel 50 mg (*)] 50 mg PO HS 11/02/17 [Last Taken ] Warfarin Sodium [Coumadin 2.5MG (*)] 2.5 mg PO ONCE@1600 #30 tab 11/07/17 [Last Taken Unknown] Temazepam [Restoril 15 MG (*)] 15 mg PO HS #7 cap 11/08/17 [Last Taken Unknown] Discharge Medications: Refer to the Discharge Home Medication list for PRN reason. PICC Care - Routine: N/A - Orders Services needed: Home Care, Registered Nurse Home Care Face to Face: I certify that this patient was under my care and that I had the required [id number] encounter meeting the encounter requirements on the discharge day. My findings support the fact that the patient is homebound as defined in Home Care Face to Face Continued: CMS Chapter 7 Medicare Benefits Manual 30.1.1 , The condition of the patient is such that there exists a normal inability to leave home and consequently, leaving home would require a considerable and taxing effort. Isolation Type: None Diet Recommendation: no restrictions on diet Diet Texture: Regular Texture Diet Additional Instructions: follow up with Dr John next week f[facility] for your refills on your medications - Follow Up Care Current Providers and Referrals: Madhav Perrin MD [Medical Doctor] - Kimo John MD [Primary Care Provider] - Patient,NotPresent [Unknown] - As per Instructions
--- NOTE | 2017-11-08 15:15 | GDS ---
[f rep st] DISCHARGE SUMMARY DISCHARGE DIAGNOSES: 1. Sepsis. 2. Left lower lobe pneumonia. 3. Acute hypoxemic respiratory failure. 4. Pulmonary embolism. 5. Indeterminate troponin. PHYSICAL EXAMINATION: Generally the patient is alert. VITAL SIGNS: Afebrile at 36.8, pulse 75, respiratory rate is 18, blood pressure is 163/102 saturating 91% on room air. I have seen and evaluated the patient on the day of discharge. HOSPITAL COURSE: Patient is a 67-year-old male who presented to the hospital secondary to shortness of breath. He was evaluated and diagnosed with: 1. Sepsis, resolved. 2. Left lower lobe pneumonia. He has received antibiotic therapy for this condition and has finished his course of antibiotics. 3. Acute hypoxemic respiratory failure. This is secondary to the patient's airspace disease and infectious process. This is resolved. 4. Questionable pulmonary emboli. He is anticoagulated for this on warfarin with a noted DVT. 5. Positive troponin. This is trending down and indeterminate. No further intervention warranted. 6. Disposition: The patient will be discharged home with daily home health care. He will follow up with his primary care physician, Dr. Kimo John. Case Management has been working significantly with this patient for outpatient therapies and management. He will also follow up with Dr. Otilio Perrin. There are no pending studies. DISCHARGE MEDICATIONS: Please refer to EMR form. The patient has been provided prescriptions prior to disposition. I spent greater than 35 minutes in the care, coordination, and management of the patient's discharge. /[id number]/MODL MTDD
--- NOTE | 2017-11-08 15:59 | ASDISCHSUM ---
Discharge Information Plan Status:Home with Home Health Medically Cleared to Leave:11/08/2017 Discharge Date:11/08/2017 11:52 AM CM D/C Disposition: ADT D/C Disposition:Home Health Service Projected Discharge Date:11/08/2017 11:00 AM Transportation at D/C: Discharge Delay Reason: Follow-Up Date:11/08/2017 11:00 AM Discharge Slot: Final Diagnosis:Dyspnea, hypoxia, hx of COPD, anxiety, chronic pain Placement Information Referral Type:*Home Health Care Services Referral ID:[id number] Provider Name:[facility] Address 1:[address] [address] Address 2: City:[place] Selection Factors: State:[place] Patient Contact Information Contact Name:FIONA Relationship:Sister Address: Work Phone: City:[facility] Alternate Phone: State/Zip Code:[place] Email: Financial Information Financial Class:Medicare Primary Plan Desc:MEDICARE INPATIENT Primary Plan Number:[id number] Secondary Plan Desc:[place] Secondary Plan Number:[id number] Assessment Information LACE LACE Acuity / Level of Answers: Yes Care: Did the patient have an inpatient admission? Comorbidities - select Answers: Chronic pulmonary disease all that apply Coronary Artery Disease Previous myocardial infarction Other Notes: Stents, L foot deformity, chronic pain # of Emergency department Answers: 9-12 visits in the last 6 months Social determinants Answers: History of substance abuse (ETOH, street drugs, prescription drugs, etc.) Mental health diagnosis (anxiety, depression, pers onality disorders, etc.) Lack of community resources and/or lack of social support (no pcp, lives alone, transportation, rikki d) Score: 24 Date Signed: 11/02/2017 05:02 PM Electronically Signed By:Ricarda Kaur RN [facility] CM Progress Note CM Note CM Note Notes: Pt presented to the Emergency Department with shortness of breath and malaise. Pt to be admitted for dyspnea, hypoxia and an elevated troponin. Pt was found in bed by his roommate with difficulty breathing. History includes COPD, anxiety, chronic pain, CAD with MO and stent placement in 2011, an appy and left foot deformity approx 10 yrs ago. Pt lives with his roommate and is well known this Emergency Department. Pt was previously followed by Dr. Irma Quiros, but no-showed for his appointments 7 times and was finally asked to find a new doctor. [facility] ED Case Management previously tried to set pt up with a PCP at [facility]. Pt showed up for the appointment in early July, but left prior to being seen. Pt takes Klonopin, Seroquel and Trazadone to manage his anxiety/pain. He has presented to the Emergency Department in the past seeking refills. Per ED CM notes, pt is not eligible for refills from [facility], because he has had difficulty establishing care with a PCP and has a history of noncompliance. Pt's discharge needs remain unclear at this time. CM will continue to follow. Current Discharge Plan: To be determined Date Signed: 11/02/2017 12:09 PM Electronically Signed By:Ricarda Kaur RN [facility] CM Progress Note CM Note CM Note Notes: Patient admitted for sepsis (did not require pressors), LLL PNA (IV antibiotics), and questionable PE. He needs a CT but cannont proceed due to creatinine level today. Of important note: patient has been seen multiple times in our ED for anxiety/anxiety-medication related concerns. I spoke with him about his support in this regard, and without going into much detail about his past or diagnosis, he shared this with me: he is seen by Melanie Natarajan, an DIRECTOR SOCIAL WELFARE at [facility] for med management. Per patient, he sees her every three months, and "she does nothing." He says he is prescribed sleep medication but nothing else. He says he is not taking any benzos right now but "would be so much better if I was." I reminded him of the complexity of this, and he agreed. I also encouraged him to seek a new provider at [facility] if he is that dissatisfied with his current one. I recommended a therapist, as well. I did call [facility] on patient's behalf and made an appointment for him on 11/08 at 10AM. Regarding d/c needs related to his acute hypoxic respiratory failure, patient says he does have an oxygen "machine" at home but no oxygen. He says that he had some but when it ran out, he did not call to resupply. He believes it was [employer] who brought the equipment. If he has needs in this regard, Respiratory Therapy will arrange. Other discharge needs can be facilitated by Case Management. Date Signed: 11/03/2017 12:41 PM Electronically Signed By:Leny Aleman RN [facility] Progress Note CM Note CM Note Notes: Spoke with pt regarding PT/OT's recommendation for homecare at d/c. He currently receives HCBS services through [facility] . Sent referral via [facility] for [facility] RN/PT/OT. Anticipate he will transfer to [facility] soon. Date Signed: 11/04/2017 02:58 PM Electronically Signed By:JAMEEL Pace [facility] CM Progress Note CM Note CM Note Notes: CM chart review, PT and OT recommending home, discharge date TBD. CM available to follow for further CM needs. Current D/C plan: Date TBD, likely independent. Date Signed: 11/05/2017 03:36 PM Electronically Signed By:Trina Hurley Case Management Discharge Plan Note Case Management Discharge Discharge Order Complete? Answers: Yes Patient to Obtain Answers: Independently Medications Transportation Arranged Answers: Taxi - Voucher EMTALA Complete Answers: No Case Management Transport Answers: No Form Complete Faxed Final Orders Answers: Yes Agency/Facility Transfer Answers: Yes Report Printed & Faxed to Receiving Agency [facility] Notified Answers: No Discharge Comments Notes: spoke w/ Nupur Shipley NP and Lisandra RN regarding d/c POC. Pt is being discharged today. DC orders sent to [facility] . called [facility] and notified Simin of pts discharge. Simin has arranged for daily RN care. An RN will meet w/ pt david. Pt has no money and no supports in his life. CM provided pt w/ a cab voucher home. CM available for changes. Plan: RN daily Date Signed: 11/08/2017 09:40 AM Electronically Signed By:SHAY Virgen Intervention Information Intervention Type:*IM-Signed Date of Service:11/06/2017 12:17 PM Patient Type:Inpatient Staff Member:Jayde Preston Hours: Discipline: Severity: Comment:
[2017-11-08] MEDS ORDERED: WARFARIN SODIUM 2.5 MG TAB PO ONE (16:00)
== END 2017-11-08 11:52 | disposition home health service (06) | DRG 871 ==
LOC: EDBD → EDUNIT# → F2N 14:08 → F3E 11-04 18:07
PROVIDERS: ADMIT Internal Medicine; ATTEND Internal Medicine
DX: A41.9 Sepsis, unspecified organism (principal); J18.9 Pneumonia, unspecified organism; J96.01 Acute respiratory failure with hypoxia; J44.9 Chronic obstructive pulmonary disease, unspecified; I26.99 Other pulmonary embolism without acute cor pulmonale; I82.621 Acute embolism and thrombosis of deep veins of right upper extremity; I25.10 Atherosclerotic heart disease of native coronary artery without angina pectoris; I12.9 Hypertensive chronic kidney disease with stage 1 through stage 4 chronic kidney disease, or unspecified chronic kidney disease; N18.9 Chronic kidney disease, unspecified; G47.33 Obstructive sleep apnea (adult) (pediatric); E78.5 Hyperlipidemia, unspecified; I25.2 Old myocardial infarction; Z95.5 Presence of coronary angioplasty implant and graft; Z91.81 History of falling; Z87.891 Personal history of nicotine dependence
CPT/HCPCS: 96365; 97116-GP; 97161-GP; 97166-GO; 97535-GO; G0480; G8978-GP-CJ; G8979-GP-CI; G8987-GO-CI; G8987-GO-CJ; G8988-GO-CI; G8989-GO-CI; J0696; J1650; J1940; J2930; J3475; J7613; Q9967

== ENCOUNTER 2017-12-23 12:08 | Inpatient (IN) | payer OTHER, MEDICAID ==
[2017-12-23] MEDS ORDERED: NS 1,000 ML IV ONE (12:17)
--- NOTE | 2017-12-23 12:30 | EDPHY ---
H & P Stated Complaint: weakness Time Seen by Provider: 12/23/17 12:14 HPI/ROS: CHIEF COMPLAINT: Altered mental status Limitations: Poor historian HISTORY OF PRESENT ILLNESS: 67-year-old male with COPD and anxiety presents with altered mental status. He lives alone in his own home and today called 911 because of generalized weakness. On EMS arrival, he was hypoxic and lethargic. He also had a moist cough. He was placed on oxygen and transported to the ED. The patient is unable to provide any further history. Specifically , he does not know if he has had a cough or fever and does not know if he took more than his usual medications. He has been seen in this emergency department previously because of benzodiazepine overdose. REVIEW OF SYSTEMS: Unable to determine - Personal History Current Tetanus Diphtheria and Acellular Pertussis (TDAP): Yes Tetanus Vaccine Date: 10/2010 - Medical/Surgical History Hx Asthma: Yes Hx Chronic Respiratory Disease: Yes Hx Diabetes: No Hx Cardiac Disease: Yes Hx Renal Disease: Yes Hx Cirrhosis: No Hx Alcoholism: No Hx HIV/AIDS: No Hx Splenectomy or Spleen Trauma: No Other PMH: Severe anxiety, chronic pain, CAD, Asthma, left foot deformity/fx from 10 yrs ago, IN w/stents 2011, kidney problems, appendectomy, COPD, DVT - Social History Smoking Status: Never smoked Additional Social History: Single, lives alone in own home - Physical Exam Exam: General Appearance: Drowsy, opens eyes to voice, does not recall why he is here Eyes: Pupils equal and round, no conjunctival pallor or injection ENT, Mouth: Mucous membranes dry Neck: Normal inspection Respiratory: Upper airway sounds throughout Cardiovascular: Regular rate and rhythm Gastrointestinal: Abdomen is soft and nontender Neurological: Drowsy, moves all extremities Skin: Warm and dry Extremities: Left foot deformity Psychiatric: Flat affect Constitutional: Initial Vital Signs Temperature (C) 36.7 C 12/23/17 12:20 Heart Rate 83 12/23/17 12:20 Respiratory Rate 18 12/23/17 12:20 Blood Pressure 99/82 H 12/23/17 12:20 O2 Sat (%) 82 L 12/23/17 12:20 O2 Delivery Mode Oxymask O2 (L/minute) 12 Allergies/Adverse Reactions: Sulfa (Sulfonamide Antibiotics) Allergy (Intermediate, Verified 12/23/17 12:22) Vomiting Home Medications: Medication Instructions Recorded Aspirin [Aspirin 81mg (*)] 81 mg PO HS 12/09/16 Gabapentin [Neurontin 300 MG (*)] 300 mg PO BID 11/02/17 QUEtiapine FUMARATE [Seroquel 200 200 mg PO HS 11/02/17 mg (*)] QUEtiapine FUMARATE [Seroquel 50 50 mg PO HS 11/02/17 mg (*)] Losartan Potassium [Cozaar 25 mg 25 mg PO DAILY 12/23/17 (*)] Rosuvastatin Calcium [Crestor 20mg 20 mg PO DAILY 12/23/17 (*)] Warfarin Sodium [Coumadin 2.5MG 2.5 mg PO MOTUWETHFRSA@16 #30 tab 12/23/17 (*)] Warfarin Sodium [Coumadin 2.5MG 3.75 mg PO MCKEON@16 12/23/17 (*)] amLODIPine BESYLATE [Amlodipine 10 mg PO DAILY 12/23/17 Besylate] traZODone [traZODone 150MG (*)] 300 mg PO HS 12/23/17 Medical Decision Making - Diagnostics Imaging Results: Imaging Impressions Chest X-Ray 12/23/17 12:17 Impression: Perihilar and basilar opacities, similar to the prior study, which could be related to atelectasis and/or pneumonia. ED Course/Re-evaluation: This patient presents with altered mental status and a moist cough. Likely pneumonia, possible benzodiazepine overdose. IV normal saline 1 L given and chest x-ray ordered. Suctioning by RT. Does not meet SIRS criteria. Chest x- ray reveals a left sided infiltrate, consistent with pneumonia. Levaquin 750 mg IV given. He has a presents with acute on chronic renal insufficiency, with BUN 66 and creatinine 2.4. This is likely secondary to dehydration. The hospitalist service was consulted for admission. 1320: Mental status has improved. He remains drowsy, but more interactive. BP 106/54, HR 77, O2 sat 94% on 4l O2. I feel that he is appropriate to go to [facility] for admission. Differential Diagnosis: Altered mental status including but not limited to hypoglycemia, infectious process, electrolyte abnormality, head injury, CVA, and intoxicants. - Data Points Laboratory Results: Laboratory Results 12/23/17 12:26 12/23/17 12:26 06/04/0312/23/17 12/23/17 12:26 12:26 12:26 WBC 11.43 10^3/uL H 10^3/uL (3.80-9.50) RBC 4.67 10^6/uL 10^6/uL (4.40-6.38) Hgb 14.4 g/dL g/dL (13.7-17.5) Hct 44.9 % % (40.0-51.0) MCV 96.1 fL fL (81.5-99.8) MCH 30.8 pg pg (27.9-34.1) MCHC 32.1 g/dL L g/dL (32.4-36.7) RDW 13.4 % % (11.5-15.2) Plt Count 161 10^3/uL 10^3/uL (150-400) MPV 9.6 fL fL (8.7-11.7) Neut % (Auto) 84.3 % H % (39.3-74.2) Lymph % (Auto) 6.6 % L % (15.0-45.0) [place] % (Auto) 8.4 % % (4.5-13.0) Eos % (Auto) 0.2 % L % (0.6-7.6) Baso % (Auto) 0.2 % L % (0.3-1.7) Nucleat RBC Rel Count 0.0 % % (0.0-0.2) Absolute Neuts (auto) 9.63 10^3/uL H 10^3/uL (1.70-6.50) Absolute Lymphs (auto) 0.76 10^3/uL L 10^3/uL (1.00-3.00) Absolute Monos (auto) 0.96 10^3/uL H 10^3/uL (0.30-0.80) Absolute Eos (auto) 0.02 10^3/uL L 10^3/uL (0.03-0.40) Absolute Basos (auto) 0.02 10^3/uL 10^3/uL (0.02-0.10) Absolute Nucleated RBC 0.00 10^3/uL 10^3/uL (0-0.01) Immature Gran % 0.3 % % (0.0-1.1) Immature Gran # 0.04 10^3/uL 10^3/uL (0.00-0.10) PT 23.3 SEC H SEC (12.0-15.0) INR 2.06 H (0.83-1.16) VBG Lactic Acid Sodium 142 mEq/L mEq/L (135-145) Potassium 4.6 mEq/L mEq/L (3.3-5.0) Chloride 108 mEq/L mEq/L (97-110) Carbon Dioxide 21 mEq/l L mEq/l (22-31) Anion Gap 13 mEq/L mEq/L (8-16) BUN 66 mg/dL H mg/dL (7-23) Creatinine 2.4 mg/dL H mg/dL (0.7-1.3) Estimated GFR 27 Glucose 124 mg/dL H mg/dL (70-100) Calcium 8.4 mg/dL L mg/dL (8.5-10.4) Ethyl Alcohol < 10 mg/dL mg/dL (0-10) 12/23/17 12:25 WBC RBC Hgb Hct MCV MCH MCHC RDW Plt Count MPV Neut % (Auto) Lymph % (Auto) [place] % (Auto) Eos % (Auto) Baso % (Auto) Nucleat RBC Rel Count Absolute Neuts (auto) Absolute Lymphs (auto) Absolute Monos (auto) Absolute Eos (auto) Absolute Basos (auto) Absolute Nucleated RBC Immature Gran % Immature Gran # PT INR VBG Lactic Acid 0.8 mmol/L mmol/L (0.7-2.1) Sodium Potassium Chloride Carbon Dioxide Anion Gap BUN Creatinine Estimated GFR Glucose Calcium Ethyl Alcohol Medications Given: Levofloxacin/Dextrose (Levaquin 750 Mg (Premix)) 150 mls @ 100 mls/hr IV EDNOW ONE PRN Reason: Protocol Stop: 12/23/17 14:40 Last Admin: 12/23/17 13:33 Dose: 150 mls Discontinued Medications Sodium Chloride (Ns) 1,000 mls @ 0 mls/hr IV ONCE ONE; Wide Open PRN Reason: Protocol Stop: 12/23/17 12:18 Last Admin: 12/23/17 12:31 Dose: 1,000 mls Departure - Departure Disposition: [facility] Clinical Impression: Acute on chronic renal insufficiency Pneumonia Qualifiers: Pneumonia type: due to unspecified organism Laterality: left Lung location: lower lobe of lung Qualified Code(s): J18.1 - Lobar pneumonia, unspecified organism Condition: Fair
[2017-12-23 12:37] LABS: PLATELET COUNT 161 10^3/uL (150-400)
[2017-12-23 13:34] LABS: INR 2.06 (0.83-1.16); PROTIME(PATIENT) 23.3 SEC (12.0-15.0)
--- NOTE | 2017-12-23 13:47 | ASMTCMCOM ---
CM Note CM Note Notes: Chart reviewed prior to transport to the floor. Discharge needs unknown at this time. Please see D/C summary and CM notes from 11/08/17. CM to follow Date Signed: 12/23/2017 01:46 PM Electronically Signed By:Mague Connors RN
[2017-12-23] MEDS ORDERED: ONDANSETRON 4 MG/2 ML VIAL IVP PRN (15:12)
[2017-12-23] MEDS: TAMSULOSIN HCL 0.4 MG CAP PO SCH (15:39)
[2017-12-23] MEDS: predniSONE 20 MG TAB PO SCH (15:39)
[2017-12-23] MEDS: NS 1,000 ML IV SCH (15:39)
[2017-12-23] MEDS: WARFARIN SODIUM 2.5 MG TAB PO SCH (15:51)
[2017-12-23] MEDS: ACETAMINOPHEN 325 MG TAB PO PRN (15:54)
[2017-12-23] MEDS: IPRATROPIUM/ALBUTEROL 3 ML DEYVIAL IH SCH ×2 (16:07→21:11)
--- NOTE | 2017-12-23 16:32 | GHP ---
[f rep st] HISTORY AND PHYSICAL DATE OF ADMISSION: 12/23/2017 CHIEF COMPLAINT: Confusion. HISTORY: Drew is a 67-year-old male, who was found by a friend this morning confused, and 911 was called. Patient complains of shortness of breath and cough for 1 day. He is confused; however, he k eeps saying he was just discharged from the hospital this morning. [facility] record of him being here since October. It is a nonproductive cough. He has m idsternal pleuritic chest pain. He denies decreased oral intake. Further history is limited due to the patient's confusion. PAST MEDICAL HISTORY: 1. Chronic kidney disease. Baseline creatinine 1.2. 2. Asthma. 3. Coronary artery disease, status post stents. 4. Atrial fibrillation. 5. Chronic pain. 6. Anxiety and depression. PAST SURGICAL HISTORY: Appendectomy. MEDICATIONS: Please see computer record for a full detailed list. ALLERGIES: Sulfa. SOCIAL HISTORY: No smoking. No alcohol. He lives alone. REVIEW OF SYSTEMS: Complete review of systems obtained. Review of systems negative regarding consti tutional, HEENT, GI, pulmonary, cardiovascular, , hematology, musculoskeletal, endocrine, psych exc ept for positives and negative as noted in HPI. FAMILY HISTORY: Reviewed and noncontributory to presenting complaint. PHYSICAL EXAMINATION: GENERAL: Well-developed, well-nourished male in mild respiratory distress. V ITAL SIGNS: Temp 36.7, pulse 76, respirations 20, blood pressure 105/58, satting 82% on room air, 94 % on 12 L. EYES: Normal conjunctivae. Pupils reactive to light. ENT: Normal ears, nose. Hearing intact. Normal teeth. Oropharynx moist. NECK: Trachea midline. No thyromegaly. CHEST: Normal respiratory effort. LUNGS: Bilateral rales and rhonchi with extensive wheeze. CARDIOVASCULAR: Reg ular rate and rhythm. No murmur. No lower extremity edema. ABDOMEN: Soft, nontender. No hepatosp lenomegaly. SKIN: Warm, dry, intact without rash. MUSCULOSKELETAL: No cyanosis or clubbing. Stre ngth 5/5 upper and lower extremities. NEURO: Cranial nerves intact. Normal sensation to light touc h. PSYCH ASSESSMENT: Awake, alert, but confused. Poor judgment/insight. Poor memory. Cooperative . LABS: White count 11.43, hematocrit 44.9, platelets 161. Sodium 142, potassium 4.6, chloride 108, b icarb 21, BUN 66, creatinine 2.4, glucose 124, lactate 0.8. Chest x-ray shows mild atelectasis versu s pneumonia, left base. This was personally viewed and interpreted. ASSESSMENT/PLAN: 1. Acute respiratory failure. Oxygen requirement is high, and given his extensive wheezing, he is a t risk for hypercarbic respiratory failure and could be a source of his confusion. We will check an ABG. 2. Reactive airway disease exacerbation, possible pneumonia. We will treat with prednisone nebulize rs. We will not continue with Levaquin as antibiotic given the concern for QT prolongation in karine medel with his Seroquel and trazodone. We will initiate ceftriaxone and doxycycline. 3. Acute renal failure. He has urinary retention on presentation, with 800 cc currently in his blad anne marie. We will place a Perez catheter. Start Flomax. We will hold his losartan. 4. Metabolic encephalopathy. He has multiple medical issues, which are likely contributing. 5. Atrial fibrillation, on chronic warfarin. INR is therapeutic. We will check a head CT given his confusion and anticoagulation. 6. Coronary artery disease, status post previous stents. My suspicion for acute ischemia is low. W e will, however, follow troponins and EKGs. CODE STATUS: Full. ADMISSION STATUS: We will admit to inpatient, reevaluate. He is significantly ill on presentation. Will need greater than 2 midnights for stabilization. DVT PROPHYLAXIS: He is chronically on warfarin. /[id number]/MODL
--- NOTE | 2017-12-23 17:01 | PDMN ---
Medical Necessity Medical necessity: C/M review: est. > 2 MN LOS for eval and TX of acute respiratory failure, 82% RA sat, extensive wheezing, patient is at risk for hyperbaric respiratory failure and could be a source of his confusion, reactive airway disease exacerbation, possible pneumonia, acute renal failure, metabolic encephalopathy requiring planned transfer from med/surge telemetry bed to PCU 12/23/2017, head CT 12/23/2017, IV Ceftriaxone, oral Doxycycline, oral Prednisone, IV fluids, Duonebs, cardiac monitoring, pulse oximetry, high O2 requirement - 12L/ min per oxymask, BiPaP, acute inpt PT/OT, comorbid atrial fibrillation on chronic Warfarin, CAD S/P previous stents, history of chronic kidney disease, asthma, chronic pain, anxiety and depression per H/P.
[2017-12-23] MEDS ORDERED: NALOXONE HCL 0.4 MG/ML INJ ONE (18:33)
--- NOTE | 2017-12-23 18:49 | HOSPPROG ---
Hospitalist Progress Note Assessment/Plan: Called by RN. She notes he is refusing Bipap, yet apneic for 20s intervals. Previous RN noted "black tarry" material in his mouth. RN was concerned about an overdose. I ordered narcan 0.2mg - he immediately became more responsive with normal O2 sats and normal BP. Impression: narcotic overdose, unintentional Plan: Monitor closely. If he requires more narcan will start a gtt and transfer to ICU. Objective: Vital Signs Temp Pulse Resp BP Pulse Ox 36.7 C 77 18 91/43 L 89 L 12/23/17 17:48 12/23/17 17:48 12/23/17 17:48 12/23/17 16:50 12/23/17 17:48 12/22/17 12/23/17 12/24/17 05:59 05:59 05:59 Intake Total 1050 Output Total 1000 Balance 50 PT 23.3 SEC (12.0-15.0) H 12/23/17 12:26 INR 2.06 (0.83-1.16) H 12/23/17 12:26 ICD10 Worksheet Patient Problems: Problems Problem Status Onset Acute on chronic renal insufficiency Acute chronic disease mgmt/transitional care Acute Pneumonia Acute Atrial fibrillation Acute Benzodiazepine withdrawal Acute Depression Acute Anxiety Acute Suicide attempt by drug ingestion Acute Intentional overdose of drug in tablet form Acute Bronchitis Acute Bronchospasm Acute Vertigo Acute Hypoxemia Acute Chest wall contusion Acute Right rib fracture Acute Rhabdomyolysis Acute Renal failure Acute Dehydration Acute Hyperkalemia Acute Generalized weakness Acute Dyspnea Acute Hypoxia Acute COPD exacerbation Acute
[2017-12-23] MEDS ORDERED: NALOXONE HCL 0.4 MG/ML INJ IVP ONE ×2 (19:00→20:00)
[2017-12-23] MEDS ORDERED: NALOXONE HCL 2 MG in D5W 500 ML IV SCH ×2 (20:00→20:30)
[2017-12-23] MEDS: GABAPENTIN 300 MG CAP PO SCH (22:00)
[2017-12-23] MEDS: DOXYCYCLINE HYCLATE 100 MG CAP/TAB PO SCH (22:00)
[2017-12-23] MEDS: QUEtiapine FUMARATE 200 MG TAB PO SCH (22:00)
[2017-12-23] MEDS: QUEtiapine FUMARATE 50 MG TAB PO SCH (22:01)
[2017-12-23] MEDS: ASPIRIN 81 MG CHEWABLE TAB PO SCH (22:01)
[2017-12-24] MEDS: NS 1,000 ML IV SCH (01:12)
--- NOTE | 2017-12-24 05:52 | CPEKG ---
Heart Rate: 63 RR Interval: 952 P-R Interval: 152 QRSD Interval: 90 QT Interval: 444 QTC Interval: 455 P Dandridge: 66 QRS Dandridge: 32 T Wave Dandridge: 30 EKG Severity - NORMAL ECG - EKG Impression: SINUS RHYTHM Electronically Signed By: Lisandra Porras 24-Dec-2017 21:45:13
[2017-12-24] MEDS: IPRATROPIUM/ALBUTEROL 3 ML DEYVIAL IH SCH ×4 (06:09→21:20)
[2017-12-24 06:13] LABS: INR 2.55 (0.83-1.16); PROTIME(PATIENT) 27.4 SEC (12.0-15.0)
[2017-12-24 07:19] LABS: PLATELET COUNT 137 10^3/uL (150-400)
[2017-12-24] MEDS: TAMSULOSIN HCL 0.4 MG CAP PO SCH ×3 (10:03→11:46)
[2017-12-24] MEDS: GABAPENTIN 300 MG CAP PO SCH ×2 (10:04→20:59)
[2017-12-24] MEDS: DOXYCYCLINE HYCLATE 100 MG CAP/TAB PO SCH ×2 (10:04→20:59)
[2017-12-24] MEDS: predniSONE 20 MG TAB PO SCH (10:04)
[2017-12-24] MEDS: ROSUVASTATIN CALCIUM 20 MG TAB PO SCH (11:21)
[2017-12-24] MEDS: ACETAMINOPHEN 325 MG TAB PO PRN (11:44)
--- NOTE | 2017-12-24 13:16 | HOSPPROG ---
Hospitalist Progress Note Assessment/Plan: * Acute hypercarbic respiratory failure - COPD exac + narcotics -rapidly improving * Asthma/COPD exacerbation -steroid/nebs * Narcotic overdose s/p Narcan * Metabolic vs. toxic encephalopathy -improved * Possible PNA -Ceftriaxone, doxycycline * ARF - urinary retention + dehydration -hold ARB * Urinary retention - narcotics vs. BPH -rodriges removed this am -follow bladder scans -Flomax * Chronic pain left ankle with severe deformity - poorly healed trauma -not on chronic narcotics -he has a few tabs stashed away from previous prescriptions * AFib -chronic warfarin * CAD/stent * Obesity BMI 31 Subjective: No new complaints. Objective: Vital Signs Temp Pulse Resp BP Pulse Ox 36.6 C 93 25 H 144/55 H 93 12/24/17 12:00 12/24/17 12:00 12/24/17 12:00 12/24/17 12:00 12/24/17 12:00 Laboratory Results 12/24/17 05:54 12/24/17 05:54 12/23/17 12/24/17 12/25/17 05:59 05:59 05:59 Intake Total 2160 Output Total 1960 300 Balance 200 -300 PT 27.4 SEC (12.0-15.0) H 12/24/17 05:54 INR 2.55 (0.83-1.16) H 12/24/17 05:54 EKG viewed, my personal interpretation is - no ischemic change HEad CT - negative - Physical Exam Constitutional: no apparent distress, appears nourished, not in pain Cardiovascular: regular rate and rhythym, no murmur, rub, or gallop Respiratory: no respiratory distress, no rales or rhonchi, clear to auscultation Gastrointestinal: normoactive bowel sounds, soft, non-tender abdomen, no palpable masses Skin: no rashes or abrasions, no fluctuance, no induration Neurologic: AAOx3, sensation intact bilaterally Psychiatric: interacting appropriately, not anxious, not encephalopathic, thought process linear ICD10 Worksheet Patient Problems: Problems Problem Status Onset Acute on chronic renal insufficiency Acute Pneumonia Acute Anxiety Acute Atrial fibrillation Acute Benzodiazepine withdrawal Acute Bronchitis Acute Bronchospasm Acute COPD exacerbation Acute Chest wall contusion Acute Dehydration Acute Depression Acute Dyspnea Acute Generalized weakness Acute Hyperkalemia Acute Hypoxemia Acute Hypoxia Acute Intentional overdose of drug in tablet form Acute Renal failure Acute Rhabdomyolysis Acute Right rib fracture Acute Suicide attempt by drug ingestion Acute Vertigo Acute chronic disease mgmt/transitional care Acute
[2017-12-24] MEDS: oxyCODONE IR 5 MG TAB PO PRN ×2 (15:18→19:37)
--- NOTE | 2017-12-24 15:42 | GCON ---
[f rep st] CONSULTATION PULMONARY CRITICAL CARE CONSULTATION DATE OF CONSULTATION: 12/24/2017 HISTORY OF PRESENT ILLNESS: This patient is a 67-year-old male with a history of possible asthma and probable sleep apnea, as well as chronic kidney disease whom I first met on 11/03/2017, when he was admitted with shortness of breath and hypoxemia requiring BiPAP. An ultrasound showed a deep vein th rombosis and his acute kidney injury resolved with fluid at that time. He was discharged on anticoag ulation, was suppose to follow up with me in clinic, although that has not yet occurred. He was then readmitted on 12/23, with weakness and hypoxemia. Chest x-ray showed a left lower lobe pneumonia, a nd he was treated with doxycycline and ceftriaxone. Later on the same day, he had mental status mota ges that were thought to be due to narcotics because he did seem to respond well to Narcan. He was m yao to the intensive care unit with potential need of a Narcan drip, but never required this, did no t require BiPAP, and was stable by the next morning. Today, he states that his breathing has gotten substantially better. He has improved with steroids and DuoNeb, and seems to be getting better. REVIEW OF SYSTEMS: Otherwise negative. PAST MEDICAL HISTORY: Includes: 1. Coronary artery disease. 2. Chronic kidney disease with baseline creatinine 1.2. 3. Hypertension. 4. Hyperlipidemia. 5. Bipolar. 6. Remote chest wall hematoma. 7. Right upper extremity deep vein thrombosis. 8. History of falls. 9. History of alcoholism, though none recently. 10. Pneumonia as described above. SOCIAL HISTORY: He is a nonsmoker for lifelong. No alcohol or IV drugs currently. FAMILY HISTORY: Noncontributory. MEDICATIONS: At this time, include DuoNeb, Norvasc, aspirin, Rocephin, doxycycline, Neurontin, Zofra n, oxycodone p.r.n., prednisone 40 mg daily, Seroquel, Crestor, Flomax, trazodone, Coumadin. PHYSICAL EXAMINATION: VITAL SIGNS: Today, he was afebrile. Heart rate was 76, blood pressure 41/76 , oxygen saturation 90% on room air. GENERAL: He is very pleasant man, obese, but in no apparent di stress. Able to speak in full sentences without using accessory muscles for breathing. HEENT: Pupi ls equally round and reactive to light. Nonicteric and noninjected. Mucous membranes moist without erythema or exudate. NECK: Supple without adenopathy or jugular vein distention. LUNGS: Breath glenn nds were distant, but somewhat coarse, particularly in the left lower lobe, but no wheezes. HEART: Regular rate and rhythm without murmurs, rubs, gallops. ABDOMEN: Soft, nontender, nondistended with out hepatosplenomegaly. EXTREMITIES: Show no clubbing, cyanosis, or edema. NEUROLOGIC: Nonfocal. OBJECTIVE DATA: Includes chest x-ray as described above. white count is 11.4 on admission, down to 6.9 today, hematocrit 42, platelets of 137. Arterial blood gas done yesterday showed a pH 7.27, pCO2 47, pO2 85, bicarb 22, sat of 95. Basic metabolic panel w as essentially normal today, save for a creatinine, which was initially 2.4 down to 1.6 and therefore approaching baseline. Troponin was negative. Urinalysis negative. His tox screen showed opiates, as well as benzodiazepines, but no alcohol. ASSESSMENT/PLAN: 1. Mental status change could be due to underlying opiate use. It is hard to know. Deferred to the hospitalist for further management of this problem since it appears to be a recurrent issue, not onl y with potentially narcotics, but as well as benzodiazepine. This is also particularly important in the setting of undiagnosed sleep apnea. 2. Pneumonia. Seems to be getting well currently and feels a lot better. I might pare his antibiot ics down to doxycycline alone and continuing oxygen as needed, though I would titrate his oxygen to a saturation of 88%-92%. 3. Sleep apnea. He continues to have acute episodes making sleep study difficult. Will have to tee t for him to resolve from this particular episode, but I can always see him as an outpatient as banner ed. 4. Possible asthma. As a lifelong nonsmoker as I previously have stated, he does not have chronic o bstructive pulmonary disease, but reasonable to treat him for asthma with steroids and bronchodilator s as needed. /[id number]/MODL
[2017-12-24] MEDS ORDERED: WARFARIN SODIUM 2.5 MG TAB PO SCH (16:00)
[2017-12-24] MEDS: QUEtiapine FUMARATE 50 MG TAB PO SCH (20:58)
[2017-12-24] MEDS: QUEtiapine FUMARATE 200 MG TAB PO SCH (20:58)
[2017-12-24] MEDS: ASPIRIN 81 MG CHEWABLE TAB PO SCH (20:59)
[2017-12-25] MEDS: oxyCODONE IR 5 MG TAB PO PRN ×2 (02:22→07:15)
[2017-12-25] MEDS: IPRATROPIUM/ALBUTEROL 3 ML DEYVIAL IH SCH ×4 (05:06→20:01)
[2017-12-25 05:38] LABS: INR 2.37 (0.83-1.16); PROTIME(PATIENT) 25.9 SEC (12.0-15.0)
[2017-12-25] MEDS: ACETAMINOPHEN 325 MG TAB PO PRN ×4 (07:17→21:02)
--- NOTE | 2017-12-25 07:50 | CPEKG ---
Heart Rate: 65 RR Interval: 923 P-R Interval: 140 QRSD Interval: 90 QT Interval: 440 QTC Interval: 458 P Venus: 40 QRS Venus: 49 T Wave Venus: 36 EKG Severity - OTHERWISE NORMAL ECG - EKG Impression: SINUS RHYTHM EKG Impression: VENTRICULAR PREMATURE COMPLEX Electronically Signed By: Javed Arroyo 27-Dec-2017 20:42:18
[2017-12-25] MEDS: predniSONE 20 MG TAB PO SCH (08:22)
[2017-12-25] MEDS: TAMSULOSIN HCL 0.4 MG CAP PO SCH (08:22)
[2017-12-25] MEDS: ROSUVASTATIN CALCIUM 20 MG TAB PO SCH (08:22)
[2017-12-25] MEDS: GABAPENTIN 300 MG CAP PO SCH ×2 (08:22→20:52)
[2017-12-25] MEDS: DOXYCYCLINE HYCLATE 100 MG CAP/TAB PO SCH (08:23)
[2017-12-25] MEDS ORDERED: LIDOCAINE 4%/MENTHOL 1% PATCH TD SCH (10:45)
[2017-12-25] MEDS ORDERED: IBUPROFEN 600 MG TAB PO PRN (10:46)
--- NOTE | 2017-12-25 14:22 | ASMTCMCOM ---
CM Note CM Note Notes: CM spoke to Dr. Raman regarding d/c POC. Pt will most likely d/c tomorrow. CM met w/ pt for dispo planning. OT is recommending HC vs SNF. PT is recommending HC. Pt would [facility] to continue w/ [facility]. Referral sent to [facility]. Pt is requesting for a cane and a taxi voucher home. Pt reports that he does not have anyone to pick him up. Pt reports that he is unable to ambulate safely due to his traumatic left foot injury. CM spoke to Jayde business rep from case management department to inquire about cane availablity. CM to follow. Plan: [facility]; PT, OT, RN Date Signed: 12/25/2017 02:21 PM Electronically Signed By:SHAY Virgne
--- NOTE | 2017-12-25 15:18 | HOSPPROG ---
Hospitalist Progress Note Assessment/Plan: * Acute hypercarbic respiratory failure - Asthma exac + narcotics -back to room air * Asthma exacerbation -steroid/nebs * Narcotic overdose s/p Narcan * Metabolic vs. toxic encephalopathy -improved * Probable aspiration PNA -change to PO Augmentin * ARF - urinary retention + dehydration -hold ARB * Urinary retention - narcotics vs. BPH -rodriges removed - bladder scans low volume -Flomax * Chronic pain left ankle with severe deformity - poorly healed trauma -suspect illegally obtaining narcotics -black tar found in oral cavity on admission * AFib -chronic warfarin * CAD/stent * Obesity BMI 31 - probable ANGEL -f/u Dr. Perrin as outpatient - needs sleep study Subjective: No new complaints Objective: Vital Signs Temp Pulse Resp BP Pulse Ox 36.9 C 78 16 138/75 H 90 L 12/25/17 15:14 12/25/17 15:14 12/25/17 15:14 12/25/17 15:14 12/25/17 15:14 Laboratory Results 12/24/17 05:54 12/25/17 05:02 12/24/17 12/25/17 12/26/17 05:59 05:59 05:59 Intake Total 2160 1900 Output Total 1960 300 Balance 200 1600 PT 25.9 SEC (12.0-15.0) H 12/25/17 05:02 INR 2.37 (0.83-1.16) H 12/25/17 05:02 - Physical Exam Constitutional: no apparent distress, appears nourished, not in pain Cardiovascular: regular rate and rhythym, no murmur, rub, or gallop Respiratory: no respiratory distress, no rales or rhonchi, clear to auscultation Gastrointestinal: normoactive bowel sounds, soft, non-tender abdomen, no palpable masses Skin: no rashes or abrasions, no fluctuance, no induration Neurologic: AAOx3, sensation intact bilaterally Psychiatric: interacting appropriately, not anxious, not encephalopathic, thought process linear ICD10 Worksheet Patient Problems: Problems Problem Status Onset Acute on chronic renal insufficiency Acute Pneumonia Acute Anxiety Acute Atrial fibrillation Acute Benzodiazepine withdrawal Acute Bronchitis Acute Bronchospasm Acute COPD exacerbation Acute Chest wall contusion Acute Dehydration Acute Depression Acute Dyspnea Acute Generalized weakness Acute Hyperkalemia Acute Hypoxemia Acute Hypoxia Acute Intentional overdose of drug in tablet form Acute Renal failure Acute Rhabdomyolysis Acute Right rib fracture Acute Suicide attempt by drug ingestion Acute Vertigo Acute chronic disease mgmt/transitional care Acute
[2017-12-25] MEDS: WARFARIN SODIUM 2.5 MG TAB PO SCH (16:20)
[2017-12-25 20:42] VITALS: BP 149/67
[2017-12-25] MEDS: QUEtiapine FUMARATE 200 MG TAB PO SCH (20:52)
[2017-12-25] MEDS: QUEtiapine FUMARATE 50 MG TAB PO SCH (20:52)
[2017-12-25] MEDS: ASPIRIN 81 MG CHEWABLE TAB PO SCH (20:52)
[2017-12-25] MEDS ORDERED: AMOXICILLIN/CLAVULANATE POT 875/125 MG TAB PO SCH (21:00)
[2017-12-25] MEDS ORDERED: PATCH REMOVAL 1 EA PATCH TD SCH (21:00)
[2017-12-25] MEDS ORDERED: FLUTICASONE/SALMETER 250/50MCG DISKUS IH SCH (21:00)
--- NOTE | 2017-12-26 22:32 | GDS ---
[f rep st] DISCHARGE SUMMARY Please note, this is an against medical advice discharge, AMA. The patient was medically ready for discharge today. However, he did not want to wait for me to come and give him discharge prescriptions or instructions, so he left the floor prior to getting any pres criptions. DIAGNOSES: 1. Acute hypercarbic respiratory failure due to narcotics and asthma exacerbation. 2. Asthma exacerbation. 3. Narcotic overdose status post Narcan. 4. Metabolic versus toxic encephalopathy. 5. Probable aspiration pneumonia. 6. Acute renal failure due to urinary retention and dehydration. 7. Urinary retention due to narcotics versus BPH. 8. Chronic pain of the left ankle with severe deformity due to a history of poorly healed trauma. 9. Atrial fibrillation. 10. Coronary artery disease status post stent. 11. Obesity. Body mass index 31 with probable obstructive sleep apnea. HISTORY OF PRESENT ILLNESS: The patient is a 67-year-old male who was brought to the hospital after his friend found him confused. Upon presentation, he was in hypercarbic respiratory failure. He had a high oxygen requirement and was wheezing extensively. Initially thought this was all an asthma ex acerbation with pneumonia. His mental status subsequently worsened after presentation. Although he did not report having a prescription for narcotics at home, he was given a one-time dose of IV Narcan and immediately woke up confirming that there is a narcotic element to his altered mental status. S ubsequently, black tar heroin was found in his oropharynx. Perhaps, he was chewing or sucking on it. He complains of chronic pain in his left ankle, and he does have severe deformity due to a poorly h ealed previous ankle fracture. He was transferred to the ICU but once the narcotics wore off, he rap idly woke up and no longer required oxygen. I do think his pneumonia is probably aspiration due to h is altered mental status. His wheezing rapidly improved. He was on room air. He was being treated with steroids and nebulizers. We declined giving him any further narcotics in the hospital. He subs equently developed diarrhea which I suspect may have been narcotic withdrawal. He overall had improv ed, however, and we did plan on discharging home today. However, he did not want to wait for me to c ome to the floor and provide prescriptions and he just left urgently. He also presented in acute renal failure with a creatinine of 2.4. He was found to have significant urinary retention with greater than 800 cc retained in his bladder. This may have been due to his na rcotics versus BPH. I did start him on Flomax. His renal failure resolved with hydration. His Fole y was removed, and his followup bladder scans remained low volume. While he was in the ICU, Dr. Perrin saw him in consultation. Dr. Perrin has seen this patient in the p ast and has strongly recommended an outpatient sleep study for probable ANGEL. The patient is aware of that need for followup. DISCHARGE MEDICATIONS: Multiple medications should have been prescribed at discharge but were not as the patient left AMA prior to obtaining these prescriptions. The patient left today prior to me seeing him. /[id number]/MODL
--- NOTE | 2017-12-27 09:57 | ASMTCMCOM ---
CM Note CM Note Notes: Pt d/c AMA yesterday. CM spoke to [facility] at [facility] and notified her of this. Date Signed: 12/27/2017 09:57 AM Electronically Signed By:SHAY Virgen
--- NOTE | 2017-12-27 09:59 | ASDISCHSUM ---
Discharge Information Plan Status: Medically Cleared to Leave:12/26/2017 Discharge Date:12/26/2017 10:00 AM CM D/C Disposition:Against Medical Advice ADT D/C Disposition:Against Medical Advice Projected Discharge Date:12/26/2017 11:00 AM Transportation at D/C: Discharge Delay Reason: Follow-Up Date:12/26/2017 11:00 AM Discharge Slot: Final Diagnosis: Placement Information Referral Type:*Home Health Care Services Referral ID:[id number] Provider Name: Address 1: Phone Number: Address 2: Fax Number: City: Selection Factors: State: Patient Contact Information Contact Name:GUEROSELMAVIOLETTE Relationship:Sister Address: Work Phone: Anurag:CHERI Deleon Phone: [facility] Code:[place] Email: Financial Information Financial Class:Medicare Primary Plan Desc:MEDICARE INPATIENT Primary Plan Number:[id number] Secondary Plan Desc:[place] Secondary Plan Number:[id number] Assessment Information LACE LACE Length of stay for Answers: 3 days current admission Acuity / Level of Answers: Yes Care: Did the patient have an inpatient admission? Comorbidities - select Answers: Chronic pulmonary disease all that apply Coronary Artery Disease Opioid dependence / Chronic pain # of Emergency department Answers: 3-4 visits in the last 6 months Score: 17 Date Signed: 12/27/2017 09:58 AM Electronically Signed By:SHAY Virgen [facility] CM Progress Note CM Note CM Note Notes: Chart reviewed prior to transport to the floor. Discharge needs unknown at this time. Please see D/C summary and CM notes from 11/08/17. CM to follow Date Signed: 12/23/2017 01:46 PM Electronically Signed By:Mague Connors RN [facility] Progress Note CM Note CM Note Notes: CM spoke to Dr. Raman regarding d/c POC. Pt will most likely d/c tomorrow. CM met w/ pt for dispo planning. OT is recommending HC vs SNF. PT is recommending HC. Pt would like to continue w/ [facility]. Referral sent to [facility]. Pt is requesting for a cane and a taxi voucher home. Pt reports that he does not have anyone to pick him up. Pt reports that he is unable to ambulate safely due to his traumatic left foot injury. CM spoke to business aura Donohue from case management department to inquire about cane availablity. CM to follow. Plan: [facility]; PT, OT, RN Date Signed: 12/25/2017 02:21 PM Electronically Signed By:SHAY Virgen [facility] AC Progress Note AC Note AC Note Notes: Pt d/c AMA yesterday. AC spoke to Lois at [facility] and notified her of this. Date Signed: 12/27/2017 09:57 AM Electronically Signed By:SHAY Virgen Intervention Information
== END 2017-12-26 10:00 | disposition left against medical advice (07) | DRG 917 ==
LOC: EDUNIT# → EDBD → INTOOBSV 13:18 → OBSVTOIN 13:18 → F3E 14:00 → F2W 17:44 → F2N 20:35 → F3E 12-24 13:13
PROVIDERS: ADMIT Internal Medicine; ATTEND Internal Medicine
DX: T40.1X1A Poisoning by heroin, accidental (unintentional), initial encounter (principal); J96.02 Acute respiratory failure with hypercapnia; G92 Toxic encephalopathy; J69.0 Pneumonitis due to inhalation of food and vomit; J45.901 Unspecified asthma with (acute) exacerbation; N17.9 Acute kidney failure, unspecified; R33.0 Drug induced retention of urine; N40.0 Benign prostatic hyperplasia without lower urinary tract symptoms; G89.29 Other chronic pain; I48.91 Unspecified atrial fibrillation; I25.10 Atherosclerotic heart disease of native coronary artery without angina pectoris; G47.33 Obstructive sleep apnea (adult) (pediatric); I10 Essential (primary) hypertension; E78.5 Hyperlipidemia, unspecified; E66.9 Obesity, unspecified; Z95.5 Presence of coronary angioplasty implant and graft; Z68.31 Body mass index [BMI] 31.0-31.9, adult
CPT/HCPCS: 80307; 97116-GP; 97162-GP; 97165-GO; 97530-GO; 97535-GO; G0480; G8978-GP-CJ; G8979-GP-CI; G8987-GO-CJ; G8988-GO-CI; G8989-GO-CI; J0696; J1956; J2310; J7512

== ENCOUNTER 2018-01-20 14:51 | Emergency (ER) | payer OTHER, MEDICAID ==
[2018-01-20] MEDS ORDERED: ONDANSETRON DISINTEGRATING 4 MG TAB PO ONE (15:03)
[2018-01-20] MEDS ORDERED: NS 1,000 ML IV ONE (15:20)
--- NOTE | 2018-01-20 15:24 | EDPHY ---
H & P Stated Complaint: feels constipated x~1 week Time Seen by Provider: 01/20/18 14:54 HPI/ROS: CHIEF COMPLAINT:"My belly hurts I haven't had a bowel movement in 1 week" HISTORY OF PRESENT ILLNESS: 67-year-old male with remote history of appendectomy, otherwise no abdominal surgeries, complaining of 1 week of left lower quadrant abdominal pain, abdominal distension, inability to pass gas or stool, postprandial nausea. No chest pain. No back pain. No lower extremity radicular complaints. No abdominal or other trauma. No testicular pain or complaints. Urinary habits have been normal. REVIEW OF SYSTEMS: A ten point review of systems was performed and is negative with the exception of the items mentioned in the HPI PAST MEDICAL & SURGICAL HISTORY: Remote appendectomy history. Asthma. Atrial fibrillation with chronic Coumadin anticoagulation. Coronary artery disease post stent. Obesity. SOCIAL HISTORY:Single PHYSICAL EXAM (Prior to examination, patient consented to physical exam, hands were washed and my usual and customary physical exam procedures followed) 1) GENERAL: Alert and oriented. Appears to be in no acute distress. 2) HEAD: Normocephalic, atraumatic 3) HEENT: Pupils equal, round, reactive to light bilaterally. Sclera anicteric. Nasopharynx, oropharynx, clear, no lesions. Dry mucous membrane 4) NECK: Full range of motion, no meningeal signs. 5) LUNGS: Clear auscultation bilaterally, no wheezes, no rhonchi, no retractions. 6) HEART: Regular rate and rhythm, no murmur, no heave, no gallop. 7) ABDOMEN: Tender to palpation left lower quadrant, negative peritoneal sign, 8) MUSCULOSKELETAL: Moving all extremities, no focal areas of tenderness, no obvious trauma. No peripheral edema or discoloration. 9) BACK: No CVA tenderness, no midline vertebral tenderness, no fluctuance, no step-off, no obvious trauma, no visual or palpable abnormality. 10) SKIN: No rash, no petechiae. 11) rectal: Multiple firm pieces of stool in the rectal vault 12) : Normal male external genitalia bilateral testicles nontender, bilateral cremasteric reflex present and brisk DIFFERENTIAL DIAGNOSIS: My differential diagnosis includes, but is not limited to, acute appendicitis, acute cholecystitis, bowel obstruction, acute pancreatitis, testicular torsion, gastritis , constipation. The patient understands that this diagnosis is provisional and can never be 100% accurate. This is a partial list of diagnoses considered. These considerations are based on history, physical exam, past history and reassessment. - Personal History Tetanus Vaccine Date: 10/2010 - Medical/Surgical History Hx Asthma: Yes Hx Chronic Respiratory Disease: Yes Hx Diabetes: No Hx Cardiac Disease: Yes Hx Renal Disease: Yes Hx Cirrhosis: No Hx Alcoholism: No Hx HIV/AIDS: No Hx Splenectomy or Spleen Trauma: No Other PMH: A Fib, anxiety, chronic pain, CAD, Asthma, left foot deformity/fx from 10 yrs ago, [place] w/stents 2011, kidney problems, appendectomy, COPD, DVT - Social History Smoking Status: Never smoked Constitutional: Initial Vital Signs Temperature (C) 36.2 C 01/20/18 15:00 Heart Rate 98 01/20/18 15:00 Respiratory Rate 18 01/20/18 15:00 Blood Pressure 161/101 H 01/20/18 15:00 O2 Sat (%) 94 01/20/18 15:00 O2 Delivery Mode Room Air Allergies/Adverse Reactions: Sulfa (Sulfonamide Antibiotics) Allergy (Intermediate, Verified 12/23/17 12:22) Vomiting Home Medications: Medication Instructions Recorded Amlodipine Besylate 01/20/18 Coumadin 2.5MG (*) 01/20/18 Peg 3350/Na Sulf,Bicarb,Cl/KCl 1,000 ml PO ONCE #4000 ml 01/20/18 [Golytely (RX)] Seroquel 01/20/18 traZODone 01/20/18 Medical Decision Making ED Course/Re-evaluation: 3:24 p.m.: Patient is focally tender to palpation left lower quadrant. While this may be secondary to constipation, I am concerned about possible diverticulitis, possible bowel obstruction as he states he has not passed gas in 1 week. Will obtain i-STAT laboratory studies, CT imaging. Patient feels comfortable this plan. Care of patient under supervision of secondary supervising physician Dr Johnson with whom I discussed case. 4:35 p.m.: Patient a point of care potassium of 4.2 and a laboratory potassium of 5.8 which I think is more than likely secondary to hemolyzed sample . 4:57 p.m.: CT of abdomen pelvis interpreted by radiologist as positive for constipation otherwise negative for acute pathology. No evidence of bowel obstruction. No evidence of diverticulitis. I discussed the results with the patient. He would like to be discharged home. I am giving a prescription for GoLYTELY as well as Fleet's enema. I recommended and instructed on manual disimpaction. He feels comfortable being discharged. Usual and customary discharge precautions and instructions provided. - Data Points Laboratory Results: Laboratory Results 01/20/18 16:00 01/20/18 16:00 01/20/18 01/20/18 01/20/18 16:00 16:00 15:54 WBC 8.82 10^3/uL 10^3/uL (3.80-9.50) RBC 4.82 10^6/uL 10^6/uL (4.40-6.38) Hgb 15.0 g/dL g/dL (13.7-17.5) POC Hgb 15.3 gm/dL gm/dL (13.7-17.5) Hct 44.2 % % (40.0-51.0) POC Hct 45 % % (40-51) MCV 91.7 fL fL (81.5-99.8) MCH 31.1 pg pg (27.9-34.1) MCHC 33.9 g/dL g/dL (32.4-36.7) RDW 13.3 % % (11.5-15.2) Plt Count 180 10^3/uL 10^3/uL (150-400) MPV 9.3 fL fL (8.7-11.7) Neut % (Auto) 78.4 % H % (39.3-74.2) Lymph % (Auto) 12.2 % L % (15.0-45.0) [place] % (Auto) 8.3 % % (4.5-13.0) Eos % (Auto) 0.7 % % (0.6-7.6) Baso % (Auto) 0.2 % L % (0.3-1.7) Nucleat RBC Rel Count 0.0 % % (0.0-0.2) Absolute Neuts (auto) 6.91 10^3/uL H 10^3/uL (1.70-6.50) Absolute Lymphs (auto) 1.08 10^3/uL 10^3/uL (1.00-3.00) Absolute Monos (auto) 0.73 10^3/uL 10^3/uL (0.30-0.80) Absolute Eos (auto) 0.06 10^3/uL 10^3/uL (0.03-0.40) Absolute Basos (auto) 0.02 10^3/uL 10^3/uL (0.02-0.10) Absolute Nucleated RBC 0.00 10^3/uL 10^3/uL (0-0.01) Immature Gran % 0.2 % % (0.0-1.1) Immature Gran # 0.02 10^3/uL 10^3/uL (0.00-0.10) POC Sodium 140 mEq/L mEq/L (135-145) Sodium 136 mEq/L mEq/L (135-145) POC Potassium 4.2 mEq/L mEq/L (3.3-5.0) Potassium 5.8 mEq/L H mEq/L (3.3-5.0) POC Chloride 105 mEq/L mEq/L (97-110) Chloride 107 mEq/L mEq/L (97-110) Carbon Dioxide 23 mEq/l mEq/l (22-31) Anion Gap 6 mEq/L L mEq/L (8-16) POC BUN 25 mg/dL H mg/dL (7-23) BUN 20 mg/dL mg/dL (7-23) Creatinine 1.1 mg/dL mg/dL (0.7-1.3) POC Creatinine 1.3 mg/dL mg/dL (0.7-1.3) Estimated GFR > 60 Glucose 105 mg/dL H mg/dL (70-100) POC Glucose 114 mg/dL H mg/dL (70-100) Calcium 9.4 mg/dL mg/dL (8.5-10.4) Total Bilirubin 1.3 mg/dL mg/dL (0.1-1.4) Conjugated Bilirubin 1.0 mg/dL H mg/dL (0.0-0.5) Unconjugated Bilirubin 0.3 mg/dL mg/dL (0.0-1.1) AST 40 IU/L IU/L (17-59) ALT 18 IU/L L IU/L (21-72) Alkaline Phosphatase 86 IU/L IU/L (38-126) Total Protein 7.4 g/dL g/dL (6.3-8.2) Albumin 4.5 g/dL g/dL (3.5-5.0) Lipase 53 IU/L IU/L (23-300) Specimen Hemolysis 221 Medications Given: Discontinued Medications Sodium Chloride (Ns) 1,000 mls @ 0 mls/hr IV ONCE ONE PRN Reason: Wide Open Stop: 01/20/18 15:21 Last Admin: 01/20/18 16:05 Dose: 1,000 mls Ondansetron HCl (Zofran Odt) 4 mg PO EDNOW ONE Stop: 01/20/18 15:04 Last Admin: 01/20/18 15:07 Dose: 4 mg Point of Care Test Results: Chemistry 01/20/18 15:54 POC Sodium 140 mEq/L mEq/L (135-145) POC Potassium 4.2 mEq/L mEq/L (3.3-5.0) POC Chloride 105 mEq/L mEq/L (97-110) POC BUN 25 mg/dL H mg/dL (7-23) POC Creatinine 1.3 mg/dL mg/dL (0.7-1.3) POC Glucose 114 mg/dL H mg/dL (70-100) ISTAT H&H 01/20/18 15:54 POC Hgb 15.3 gm/dL gm/dL (13.7-17.5) POC Hct 45 % % (40-51) Departure - Departure Disposition: Home, Routine, Self-Care Clinical Impression: Constipation Qualifiers: Constipation type: other constipation type Qualified Code(s): K59.09 - Other constipation Condition: Good Instructions: Constipation (ED) Additional Instructions: Seek immediate medical attention if you develop new or worsening symptoms, if you develop fevers, chills, inability to tolerate oral intake or any other symptoms that concerns you. Use the enema we gave you as directed on the box. Referrals: Susan Helm MD [Primary Care Provider] - 01/22/18 Prescriptions: Peg 3350/Na Sulf,Bicarb,Cl/KCl [Golytely (RX)] 1,000 ml PO ONCE #4000 ml
[2018-01-20] MEDS ORDERED: IOPAMIDOL (ISOVUE-300) 100 ML BTL ONE (16:13)
[2018-01-20 16:19] LABS: PLATELET COUNT 180 10^3/uL (150-400)
[2018-01-20] MEDS ORDERED: MAGNESIUM CITRATE 300 ML BOTTLE ONE (17:09)
[2018-01-20 17:18] VITALS: BP 125/75
== END 2018-01-20 17:18 | disposition home or self-care (01) ==
LOC: EDUNIT#
DX: K59.09 Other constipation (principal); J44.9 Chronic obstructive pulmonary disease, unspecified; I25.10 Atherosclerotic heart disease of native coronary artery without angina pectoris; I25.2 Old myocardial infarction; Z79.01 Long term (current) use of anticoagulants; Z90.89 Acquired absence of other organs; Z95.5 Presence of coronary angioplasty implant and graft
CPT/HCPCS: 74177; 96360; 99285; Q9967; 82435-PO; 82565-PO; 82947-PO; 84132-PO; 84295-PO; 84520-PO; 85014-PO

== ENCOUNTER 2018-08-08 11:09 | Emergency (ER) | payer OTHER, MEDICAID ==
[2018-08-08 11:20] VITALS: BP 172/103
--- NOTE | 2018-08-08 13:09 | EDPHY ---
H & P Time Seen by Provider: 08/08/18 13:01 HPI/ROS: CHIEF COMPLAINT: Sore on tongue HISTORY OF PRESENT ILLNESS: 68-year-old male presents with a 1 year history of a sore on his tongue. Ongoing pain on the right side of the tongue for 1 year, gradually increasing and now moderate. He recently stopped taking Percocet and now is taking ibuprofen 600 mg every 6 hr with minimal relief. He has not seen a dentist or oral surgeon for the tongue lesion. No fever, no known injury and no other lesions. REVIEW OF SYSTEMS: complete 10 point ROS reviewed and is negative except for the noted elements in the HPI Smoking Status: Never smoked Physical Exam: General Appearance: Alert, pleasant and talkative Eyes: Pupils equal and round, no conjunctival pallor ENT, Mouth: Mucous membranes moist, open sore on the right side of the tongue, with a small amount of bright red blood overlying the lesion, no other lesions visualized Neck: Normal inspection Respiratory: Lungs are clear to auscultation Cardiovascular: Regular rate and rhythm Neurological: A&O, nonfocal exam Skin: Warm and dry Extremities: Normal inspection Psychiatric: Mood and affect normal Constitutional: Initial Vital Signs Temperature (C) 36.9 C 08/08/18 11:18 Heart Rate 94 08/08/18 11:18 Respiratory Rate 16 08/08/18 11:18 Blood Pressure 172/103 H 08/08/18 11:18 O2 Sat (%) 92 08/08/18 11:18 Allergies/Adverse Reactions: Sulfa (Sulfonamide Antibiotics) Allergy (Intermediate, Verified 12/23/17 12:22) Vomiting Home Medications: Medication Instructions Recorded Amlodipine Besylate 01/20/18 Seroquel 01/20/18 traZODone 01/20/18 Lidocaine 2% Viscous 5 ml MM TID PRN #100 ml 08/08/18 Restoril 08/08/18 Xanax 08/08/18 Departure - Departure Disposition: Home, Routine, Self-Care Clinical Impression: Tongue lesion Condition: Good Instructions: Additional Information Additional Instructions: You have a lesion on your tongue. This is causing the pain. You need to follow up as soon as possible with an oral surgeon. Call an oral surgeon to make an appointment. Make an appointment to see your primary care physician. Referrals: Susan Helm MD [Primary Care Provider] - As per Instructions Nerenatoki,Deny, DDS [Doctor of Dental Surgery] - As per Instructions Prescriptions: Lidocaine 2% Viscous 5 ml MM TID PRN #100 ml PRN Reason: oral pain
== END 2018-08-08 13:45 | disposition home or self-care (01) ==
LOC: EDUNIT#
DX: K13.70 Unspecified lesions of oral mucosa (principal); Z88.2 Allergy status to sulfonamides

== ENCOUNTER 2018-08-31 11:47 | Inpatient (IN) | payer OTHER, MEDICAID ==
--- NOTE | 2018-08-31 11:50 | EDPHY ---
H & P Time Seen by Provider: 08/31/18 11:47 Constitutional: Initial Vital Signs Temperature (C) 37.2 C 08/31/18 12:15 Heart Rate 93 08/31/18 12:15 Respiratory Rate 16 08/31/18 12:15 O2 Sat (%) 95 08/31/18 12:15 O2 Delivery Mode Nasal Cannula O2 (L/minute) 2 Allergies/Adverse Reactions: Sulfa (Sulfonamide Antibiotics) Allergy (Intermediate, Verified 12/23/17 12:22) Vomiting Home Medications: Medication Instructions Recorded QUEtiapine FUMARATE [Seroquel 300 mg PO DAILY 01/20/18 300mg (*)] amLODIPine BESYLATE [Norvasc 10 mg 10 mg PO DAILY 01/20/18 (*)] traZODone [traZODone 150MG (*)] 300 mg PO HS 01/20/18 ALPRAZolam [Xanax 1 MG (*)] 1 mg PO BID PRN 08/08/18 Temazepam [Restoril] 30 mg PO HS 08/08/18 Venlafaxine Xr [Effexor Xr 37.5MG 37.5 mg PO DAILY 08/31/18 (*)] Medical Decision Making - Diagnostics Imaging Results: Imaging Impressions Chest X-Ray 08/31/18 11:51 Impression: Stable cardiac enlargement, without acute cardiopulmonary abnormality identified. Head CT 08/31/18 11:51 Impression: 1. Stable mild to moderate atrophy. 2. No hemorrhage, mass effect, or definite acute peripheral infarct. If symptoms worsen, additional imaging may be necessary. Findings discussed with Curtis Medina MD at 12:04 hour, 08/31/2018. Imaging: Discussed imaging studies w/ trial consultant Radiologist, I viewed and interpreted images myself ED Course/Re-evaluation: CHIEF COMPLAINT: Possible stroke, AMS HISTORY OF PRESENT ILLNESS: The patient is a 68 y/o with a history of prior admission for encephalopathy who arrives emergently via EMS with a possible stroke. He was last seen normal at 14:00 yesterday, about 22 hours ago. EMS found him this morning altered and aphasic, only able to answer "yes" and "no" to questions and has difficulty following commands. He endorsed a headache to EMS and denied trauma to me, though he is not a reliable historian at this time. EMS did not see anticoagulants on scene with his medications, which include Seroquel and Gabapentin. Further history unobtainable from patient due to AMS. REVIEW OF SYSTEMS: Unobtainable due to AMS. PHYSICAL EXAM: HR, BP, O2 Sat, RR. Temp noted General Appearance: Alert, only saying "yes" and "no," difficulty following commands. Head: Atraumatic without scalp tenderness or obvious injury Eyes: Pupils equal, round, reactive to light and accommodation, EOMI, no trauma , no injection. Nose: Atraumatic, no rhinorrhea, clear. Throat: Mucus membranes moist. Neck: Supple,non-tender, no lymphadenopathy. Respiratory: No retractions, no distress, no wheezes, and no accessory muscle use. Lungs are clear to auscultation bilaterally. Cardiovascular: Regular rate and rhythm, no murmurs, rubs, or gallops. Good capillary refill all extremities. Gastrointestinal: Abdomen is soft, obese, non-tender, non-distended, no masses, no rebound, no guarding, no peritoneal signs. Musculoskeletal: Chronic left ankle deformity, spontaneous movement in all extremities, atraumatic. Neurological: Alert, minimally verbal only saying "yes" and "no," attempts to follow some commands like lifting his arms, face symmetric, no obvious unilateral weakness, but difficult to assess due to AMS, tremulous. Skin: No rashes, good turgor, no nodules on palpation. PAST MEDICAL HISTORY: Chronic kidney disease (baseline creatinine ~1.2), asthma , CAD, atrial fibrillation, chronic pain, anxiety, depression, narcotic overdose , prior admission for encephalopathy 12/23/17. PAST SURGICAL HISTORY: Cardiac stents, appendectomy SOCIAL HISTORY: Lives in [place], [facility]. Prior medical records reviewed including admission 12/23/17 for encephalopathy. DIAGNOSTICS/PROCEDURES/CRITICAL CARE TIME: Head CT: nothing acute Head CTA: nothing acute Neck CTA: nothing acute Chest x-ray: no infiltrate Critical care time spent by me, Dr. Medina, exclusively with this patient was 35 minutes, exclusive of PA time and exclusive of procedures. The organ system at risk was multisystem. Time spent in urgent assessment, serial assessments of patient, consideration of interventions, review of imaging and labs. DIFFERENTIAL DIAGNOSIS: The differential diagnosis for the patient's altered mental status included but was not limited to hypoglycemia, infectious process, electrolyte abnormality, head injury, neurologic process, anemia, cardiac process, and intoxicants. MEDICAL DECISION MAKIN: Met EMS upon arrival and took report. This is a 68 y/o male with a history of chronic pain and prior admission for encephalopathy who presents emergently via EMS with concern for a stroke. He is altered, only able to answer some yes/no questions, and is minimally able to follow commands. He is tremulous. No acute trauma noted and he has movement in all extremities. Plan for IV, labs, urgent neuroimaging. 1149: Sent to CT for non-contrast head CT. 2mg IV Ativan ordered for agitation. 1204: Head CT negative for acute findings. WBC elevated at 18. Spoke with hospitalist service, Dr. Clement accepts admission for altered mental status. Patient continues to be altered on reassessments. Ativan improved agitation. Patient is positive for opiates and benzodiazepines on tox screen. - Data Points Laboratory Results: Laboratory Results 08/31/18 12:27 08/31/18 12:27 08/31/18 08/31/18 08/31/18 12:45 12:30 12:27 WBC RBC Hgb POC Hgb 16.7 gm/dL gm/dL (13.7-17.5) Hct POC Hct 49 % % (40-51) MCV MCH MCHC RDW Plt Count MPV Neut % (Auto) Lymph % (Auto) [place] % (Auto) Eos % (Auto) Baso % (Auto) Nucleat RBC Rel Count Absolute Neuts (auto) Absolute Lymphs (auto) Absolute Monos (auto) Absolute Eos (auto) Absolute Basos (auto) Absolute Nucleated RBC Immature Gran % Immature Gran # PT INR APTT POC Sodium 146 mEq/L H mEq/L (135-145) Sodium 143 mEq/L mEq/L (135-145) POC Potassium 4.2 mEq/L mEq/L (3.3-5.0) Potassium 4.6 mEq/L mEq/L (3.5-5.2) POC Chloride 108 mEq/L mEq/L (97-110) Chloride 110 mEq/L mEq/L (97-110) Carbon Dioxide 25 mEq/l mEq/l (22-31) POC Total CO2 26 mEq/L mEq/L (22-31) Anion Gap 8 mEq/L mEq/L (6-14) POC BUN 24 mg/dL H mg/dL (7-23) BUN 22 mg/dL mg/dL (7-23) Creatinine 1.2 mg/dL mg/dL (0.7-1.3) POC Creatinine 1.3 mg/dL mg/dL (0.7-1.3) Estimated GFR 60 Glucose 96 mg/dL mg/dL (70-100) POC Glucose 102 mg/dL H mg/dL (70-100) Calcium 9.5 mg/dL mg/dL (8.5-10.4) Total Bilirubin 0.8 mg/dL mg/dL (0.1-1.4) Conjugated Bilirubin 0.4 mg/dL mg/dL (0.0-0.5) Unconjugated Bilirubin 0.4 mg/dL mg/dL (0.0-1.1) AST 42 IU/L IU/L (17-59) ALT 25 IU/L IU/L (21-72) Alkaline Phosphatase 113 IU/L IU/L (38-126) Total Protein 7.1 g/dL g/dL (6.3-8.2) Albumin 4.6 g/dL g/dL (3.5-5.0) Lipase 78 IU/L IU/L (23-300) Urine Color YELLOW Urine Appearance CLEAR Urine pH 5.0 (5.0-7.5) Ur Specific [place] 1.021 (1.002-1.030) Urine Protein 1+ H (NEGATIVE) Urine Ketones 1+ H (NEGATIVE) Urine Blood 2+ H (NEGATIVE) Urine Nitrate NEGATIVE (NEGATIVE) Urine Bilirubin NEGATIVE (NEGATIVE) Urine Urobilinogen NEGATIVE EU EU (0.2-1.0) Ur Leukocyte Esterase NEGATIVE (NEGATIVE) Urine RBC 1-3 /hpf /hpf (0-3) Urine WBC 1-3 /hpf /hpf (0-3) Ur Epithelial Cells TRACE /lpf /lpf (NONE-1+) Urine Mucus TRACE /lpf /lpf (NONE-1+) Urine Glucose NEGATIVE (NEGATIVE) Urine Opiates Screen NON-NEGATIVE H (NEGATIVE) Urine Barbiturates NEGATIVE (NEGATIVE) Ur Phencyclidine Scrn NEGATIVE (NEGATIVE) Ur Amphetamine Screen NEGATIVE (NEGATIVE) U Benzodiazepines Scrn NON-NEGATIVE H (NEGATIVE) Urine Cocaine Screen NEGATIVE (NEGATIVE) U Marijuana (THC) Screen NEGATIVE (NEGATIVE) 08/31/18 08/31/18 12:27 12:27 WBC 18.19 10^3/uL H 10^3/uL (3.80-9.50) RBC 5.20 10^6/uL 10^6/uL (4.40-6.38) Hgb 16.7 g/dL g/dL (13.7-17.5) POC Hgb Hct 48.2 % % (40.0-51.0) POC Hct MCV 92.7 fL fL (81.5-99.8) MCH 32.1 pg pg (27.9-34.1) MCHC 34.6 g/dL g/dL (32.4-36.7) RDW 13.1 % % (11.5-15.2) Plt Count 203 10^3/uL 10^3/uL (150-400) MPV 9.4 fL fL (8.7-11.7) Neut % (Auto) 87.7 % H % (39.3-74.2) Lymph % (Auto) 4.3 % L % (15.0-45.0) [place] % (Auto) 7.5 % % (4.5-13.0) Eos % (Auto) 0.0 % L % (0.6-7.6) Baso % (Auto) 0.1 % L % (0.3-1.7) Nucleat RBC Rel Count 0.0 % % (0.0-0.2) Absolute Neuts (auto) 15.94 10^3/uL H 10^3/uL (1.70-6.50) Absolute Lymphs (auto) 0.79 10^3/uL L 10^3/uL (1.00-3.00) Absolute Monos (auto) 1.36 10^3/uL H 10^3/uL (0.30-0.80) Absolute Eos (auto) 0.00 10^3/uL L 10^3/uL (0.03-0.40) Absolute Basos (auto) 0.02 10^3/uL 10^3/uL (0.02-0.10) Absolute Nucleated RBC 0.00 10^3/uL 10^3/uL (0-0.01) Immature Gran % 0.4 % % (0.0-1.1) Immature Gran # 0.08 10^3/uL 10^3/uL (0.00-0.10) PT 13.6 SEC SEC (12.0-15.0) INR 1.02 (0.83-1.16) APTT 24.1 SEC SEC (23.0-38.0) POC Sodium Sodium POC Potassium Potassium POC Chloride Chloride Carbon Dioxide POC Total CO2 Anion Gap POC BUN BUN Creatinine POC Creatinine Estimated GFR Glucose POC Glucose Calcium Total Bilirubin Conjugated Bilirubin Unconjugated Bilirubin AST ALT Alkaline Phosphatase Total Protein Albumin Lipase Urine Color Urine Appearance Urine pH Ur Specific [place] Urine Protein Urine Ketones Urine Blood Urine Nitrate Urine Bilirubin Urine Urobilinogen Ur Leukocyte Esterase Urine RBC Urine WBC Ur Epithelial Cells Urine Mucus Urine Glucose Urine Opiates Screen Urine Barbiturates Ur Phencyclidine Scrn Ur Amphetamine Screen U Benzodiazepines Scrn Urine Cocaine Screen U Marijuana (THC) Screen Medications Given: Discontinued Medications Lorazepam (Ativan Injection) 2 mg IVP EDNOW ONE Stop: 08/31/18 12:02 Last Admin: 08/31/18 12:03 Dose: 2 mg Lorazepam (Ativan Injection) 2 mg IVP EDNOW ONE Stop: 08/31/18 12:49 Last Admin: 08/31/18 12:50 Dose: 2 mg Point of Care Test Results: Chemistry 08/31/18 12:30 POC Sodium 146 mEq/L H mEq/L (135-145) POC Potassium 4.2 mEq/L mEq/L (3.3-5.0) POC Chloride 108 mEq/L mEq/L (97-110) POC Total CO2 26 mEq/L mEq/L (22-31) POC BUN 24 mg/dL H mg/dL (7-23) POC Creatinine 1.3 mg/dL mg/dL (0.7-1.3) POC Glucose 102 mg/dL H mg/dL (70-100) ISTAT H&H 08/31/18 12:30 POC Hgb 16.7 gm/dL gm/dL (13.7-17.5) POC Hct 49 % % (40-51) Departure - Departure Disposition: [facility] Clinical Impression: Altered mental status Qualifiers: Altered mental status type: unspecified Qualified Code(s): R41.82 - Altered mental status, unspecified Condition: Serious Report Scribed for: Curtis Medina Report Scribed by: Vilma Conner Date of Report: 08/31/18 Time of Report: 11:44
[2018-08-31] MEDS ORDERED: LORazepam 2 MG/ML INJ ONE ×3 (11:59→16:05)
[2018-08-31] MEDS ORDERED: LORazepam 2 MG/ML INJ IVP ONE ×3 (12:01→16:03)
[2018-08-31 12:45] LABS: PLATELET COUNT 203 10^3/uL (150-400)
[2018-08-31 12:57] LABS: INR 1.02 (0.83-1.16); PROTIME(PATIENT) 13.6 SEC (12.0-15.0)
[2018-08-31] MEDS ORDERED: IOHEXOL 350mgI/ML (OMNIPAQUE) 150 ML BTL IV ONE (13:03)
[2018-08-31] MEDS ORDERED: HALOPERIDOL LACT 5 MG/ML INJ IVP PRN (17:57)
[2018-08-31] MEDS ORDERED: HALOPERIDOL LACT 5 MG/ML INJ IVP ONE (18:00)
[2018-08-31] MEDS ORDERED: POTASSIUM Cl (KCl) 20 MEQ in 1/2 NS 1,000 ML IV SCH (18:00)
--- NOTE | 2018-08-31 18:05 | PDGENHP ---
History and Physical - Chief Complaint CONFUSION - History of Present Illness The patient is a 68 y/o with a history of prior admission for encephalopathy who arrived with AMS and possible stroke. He had CT Head, CTA Neck/Head and these were negative for stroke. He appears agitated. He has received several doses of Ativan in the ED. He is able to move all 4 extremities. He is able to answer some questions but cannot really follow commands. Hi is able to talk when he answers a questions. He does not have a facial droop. His pupils are reactive. His pupils are not pin point. He cannot provide an adequate ROS. He denies taking an intoxication but was reported to apologize to the staff earlier. Tox screen is positive for opiate and benzo. He is not acidotic. Cr is slightly elevated from baseline He does not have bacteriuria He has no resp sx's and CXR was unremarkable for infection VSS. He is intermittently tachycardic He was previously admitted for encephalopathy and it was unclear why he had become encephalopathic. There was some concern for opiate abuse. He left AMA NOT ABLE TO OBTAIN ROS PAST MEDICAL HISTORY: Chronic kidney disease (baseline creatinine ~1.2), asthma , CAD, atrial fibrillation, chronic pain, anxiety, depression, narcotic overdose , prior admission for encephalopathy 12/23/17. PAST SURGICAL HISTORY: Cardiac stents, appendectomy FMHX: NON CONTRIBUTORY SOCIAL HISTORY: Lives in [place], single. STUDIES: Head CT: nothing acute Head CTA: nothing acute Neck CTA: nothing acute Chest x-ray: no infiltrate History Information - Allergies/Home Medication List Allergies/Adverse Reactions: Sulfa (Sulfonamide Antibiotics) Allergy (Intermediate, Verified 12/23/17 12:22) Vomiting Home Medications: QUEtiapine FUMARATE [Seroquel 300mg (*)] 300 mg PO DAILY 01/20/18 [Last Taken Unknown] amLODIPine BESYLATE [Norvasc 10 mg (*)] 10 mg PO DAILY 01/20/18 [Last Taken Unknown] traZODone [traZODone 150MG (*)] 300 mg PO HS 01/20/18 [Last Taken Unknown] ALPRAZolam [Xanax 1 MG (*)] 1 mg PO BID PRN 08/08/18 [Last Taken Unknown] Temazepam [Restoril] 30 mg PO HS 08/08/18 [Last Taken Unknown] Venlafaxine Xr [Effexor Xr 37.5MG (*)] 37.5 mg PO DAILY 08/31/18 [Last Taken Unknown] I have personally reviewed and updated: medical history, social history - Social History Smoking Status: Never smoked Review of Systems Review of Systems: Physical Exam Physical Exam: Temp Pulse Resp BP Pulse Ox 37.6 C 70 17 151/77 H 91 L 08/31/18 17:15 08/31/18 17:15 08/31/18 17:15 08/31/18 17:15 08/31/18 17:15 O2 (L/minute) 2 Constitutional: no apparent distress Eyes: PERRL, EOMI Ears, Nose, Mouth, Throat: dry mucous membranes Cardiovascular: regular rate and rhythym, No edema Respiratory: no respiratory distress, no rales or rhonchi, clear to auscultation Gastrointestinal: normoactive bowel sounds, soft, non-tender abdomen Skin: warm Neurologic: No AAOx3 Psychiatric: encephalopathic, agitated, No interacting appropriately Lymph, Heme, Immunologic: No petechiae Lab Data & Imaging Review 08/31/18 12:27 08/31/18 12:27 WBC 18.19 10^3/uL (3.80-9.50) H 08/31/18 12:27 RBC 5.20 10^6/uL (4.40-6.38) 08/31/18 12:27 Hgb 16.7 g/dL (13.7-17.5) 08/31/18 12:27 POC Hgb 16.7 gm/dL (13.7-17.5) 08/31/18 12:30 Hct 48.2 % (40.0-51.0) 08/31/18 12:27 POC Hct 49 % (40-51) 08/31/18 12:30 MCV 92.7 fL (81.5-99.8) 08/31/18 12:27 MCH 32.1 pg (27.9-34.1) 08/31/18 12:27 MCHC 34.6 g/dL (32.4-36.7) 08/31/18 12:27 RDW 13.1 % (11.5-15.2) 08/31/18 12:27 Plt Count 203 10^3/uL (150-400) 08/31/18 12: MPV 9.4 fL (8.7-11.7) 08/31/18 12: Neut % (Auto) 87.7 % (39.3-74.2) H 08/31/18 12: Lymph % (Auto) 4.3 % (15.0-45.0) L 08/31/18 12: [place] % (Auto) 7.5 % (4.5-13.0) 08/31/18 12: Eos % (Auto) 0.0 % (0.6-7.6) L 08/31/18 12: Baso % (Auto) 0.1 % (0.3-1.7) L 08/31/18: Nucleat RBC Rel Count 0.0 % (0.0-0.2) 08/31/18 12: Absolute Neuts (auto) 15.94 10^3/uL (1.70-6.50) H 08/31/18 12: Absolute Lymphs (auto) 0.79 10^3/uL (1.00-3.00) L 08/31/18 12: Absolute Monos (auto) 1.36 10^3/uL (0.30-0.80) H 08/31/18 12: Absolute Eos (auto) 0.00 10^3/uL (0.03-0.40) L 08/31/18 12: Absolute Basos (auto) 0.02 10^3/uL (0.02-0.10) 08/31/18: Absolute Nucleated RBC 0.00 10^3/uL (0-0.01) 08/31/18 12: Immature Gran % 0.4 % (0.0-1.1) 08/31/18: Immature Gran # 0.08 10^3/uL (0.00-0.10) 08/31/18 12: PT 13.6 SEC (12.0-15.0) 08/31/18 12: INR 1.02 (0.83-1.16) 08/31/18 12: APTT 24.1 SEC (23.0-38.0) 08/31/18 12: POC Sodium 146 mEq/L (135-145) H 08/31/18 12:30 Sodium 143 mEq/L (135-145) 08/31/18 12:27 POC Potassium 4.2 mEq/L (3.3-5.0) 08/31/18 12:30 Potassium 4.6 mEq/L (3.5-5.2) 08/31/18 12:27 POC Chloride 108 mEq/L (97-110) 08/31/18 12:30 Chloride 110 mEq/L (97-110) 08/31/18 12:27 Carbon Dioxide 25 mEq/l (22-31) 08/31/18 12: POC Total CO2 26 mEq/L (22-31) 08/31/18 12:30 Anion Gap 8 mEq/L (6-14) 08/31/18 12: POC BUN 24 mg/dL (7-23) H 08/31/18 12:30 BUN 22 mg/dL (7-23) 08/31/18 12:27 Creatinine 1.2 mg/dL (0.7-1.3) 08/31/18 12: POC Creatinine 1.3 mg/dL (0.7-1.3) 08/31/18 12:30 Estimated GFR 60 08/31/18 12:27 Glucose 96 mg/dL (70-100) 08/31/18 12: POC Glucose 102 mg/dL (70-100) H 08/31/18 12:30 Calcium 9.5 mg/dL (8.5-10.4) 08/31/18 12:27 Total Bilirubin 0.8 mg/dL (0.1-1.4) 08/31/18 12: Conjugated Bilirubin 0.4 mg/dL (0.0-0.5) 08/31/18 12: Unconjugated Bilirubin 0.4 mg/dL (0.0-1.1) 08/31/18 12:27 AST 42 IU/L (17-59) 08/31/18 12: ALT 25 IU/L (21-72) 08/31/18 12:27 Alkaline Phosphatase 113 IU/L (38-126) 08/31/18 12:27 Total Protein 7.1 g/dL (6.3-8.2) 08/31/18 12: Albumin 4.6 g/dL (3.5-5.0) 08/31/18 12:27 Lipase 78 IU/L (23-300) 08/31/18 12:27 Urine Color YELLOW 08/31/18 12:45 Urine Appearance CLEAR 08/31/18 12:45 Urine pH 5.0 (5.0-7.5) 08/31/18 12:45 Ur Specific [place] 1.021 (1.002-1.030) 08/31/18 12:45 Urine Protein 1+ (NEGATIVE) H 08/31/18 12:45 Urine Ketones 1+ (NEGATIVE) H 08/31/18 12:45 Urine Blood 2+ (NEGATIVE) H 08/31/18 12:45 Urine Nitrate NEGATIVE (NEGATIVE) 08/31/18 12:45 Urine Bilirubin NEGATIVE (NEGATIVE) 08/31/18 12:45 Urine Urobilinogen NEGATIVE EU (0.2-1.0) 08/31/18 12:45 Ur Leukocyte Esterase NEGATIVE (NEGATIVE) 08/31/18 12:45 Urine RBC 1-3 /hpf (0-3) 08/31/18 12:45 Urine WBC 1-3 /hpf (0-3) 08/31/18 12:45 Ur Epithelial Cells TRACE /lpf (NONE-1+) 08/31/18 12:45 Urine Mucus TRACE /lpf (NONE-1+) 08/31/18 12:45 Urine Glucose NEGATIVE (NEGATIVE) 08/31/18 12:45 Urine Opiates Screen NON-NEGATIVE (NEGATIVE) H 08/31/18 12:45 Urine Barbiturates NEGATIVE (NEGATIVE) 08/31/18 12:45 Ur Phencyclidine Scrn NEGATIVE (NEGATIVE) 08/31/18 12:45 Ur Amphetamine Screen NEGATIVE (NEGATIVE) 08/31/18 12:45 U Benzodiazepines Scrn NON-NEGATIVE (NEGATIVE) H 08/31/18 12:45 Urine Cocaine Screen NEGATIVE (NEGATIVE) 08/31/18 12:45 U Marijuana (THC) Screen NEGATIVE (NEGATIVE) 08/31/18 12:45 Assessment & Plan Assessment: #Acute Encephalopathy, metabolic vs toxic #Query: acute ingestion #Agitation #Leukocytosis, no e/o infection. Afebrile #Dehydration, slight #hx of CKD #Hx of Afib The patient has acute encephalopathy with agitation. Will give him Haldol now. Ativan PRN The etiology is unclear. He does not have any e/o acidosis and labs are overall within normal except for Leukocytosis. Tox screen is really unrevealing Will provide IVF Check an EKG to determine QT status NPO for now as not able to take in PO safely check Mg further reccs pending clinical course unclear if he has taken an unknown substance Hold all centrally acting home meds SCD's May need a higher level of care is agitation worsens May need restraints to protect self
--- NOTE | 2018-08-31 19:08 | ASMTCMCOM ---
CM Note CM Note Notes: Pt presented to the ED via EMS as a Stroke Alert due to AMS. Pt coming from his apartment where he lives alone. Pt admitted for AMS, acute encephelopathy metabolic vs toxic. Pt was admitted for encephelopathy 12/23-12/26/17 but ended up leaving AMA. Spoke w/pt and he is able to answer yes and no questions but is overall very altered, restless and appears distressed. Asked pt if he would like me to contact his sister Jumana Willson ([phone]) who is also his MDPOA (copy in pt's e-chart) and he said yes. Spoke w/Jumana jimenez provided updates re:pt's status and admission. Jumana lives in [facility] and states she last saw the pt 2-3 weeks ago when she and her came to [place] and took the pt out for breakfast. Jumana says pt seemed to be stable and doing well and that he liked his new psychiatrist. Jumana states she will try to come visit the pt tomorrow afternoon, depending on weather conditions. CM provided Jumana w/[facility] main # to call for further updates/questions. Jumana states pt has a good friend, Grzegorz, who lives in the same apartment building and checks on the pt regularly but she does not have his phone #. CM spoke w/[facility] and requested pt's most recent med list be faced to the ED; received med list and tubed up to 3E to be placed into pt's chart. Pt's prescribing psychiatrist is Dr Rosalinda Soliman. Pt is normally seen at [facility] at [facility]. CM called Lien at [facility] and they said pt has not been seen at any of [facility]'s locations since 2011. [facility] has reached out to the patient numerous times throughout the years and made appts for him to follow-up but pt always no-showed. Pt's PCP in [address] Irma Quiors but he was discharged from her practice due to his numerous cancellations or no-shows. Pt has a history of abusing benzodiazepines and narcotics. Pt has had home oxygen through [facility]. Pt has had [facility] in the past. Please see various previous CM Reports, Behavioral Health RN Notes 12/16/16 & 12/21/16, etc. Date Signed: 08/31/2018 07:07 PM Electronically Signed By:Leena Gibbons RN
[2018-08-31] MEDS: LORazepam 2 MG/ML INJ IVP PRN (21:43)
--- NOTE | 2018-08-31 23:02 | PDMN ---
Medical Necessity Medical necessity: Pt meets IP criteria as of 08/31/2018 per and ROYA CORTEZN ( Neurology); est los > 2 mn for ongoing tx and management of acute encephalopathy with unclear etiology; requiring further workup and monitoring and management of other conditions including CKD, asthma, CAD, afib, chronic pain, anxiety, depression, and prior narcotic overdose.
[2018-09-01] MEDS: LORazepam 2 MG/ML INJ IVP PRN ×2 (01:09→03:37)
[2018-09-01] MEDS: ACETAMINOPHEN 325 MG TAB PO PRN ×2 (03:36→20:18)
[2018-09-01 05:26] LABS: PLATELET COUNT 183 10^3/uL (150-400)
--- NOTE | 2018-09-01 09:32 | HOSPPROG ---
Hospitalist Progress Note Assessment/Plan: CRTICAL CARE TIME greater than 55 min of bedside critical care time today on the 1st 2 visits Called to bedside for stat team for new onset chest pain this am On my 1st visit with the patient this morning he complained of some headache but no other discomforts His main concern however was not being able to speak properly he was clearly having word-finding difficulties. He denied any knowledge of any other neurologic symptoms acutely He does not recall any trauma Subsequently about half an hour later I was called back to the patient's bedside for a stat team episode. New complaint is a sharp chest pain and difficulty breathing He can't tell me exactly when this started but I am able to get him to say yes when I ask if it is a new symptom today. He denies nausea, fever symptoms or cough At the time of my 1st exam this morning he had very mild hypertension, and a slight fever occurred overnight but was resolved by this morning. This morning his blood pressures are notably higher than yesterday. Note that some of the blood pressure readings appear to likely be inaccurate, \most notably there is a blood pressure from 11:30 p.m. yesterday of 128/118. Oxygen saturation was 91 % on room air when I was in the room during my 1st exam. On the 2nd exam with the stat team call he is using 10 L by OxyMask for hypoxemia. His respirations are little bit faster but not very labored. At the time of my 1st of exam the patient was mildly anxious but seemed to be interacting with me quite normally otherwise. He was relaxed and calm in the bed and having conversation. However it was clear that he had significant expressive aphasia, did not as best I could tell seem otherwise confused but the exam was limited by his a facial. There is no focal motor exam abnormalities I could see. I did notice on the 1st exam that his left arm and hand were slightly swollen. Skin is warm and dry color OK HEENT otherwise unremarkable Lungs clear with normal breath sounds Heart regular without murmur Left upper extremity a bed edematous from the elbow down to the distal hand without discoloration Pulses are present but slightly weak Lower extremities without edema Abdomen unremarkable No signs of trauma anywhere acutely He has severe chronic skeletal deformities at the left ankle and toes that are showing no acute changes. However there are some small noninfected abrasions of the skin over some of the more prominent bony areas on the medial ankle and 2nd toe dorsally. Stat EKG was done at my order during the stat team and this shows sinus rhythm with no acute ischemic abnormalities Stat troponin was done on my order during the stat team and this is normal I reviewed the images from yesterday's CT scan of head which shows a lot of artifact from motion but no specific abnormalities otherwise I reviewed images from yesterday's CT angio of head and neck which shows no evidence of hemorrhage or other acute abnormality I have ordered a CT angiogram of the chest which is pending DIAGNOSES: * Acute expressive aphasia is likely a stroke but has broader differential diagnosis (encephalopathy from infection or medications) -I believe that this was the cause of his presenting abnormalities but the exam was limited by his inability to converse, and he was probably agitated from anxiety * Acute chest pain with hypoxemia and dyspnea is new onset this morning, high suspicion for acute PE * Acute hypoxemic respiratory failure * Acute fever, could be related to PE, however infectious illness needs to be considered as well * Hypertension, uncontrolled blood pressures here so far * Mild pre renal azotemia reflects some degree of dehydration PLANS: * Awaiting stat CT chest angio to rule out PE or find other causes of hypoxemia and fever and chest pain * When he is stable enough and able to lie still enough to get adequate images will get a MRI of the brain to look for possible stroke as cause of expressive aphasia * His started on some Lovenox at this time, dosing to be reviewed after CT of the chest is done * Will begin antihypertensive medication * Continue IV hydration * Multivitamins * At some point will need to refer really review his home medicine reconciliation to be sure that is accurate Objective: Vital Signs Temp Pulse Resp BP Pulse Ox 36.9 C 76 18 174/88 H 91 L 09/01/18 08:39 09/01/18 08:39 09/01/18 08:39 09/01/18 08:39 09/01/18 08:39 Laboratory Results 09/01/18 05:15 09/01/18 05:15 08/31/18 09/01/18 09/02/18 06:59 06:59 06:59 Output Total 400 Balance -400 PT 13.6 SEC (12.0-15.0) 08/31/18 12:27 INR 1.02 (0.83-1.16) 08/31/18 12:27 ICD10 Worksheet Patient Problems: Problems Problem Status Onset Altered mental status Acute Acute on chronic renal insufficiency Acute Anxiety Acute Atrial fibrillation Acute Benzodiazepine withdrawal Acute Bronchitis Acute Bronchospasm Acute COPD exacerbation Acute Chest wall contusion Acute Dehydration Acute Depression Acute Dyspnea Acute Generalized weakness Acute Hyperkalemia Acute Hypoxemia Acute Hypoxia Acute Intentional overdose of drug in tablet form Acute Pneumonia Acute Renal failure Acute Rhabdomyolysis Acute Right rib fracture Acute Suicide attempt by drug ingestion Acute Vertigo Acute chronic disease mgmt/transitional care Acute
[2018-09-01] MEDS ORDERED: ENOXAPARIN 100 MG/ML SYR SC SCH (09:45)
[2018-09-01] MEDS: QUEtiapine FUMARATE 300 MG TAB PO SCH (09:53)
[2018-09-01] MEDS ORDERED: IOHEXOL 350mgI/ML (OMNIPAQUE) 150 ML BTL IV ONE (10:02)
[2018-09-01] MEDS ORDERED: CEPACOL LOZENGE PO PRN (16:05)
[2018-09-01] MEDS: ALBUTEROL 3 ML DEYVIAL IH PRN (16:25)
[2018-09-01] MEDS: VENLAFAXINE XR 37.5 MG CAP PO SCH (16:44)
[2018-09-01] MEDS: ALPRAZolam 1 MG TAB PO PRN ×2 (16:44→23:36)
[2018-09-01] MEDS: oxyCODONE IR 5 MG TAB PO PRN ×2 (20:26→23:36)
[2018-09-02] MEDS: ACETAMINOPHEN 325 MG TAB PO PRN ×3 (02:40→19:48)
[2018-09-02] MEDS: oxyCODONE IR 5 MG TAB PO PRN ×4 (05:17→19:48)
[2018-09-02] MEDS: ALBUTEROL 3 ML DEYVIAL IH PRN (05:59)
[2018-09-02] MEDS: VENLAFAXINE XR 37.5 MG CAP PO SCH (08:35)
[2018-09-02] MEDS: ALPRAZolam 1 MG TAB PO PRN (08:35)
[2018-09-02] MEDS ORDERED: ENOXAPARIN 40 MG/0.4 ML SYR SC SCH (09:00)
[2018-09-02] MEDS ORDERED: DIGOXIN 250 MCG TAB PO ONE (09:00)
[2018-09-02] MEDS ORDERED: ALTEPLASE 2 MG VIAL IVP PRN (09:06)
[2018-09-02] MEDS: METOPROLOL TARTRATE 50 MG TAB PO SCH ×2 (09:08→19:48)
--- NOTE | 2018-09-02 09:19 | HOSPPROG ---
Hospitalist Progress Note Assessment/Plan: DIAGNOSES: * Rapid atrial fibrillation heart rate 170s, new onset today; this would be the cause of his stroke * Acute expressive aphasia is likely a stroke (unable to confirm by MRI due to patient's anxiety but AFib make stroke extremely likely) * Acute chest pain with hypoxemia resolved, no PE; today patient now describes that this pain is aggravated by movements of his shoulders and is likely musculoskeletal * Acute hypoxemic respiratory failure, resolved, unclear etiology but no PE * Acute fever, uncertain etiology but has resolved spontaneously * Hypertension, uncontrolled blood pressures here so far * Mild prerenal azotemia reflects some degree of dehydration * Morbid obesity PLANS: * Begin rate control medications with metoprolol and digoxin at this time * Stat repeat EKG * Echocardiogram * Portable chest x-ray * Change back to full-dose Eliquis and will discharge him on that medicine * Check lipid panel * Will need to place a PICC catheter with no available IV access and needing access for management of rapid atrial fibrillation * Transfer to PCU for management of rapid atrial fibrillation I reviewed all the above in detail with the patient, reviewed stroke risk, stroke risk prevention measures, and follow-up issues in the [place] [facility]. SUBJECTIVE: Patient has noticed some palpitations morning otherwise feels well Speech is back to normal Today he is able to tell me that the chest pain he is experiencing yesterday has been going on for quite some time and is at a sharp pain aggravated by movement of his shoulders OBJECTIVE Vitals reviewed: Mildly hypertensive this morning, heart rates variable 160- 190 at this time but were in normal range through the night, no fever since early yesterday morning, respirations nor Sports Coordinator, my review: Rapid atrial fibrillation Exam: alert oriented skin warm dry color ok resps not labored lungs clear BSs heart regular abd soft nondistended nontender, bowel sounds present limbs warm, no edema iv site ok I have ordered EKG, chest x-ray, and echocardiogram all are pending at this time I have ordered lipid panel pending at this time Objective: Vital Signs Temp Pulse Resp BP Pulse Ox 36.7 C 148 H 17 160/73 H 91 L 09/02/18 07:44 09/02/18 09:08 09/02/18 07:44 09/02/18 09:08 09/02/18 07:44 Laboratory Results 09/01/18 05:15 09/01/18 05:15 09/01/18 09/02/18 09/03/18 06:59 06:59 06:59 Intake Total 1125 Output Total 400 1375 Balance -400 -250 PT 13.6 SEC (12.0-15.0) 08/31/18 12:27 INR 1.02 (0.83-1.16) 08/31/18 12:27 - Time Spent With Patient Time Spent with Patient: greater than 35 minutes Time Spent with Patient: Greater than 35 minutes spent on this patients care, greater than 50% of time spent counseling, educating, and coordinating care regarding the above mentioned plan. ICD10 Worksheet Patient Problems: Problems Problem Status Onset Altered mental status Acute Acute on chronic renal insufficiency Acute Anxiety Acute Atrial fibrillation Acute Benzodiazepine withdrawal Acute Bronchitis Acute Bronchospasm Acute COPD exacerbation Acute Chest wall contusion Acute Dehydration Acute Depression Acute Dyspnea Acute Generalized weakness Acute Hyperkalemia Acute Hypoxemia Acute Hypoxia Acute Intentional overdose of drug in tablet form Acute Pneumonia Acute Renal failure Acute Rhabdomyolysis Acute Right rib fracture Acute Suicide attempt by drug ingestion Acute Vertigo Acute chronic disease mgmt/transitional care Acute
[2018-09-02] MEDS ORDERED: ENOXAPARIN 40 MG/0.4 ML SYR SC ONE (09:21)
[2018-09-02] MEDS: QUEtiapine FUMARATE 300 MG TAB PO SCH (12:12)
--- NOTE | 2018-09-02 12:34 | ECHO ---
[email or web address] [address] [address] Main: [phone] Fax: Transthoracic Echocardiogram Name: TERESE ESPINO MR#: [id number] Study Date: 09/02/2018 Study Time: 11:34 AM Date of : 1950 Age: 68 year(s) Height: 172.7 cm (68 in.) Weight: 81.65 kg (180 lb.) BSA: 1.95 m2 Gender: Male Examination: Echo Indication: a fib Image Quality: Technically Difficult Contrast: Requested by: Leobardo Robertson BP: 133 mmHg/84 mmHg Heart Rate: Rhythm: Indication: a fib Procedure Staff Bottom Stop Attacher: Qi Chris [facility] Reading Physician: Lex Garvey MD Requesting Provider: Conclusions: Normal size left ventricle. The ejection fraction is visually estimated to be 55 %. No regional wall motion abnormality. Normal RV function. The left atrium is normal in size. Trivial mitral valve regurgitation. No mitral stenosis is present. The aortic valve is tri-leaflet. Mild to moderate tricuspid valve regurgitation. Right ventricular systolic pressure measures 20mmHg. Measurements: Chambers Valvular Assessment AV/MV Valvular Assessment TV/PV Normal Normal Normal Name Value Range Name Value Range Name Value Range Ao Velia (2D): 2.8 cm (1.4 cm-2.6 AV Vmax: 1.15 m/s (1 m/s-1.7 TR Vmax: 1.95 mm/s ( - ) cm) m/s) TR PGmax: 15 mmHg ( - ) IVSd (2D): 1.2 cm (0.6 cm-1.1 AV maxP mmHg ( - ) syst. PAP: 20 mmHg ( - ) cm) AV meanP mmHg ( - ) PV Vmax: 0.71 m/s (0.6 m/s-0.9 LVDd (2D): 3.8 cm (4.2 cm-5.9 VASILE (VTI): 2.5 cm ( - ) m/s) cm) MV E Vmax: 0.76 m/s ( - ) PV PGmax: 2 mmHg ( - ) LVPWd (2D): 1.1 cm (0.6 cm-1 MV PHT: 0.062 s ( - ) cm) MVA (PHT): 3.5 s ( - ) LVOTd 1.9 cm 1.9 cm mm Visual EF: 55 % Continued Measurements: Chambers Valvular Assessment AV/MV Valvular Assessment TV/PV Patient: TERESE ESPINO Study Date: 09/02/2018 Page 1 of 2 11:34 AM Name Value Name Value Name Value LADs: 3.8 cm MV DecTime: 208 m/s CVP (est.): 5 mmHg LADs Lon.5 cm LA Area: 17.1 cm2 LA Volume: 55 ml LA Volume Index: 28.2 ml/m2 Findings: Left Ventricle: Normal size left ventricle. Borderline concentric LV hypertrophy. Normal global systolic LV function. The ejection fraction is visually estimated to be 55 %. No regional wall motion abnormality. Diastolic function is indeterminate due to atrial fibrillation. Right Ventricle: Normal size right ventricle. Normal RV function. Left Atrium: The left atrium is normal in size. Right Atrium: The right atrium is normal in size. Mitral Valve: The mitral valve is normal in appearance and function. Trivial mitral valve regurgitation. No mitral stenosis is present. Aortic Valve: The aortic valve is tri-leaflet. There is no significant aortic valve regurgitation. No aortic valve stenosis is present. Tricuspid Valve: The tricuspid valve is normal in appearance and function. Mild to moderate tricuspid valve regurgitation. The pulmonary artery pressure is normal. Right ventricular systolic pressure measures 20mmHg. Pulmonic Valve: Pulmonary valve not well visualized. Aorta: The aorta is normal. Normal size aortic root measuring 2.8 cm. IVC: The IVC is normal sized. Pericardium: Small pericardial effusion. There is pericardial fat. Exam Comments: Technically difficult - limited windows. (No Signature Object) Patient: TERESE ESPINO Study Date: 09/02/2018 Page 2 of 2 11:34 AM [id number]
[2018-09-02] MEDS: LORazepam 0.5 MG TAB PO PRN (14:08)
--- NOTE | 2018-09-02 18:17 | GCON ---
[f rep st] CONSULTATION NEUROLOGIC CONSULTATION REFERRING PHYSICIAN: Leobardo Robertson MD HISTORY: The patient is a 68-year-old gentleman whom I am asked to see in neurologic consultation re garding possible TIA or stroke. I have reviewed the medical record starting from the emergency room department visit through the history and physical, hospitalist notes, and direct conversations with kwaku diaz patient, Dr. Robertson, and the patient's family members, who are currently just outside the room. Kwaku diaz patient does have a history of mental health issues and medication side effects and has had hospit alization for encephalopathy in the past, attributable to medications. On this occasion, he presente d to the emergency department with the specific report of being last known well at 1400 the day befor e emergency room visit, which was about 22 hours earlier, and then EMS found him to have altered ment al state and aphasia with only able to say yes or no, and following commands was difficult. He had a head CT which was unremarkable and CT angiogram of head and neck that did not show any significant s tenoses or large-vessel occlusions. He was not considered a tPA candidate at that point, being too f ar past the window for intervention and no evidence of a large-vessel lesion for any endovascular pro cedure. He was admitted with concern for encephalopathy and possible drug intoxication, given the po sitive drug screen for benzodiazepine and opiates. He remained fairly stable, but was noted yesterda y to have some expressive language difficulties by Dr. Robertson as well, and he also had development of atrial fibrillation with rapid ventricular response. He has been transferred to the ICU for closer monitoring and management, and there is no longer any expressive language problems or confusion. The patient says he essentially feels back to his normal state without any focal numbness or weakness th at he is aware of, other than some old weakness in the right shoulder from old shoulder injury. PAST MEDICAL HISTORY: Has been negative for any known prior history of stroke. There is some mild k idney disease, asthma, history of atrial fibrillation, chronic pain, anxiety, depression, narcotic ov erdose, and encephalopathy in December of 2017. History of coronary stenting and appendectomy. History of old left ankle fracture. ALLERGIES: Sulfa. MEDICINES AT HOME: Seroquel, Norvasc, trazodone, Xanax, Restoril, and Effexor. No history of smokin g. REVIEW OF SYSTEMS: Unremarkable, except for that noted above. Currently, he is getting albuterol as needed, Xanax as needed, Norvasc, Eliquis, Haldol as needed, metoprolol, oxycodone as needed for sienna n, Seroquel, trazodone, and venlafaxine. PHYSICAL EXAMINATION: VITAL SIGNS: Blood pressure is 133/84, pulse of 133, respirations 12, tempera ture 36.7. GENERAL: He is well developed, in no acute distress. EYES: Clear. NECK: Supple, with no bruits or masses. CARDIAC: Regular rhythm. Atrial fibrillation on monitor. NEUROLOGIC: He is awake, alert, attentive, and fully oriented and able to communicate effectively with normal speech a nd language skills. Pupils 3 mm and reactive. Extraocular movements intact. Normal facial sensatio n and strength. Palate elevates symmetrically. Tongue protrudes midline. Motor exam: Normal muscl e bulk and tone and a little bit of weakness in the proximal right upper extremity, but that is where he has old shoulder injury and rotator cuff problems. Sensation seems to be symmetric and preserved for temperature and light touch. No ataxic movements in the upper extremities. Reflexes 1+. IMPRESSION: Total unit time of 55 minutes. This patient has an NIH Stroke Scale of 0 and presented with some aphasic speech and confusion in the setting of psychoactive medications potentially contrib uting in a differential diagnosis of toxic metabolic encephalopathy or cerebral ischemia. Yesterday, it was more evident that he had some aphasia, and atrial fibrillation with rapid ventricular respons e has been documented, although there is already reference in the chart to prior history of atrial fi brillation. He is now on anticoagulation. No large-vessel stenoses are available. He was not a can didate for tissue plasminogen activator when he came in based on the thorough evaluation that was per formed. As I told him, whether he had a very small stroke or a transient ischemic attack which has n ow resolved, I would not change our management strategy, which is lifelong anticoagulation. His MRI did not have a diffusion sequence available because he got claustrophobic and had to stop the study, but the initial images did not show any obvious stroke. It is not necessary to repeat that as it wou ld not change our management approach. In addition to anticoagulation, it would be appropriate for h im to be on statin therapy for secondary stroke prophylaxis. I will add a lipid profile. I will be going off service, and Dr. Henson would be available tomorrow if any questions arise. Otherwise, he can follow up as needed. /[id number]/MODL
[2018-09-02] MEDS: APIXABAN 5 MG TAB PO SCH (19:48)
[2018-09-02] MEDS: ALPRAZolam 0.5 MG TAB PO PRN (19:52)
[2018-09-03] MEDS: LORazepam 0.5 MG TAB PO PRN (00:25)
[2018-09-03] MEDS: ALBUTEROL 3 ML DEYVIAL IH PRN (02:26)
[2018-09-03] MEDS: ACETAMINOPHEN 325 MG TAB PO PRN (04:08)
[2018-09-03] MEDS: oxyCODONE IR 5 MG TAB PO PRN (04:08)
[2018-09-03] MEDS: QUEtiapine FUMARATE 300 MG TAB PO SCH (07:50)
[2018-09-03] MEDS: APIXABAN 5 MG TAB PO SCH (07:50)
[2018-09-03] MEDS: METOPROLOL TARTRATE 50 MG TAB PO SCH (07:50)
[2018-09-03] MEDS: ALPRAZolam 0.5 MG TAB PO PRN (07:57)
[2018-09-03] MEDS: VENLAFAXINE XR 37.5 MG CAP PO SCH (08:44)
[2018-09-03 12:30] VITALS: BP 106/75
--- NOTE | 2018-09-03 13:42 | HOSPPROG ---
Hospitalist Progress Note Assessment/Plan: 68 yo M w aphasia, AF, stroke vs tia home today see dc summary >30 minutes on dc Objective: Vital Signs Temp Pulse Resp BP Pulse Ox 36.4 C 58 L 16 106/75 93 09/03/18 12:00 09/03/18 12:00 09/03/18 12:00 09/03/18 12:00 09/03/18 12:00 Laboratory Results 09/01/18 05:15 09/03/18 05:15 09/02/18 09/03/18 09/04/18 05:59 05:59 05:59 Intake Total 1125 800 Output Total 1375 770 Balance -250 30 PT 13.6 SEC (12.0-15.0) 08/31/18 12:27 INR 1.02 (0.83-1.16) 08/31/18 12:27 - Physical Exam Constitutional: no apparent distress, appears nourished Eyes: PERRL, anicteric sclera Ears, Nose, Mouth, Throat: moist mucous membranes, hearing normal Cardiovascular: regular rate and rhythym, no murmur, rub, or gallop Respiratory: no respiratory distress, no rales or rhonchi Gastrointestinal: normoactive bowel sounds, soft, non-tender abdomen Genitourinary: no bladder fullness, No rodriges in urethra Skin: warm Musculoskeletal: full muscle strength ICD10 Worksheet Patient Problems: Problems Problem Status Onset Altered mental status Acute Acute on chronic renal insufficiency Acute Anxiety Acute Atrial fibrillation Acute Benzodiazepine withdrawal Acute Bronchitis Acute Bronchospasm Acute COPD exacerbation Acute Chest wall contusion Acute Dehydration Acute Depression Acute Dyspnea Acute Generalized weakness Acute Hyperkalemia Acute Hypoxemia Acute Hypoxia Acute Intentional overdose of drug in tablet form Acute Pneumonia Acute Renal failure Acute Rhabdomyolysis Acute Right rib fracture Acute Suicide attempt by drug ingestion Acute Vertigo Acute chronic disease mgmt/transitional care Acute
--- NOTE | 2018-09-03 14:04 | GDS ---
[f rep st] DISCHARGE SUMMARY DISCHARGE DIAGNOSES: 1. Probable transient ischemic attack versus stroke. 2. Atrial fibrillation. 3. Encephalopathy, toxic metabolic. 4. Chronic kidney disease. 5. Asthma. 6. Coronary artery disease. 7. Atrial fibrillation, not previously on anticoagulation. 8. Depression. HOSPITAL COURSE: Please see admission history and physical by Dr. Kalen Clement. The patient pre sented with encephalopathy and dysphagia. CT-A head and neck were negative. He was a stroke alert a t that time. He is not a candidate for lytics because his symptoms had at least been 24 hours and th ere is no large vessel occlusion. He had an MRI, which was inconclusive, secondary to intolerance of the procedure and CT-A of the chest showed no pulmonary embolism. The patient was started on a beta trevor and Eliquis. He actually transitioned back to sinus rhythm. He was seen by Neurology who f elt no further workup was indicated. His LDL was low at 36, and therefore, statin was not prescribed . Patient is discharged home. PICC line removed. /[id number]/MODL
--- NOTE | 2018-09-03 14:17 | ASMTLACE ---
[facility] Length of stay for Answers: 3 days current admission Acuity / Level of Answers: Yes Care: Did the patient have an inpatient admission? Comorbidities - select Answers: Coronary Artery Disease all that apply Mild liver or renal disease Opioid dependence / Chronic pain Other Notes: AFib # of Emergency department Answers: 3-4 visits in the last 6 months Social determinants Answers: Mental health diagnosis (anxiety, depression, pers onality disorders, etc.) Score: 21 Date Signed: 09/03/2018 02:16 PM Electronically Signed By:Jayde Preston
--- NOTE | 2018-09-03 14:31 | ASDISCHSUM ---
Discharge Information Plan Status:Home with No Needs Medically Cleared to Leave: Discharge Date:09/03/2018 02:24 PM CM D/C Disposition:Home, Routine, Self-Care ADT D/C Disposition:Home, Routine, Self-Care Projected Discharge Date:09/03/2018 12:00 AM Transportation at D/C: Discharge Delay Reason: Follow-Up Date:09/03/2018 12:00 AM Discharge Slot: Final Diagnosis: Placement Information Patient Contact Information Contact Name:FIONA Relationship:Sister Address: Work Phone: City:[place] Alternate Phone: State/[place] Email: Financial Information Financial Class:Medicare Primary Plan Desc:MEDICARE INPATIENT Primary Plan Number:[id number] Secondary Plan Desc:MED[place] Secondary Plan Number:[id number] Assessment Information [facility] CM Progress Note CM Note CM Note Notes: Pt presented to the ED via EMS as a Stroke Alert due to AMS. Pt coming from his apartment where he lives alone. Pt admitted for AMS, acute encephelopathy metabolic vs toxic. Pt was admitted for encephelopathy 12/23-12/26/17 but ended up leaving AMA. Spoke w/pt and he is able to answer yes and no questions but is overall very altered, restless and appears distressed. Asked pt if he would like me to contact his sister Jumana Willson ([phone]) who is also his MDPOA (copy in pt's e-chart) and he said yes. Spoke w/Jumana an provided updates re:pt's status and admission. Jumana lives in [facility] and states she last saw the pt 2-3 weeks ago when she and her came to [place] and took the pt out for breakfast. Jumana says pt seemed to be stable and doing well and that he liked his new psychiatrist. Jumana states she will try to come visit the pt tomorrow afternoon, depending on weather conditions. CM provided Jumana w/[facility] main # to call for further updates/questions. Jumana states pt has a good friend, Grzegorz, who lives in the same apartment building and checks on the pt regularly but she does not have his phone #. CM spoke w/P and requested pt's most recent med list be faced to the ED; received med list and tubed up to 3E to be placed into pt's chart. Pt's prescribing psychiatrist is Dr Rosalinda Soliman. Pt is normally seen at [facility]. CM called [facility] at [facility] and they said pt has not been seen at any of [facility]'s locations since 2011. [facility] has reached out to the patient numerous times throughout the years and made appts for him to follow-up but pt always no-showed. Pt's PCP in [address] Irma Quiros but he was discharged from her practice due to his numerous cancellations or no-shows. Pt has a history of abusing benzodiazepines and narcotics. Pt has had home oxygen through [facility]. Pt has had [facility] in the past. Please see various previous CM Reports, Behavioral Health RN Notes 12/16/16 & 12/21/16, etc. Date Signed: 08/31/2018 07:07 PM Electronically Signed By:Leena Gibbons RN LACE LACE Length of stay for Answers: 3 days current admission Acuity / Level of Answers: Yes Care: Did the patient have an inpatient admission? Comorbidities - select Answers: Coronary Artery Disease all that apply Mild liver or renal disease Opioid dependence / Chronic pain Other Notes: AFib # of Emergency department Answers: 3-4 visits in the last 6 months Social determinants Answers: Mental health diagnosis (anxiety, depression, pers onality disorders, etc.) Score: 21 Date Signed: 09/03/2018 02:16 PM Electronically Signed By:Jayde Preston Case Management Discharge Plan Note Case Management Discharge Discharge Order Complete? Answers: Yes Patient to Obtain Answers: Other Notes: pt paid for taxi Medications Transportation Arranged Answers: Taxi - Self Pay Discharge Comments Notes: Pt left before CM able to see him. CM spoke with RN who reports that pt refused to wait for discharge instructions/ppwk. RN reports pt is able to get into his apartment. No follow-up care scheduled. Date Signed: 09/03/2018 02:29 PM Electronically Signed By:SHAY Calderon Intervention Information Intervention Type:Locating Emergency Contact Date of Service:08/31/2018 07:07 PM Patient Type:Inpatient Staff Member:NORA Gibbons [place] Hours:0.25 Discipline:[employer] Cashier Severity: Comment:called pt's sister and MDPOA Intervention Type:Health Clinic Date of Service:08/31/2018 07:07 PM Patient Type:Inpatient Staff Member:NORA Gibbons [place] Hours:0.25 Discipline:Automotive Service Cashier Severity: Comment:Called [facility] and Lien
--- NOTE | 2018-09-03 22:01 | CPEKG ---
Test Reason : OPEN Blood Pressure : / mmHG Vent. Rate : 080 BPM Atrial Rate : 080 BPM P-R Int : 153 ms QRS Dur : 087 ms QT Int : 375 ms P-R-T Axes : 080 042 085 degrees QTc Int : 433 ms Sinus rhythm Nonspecific T abnormalities, lateral leads Confirmed by Jonathan He ([id number]) on 09/03/2018 10:00:58 PM Referred By: Ricky Clement Confirmed By:Jonathan He
== END 2018-09-03 14:24 | disposition home or self-care (01) | DRG 91 ==
LOC: EDUNIT# → F3E 17:08 → F3N 09-01 18:20 → F2N 09-02 10:03 → F2W 09-03 09:32
PROVIDERS: ADMIT Family Medicine; ATTEND Family Medicine
PROC: 02H633Z Insertion of Infusion Device into Right Atrium, Percutaneous Approach (ICD-10-PCS; principal; 2018-09-02)
DX: G92 Toxic encephalopathy (principal); I63.9 Cerebral infarction, unspecified; G45.9 Transient cerebral ischemic attack, unspecified; N18.9 Chronic kidney disease, unspecified; J45.909 Unspecified asthma, uncomplicated; I25.10 Atherosclerotic heart disease of native coronary artery without angina pectoris; I48.91 Unspecified atrial fibrillation; F32.9 Major depressive disorder, single episode, unspecified; R13.10 Dysphagia, unspecified; E86.0 Dehydration; E66.01 Morbid (severe) obesity due to excess calories
CPT/HCPCS: 80305; 82435-PO; 82565-PO; 82947-PO; 84132-PO; 84295-PO; 84520-PO; 85014-ER; 92523-GN; 92610-GN; 96374; 97161-GP; C1751; J1630; J1650; J2060; J3480; J7613; Q9967

== ENCOUNTER 2018-11-22 12:24 | Emergency (ER) | payer OTHER, MEDICAID ==
[2018-11-22 12:29] VITALS: BP 155/73
--- NOTE | 2018-11-22 13:34 | EDPHY ---
ED Progress Note Narrative: This patient left the emergency department prior to being seen.
[2018-11-22 13:37] LABS: PLATELET COUNT 148 10^3/uL (150-400)
== END 2018-11-22 13:35 | disposition left against medical advice (07) ==
LOC: EDUNIT#
DX: Z53.21 Procedure and treatment not carried out due to patient leaving prior to being seen by health care provider (principal)

== ENCOUNTER 2018-12-13 09:13 | Emergency (ER) | payer OTHER, MEDICAID | END 2018-12-13 12:17 | disposition home or self-care (01) ==

== ENCOUNTER 2019-01-05 04:06 | Emergency (ER) | payer OTHER, MEDICAID | END 2019-01-05 08:40 | disposition home or self-care (01) ==